=== PATIENT | male | born 1935 | race Caucasian/White ===

== ENCOUNTER 2016-09-28 09:28 | Emergency (ER) | payer OTHER, BC ==
[2016-09-28] MEDS ORDERED: DIPHTH,PERTUSS(ACELL),TET 0.5 ML DISP.SYRIN IM ONE (09:35)
[2016-09-28 09:55] VITALS: BP 183/90; PULSE 67; TEMP 97.8; BMI 32.5
[2016-09-28] MEDS ORDERED: AMOX TR/POT CLAV 875MG/125MG TABLETS (FP) PO ONE (10:00)
[2016-09-28] MEDS ORDERED: AMOX TR/POT CLAV 875MG/125MG TABLETS (FP) ONE (10:08)
--- NOTE | 2016-09-28 10:31 | PDOC ---
History of Present Illness - General Chief Complaint: Injury Stated Complaint: INJURY FINGER Time Seen by Provider: 09/28/16 09:33 History Source: Patient Exam Limitations: No Limitations - History of Present Illness Initial Comments: 09/28/16 10:23 80-year-old male with past medical history of hypertension, hyperlipidemia, prosthetic aortic valve presents with right fourth digit injury. He reports this occurred approximately one week ago. States that it object had actually crushed his fourth finger. He has sustained an injury but he put a bandage on it. Did not see a doctor or what the hospital at that time. Noticed today that the symptoms were getting worse and called his doctor who advised patient go to the ER. Patient denies any fevers or chills. Denies any numbness. Past History - Past Medical History Allergies/Adverse Reactions: Allergies Allergy/AdvReac Type Severity Reaction Status Date / Time No Known Allergies Allergy Verified 12/19/11 15:19 Home Medications: Ambulatory Orders Amlodipine Besylate [Norvasc -] 5 mg PO DAILY #0 tablet 12/26/11 Rosuvastatin Calcium [Crestor] 5 mg PO DAILY #0 tablet 12/26/11 Cholecalciferol (Vitamin D3) [Vitamin D3] 1 tab PO DAILY 10/01/13 Metoprolol Succinate [Toprol XL -] 100 mg PO DAILY 10/01/13 Olmesartan Medoxomil [Benicar -] 20 mg PO DAILY 10/01/13 Amox-Tr/K Cl [Augmentin - 875Mg Tablet] 1 tab PO BID #20 tablet 09/28/16 Apixaban [Eliquis] 5 mg PO DAILY 09/28/16 Anemia: No Asthma: No Cancer: Yes (PROSTATE CA) Cardiac Disorders: Yes (Aortic Valve Prothestic,Bovine) CVA: No COPD: No CHF: No Dementia: No Diabetes: No GI Disorders: No Disorders: No HTN: Yes Hypercholesterolemia: Yes Liver Disease: No Seizures: No Thyroid Disease: No - Surgical History Abdominal Surgery: Yes (umbilical hernia) Cardiac Surgery: Yes (AORTIC VALVE REPLACEMENT) Lung Surgery: No Neurologic Surgery: No Orthopedic Surgery: No - Psycho/Social/Smoking Cessation Hx Anxiety: No Suicidal Ideation: No Smoking Status: No Smoking History: Unknown if ever smoked Have you smoked in the past 12 months: No Number of Cigarettes Smoked Daily: 0 Information on smoking cessation initiated: No Hx Alcohol Use: No Drug/Substance Use Hx: No Substance Use Type: None Hx Substance Use Treatment: No Review of Systems - Review of Systems Able to Perform ROS?: Yes Comments:: 09/28/16 10:24 GENERAL/CONSTITUTIONAL: No fever, weakness. HEAD, EYES, EARS, NOSE AND THROAT: No change in vision. No ear pain or discharge. No sore throat. CARDIOVASCULAR: No chest pain or shortness of breath. RESPIRATORY: No cough, wheezing, or hemoptysis. GASTROINTESTINAL: No abdominal pain, nausea, vomiting, diarrhea, or decreased PO intolerance. GENITOURINARY: No dysuria, frequency, or change in urination. MUSCULOSKELETAL: No joint or muscle swelling or pain. No neck or back pain. SKIN: right fourth digit injury NEUROLOGIC: No headache, vertigo, loss of consciousness, or change in strength/ sensation. ENDOCRINE: No increased thirst. No abnormal weight change. HEMATOLOGIC/LYMPHATIC: No anemia, easy bleeding, or history of blood clots. ALLERGIC/IMMUNOLOGIC: No hives or skin allergy. *Physical Exam - Vital Signs Last Vital Signs Temp Pulse Resp BP Pulse Ox 97.8 F 67 16 183/90 98 09/28/16 09:29 09/28/16 09:29 09/28/16 09:29 09/28/16 09:29 09/28/16 09:29 - Physical Exam Comments: 09/28/16 10:24 GENERAL: Awake, alert, and fully oriented, in no acute distress. HEAD: No signs of trauma EYES: PERRLA, EOMI, sclera anicteric, conjunctiva clear ENT: Auricles normal inspection, hearing grossly normal, nares patent, oropharynx clear without exudates. NECK: Normal ROM, supple, no lymphadenopathy, JVD, or masses LUNGS: Breath sounds equal, clear to auscultation bilaterally. No wheezes, and no crackles HEART: Regular rate and rhythm, normal S1 and S2, no murmurs, rubs or gallops ABDOMEN: Soft, nontender, normoactive bowel sounds. No guarding, no rebound. No masses EXTREMITIES: Normal range of motion, no edema. No clubbing or cyanosis. No cords, erythema, or tenderness 2+ radial pulse. Sensation intact throughout. Proximal nailbed avulsion from cuticle exposed. ~1 cm superficial proximal nailbed laceration. Foul smelling with mild drainage. Surrounding erythema noted. Rest of nailbed intact and adherent to distal digit. Pt able to flex and extend digit. NEUROLOGICAL: Cranial nerves II through XII grossly intact. Normal speech, normal gait SKIN: Warm, Dry, normal turgor, no rashes or lesions noted. ED Treatment Course - RADIOLOGY Radiology Studies Ordered: Category Date Time Status FINGER(S) RIGHT [RAD] Stat Radiology 09/28/16 09:35 Taken - Medications Given in the ED: ED Medications Discontinued Medications Generic Name Dose Route Start Last Admin Trade Name Milindq PRN Reason Stop Dose Admin Amoxicillin/Clavulanate Potassium 1 tab 09/28/16 10:00 09/28/16 10:15 Augmentin - 875mg Tablet PO 09/28/16 10:01 1 tab ONCE ONE Administration Diphtheria/Tetanus/Acell Pertussis 0.5 ml 09/28/16 09:35 09/28/16 10:15 Boostrix - IM 09/28/16 09:36 0.5 ml .ONCE ONE Administration Medical Decision Making - Medical Decision Making 09/28/16 10:31 Vital Signs Temp Pulse Resp BP Pulse Ox 97.8 F 67 16 183/90 98 09/28/16 09:29 09/28/16 09:29 09/28/16 09:29 09/28/16 09:29 09/28/16 09:29 Pt with distal nailbed and 4th digit injury to dominant hand. No apparent tendon injury with full flexion and extension. Given injury occurred several days ago, pt will likely need to heal by secondary intention. The wound appears to be infected at this time. Patient overall nontoxic appearing though Xray obtained of 4th digit. Pending official read. No fractures appreciated but noted with skin defect. Tetanus ordered. Case discussed with DR. Simon (hand surgeon). Recommends that I initiate augmentin BID and hand soaks TID (half water/half hydrogen peroxide) and have the patient follow up in his [place] office tomorrow. Pt verbalises understanding and agrees with plan. I discussed the physical exam findings, ancillary test results and final diagnoses with the patient. I answered all of the patient's questions. The patient was satisfied with the care received and felt comfortable with the discharge plan and treatment plan. The patient will call their primary care physician within 24 hours to arrange follow-up and will return to the Emergency Department with any new, persistant or worsening symptoms. *DC/Admit/Observation/Transfer Diagnosis at time of Disposition: Finger infection - Discharge Dispostion Disposition: HOME Condition at time of disposition: Stable Admit: No - Prescriptions Prescriptions: Amox-Tr/K Cl [Augmentin - 875Mg Tablet] 1 tab PO BID #20 tablet - Referrals Referrals: Malvin Simon MD [Staff Physician] - - Patient Instructions Printed Discharge Instructions: DI for Nail Avulsion Injury Additional Instructions: Your finger is infected. I have discussed the case with the hand specialist DR. Simon. He requests that he sees you in his office tomorrow morning. Please call today to schedule an appointment for tomorrow. When you speak to the psychologist industrial organizational, inform them that I have spoken to DR. Simon, and that DR. Simon is requesting that you are seen tomorrow. Take the augmentin every 12 hours as prescribed. Complete the course. You may take 650 mg tylenol every 4 hours as needed for pain. Soak your finger in a cup of half water and half hydrogen peroxide for 30 minutes, three times a day. Elevate the hand to decrease the swelling
== END 2016-09-28 10:46 | disposition home or self-care (01) ==
LOC: SUPCPDRO 09:28 → FER 09:28
PROC: 3E0234Z Introduction of Serum, Toxoid and Vaccine into Muscle, Percutaneous Approach (ICD-10-PCS; principal; 2016-09-28)
DX: L08.9 Local infection of the skin and subcutaneous tissue, unspecified (principal); Z85.46 Personal history of malignant neoplasm of prostate; I10 Essential (primary) hypertension; E78.00 Pure hypercholesterolemia, unspecified; Z95.2 Presence of prosthetic heart valve; Z79.01 Long term (current) use of anticoagulants
CPT/HCPCS: 73140-TC-RT; 90715; 99282-25

== ENCOUNTER 2017-05-01 15:05 | Emergency (ER) | payer OTHER, BC ==
--- NOTE | 2017-05-01 15:51 | PDOC ---
Rapid Medical Evaluation Time Seen by Provider: 05/01/17 15:47 Medical Evaluation: Allergies Allergy/AdvReac Type Severity Reaction Status Date / Time No Known Allergies Allergy Verified 12/19/11 15:19 05/01/17 15:48 I have performed a brief in-person evaluation of this patient. The patient presents with a chief complaint of nausea, vomiting diarrhea and a headache since this am . Patient states unable to keep food down Pertinent physical exam findings: NAD lungs clear bilaterally heart s1s2 abdomen with + bowel sounds no focal tenderness I have ordered the following: labs ordered The patient will proceed to the Ed for further evaluation.
[2017-05-01 15:55] VITALS: BMI 30.8
[2017-05-01] MEDS ORDERED: SODIUM CHLORIDE 0.9% 500 ML INFUS.BAG IV ONE (16:01)
--- NOTE | 2017-05-01 16:26 | PDOC ---
History of Present Illness - General Chief Complaint: Vomiting/Diarrhea Stated Complaint: DIARRHEA/VOMITING Time Seen by Provider: 05/01/17 15:47 - History of Present Illness Initial Comments: 80-year-old male with past medical history of hypertension, hyperlipidemia, prosthetic aortic valve (on Apixaban) presents prsenting with nausea, vomiting, and diarrhea since this morning. States that it started at 6:00 this AM with a 6 /10 crampy generalized abdominal pain for which he immediately went to the bathroom and had multiple bouts of NBNB N/V/D and eventually a frontal headache described as 3/10 in severity, non-radiating and without visual symptoms, focal neurological deficits, or gait issues. Denies any extraordinary food ingestion, or recent sick symptoms. Of note, he just suffered the loss of a close friend and admits to some sadness but no significant distress or symptomatic depression. 05/01/17 16:30 Past History - Past Medical History Allergies/Adverse Reactions: Allergies Allergy/AdvReac Type Severity Reaction Status Date / Time No Known Allergies Allergy Verified 05/01/17 15:49 Home Medications: Ambulatory Orders Amlodipine Besylate [Norvasc -] 5 mg PO DAILY #0 tablet 12/26/11 Rosuvastatin Calcium [Crestor] 5 mg PO DAILY #0 tablet 12/26/11 Cholecalciferol (Vitamin D3) [Vitamin D3] 1 tab PO DAILY 10/01/13 Metoprolol Succinate [Toprol XL -] 100 mg PO DAILY 10/01/13 Olmesartan Medoxomil [Benicar -] 20 mg PO DAILY 10/01/13 Amox-Tr/K Cl [Augmentin - 875Mg Tablet] 1 tab PO BID #20 tablet 09/28/16 Apixaban [Eliquis] 5 mg PO DAILY 09/28/16 Ondansetron [Zofran *Odt*] 8 mg SL BID #14 od.tablet 05/01/17 Anemia: No Asthma: No Cancer: Yes (PROSTATE CA) Cardiac Disorders: Yes (Aortic Valve Prothestic,Bovine) CVA: No COPD: No CHF: No DVT: No Dementia: No Diabetes: No GI Disorders: No Disorders: No HTN: Yes Hypercholesterolemia: Yes Liver Disease: No Seizures: No Thyroid Disease: No - Surgical History Abdominal Surgery: Yes (umbilical hernia) Cardiac Surgery: Yes (AORTIC VALVE REPLACEMENT) Lung Surgery: No Neurologic Surgery: No Orthopedic Surgery: No - Immunization History Immunization Up to Date: Yes - Suicide/Smoking/Psychosocial Hx Smoking Status: No Smoking History: Unknown if ever smoked Have you smoked in the past 12 months: No Number of Cigarettes Smoked Daily: 0 Information on smoking cessation initiated: No Hx Alcohol Use: No Drug/Substance Use Hx: No Substance Use Type: None Hx Substance Use Treatment: No Review of Systems - Review of Systems Constitutional: No: Chills, Diaphoresis, Fever HEENTM: No: Eye Pain, Blurred Vision, Double Vision Respiratory: No: Cough, Orthopnea, Shortness of Breath, Wheezing Cardiac (ROS): No: Chest Pain, Edema ABD/GI: Yes: Diarrhea, Nausea, Vomiting. No: Constipated : No: Dysuria Musculoskeletal: No: Back Pain, Gout, Joint Pain Integumentary: No: Bruising, Change in Color Neurological: Yes: Headache. No: Numbness, Paresthesia, Seizure, Tingling, Weakness Psychiatric: No: Anxiety, Depression Endocrine: No: Excessive Sweating *Physical Exam - Vital Signs Last Vital Signs Temp Pulse Resp BP Pulse Ox 98.0 F 81 17 181/106 96 05/01/17 15:49 05/01/17 15:49 05/01/17 15:49 05/01/17 15:49 05/01/17 15:49 - Physical Exam General Appearance: Yes: Nourished, Appropriately Dressed. No: Apparent Distress HEENT: positive: EOMI, LENNOX, Normal ENT Inspection, Normal Voice Neck: positive: Trachea midline, Normal Thyroid, Supple. negative: Tender, Rigid Respiratory/Chest: positive: Lungs Clear, Normal Breath Sounds. negative: Chest Tender, Respiratory Distress, Accessory Muscle Use Cardiovascular: positive: Regular Rhythm, Regular Rate Gastrointestinal/Abdominal: positive: Normal Bowel Sounds, Flat, Soft. negative : Tender Musculoskeletal: positive: Normal Inspection. negative: CVA Tenderness Extremity: positive: Normal Capillary Refill, Normal Inspection, Normal Range of Motion, Calf Tenderness. negative: Tender Integumentary: positive: Normal Color, Dry Neurologic: positive: pattern marking supervisor II-XII NML intact, Fully Oriented, Alert, Normal Mood/ Affect, Normal Response, Motor Strength 5/5 ED Treatment Course - LABORATORY CBC & Chemistry Diagram: 05/01/17 16:12 05/01/17 16:12 Medical Decision Making - Medical Decision Making 81 year old male with prosthetic valve (on Apixaban) presenting with N/V/D and abdominal pain this AM. No fevers, chills, or VS instability so overall presentation likely a viral gastroenteritis that has since resolved since receiving zofran,1 L IVNS and is now able to tolerate PO. 05/01/17 17:41 Labs all WNL, BP down to 150s with admin of home amlodipine. Will DC home with follow up instructions. 05/01/17 19:15 *DC/Admit/Observation/Transfer Diagnosis at time of Disposition: Gastroenteritis - Discharge Dispostion Disposition: HOME Condition at time of disposition: Improved Admit: No - Prescriptions Prescriptions: Ondansetron [Zofran *Odt*] 8 mg SL BID #14 od.tablet - Referrals Referrals: Natasha Lawson [Primary Care Provider] - - Patient Instructions Printed Discharge Instructions: DI for Viral Gastroenteritis -- Child Additional Instructions: You likely have a viral stomach infection that will pass on its own. You should stay hydrated and use the nausea medication as instructed. Please return if you cannot keep your medication or food down despite using your nausea medication. - Post Discharge Activity
[2017-05-01 16:31] LABS: BASO % 0.5 % (0-2.0); EOS % 0.3 % (0-4.5); HEMATOCRIT 50.8 % (35.4-49); LYMPH % 2.3 % (8-40); MCH 30.8 pg (25.7-33.7); MCHC 33.4 g/dl (32.0-35.9); MEAN CELL VOLUME 92.3 fl (80-96); MEAN PLT VOLUME 7.7 fl (7.5-11.1); MONO % 2.8 % (3.8-10.2); NEUT % 94.1 % (42.8-82.8); PLATELET COUNT 185 K/MM3 (134-434); RDW 12.8 % (11.9-15.9)
[2017-05-01 17:03] LABS: ALBUMIN 3.7 g/dl (3.4-5.0); ANION GAP 10 (8-16); BLOOD UREA NITROGEN 19 mg/dL (7-18); CALCIUM 8.9 mg/dL (8.5-10.1); CHLORIDE 109 mmol/L (98-107); CO2 25 mmol/L (21-32); GLUCOSE,RANDOM 125 mg/dL (74-106); SODIUM 144 mmol/L (136-145)
[2017-05-01 17:08] LABS: ALK PHOS 88 U/L (45-117); CREATININE 1.2 mg/dL (0.7-1.3); SGOT/AST 14 U/L (15-37); SGPT/ALT 18 U/L (12-78); TOT PROT 7.1 g/dl (6.4-8.2)
--- NOTE | 2017-05-01 18:21 | PDOC ---
Attending Attestation - Resident Resident Name: Padmini Ndiaye - ED Attending Attestation I have performed the following: I have examined & evaluated the patient, The case was reviewed & discussed with the resident, I agree w/resident's findings & plan, Exceptions are as noted - HPI HPI: 05/01/17 18:21 81 yo male had nausea vomiting and diarrhea since this morning - Physicial Exam PE: 05/01/17 18:22 81 yo male p/w NVD head ncat neck supple cvs rrr s1s2 lungs cta b/l abd soft,nontender,no rebound,no guarding ext no deformity skin warm and dry neuro a xox3 ,ambulatory psych appropriate - Medical Decision Making 05/02/17 01:15 pt discharged home
[2017-05-01 18:24] LABS: LIPASE 250 U/L (73-393)
[2017-05-01] MEDS ORDERED: amLODIPine BESYLATE 5 MG TABLET (FP) PO ONE (18:40)
[2017-05-01] MEDS ORDERED: amLODIPine BESYLATE 5 MG TABLET (FP) ONE (18:47)
[2017-05-01 19:59] VITALS: BP 151/94; PULSE 76; TEMP 98
== END 2017-05-01 19:59 | disposition home or self-care (01) ==
LOC: JER 15:05
DX: K52.9 Noninfective gastroenteritis and colitis, unspecified (principal); I10 Essential (primary) hypertension; E78.5 Hyperlipidemia, unspecified
CPT/HCPCS: 36415; 80053; 83690; 85025; 99282-25

== ENCOUNTER 2017-05-11 20:54 | Inpatient (IN) | payer OTHER, BC ==
--- NOTE | 2017-05-11 21:07 | PDOC ---
History of Present Illness - General History Source: Patient Exam Limitations: No Limitations - History of Present Illness Initial Comments: 05/11/17 21:27 The patient is an 81 year old male with pmhx of hypertension, hyperlipidemia, s/ p aortic valve replacement (on Eliquis), and prostate CA who presents to the ED with complaints of subjective fever for the past few days. He states his children sent him in because of the dizziness and chills he has been having. He states that when he stands up or changes position he becomes dizzy as if the room is spinning. He additionally complains of being more tired than usual. He reports being seen 10 days ago in the ED for a stomach illness which had resolved. The patient denies any nausea, vomiting, diarrhea, cough, SOB, CP, or urinary symptoms. <Anh Rangel - Last Filed: 05/11/17 21:27> <Adalid Cook - Last Filed: 05/12/17 02:30> - General Chief Complaint: Lightheaded Stated Complaint: CHILLS, DIZZINESS Past History <Anh Rangel - Last Filed: 05/11/17 21:27> - Past Medical History Anemia: No Asthma: No Cancer: Yes (PROSTATE CA) Cardiac Disorders: Yes (Aortic Valve Prothestic,Bovine) CVA: No COPD: No CHF: No DVT: No Dementia: No Diabetes: No GI Disorders: (RECENT GASTROENTERITIS) Disorders: No HTN: Yes Hypercholesterolemia: Yes Liver Disease: No Seizures: No Thyroid Disease: No - Surgical History Abdominal Surgery: Yes (umbilical hernia) Cardiac Surgery: Yes (AORTIC VALVE REPLACEMENT) Lung Surgery: No Neurologic Surgery: No Orthopedic Surgery: No - Immunization History Immunization Up to Date: Yes - Suicide/Smoking/Psychosocial Hx Smoking Status: No Smoking History: Never smoked Have you smoked in the past 12 months: No Number of Cigarettes Smoked Daily: 0 Hx Alcohol Use: No Drug/Substance Use Hx: No Substance Use Type: None Hx Substance Use Treatment: No <Adalid Cook - Last Filed: 05/12/17 02:30> - Past Medical History Allergies/Adverse Reactions: Allergies Allergy/AdvReac Type Severity Reaction Status Date / Time No Known Allergies Allergy Verified 05/01/17 15:49 Home Medications: Ambulatory Orders Rosuvastatin Calcium [Crestor] 5 mg PO DAILY #0 tablet 12/26/11 Cholecalciferol (Vitamin D3) [Vitamin D3] 1 tab PO DAILY 10/01/13 Metoprolol Succinate [Toprol XL -] 100 mg PO DAILY 10/01/13 Apixaban [Eliquis] 5 mg PO DAILY 09/28/16 Amiodarone HCl 100 mg PO DAILY 05/01/17 Amlodipine Besylate [Norvasc -] 10 mg PO DAILY 05/01/17 Furosemide 20 mg PO DAILY 05/01/17 Olmesartan Medoxomil [Benicar] 20 mg PO DAILY 05/01/17 Review of Systems - Review of Systems Able to Perform ROS?: Yes Comments:: 05/11/17 21:27 GENERAL/CONSTITUTIONAL: Present: fever, chills, weakness HEAD, EYES, EARS, NOSE AND THROAT: No change in vision. No ear pain or discharge. No sore throat. CARDIOVASCULAR: No chest pain or shortness of breath. RESPIRATORY: No cough, wheezing, or hemoptysis. GASTROINTESTINAL: No nausea, vomiting, diarrhea or constipation. GENITOURINARY: No dysuria, frequency, or change in urination. MUSCULOSKELETAL: No joint or muscle swelling or pain. No neck or back pain. SKIN: No rash NEUROLOGIC: Present: dizziness No headache, loss of consciousness, or change in strength/sensation. ENDOCRINE: No increased thirst. No abnormal weight change. HEMATOLOGIC/LYMPHATIC: No anemia, easy bleeding, or history of blood clots. ALLERGIC/IMMUNOLOGIC: No hives or skin allergy. All Other Systems: Reviewed and Negative <Anh Rangel - Last Filed: 05/11/17 21:27> *Physical Exam - Vital Signs Last Vital Signs Temp Pulse Resp BP Pulse Ox 99.2 F 70 20 176/90 95 05/11/17 20:55 05/11/17 20:55 05/11/17 20:55 05/11/17 20:55 05/11/17 20:55 - Physical Exam Comments: 05/11/17 21:28 GENERAL: Awake, alert, and fully oriented, in no acute distress HEAD: No signs of trauma EYES: PERRLA, EOMI, sclera anicteric, conjunctiva clear ENT: Auricles normal inspection, hearing grossly normal, nares patent, oropharynx clear without exudates. Moist mucosa NECK: Normal ROM, supple, no lymphadenopathy, JVD, or masses LUNGS: Breath sounds equal, clear to auscultation bilaterally. No wheezes, and no crackles HEART: Regular rate and rhythm, normal S1 and S2, no murmurs, rubs or gallops ABDOMEN: Soft, nontender, normoactive bowel sounds. No guarding, no rebound. No masses EXTREMITIES: Normal range of motion, no edema. No clubbing or cyanosis. No cords, erythema, or tenderness NEUROLOGICAL: Cranial nerves II through XII grossly intact. Normal speech, normal gait SKIN: Warm, Dry, normal turgor, no rashes or lesions noted. <Anh Rangel - Last Filed: 05/11/17 21:27> - Vital Signs Last Vital Signs Temp Pulse Resp BP Pulse Ox 99.2 F 70 20 176/90 95 05/11/17 20:55 05/11/17 20:55 05/11/17 20:55 05/11/17 20:55 05/11/17 20:55 <Adalid Cook - Last Filed: 05/12/17 02:30> ED Treatment Course - LABORATORY CBC & Chemistry Diagram: 05/11/17 21:30 05/11/17 21:30 <Adalid Cook - Last Filed: 05/12/17 02:30> Medical Decision Making - Medical Decision Making 05/12/17 02:29 CXR--retrocardiac opacity, as read by me, referred to radiology for definitive read a/p nosocomial pna (Overnight ED stay 10 days ago) broad spectrum abx fluid resusc <Adalid Cook - Last Filed: 05/12/17 02:30> *DC/Admit/Observation/Transfer - Attestations Scribe Attestion: 05/11/17 21:28 Documentation prepared by Anh Rangel, acting as behavioral medical director for Adalid Cook MD/DO. <Anh Rangel - Last Filed: 05/11/17 21:27> - Discharge Dispostion Admit: Yes <Adalid Cook - Last Filed: 05/12/17 02:30> Diagnosis at time of Disposition: Pneumonia Qualifiers: Pneumonia type: due to unspecified organism Laterality: unspecified laterality Lung location: lower lobe of lung Qualified Code(s): J18.1 - Lobar pneumonia, unspecified organism - Discharge Dispostion Condition at time of disposition: Stable
[2017-05-11 21:49] LABS: BASO % 3.3 % (0-2.0); EOS % 1.5 % (0-4.5); HEMATOCRIT 46.8 % (35.4-49); HEMOGLOBIN 15.4 GM/dl (11.7-16.9); MCH 30.5 pg (25.7-33.7); MCHC 32.9 g/dl (32.0-35.9); MEAN CELL VOLUME 92.7 fl (80-96); MEAN PLT VOLUME 7.9 fl (7.5-11.1); MONO % 9.6 % (3.8-10.2); NEUT % 77.6 % (42.8-82.8); PLATELET COUNT 174 K/MM3 (134-434); RBC 5.05 M/mm3 (4.00-5.60); RDW 11.9 % (11.9-15.9); WHITE BLOOD COUNT 6.7 K/mm3 (4.0-10.8)
[2017-05-11 22:01] LABS: ALBUMIN 3.9 g/dl (3.5-5.0); ALK PHOS 70 U/L (32-92); ANION GAP 3 (8-16); BILIRUBIN,TOTAL 0.5 mg/dl (0.2-1.0); BLOOD UREA NITROGEN 17 mg/dl (7-18); CALCIUM 9.1 mg/dl (8.4-10.2); CHLORIDE 103 mmol/L (98-107); CO2 27 mmol/L (22-28); CREATININE 1.3 mg/dl (0.6-1.3); GLUCOSE,RANDOM 113 mg/dl (74-106); POTASSIUM 4.4 mmol/L (3.5-5.1); SGOT/AST 25 U/L (10-42); SGPT/ALT 18 U/L (10-40); SODIUM 133 mmol/L (136-145); TOT PROT 6.5 g/dl (6.4-8.3)
[2017-05-11] MEDS ORDERED: PIPERACILLIN/TAZOB 4.5 GM/100 ML PREMIX BAG IVPB ONE (22:47)
[2017-05-11] MEDS ORDERED: VANCOMYCIN 1,000 MG in DEXTROSE 5%-WATER - 250 ML IVPB ONE (22:47)
[2017-05-11] MEDS ORDERED: VANCOMYCIN 1,000 MG VIAL (RESTRICTED TO ID ONLY) ONE (22:51)
[2017-05-11] MEDS ORDERED: PIPERACILLIN/TAZOBACTAM 4.5 GM VIAL IVPB ONE (22:51)
--- NOTE | 2017-05-11 23:17 | HP ---
Admitting History and Physical - Primary Care Physician PCP: Natasha Lawson - Admission Chief Complaint: Fever,Chills, increased Confusion History of Present Illness: This is a 81 y/o man who presents to the ED with fever, chills, lethargy since today. Patient's son reports his dad is acting confused and not at his usual baseline. Patient denies numbness, tingling, facial droop, slurred speech. Patient denies cough, SOB, dizziness, YAN, CP, AP, N/V/D, constipation, dysuria History Source: Family Member Limitations to Obtaining History: Clinical Condition, Poor Historian - Past Medical History Cardiovascular: Yes: Aortic Insufficiency, HTN, Hyperlipdemia Renal/: Yes: Cancer (prostate (seed implant)) Infectious Disease: Yes: MRSA (perianal abcess) - Past Surgical History Past Surgical History: Yes: Valve Replacement (aortic (on Eliquis)) - Smoking History Smoking history: Never smoked Have you smoked in the past 12 months: No Aproximately how many cigarettes per day: 0 - Alcohol/Substance Use Hx Alcohol Use: No History of Substance Use: reports: None - Social History Usual Living Arrangement: Yes: Alone ADL: Independent History of Recent Travel: No Home Medications - Allergies Allergies/Adverse Reactions: Allergies Allergy/AdvReac Type Severity Reaction Status Date / Time No Known Allergies Allergy Verified 05/01/17 15:49 - Home Medications Home Medications: Ambulatory Orders Rosuvastatin Calcium [Crestor] 5 mg PO DAILY #0 tablet 12/26/11 Cholecalciferol (Vitamin D3) [Vitamin D3] 1 tab PO DAILY 10/01/13 Metoprolol Succinate [Toprol XL -] 100 mg PO DAILY 10/01/13 Apixaban [Eliquis] 5 mg PO DAILY 09/28/16 Amiodarone HCl 100 mg PO DAILY 05/01/17 Amlodipine Besylate [Norvasc -] 10 mg PO DAILY 05/01/17 Furosemide 20 mg PO DAILY 05/01/17 Olmesartan Medoxomil [Benicar] 20 mg PO DAILY 05/01/17 Family Disease History - Family Disease History Family History: Unable to Obtain Review of Systems - Review of Systems Constitutional: reports: Chills, Fever, Lethargy Eyes: reports: No Symptoms HENT: reports: No Symptoms Neck: reports: No Symptoms Cardiovascular: reports: No Symptoms Respiratory: reports: No Symptoms Gastrointestinal: reports: No Symptoms Genitourinary: reports: No Symptoms Breasts: reports: No Symptoms Reported Musculoskeletal: reports: No Symptoms Integumentary: reports: No Symptoms Neurological: reports: Confusion (per son) Endocrine: reports: No Symptoms Hematology/Lymphatic: reports: No Symptoms Psychiatric: reports: No Symptoms Physical Examination Vital Signs: Vital Signs Temperature 99.2 F 05/11/17 20:55 Pulse Rate 70 05/11/17 20:55 Respiratory Rate 20 05/11/17 20:55 Blood Pressure 176/90 05/11/17 20:55 O2 Sat by Pulse Oximetry (%) 95 05/11/17 20:55 Constitutional: Yes: Well Nourished, Obese Eyes: Yes: WNL, Conjunctiva Clear, EOM Intact, PERRL HENT: Yes: WNL, Atraumatic, Normocephalic Neck: Yes: WNL, Supple, Trachea Midline Cardiovascular: Yes: Regular Rate and Rhythm, Murmur, S1, S2 Respiratory: Yes: Diminished (bases), Wheezes (scattered) Gastrointestinal: Yes: Normal Bowel Sounds, Abdomen, Obese ...Rectal Exam: Yes: Deferred Renal/: Yes: WNL Breast(s): Yes: WNL Musculoskeletal: Yes: WNL Extremities: Yes: WNL Edema: No Peripheral Pulses WNL: Yes Integumentary: Yes: WNL Neurological: Yes: WNL, Alert, Confusion, Cran Nerves II-XII Intact ...Motor Strength: WNL Psychiatric: Yes: WNL, Alert Labs: CBC, BMP 05/11/17 21:30 05/11/17 21:30 Laboratory Results - last 24 hr 05/11/17 05/11/17 05/11/17 21:30 21:30 21:30 WBC 6.7 RBC 5.05 Hgb 15.4 Hct 46.8 MCV 92.7 MCH 30.5 MCHC 32.9 RDW 11.9 Plt Count 174 MPV 7.9 Neutrophils % 77.6 Lymphocytes % 8.0 Monocytes % 9.6 Eosinophils % 1.5 Basophils % 3.3 H Sodium 133 L Potassium 4.4 Chloride 103 Carbon Dioxide 27 Anion Gap 3 L BUN 17 Creatinine 1.3 Creat Clearance w eGFR 53.12 Random Glucose 113 H Lactic Acid 1.0 Calcium 9.1 Total Bilirubin 0.5 AST 25 ALT 18 Alkaline Phosphatase 70 Total Protein 6.5 Albumin 3.9 Urine Color Urine Appearance Urine pH Ur Specific [place]cd[place] Urine Protein Urine Glucose (UA) Urine Ketones Urine Blood Urine Nitrite Urine Bilirubin Urine Urobilinogen Ur Leukocyte Esterase Urine RBC Urine WBC Urine Bacteria 05/11/17 23:26 WBC RBC Hgb Hct MCV MCH MCHC RDW Plt Count MPV Neutrophils % Lymphocytes % Monocytes % Eosinophils % Basophils % Sodium Potassium Chloride Carbon Dioxide Anion Gap BUN Creatinine Creat Clearance w eGFR Random Glucose Lactic Acid Calcium Total Bilirubin AST ALT Alkaline Phosphatase Total Protein Albumin Urine Color Yellow Urine Appearance Clear Urine pH 6.5 Ur Specific Mcdaniels 1.020 Urine Protein Trace Urine Glucose (UA) Negative Urine Ketones Negative Urine Blood Trace-intact H Urine Nitrite Negative Urine Bilirubin Negative Urine Urobilinogen 0.2 Ur Leukocyte Esterase Negative Urine RBC 2-4 Urine WBC 0-2 Urine Bacteria Few Intake & Output 05/09/17 05/10/17 05/11/17 05/12/17 23:59 23:59 23:59 23:59 Intake Total 1350 Output Total 300 Balance 1050 Weight 103.419 kg 98.475 kg Imaging - Results Chest X-ray: Image Reviewed EKG: Image Reviewed Problem List - Problems (1) Pneumonia Assessment/Plan: - Likely CAP vs HAP - CURB65 Score- 2 - Chest xray- ? retrograde opacity - Blood Cultures- pending - Urine Cultures- pending - Urine Legionella- pending - Rapid flu- negative, given Tamiflu x1 in ED - Zosyn, Vancomycin given in ED - Will start Doxycycline, Ceftriaxone instead of Azithromycin 2/2 ECG- prolonged QT - Monitor CBC - Monitor vitals Code(s): J18.9 - PNEUMONIA, UNSPECIFIED ORGANISM Qualifiers: Pneumonia type: due to unspecified organism Laterality: unspecified laterality Lung location: lower lobe of lung Qualified Code(s): J18.1 - Lobar pneumonia, unspecified organism (2) HTN (hypertension) Assessment/Plan: - Controlled - Monitor BP - Continue Norvasc, Toprol Xl, Benicar with parameters - Monitor renal function Code(s): I10 - ESSENTIAL (PRIMARY) HYPERTENSION (3) HLD (hyperlipidemia) Assessment/Plan: - Continue Crestor - Monitor LFTs Code(s): E78.5 - HYPERLIPIDEMIA, UNSPECIFIED (4) S/P aortic valve replacement Assessment/Plan: - Continue Eliquis Code(s): Z95.2 - PRESENCE OF PROSTHETIC HEART VALVE (5) DVT prophylaxis Assessment/Plan: - OOB - SCD - Continue Eliqus Code(s): [id number] - Assessment/Plan This is a 81 y/o man with a PMHx of HTN, HLD, s/p AVR (on Eliquis), Prostate Ca (seed implant). Placed in Observation Pneumonia, weakness FEN - PO Fluids - Replete lytes prn - Low Na Diet Code Status: Full Code Dispo: Observation Visit type - Emergency Visit Emergency Visit: Yes ED Registration Date: 05/11/17 Care time: The patient presented to the Emergency Department on the above date and was hospitalized for further evaluation of their emergent condition. - New Patient This patient is new to me today: Yes Date on this admission: 05/11/17 - Critical Care Critical Care patient: No
[2017-05-11 23:30] LABS: PH,URINE 6.5 (4.5-8); URINE APPEARANCE Clear; URINE BILIRUBIN Negative (NEGATIVE); URINE GLUCOSE (UA) Negative (NEGATIVE); URINE KETONE Negative (NEGATIVE); URINE LEUK ESTERASE Negative (NEGATIVE); URINE NITRITE Negative (NEGATIVE); URINE PROTEIN Trace (NEGATIVE); URINE UROBILINOGEN 0.2 (0.2-1.0)
[2017-05-11 23:31] LABS: URINE BLOOD Trace-intact (NEGATIVE); URINE COLOR YELLOW
[2017-05-11 23:37] LABS: URINE WBC 0-2 (0-2)
[2017-05-11 23:38] LABS: URINE BACTERIA FEW /hpf (NEGATIVE)
[2017-05-12 01:41] VITALS: BMI 31.1
[2017-05-12 07:49] LABS: BASO % 0.9 % (0-2.0); EOS % 1.1 % (0-4.5); HEMATOCRIT 40.4 % (35.4-49); HEMOGLOBIN 13.9 GM/dl (11.7-16.9); LYMPH % 9.5 % (8-40); MCH 32.1 pg (25.7-33.7); MCHC 34.5 g/dl (32.0-35.9); MEAN CELL VOLUME 92.9 fl (80-96); MEAN PLT VOLUME 7.4 fl (7.5-11.1); MONO % 14.2 % (3.8-10.2); NEUT % 74.3 % (42.8-82.8); PLATELET COUNT 137 K/MM3 (134-434); RBC 4.34 M/mm3 (4.00-5.60); RDW 11.8 % (11.9-15.9)
[2017-05-12 08:20] LABS: ANION GAP 6 (8-16); BLOOD UREA NITROGEN 14 mg/dl (7-18); CALCIUM 8.5 mg/dl (8.4-10.2); CHLORIDE 100 mmol/L (98-107); CO2 27 mmol/L (22-28); CREATININE 1.3 mg/dl (0.6-1.3); GLUCOSE,RANDOM 102 mg/dl (74-106); PHOSPHOROUS 2.8 mg/dl (2.5-4.6); POTASSIUM 3.8 mmol/L (3.5-5.1); SODIUM 133 mmol/L (136-145)
[2017-05-12] MEDS: amLODIPine BESYLATE 10 MG TABLET (FP) PO SCH (10:00)
[2017-05-12] MEDS: CHOLECALCIFEROL (VITAMIN D3) 1,000 UNIT TABLET (FP) PO SCH (10:00)
[2017-05-12] MEDS ORDERED: DOXYCYCLINE INJECTION 100 MG in DEXTROSE 5%-WATER - 100 ML IVPB SCH (10:00)
[2017-05-12] MEDS ORDERED: APIXABAN 5 MG TABLET PO SCH (10:00)
[2017-05-12] MEDS ORDERED: FUROSEMIDE 20 MG TABLET (FP) PO SCH (10:00)
[2017-05-12] MEDS: METOPROLOL SUCCINATE 100 MG TAB.SR.24H (FP) PO SCH (10:00)
[2017-05-12] MEDS ORDERED: CEFTRIAXONE 1 GM in DEXTROSE 5%-WATER - 100 ML IVPB SCH (10:00)
[2017-05-12] MEDS: AMIODARONE HCL 200 MG TABLET (FP) PO SCH (10:00)
--- NOTE | 2017-05-12 12:32 | EKG ---
Test Reason : Blood Pressure : / mmHG Vent. Rate : 068 BPM Atrial Rate : 068 BPM P-R Int : 262 ms QRS Dur : 140 ms QT Int : 458 ms P-R-T Axes : -09 015 017 degrees QTc Int : 487 ms SINUS RHYTHM WITH 1ST DEGREE A-V BLOCK RIGHT BUNDLE BRANCH BLOCK ABNORMAL ECG WHEN COMPARED WITH ECG OF 19-DEC-2011 17:19, RIGHT BUNDLE BRANCH BLOCK IS NOW PRESENT Confirmed by TORY AMTA, LANRE ([id number]) on 05/12/2017 12:31:47 PM Referred By: MD GUZMAN Confirmed By:LANRE SPEARS MD
--- NOTE | 2017-05-12 12:57 | PN ---
Physical Exam: SUBJECTIVE: Patient seen and examined. and son present. Patient states he is weak and feels unwell. Has been coughing for several days, productive, but does not know color of sputum. OBJECTIVE: Vital Signs Period Temp Pulse Resp BP Sys/Bacon Pulse Ox Last 24 Hr 101 rectal 57-70 18-20 121-176/54-90 95-98 GENERAL: The patient is awake, alert, and fully oriented. Ill-appearing. LUNGS: Audibly wheezing; anterior bilateral wheezing; diminished breath sounds at bases HEART: Regular rate and rhythm, S1, S2 ABDOMEN: Soft, nontender, nondistended, normoactive bowel sounds, no guarding, no rebound, no hepatosplenomegaly, no masses. EXTREMITIES: 2+ pulses, warm, well-perfused, no edema. NEUROLOGICAL: Cranial nerves II through XII grossly intact. Normal speech, gait not observed. Laboratory Results - last 24 hr 05/11/17 05/11/17 05/11/17 21:30 21:30 21:30 WBC 6.7 RBC 5.05 Hgb 15.4 Hct 46.8 MCV 92.7 MCH 30.5 MCHC 32.9 RDW 11.9 Plt Count 174 MPV 7.9 Neutrophils % 77.6 Lymphocytes % 8.0 Monocytes % 9.6 Eosinophils % 1.5 Basophils % 3.3 H Sodium 133 L Potassium 4.4 Chloride 103 Carbon Dioxide 27 Anion Gap 3 L BUN 17 Creatinine 1.3 Creat Clearance w eGFR 53.12 Random Glucose 113 H Lactic Acid 1.0 Calcium 9.1 Phosphorus Magnesium Total Bilirubin 0.5 AST 25 ALT 18 Alkaline Phosphatase 70 Total Protein 6.5 Albumin 3.9 Urine Color Urine Appearance Urine pH Ur Specific [place] Urine Protein Urine Glucose (UA) Urine Ketones Urine Blood Urine Nitrite Urine Bilirubin Urine Urobilinogen Ur Leukocyte Esterase Urine RBC Urine WBC Urine Bacteria 05/11/17 05/12/17 05/12/17 23:26 07:38 07:38 WBC 4.0 D RBC 4.34 Hgb 13.9 Hct 40.4 MCV 92.9 MCH 32.1 MCHC 34.5 RDW 11.8 L Plt Count 137 D MPV 7.4 L Neutrophils % 74.3 Lymphocytes % 9.5 Monocytes % 14.2 H Eosinophils % 1.1 Basophils % 0.9 Sodium 133 L Potassium 3.8 Chloride 100 Carbon Dioxide 27 Anion Gap 6 L BUN 14 Creatinine 1.3 Creat Clearance w eGFR Random Glucose 102 Lactic Acid Calcium 8.5 Phosphorus 2.8 Magnesium 2.0 Total Bilirubin AST ALT Alkaline Phosphatase Total Protein Albumin Urine Color Yellow Urine Appearance Clear Urine pH 6.5 Ur Specific [place] 1.020 Urine Protein Trace Urine Glucose (UA) Negative Urine Ketones Negative Urine Blood Trace-intact H Urine Nitrite Negative Urine Bilirubin Negative Urine Urobilinogen 0.2 Ur Leukocyte Esterase Negative Urine RBC 2-4 Urine WBC 0-2 Urine Bacteria Few Current Medications Generic Name Dose Route Start Last Admin Trade Name Freq PRN Reason Stop Dose Admin Amiodarone HCl 100 mg 05/12/17 10:00 05/12/17 10:00 Cordarone - PO 100 mg DAILY JELLY Administration Amlodipine Besylate 10 mg 05/12/17 10:00 05/12/17 10:00 Norvasc - PO 10 mg DAILY JELLY Administration Apixaban 5 mg 05/12/17 10:00 Eliquis - PO DAILY JELLY Cholecalciferol 1,000 unit 05/12/17 10:00 05/12/17 10:00 Vitamin D3 - PO 1,000 unit DAILY JELLY Administration Sodium Chloride 1,000 mls @ 100 mls/hr 05/12/17 15:39 Normal Saline - IV ASDIR JELLY Metoprolol Succinate 100 mg 05/12/17 10:00 05/12/17 10:00 Toprol Xl - PO 100 mg DAILY JELLY Administration Oseltamivir Phosphate 75 mg 05/12/17 15:00 05/12/17 15:00 Tamiflu - PO 05/17/17 14:59 75 mg BID JELLY Administration Piperacillin/Tazobactam/Dextrose 3.375 gm 05/12/17 18:00 Zosyn 3.375gm Ivpb (Premix) IVPB Q8H-IV JELLY Rosuvastatin Calcium 5 mg 05/12/17 22:00 Crestor - PO HS [facility] ASSESSMENT/PLAN 81 year-old male with a PMH significant for HTN, HLD, tissue aortic valve replacement on Eliquis, and prostate cancer. Admitted for fever, cough, and malaise likely secondary to influenza v. pneumonia. Influenza r/o pneumonia --clinical signs and symptoms: fever to 100.6, cough, hypoxic, and sudden onset of body aches and malaise 24 hours ago --flu swab negative but will treat clinical influenza with Tamiflu --CT chest negative for acute process --start empiric Vanc and Zosyn --ID consult requested --NS x 1L, then hourly Hypertension --continue Toprol XL --hold amlodipine for borderline BP --hold home Lasix Hyperlipidemia --continue Crestor Tissue aortic valve replacement --continue Eliquis, amiodarone Prostate cancer --no acute issues FEN Fluids: NS @ 100mL/hr Electrolytes: replete as indicated Nutrition: low sodium DVT prophylaxis: on Eliquis Physical therapy Dispo: continues to require inpatient care. Full code. Visit type - Emergency Visit Emergency Visit: Yes ED Registration Date: 05/11/17 Care time: The patient presented to the Emergency Department on the above date and was hospitalized for further evaluation of their emergent condition. - New Patient This patient is new to me today: Yes Date on this admission: 05/12/17 - Critical Care Critical Care patient: No
[2017-05-12] MEDS ORDERED: SODIUM CHLORIDE 1,000 ML IV STA (14:40)
[2017-05-12] MEDS: OSELTAMIVIR PHOSPHATE 75 MG CAPSULE PO SCH ×2 (15:00→21:29)
[2017-05-12] MEDS ORDERED: ACETAMINOPHEN 325 MG TABLET (FP) PO ONE (15:00)
[2017-05-12] MEDS ORDERED: VANCOMYCIN 1,500 MG in DEXTROSE 5%-WATER - 500 ML IVPB ONE (15:04)
[2017-05-12] MEDS ORDERED: PIPERACIL/TAZOB 3.375 GM 3.375 GM/50 ML PREMIX IVPB SCH (15:15)
[2017-05-12] MEDS ORDERED: ALBUTEROL SO4 2.5/IPRATROPIUM 0.5 INH SOL 3 ML VIAL.NEB. NEB STA (17:45)
[2017-05-12] MEDS ORDERED: ALBUTEROL SO4 2.5/IPRATROPIUM 0.5 INH SOL 3 ML VIAL.NEB. NEB ONE (17:52)
[2017-05-12] MEDS: SODIUM CHLORIDE 1,000 ML IV SCH (18:08)
[2017-05-12] MEDS: PIPERACIL/TAZOB 3.375 GM 3.375 GM/50 ML PREMIX IVPB SCH (18:09)
[2017-05-12] MEDS ORDERED: ALBUTEROL SO4 2.5/IPRATROPIUM 0.5 INH SOL 3 ML VIAL.NEB. NEB SCH (20:00)
[2017-05-12] MEDS: ROSUVASTATIN CA 5 MG TABLET (FP) PO SCH (21:29)
[2017-05-13] MEDS: PIPERACIL/TAZOB 3.375 GM 3.375 GM/50 ML PREMIX IVPB SCH (01:40)
[2017-05-13] MEDS: ALBUTEROL SO4 2.5/IPRATROPIUM 0.5 INH SOL 3 ML VIAL.NEB. NEB SCH ×5 (01:40→21:20)
[2017-05-13] MEDS: AMIODARONE HCL 200 MG TABLET (FP) PO SCH (09:00)
--- NOTE | 2017-05-13 09:09 | PN ---
Physical Exam: SUBJECTIVE: Patient seen and examined sitting on edge of bed eating lunch. Feels much improved. Still with cough. OBJECTIVE: Vital Signs Period Temp Pulse Resp BP Sys/Bacon Pulse Ox Last 24 Hr 99.1 F-100.6 F 56-61 18-19 112-142/47-55 92-100 GENERAL: The patient is awake, alert, and fully oriented, in no acute distress. LUNGS: No wheezing appreciated; diminished breath sounds at the bases, mild bibasilar crackles HEART: Regular rate and rhythm, S1, S2 ABDOMEN: Soft, nontender, nondistended, normoactive bowel sounds, no guarding, no rebound EXTREMITIES: 2+ pulses, warm, well-perfused, no edema. NEUROLOGICAL: Cranial nerves II through XII grossly intact. Normal speech, gait not observed. Current Medications Generic Name Dose Route Start Last Admin Trade Name Freq PRN Reason Stop Dose Admin Albuterol/Ipratropium 1 amp 05/12/17 22:00 05/13/17 14:10 Duoneb - NEB 1 amp Q4H JELLY Administration Amiodarone HCl 100 mg 05/12/17 10:00 05/13/17 09:00 Cordarone - PO 100 mg DAILY JELLY Administration Amlodipine Besylate 10 mg 05/12/17 10:00 05/12/17 10:00 Norvasc - PO 10 mg DAILY JELLY Administration Apixaban 5 mg 05/13/17 22:00 Eliquis - PO BID JELLY Cholecalciferol 1,000 unit 05/12/17 10:00 05/13/17 10:05 Vitamin D3 - PO 1,000 unit DAILY JELLY Administration Sodium Chloride 1,000 mls @ 100 mls/hr 05/12/17 15:39 05/13/17 16:11 Normal Saline - IV 100 mls/hr ASDIR JELLY Administration CEFTRIAXONE IN IS-OSM DEXTROSE 2 gm in 50 mls @ 100 mls/hr 05/13/17 11:00 12:06 Ceftriaxone 2 Gm-D5w Bag IVPB 100 mls/hr DAILY JELLY Administration Metoprolol Succinate 100 mg 05/12/17 10:00 05/13/17 10:05 Toprol Xl - PO 100 mg DAILY JELLY Administration Oseltamivir Phosphate 75 mg 05/12/17 15:00 05/13/17 11:58 Tamiflu - PO 05/17/17 14:59 75 mg BID JELLY Administration Rosuvastatin Calcium 5 mg 05/12/17 22:00 05/12/17 21:29 Crestor - PO 5 mg HS JELLY Administration ASSESSMENT/PLAN 81 year-old male with a PMH significant for HTN, HLD, tissue aortic valve replacement on Eliquis, and prostate cancer. Admitted for fever, cough, and malaise likely secondary to influenza v. pneumonia. Influenza r/o pneumonia --clinical signs and symptoms on admission consistent with influenza: fever to 100.6, cough, hypoxic, and sudden onset of body aches and malaise --flu swab negative but will treat continue to treat for clinical influenza with Tamiflu --CT chest negative for acute process --per ID, continue ceftriaxone (day #2) Hypertension --continue Toprol XL --BP has risen, resume amlodipine --hold home Lasix Hyperlipidemia --continue Crestor Tissue aortic valve replacement --continue Eliquis, amiodarone Prostate cancer --no acute issues FEN Fluids: PO intake adequate Electrolytes: replete as indicated Nutrition: low sodium DVT prophylaxis: on Eliquis Physical therapy Dispo: continues to require inpatient care. Full code. Visit type - Emergency Visit Emergency Visit: Yes ED Registration Date: 05/13/17 Care time: The patient presented to the Emergency Department on the above date and was hospitalized for further evaluation of their emergent condition. - New Patient This patient is new to me today: No - Critical Care Critical Care patient: No
[2017-05-13 10:02] LABS: BASO % 0.6 % (0-2.0); EOS % 0.5 % (0-4.5); HEMOGLOBIN 14.9 GM/dl (11.7-16.9); LYMPH % 15.1 % (8-40); MCH 30.9 pg (25.7-33.7); MCHC 33.2 g/dl (32.0-35.9); MEAN CELL VOLUME 93.1 fl (80-96); MEAN PLT VOLUME 8.6 fl (7.5-11.1); MONO % 11.6 % (3.8-10.2); NEUT % 72.2 % (42.8-82.8); PLATELET COUNT 140 K/MM3 (134-434); RBC 4.83 M/mm3 (4.00-5.60); RDW 11.9 % (11.9-15.9); WHITE BLOOD COUNT 3.7 K/mm3 (4.0-10.8)
[2017-05-13] MEDS: METOPROLOL SUCCINATE 100 MG TAB.SR.24H (FP) PO SCH (10:05)
[2017-05-13] MEDS: CHOLECALCIFEROL (VITAMIN D3) 1,000 UNIT TABLET (FP) PO SCH (10:05)
--- NOTE | 2017-05-13 10:49 | PN ---
Progress Note (short form) - Note Progress Note: ID Consult dictated Probable acute influenza Possible secondary bacterial pneumonitis S/P AVR Await sepsis work up Continue empiric Tamiflu Empiric ceftriaxone 2gm IVPB daily
[2017-05-13 11:23] LABS: ALBUMIN 3.2 g/dl (3.5-5.0); ALK PHOS 56 U/L (32-92); ANION GAP 8 (8-16); BILIRUBIN,TOTAL 0.7 mg/dl (0.2-1.0); BLOOD UREA NITROGEN 14 mg/dl (7-18); CALCIUM 8.6 mg/dl (8.4-10.2); CHLORIDE 101 mmol/L (98-107); CO2 26 mmol/L (22-28); CREATININE 1.4 mg/dl (0.6-1.3); GLUCOSE,RANDOM 153 mg/dl (74-106); POTASSIUM 3.6 mmol/L (3.5-5.1); SGOT/AST 27 U/L (10-42); SGPT/ALT 17 U/L (10-40); SODIUM 135 mmol/L (136-145); TOT PROT 5.8 g/dl (6.4-8.3)
[2017-05-13] MEDS: OSELTAMIVIR PHOSPHATE 75 MG CAPSULE PO SCH ×2 (11:58→21:33)
[2017-05-13] MEDS: CEFTRIAXONE IN IS-OSM DEXTROSE 2 GM/50 ML BAG IVPB SCH (12:06)
--- NOTE | 2017-05-13 12:19 | CONS ---
DATE OF CONSULTATION: DATE OF DICTATION: 05/13/2017 The patient is an 81-year-old male with a history of hypertension and aortic valve replacement, evaluated for sepsis. The patient was admitted to the hospital on May 11, 2017, with several-day history of worsening fever. The patient complained of fever and chills at home associated with dizziness and generalized weakness. Family members had reported some altered mentation. He was evaluated in the emergency room, where he was noted to be ill appearing. He stated that he became dizzy when standing up or changing position. He also complained of some vertigo. The patient had been seen in the emergency room approximately 10 days prior to admission with a stomach issue, which has resolved. Influenza swab was performed in the emergency room and was negative. Chest x-ray showed possible right lower lobe infiltrate. He was empirically treated with vancomycin and Zosyn. CAT scan of the chest was subsequently done and showed no evidence of acute infiltrate. At the present time, he is awake and alert, he reports feeling better. His mentation is improved. He reports improvement in the dizziness. No complaints of high-grade fever, shaking chills, chest pain, shortness of breath, cough, sputum production, vomiting or diarrhea. He denies any ill contacts, lives at home with his , who is healthy, no recent hospitalizations. Past medical history positive for hypertension, hyperlipidemia, aortic valve replacement, prostate cancer. No known allergies. MEDICATIONS: Crestor, vitamin D, Toprol, Eliquis, amiodarone, Norvasc, Lasix, Benicar. SOCIAL HISTORY: Lives at home with his . No tobacco or alcohol use. SYSTEMS REVIEW: Neurologic: No loss of consciousness, seizure activity, or focal weakness. Cardiac: Negative chest pain or palpitations. Respiratory: As per HPI. Gastrointestinal: Negative vomiting or diarrhea. Genitourinary: Negative for urinary tract infection. LABORATORY DATA: White count 4.0, hematocrit 40.4, platelet count 137. BUN 14, creatinine 1.3. Urinalysis: 0 to 2 white cells. CAT scan of the chest negative for acute infiltrate. PHYSICAL EXAMINATION: General: He is awake and alert. He is not acutely toxic appearing. His breathing is nonlabored. Vital Signs: Temperature 99.5. Blood pressure 123/47. Pulse 58, regular. Respirations 18 per minute. T-max 100.6. ENT: Sclerae anicteric. Oropharynx negative. Heart Sounds: S1, S2. Lungs: Few rhonchi bilaterally. No wheezing or rales. Abdomen: Soft. No tenderness elicited. No mass, rebound or rigidity. Extremities: 1+ edema. IMPRESSION: 1. Probable acute influenza versus viral respiratory tract infection. 2. Possible secondary bacterial pneumonitis. 3. Status post aortic valve replacement. Await culture results. Continue empiric Tamiflu. Will also continue empiric coverage for possible bacterial secondary infection with ceftriaxone 2 g IV piggyback daily. Will follow. Thank you for the kind referral. TRICIA MENDOZA M.D. [id number]
[2017-05-13] MEDS: SODIUM CHLORIDE 1,000 ML IV SCH (16:11)
[2017-05-13] MEDS ORDERED: SODIUM CHLORIDE 1,000 ML IV SCH (20:06)
[2017-05-13] MEDS: ROSUVASTATIN CA 5 MG TABLET (FP) PO SCH (21:20)
[2017-05-13] MEDS: APIXABAN 5 MG TABLET PO SCH (21:20)
[2017-05-14 08:50] LABS: BASO % 0.5 % (0-2.0); EOS % 2.6 % (0-4.5); HEMATOCRIT 42.9 % (35.4-49); HEMOGLOBIN 14.4 GM/dl (11.7-16.9); LYMPH % 18.3 % (8-40); MCH 31.1 pg (25.7-33.7); MCHC 33.5 g/dl (32.0-35.9); MEAN CELL VOLUME 92.9 fl (80-96); MEAN PLT VOLUME 8.4 fl (7.5-11.1); MONO % 13.9 % (3.8-10.2); NEUT % 64.7 % (42.8-82.8); PLATELET COUNT 128 K/MM3 (134-434); RBC 4.62 M/mm3 (4.00-5.60); RDW 12.1 % (11.9-15.9); WHITE BLOOD COUNT 3.1 K/mm3 (4.0-10.8)
[2017-05-14 09:10] LABS: ALBUMIN 3.1 g/dl (3.5-5.0); ALK PHOS 52 U/L (32-92); ANION GAP 8 (8-16); BILIRUBIN,TOTAL 0.5 mg/dl (0.2-1.0); BLOOD UREA NITROGEN 13 mg/dl (7-18); CALCIUM 8.2 mg/dl (8.4-10.2); CHLORIDE 103 mmol/L (98-107); CO2 28 mmol/L (22-28); CREATININE 1.1 mg/dl (0.6-1.3); GLUCOSE,RANDOM 96 mg/dl (74-106); POTASSIUM 3.8 mmol/L (3.5-5.1); SGOT/AST 22 U/L (10-42); SGPT/ALT 16 U/L (10-40); SODIUM 139 mmol/L (136-145); TOT PROT 5.6 g/dl (6.4-8.3)
[2017-05-14] MEDS: OSELTAMIVIR PHOSPHATE 75 MG CAPSULE PO SCH ×2 (09:12→21:47)
[2017-05-14] MEDS: METOPROLOL SUCCINATE 100 MG TAB.SR.24H (FP) PO SCH (09:12)
[2017-05-14] MEDS: AMIODARONE HCL 200 MG TABLET (FP) PO SCH (09:13)
[2017-05-14] MEDS: APIXABAN 5 MG TABLET PO SCH ×2 (09:13→21:47)
[2017-05-14] MEDS: ALBUTEROL SO4 2.5/IPRATROPIUM 0.5 INH SOL 3 ML VIAL.NEB. NEB SCH ×3 (09:13→21:47)
[2017-05-14] MEDS: amLODIPine BESYLATE 10 MG TABLET (FP) PO SCH (09:13)
[2017-05-14] MEDS: CHOLECALCIFEROL (VITAMIN D3) 1,000 UNIT TABLET (FP) PO SCH (09:13)
[2017-05-14] MEDS: CEFTRIAXONE IN IS-OSM DEXTROSE 2 GM/50 ML BAG IVPB SCH (09:43)
--- NOTE | 2017-05-14 12:27 | PN ---
Progress Note (short form) - Note Progress Note: PULMONARY CONSULTATION DICTATED 05/14/17 IMP VIRAL SYNDROME ? INFLUENZA DEHYDRATION HTN ASBESTOS PLEURAL DISEASE S/P AVR H/O PROSTATE CA PLAN INHALED BRONCHODILATORS IV ANTIBIOTICS PER ID IVF CULTURES AC DR OROZCO Problem List - Problems (1) Viral syndrome Code(s): B34.9 - VIRAL INFECTION, UNSPECIFIED (2) HLD (hyperlipidemia) Code(s): E78.5 - HYPERLIPIDEMIA, UNSPECIFIED (3) HTN (hypertension) Code(s): I10 - ESSENTIAL (PRIMARY) HYPERTENSION (4) S/P aortic valve replacement Code(s): Z95.2 - PRESENCE OF PROSTHETIC HEART VALVE (5) Gastroenteritis Code(s): K52.9 - NONINFECTIVE GASTROENTERITIS AND COLITIS, UNSPECIFIED (6) Dehydration Code(s): E86.0 - DEHYDRATION
--- NOTE | 2017-05-14 13:01 | PN ---
Physical Exam: SUBJECTIVE: Patient seen and examined, sitting in bed, reports ongoing cough OBJECTIVE:81 year-old male with a PMH significant for HTN, HLD, tissue aortic valve replacement on Eliquis, and prostate cancer. Admitted for fever, cough, and malaise likely secondary to influenza v. pneumonia. Vital Signs Period Temp Pulse Resp BP Sys/Bacon Pulse Ox Last 24 Hr 97.8 F-98.9 F 52-70 19-19 149-185/61-76 95-96 GENERAL: The patient is awake, alert, and fully oriented, in no acute distress. HEAD: Normal with no signs of trauma. EYES: PERRL, extraocular movements intact, sclera anicteric, conjunctiva clear. No ptosis. ENT: Ears normal, nares patent, oropharynx clear without exudates, moist mucous membranes. NECK: Trachea midline, full range of motion, supple. LUNGS: Breath sounds equal, diminished at bases, course rhonchi to apexes, no wheezes, no crackles, no accessory muscle use. HEART: Regular rate and rhythm, S1, S2 without murmur, rub or gallop. ABDOMEN: Soft, nontender, nondistended, normoactive bowel sounds, no guarding, no rebound, no hepatosplenomegaly, no masses. EXTREMITIES: 2+ pulses, warm, well-perfused, no edema. NEUROLOGICAL: Cranial nerves II through XII grossly intact. Normal speech, gait not observed. PSYCH: Normal mood, normal affect. SKIN: Warm, dry, normal turgor, no rashes or lesions noted Laboratory Results - last 24 hr 05/14/17 05/14/17 07:00 07:00 WBC 3.1 L RBC 4.62 Hgb 14.4 Hct 42.9 MCV 92.9 MCH 31.1 MCHC 33.5 RDW 12.1 Plt Count 128 L MPV 8.4 Neutrophils % 64.7 Lymphocytes % 18.3 D Monocytes % 13.9 H Eosinophils % 2.6 D Basophils % 0.5 Sodium 139 Potassium 3.8 Chloride 103 Carbon Dioxide 28 Anion Gap 8 BUN 13 Creatinine 1.1 D Creat Clearance w eGFR > 60 Random Glucose 96 D Calcium 8.2 L Magnesium 2.0 Total Bilirubin 0.5 D AST 22 ALT 16 Alkaline Phosphatase 52 Total Protein 5.6 L Albumin 3.1 L Active Medications Generic Name Dose Route Start Last Admin Trade Name Freq PRN Reason Stop Dose Admin Albuterol/Ipratropium 1 amp 05/12/17 22:00 05/14/17 09:13 Duoneb - NEB 1 amp Q4H JELLY Administration Amiodarone HCl 100 mg 05/12/17 10:00 05/14/17 09:13 Cordarone - PO 100 mg DAILY JELLY Administration Amlodipine Besylate 10 mg 05/12/17 10:00 05/14/17 09:13 Norvasc - PO 10 mg DAILY JELLY Administration Apixaban 5 mg 05/13/17 22:00 05/14/17 09:13 Eliquis - PO 5 mg BID JELLY Administration Cholecalciferol 1,000 unit 05/12/17 10:00 05/14/17 09:13 Vitamin D3 - PO 1,000 unit DAILY JELLY Administration CEFTRIAXONE IN IS-OSM DEXTROSE 2 gm in 50 mls @ 100 mls/hr 05/13/17 11:00 09:43 Ceftriaxone 2 Gm-D5w Bag IVPB 100 mls/hr DAILY JELLY Administration Metoprolol Succinate 100 mg 05/12/17 10:00 05/14/17 09:12 Toprol Xl - PO 100 mg DAILY JELLY Administration Oseltamivir Phosphate 75 mg 05/12/17 15:00 05/14/17 09:12 Tamiflu - PO 05/17/17 14:59 75 mg BID JELLY Administration Rosuvastatin Calcium 5 mg 05/12/17 22:00 05/13/17 21:20 Crestor - PO 5 mg HS JELLY Administration Microbiology 05/11/17 21:30 Blood - Peripheral Venous Blood Culture - Preliminary NO GROWTH OBTAINED AFTER 48 HOURS, INCUBATION TO CONTINUE FOR 3 DAYS. 05/11/17 21:45 Blood - Peripheral Venous Blood Culture - Preliminary NO GROWTH OBTAINED AFTER 48 HOURS, INCUBATION TO CONTINUE FOR 3 DAYS. 05/11/17 23:26 Urine - Urine Clean Catch Urine Culture - Final 05/11/17 23:26 Urine For Antigen Detection Legionella Antigen - Final 05/11/17 23:26 Urine For Antigen Detection Streptococcus pneumoniae Antigen (M - Final, negative 05/11/17 21:30 Nasopharyngeal Swab Influenza Types A,B Antigen (UNA) - Final , negative 05/11/17 21:30 Nasopharyngeal Swab - Final ASSESSMENT/PLAN: 1) ID Influenza r/o pneumonia - pt is afebrile, no leukocytosis, however, clinical signs are consistent with the flu upon admission, continue tamiflu - -CT chest negative for acute process, -per ID, continue ceftriaxone (day #3) - appreciate pulmonary input 2) cardiovascular Hypertension - continue Toprol XL,and amlodipine, b/p above goal restart benicar Hyperlipidemia --continue Crestor Tissue aortic valve replacement - continue Eliquis, amiodarone 3) heme/onc Prostate cancer -no acute issues FEN Fluids: PO intake adequate Electrolytes: replete as indicated Nutrition: low sodium DVT prophylaxis: on Eliquis Physical therapy Dispo: continues to require inpatient care. Full code. Visit type - Emergency Visit Emergency Visit: Yes ED Registration Date: 05/13/17 Care time: The patient presented to the Emergency Department on the above date and was hospitalized for further evaluation of their emergent condition. - New Patient This patient is new to me today: Yes Date on this admission: 05/14/17 - Critical Care Critical Care patient: No - Discharge Referral Referred to [facility] Med P.C.: No
[2017-05-14] MEDS: VALSARTAN 160 MG TABLET (UD) PO SCH (14:08)
--- NOTE | 2017-05-14 19:21 | CONS ---
DATE OF CONSULTATION: 05/14/2017 PULMONARY CONSULTATION REFERRING PHYSICIAN: Allyson Young N.P. HISTORY OF PRESENT ILLNESS: The patient is an 81-year-old white male with a past medical history hypertension, status post aortic valve replacement in 2007, history of prostate CA status post surgery radiotherapy seed implants, history of smoking many, many years ago, hypertension, hyperlipidemia, admitted to [facility] on May 11 secondary to generalized fever, chills, associated with nausea, dizziness, diarrhea, nausea, and vomiting. According to the family, the patient noted he had an altered mentation. Presented to the emergency room. At the time he was noted to be ill appearing. He had a flu screen, which was negative. Apparently he became dizzy when changing position. He was admitted with above . On admission, he was started on antibiotics as well as Tamiflu for possible influenza. He had chest CT performed which revealed no evidence of acute infiltrate but revealed evidence of bilateral pleural thickening, calcification consistent with asbestos pleural disease. Patient denies any history of COPD, asthma. Denies any chest pain, palpitations. Denies any cough or hemoptysis. He states that he had a cough yesterday when using inhaled bronchodilator. 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 He does complain of dyspnea on exertion walking up inclines level ground. He denies orthopnea or PND. PAST MEDICAL HISTORY: Includes hypertension, prostate CA, status post aortic valve replacement. 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 History of tobacco greater than 50 years ago. No recent travel. CURRENT MEDICATIONS: Include Cordarone, Eliquis, DuoNeb, Toprol, ceftriaxone, Norvasc, Crestor, Tamiflu, and vitamin D3. REVIEW OF SYSTEMS: No orthopnea. No PND. Positive nausea. Positive vomiting. Positive diarrhea. No chest pain. No palpitations. PHYSICAL EXAMINATION: General: The patient is a well-developed, well-nourished male, awake, alert, in no acute distress. Vital signs: He is afebrile. Blood pressure 168/76, respirations 19, and O2 saturation is 96% on room air. HEENT: Head is normocephalic, atraumatic. Neck: Supple. Heart: Regular. S1, S2. Chest: Clear. Abdomen: Soft. Bowel sounds positive. Extremities: No cyanosis, edema. LABORATORY: WBC is 3.1, hemoglobin is 14.4, hematocrit 42.9, platelet count of 128,000. BUN 13, creatinine 1.1. Chest CT as noted earlier, no infiltrates, no effusions, bilateral pleural thickening and calcification consistent with previous asbestos exposure. IMPRESSION: 1. Likely viral syndrome, possibly influenza. Upper respiratory infection. 2. Status post aortic valve replacement. 3. Hypertension. 4. Prostate carcinoma. 5. Dehydration. 6. Asbestos pleural disease. PLAN: IV fluids. Inhaled bronchodilators. Antibiotics as per infectious disease. Follow up cultures. ERICKA OROZCO M.D. [id number]
[2017-05-14] MEDS: ROSUVASTATIN CA 5 MG TABLET (FP) PO SCH (21:47)
[2017-05-15] MEDS: ALBUTEROL SO4 2.5/IPRATROPIUM 0.5 INH SOL 3 ML VIAL.NEB. NEB SCH ×3 (03:26→10:40)
[2017-05-15 06:13] VITALS: TEMP 98
--- NOTE | 2017-05-15 07:36 | PN ---
Progress Note, Physician History of Present Illness: pulmonary alert,nad,-sob,-cough - Current Medication List Current Medications: Active Medications Albuterol/Ipratropium (Duoneb -) 1 amp NEB Q4H [facility] Last Admin: 05/15/17 05:28 Dose: 1 amp Amiodarone HCl (Cordarone -) 100 mg PO DAILY [facility] Last Admin: 05/14/17 09:13 Dose: 100 mg Amlodipine Besylate (Norvasc -) 10 mg PO DAILY [facility] Last Admin: 05/14/17 09:13 Dose: 10 mg Apixaban (Eliquis -) 5 mg PO BID [facility] Last Admin: 05/14/17 21:47 Dose: 5 mg Cholecalciferol (Vitamin D3 -) 1,000 unit PO DAILY [facility] Last Admin: 05/14/17 09:13 Dose: 1,000 unit CEFTRIAXONE IN IS-OSM DEXTROSE (Ceftriaxone 2 Gm-D5w Bag) 2 gm in 50 mls @ 100 mls/hr IVPB DAILY [facility] Last Admin: 05/14/17 09:43 Dose: 100 mls/hr Metoprolol Succinate (Toprol Xl -) 100 mg PO DAILY [facility] Last Admin: 05/14/17 09:12 Dose: 100 mg Oseltamivir Phosphate (Tamiflu -) 75 mg PO BID [facility] Stop: 05/17/17 14:59 Last Admin: 05/14/17 21:47 Dose: 75 mg Rosuvastatin Calcium (Crestor -) 5 mg PO HS [facility] Last Admin: 05/14/17 21:47 Dose: 5 mg Valsartan (Diovan -) 160 mg PO DAILY [facility] Last Admin: 05/14/17 14:08 Dose: 160 mg - Objective Vital Signs: Vital Signs Temperature 98.0 F 05/15/17 06:00 Pulse Rate 61 05/15/17 06:00 Respiratory Rate 20 05/15/17 06:00 Blood Pressure 139/85 05/15/17 06:00 O2 Sat by Pulse Oximetry (%) 97 05/15/17 06:00 Constitutional: Yes: Well Nourished, Calm Eyes: Yes: Occular Prosthesis, Other Neck: Yes: WNL Cardiovascular: Yes: Regular Rate and Rhythm, S1, S2 Respiratory: Yes: CTA Bilaterally Gastrointestinal: Yes: Normal Bowel Sounds, Soft Extremities: Yes: WNL Edema: No Labs: CBC, BMP Problem List - Problems (1) Viral syndrome Code(s): B34.9 - VIRAL INFECTION, UNSPECIFIED (2) HLD (hyperlipidemia) Code(s): E78.5 - HYPERLIPIDEMIA, UNSPECIFIED (3) HTN (hypertension) Code(s): I10 - ESSENTIAL (PRIMARY) HYPERTENSION (4) S/P aortic valve replacement Code(s): Z95.2 - PRESENCE OF PROSTHETIC HEART VALVE (5) Gastroenteritis Code(s): K52.9 - NONINFECTIVE GASTROENTERITIS AND COLITIS, UNSPECIFIED (6) Dehydration Code(s): E86.0 - DEHYDRATION Assessment/Plan IMP VIRAL SYNDROME ? INFLUENZA DEHYDRATION improved HTN ASBESTOS PLEURAL DISEASE S/P AVR H/O PROSTATE CA PLAN INHALED BRONCHODILATORS PRN ANTIBIOTICS PER ID AC DR OROZCO Problem List - Problems (1) Viral syndrome Code(s): B34.9 - VIRAL INFECTION, UNSPECIFIED (2) HLD (hyperlipidemia) Code(s): E78.5 - HYPERLIPIDEMIA, UNSPECIFIED (3) HTN (hypertension) Code(s): I10 - ESSENTIAL (PRIMARY) HYPERTENSION (4) S/P aortic valve replacement Code(s): Z95.2 - PRESENCE OF PROSTHETIC HEART VALVE (5) Gastroenteritis Code(s): K52.9 - NONINFECTIVE GASTROENTERITIS AND COLITIS, UNSPECIFIED (6) Dehydration Code(s): E86.0 - DEHYDRATION
[2017-05-15] MEDS ORDERED: REFRIGERATED ANITBIOTICS ONE (09:16)
[2017-05-15] MEDS: METOPROLOL SUCCINATE 100 MG TAB.SR.24H (FP) PO SCH (09:38)
[2017-05-15] MEDS: VALSARTAN 160 MG TABLET (UD) PO SCH (09:38)
[2017-05-15] MEDS: APIXABAN 5 MG TABLET PO SCH (09:38)
[2017-05-15] MEDS: AMIODARONE HCL 200 MG TABLET (FP) PO SCH (09:38)
[2017-05-15] MEDS: CHOLECALCIFEROL (VITAMIN D3) 1,000 UNIT TABLET (FP) PO SCH (09:38)
[2017-05-15] MEDS: amLODIPine BESYLATE 10 MG TABLET (FP) PO SCH (09:38)
[2017-05-15] MEDS: OSELTAMIVIR PHOSPHATE 75 MG CAPSULE PO SCH (09:38)
[2017-05-15 09:40] VITALS: BP 142/78; PULSE 58
--- NOTE | 2017-05-15 09:56 | PN ---
Progress Note, Physician History of Present Illness: Clinically improved Awake, alert No c/o chest pain/ dyspnea/ cough No c/o fever/ chills Afebrile WBC 3.1 13% M plt 128 BC (-) CT chest no infiltrate - Current Medication List Current Medications: Active Medications Albuterol/Ipratropium (Duoneb -) 1 amp NEB Q4H [facility] Last Admin: 05/15/17 05:28 Dose: 1 amp Amiodarone HCl (Cordarone -) 100 mg PO DAILY [facility] Last Admin: 05/15/17 09:38 Dose: 100 mg Amlodipine Besylate (Norvasc -) 10 mg PO DAILY [facility] Last Admin: 05/15/17 09:38 Dose: 10 mg Apixaban (Eliquis -) 5 mg PO BID [facility] Last Admin: 05/15/17 09:38 Dose: 5 mg Cholecalciferol (Vitamin D3 -) 1,000 unit PO DAILY [facility] Last Admin: 05/15/17 09:38 Dose: 1,000 unit Ceftriaxone Sodium (Rocephin 2gm Ivpb (Pre-Docked)) 2 gm in 100 mls @ 200 mls/ hr IVPB DAILY [facility] Last Admin: 05/15/17 09:38 Dose: 200 mls/hr Metoprolol Succinate (Toprol Xl -) 100 mg PO DAILY [facility] Last Admin: 05/15/17 09:38 Dose: 100 mg Oseltamivir Phosphate (Tamiflu -) 75 mg PO BID [facility] Stop: 05/17/17 14:59 Last Admin: 05/15/17 09:38 Dose: 75 mg Rosuvastatin Calcium (Crestor -) 5 mg PO HS [facility] Last Admin: 05/14/17 21:47 Dose: 5 mg Valsartan (Diovan -) 160 mg PO DAILY [facility] Last Admin: 05/15/17 09:38 Dose: 160 mg - Objective Vital Signs: Vital Signs Temperature 98.0 F 05/15/17 09:39 Pulse Rate 58 L 05/15/17 09:39 Respiratory Rate 20 05/15/17 09:39 Blood Pressure 142/78 05/15/17 09:39 O2 Sat by Pulse Oximetry (%) 97 05/15/17 06:00 Constitutional: Yes: No Distress Eyes: Yes: Conjunctiva Clear Cardiovascular: Yes: Regular Rate and Rhythm, S1, S2 Respiratory: Yes: Rhonchi, Other (few scatterred rhonchi) Gastrointestinal: Yes: Normal Bowel Sounds, Soft, Abdomen, Obese. No: Tenderness Edema: No Labs: CBC, BMP 05/14/17 07:00 05/14/17 07:00 Assessment/Plan Probable acute viral syndrome/ inflenza Leukopenia/ monocytosis/ thrombocytopenia secondary to viral infection Dehydration S/P AVR May switch to ceftin 500mg po bid x 3d Complete 5d course of Tamiflu
[2017-05-15] MEDS ORDERED: CEFTRIAXONE 2 GM/100 ML BAG IVPB SCH (10:00)
--- NOTE | 2017-05-15 11:34 | DS ---
Physical Exam: SUBJECTIVE: Patient seen and examined OBJECTIVE: This is a 81 y/o man who presents to the ED with fever, chills, lethargy since today. Patient's son reports his dad is acting confused and not at his usual baseline. Patient denies numbness, tingling, facial droop, slurred speech. Patient denies cough, SOB, dizziness, YAN, CP, AP, N/V/D, constipation, dysuria Vital Signs Period Temp Pulse Resp BP Sys/Bacon Pulse Ox Last 24 Hr 97.9 F-98.3 F 50-61 18-20 139-161/66-92 94-97 PHYSICAL EXAM GENERAL: The patient is awake, alert, and fully oriented, in no acute distress. HEAD: Normal with no signs of trauma. EYES: PERRL, extraocular movements intact, sclera anicteric, conjunctiva clear. ENT: Ears normal, nares patent, oropharynx clear without exudates, moist mucous membranes. NECK: Trachea midline, full range of motion, supple. LUNGS: Breath sounds equal, clear to auscultation bilaterally, no wheezes, no crackles, no accessory muscle use. HEART: Regular rate and rhythm, S1, S2 without murmur, rub or gallop. ABDOMEN: Soft, nontender, nondistended, normoactive bowel sounds, no guarding, no rebound, no hepatosplenomegaly, no masses. EXTREMITIES: 2+ pulses, warm, well-perfused, no edema. NEUROLOGICAL: Cranial nerves II through XII grossly intact. Normal speech, gait not observed. PSYCH: Normal mood, normal affect. SKIN: Warm, dry, normal turgor, no rashes or lesions noted. LABS CBC WBC 3.1 K/mm3 (4.0-10.8) L 05/14/17 07:00 RBC 4.62 M/mm3 (4.00-5.60) 05/14/17 07:00 Hgb 14.4 GM/dl (11.7-16.9) 05/14/17 07:00 Hct 42.9 % (35.4-49) 05/14/17 07:00 MCV 92.9 fl (80-96) 05/14/17 07:00 MCH 31.1 pg (25.7-33.7) 05/14/17 07:00 MCHC 33.5 g/dl (32.0-35.9) 05/14/17 07:00 RDW 12.1 % (11.9-15.9) 05/14/17 07:00 Plt Count 128 K/MM3 (134-434) L 05/14/17 07:00 MPV 8.4 fl (7.5-11.1) 05/14/17 07:00 Neutrophils % 64.7 % (42.8-82.8) 05/14/17 07:00 Lymphocytes % 18.3 % (8-40) D 05/14/17 07:00 Monocytes % 13.9 % (3.8-10.2) H 05/14/17 07:00 Eosinophils % 2.6 % (0-4.5) D 05/14/17 07:00 Basophils % 0.5 % (0-2.0) 05/14/17 07:00 CMP Sodium 139 mmol/L (136-145) 05/14/17 07:00 Potassium 3.8 mmol/L (3.5-5.1) 05/14/17 07:00 Chloride 103 mmol/L (98-107) 05/14/17 07:00 Carbon Dioxide 28 mmol/L (22-28) 05/14/17 07:00 Anion Gap 8 (8-16) 05/14/17 07:00 BUN 13 mg/dl (7-18) 05/14/17 07:00 Creatinine 1.1 mg/dl (0.6-1.3) D 05/14/17 07:00 Creat Clearance w eGFR > 60 (>60) 05/14/17 07:00 Random Glucose 96 mg/dl (74-106) D 05/14/17 07:00 Lactic Acid 1.0 mmol/L (0.0-2.0) 05/11/17 21:30 Calcium 8.2 mg/dl (8.4-10.2) L 05/14/17 07:00 Phosphorus 2.8 mg/dl (2.5-4.6) 05/12/17 07:38 Magnesium 2.0 mg/dL (1.8-2.4) 05/14/17 07:00 Total Bilirubin 0.5 mg/dl (0.2-1.0) D 05/14/17 07:00 AST 22 U/L (10-42) 05/14/17 07:00 ALT 16 U/L (10-40) 05/14/17 07:00 Alkaline Phosphatase 52 U/L (32-92) 05/14/17 07:00 Total Protein 5.6 g/dl (6.4-8.3) L 05/14/17 07:00 Albumin 3.1 g/dl (3.5-5.0) L 05/14/17 07:00 Microbiology 05/11/17 21:30 Blood - Peripheral Venous Blood Culture - Preliminary NO GROWTH OBTAINED AFTER 72 HOURS, INCUBATION TO CONTINUE FOR 2 DAYS. 05/11/17 21:45 Blood - Peripheral Venous Blood Culture - Preliminary NO GROWTH OBTAINED AFTER 72 HOURS, INCUBATION TO CONTINUE FOR 2 DAYS. 05/11/17 23:26 Urine - Urine Clean Catch Urine Culture - Final 05/11/17 23:26 Urine For Antigen Detection Legionella Antigen - Final, negative 05/11/17 23:26 Urine For Antigen Detection Streptococcus pneumoniae Antigen (M - Final, negative 05/11/17 21:30 Nasopharyngeal Swab Influenza Types A,B Antigen (UNA) - Final , negative 05/11/17 21:30 Nasopharyngeal Swab - Final, negative HOSPITAL COURSE: 1) ID Influenza r/o pneumonia - pt is afebrile, no leukocytosis, however, clinical signs are consistent with the flu upon admission, continue tamiflu - -CT chest negative for acute process, -per ID, continue ceftriaxone (day #3) - appreciate pulmonary input 2) cardiovascular Hypertension - continue Toprol XL,and amlodipine, b/p above goal restart benicar Hyperlipidemia --continue Crestor Tissue aortic valve replacement - continue Eliquis, amiodarone 3) heme/onc Prostate cancer -no acute issues Date of Admission:05/13/17 Date of Discharge: 05/15/17 Minutes to complete discharge: 45 Discharge Summary Reason For Visit: PNEUMONIA Current Active Problems DVT prophylaxis (Acute) Dehydration (Acute) HLD (hyperlipidemia) (Acute) HTN (hypertension) (Acute) Pneumonia (Acute) S/P aortic valve replacement (Acute) Viral syndrome (Acute) Condition: Stable - Instructions Diet, Activity, Other Instructions: continue tamiflu and ceftin as prescribed continue all medications as prescribed please follow up with your primary care physician Dr Lawson within 1 week if any new or persistent symptoms develop please return to the emergency department Referrals: Androne,Natasha S [Primary Care Provider] - Disposition: HOME - Home Medications Comprehensive Discharge Medication List: Ambulatory Orders RX: Rosuvastatin Calcium [Crestor] 5 mg PO DAILY #0 tablet 12/26/11 RX: Cholecalciferol (Vitamin D3) [Vitamin D3] 1 tab PO DAILY 10/01/13 RX: Metoprolol Succinate [Toprol XL -] 100 mg PO DAILY 10/01/13 Apixaban [Eliquis] 5 mg PO DAILY 09/28/16 Olmesartan Medoxomil [Benicar] 20 mg PO DAILY 05/01/17 RX: Amiodarone HCl 100 mg PO DAILY 05/01/17 RX: Amlodipine Besylate [Norvasc -] 10 mg PO DAILY 05/01/17 RX: Furosemide 20 mg PO DAILY 05/01/17 - Discharge Referral Referred to [facility] Med P.C.: No
== END 2017-05-15 12:45 | disposition home or self-care (01) | DRG 194 ==
LOC: SUPCPDRO 20:54 → FER 20:54 → FM/S 23:18 → UNDOADMOB 05-12 00:45 → FM/S 05-12 00:45 → OBSVTOIN 05-13 12:47 → FM/S 05-14 13:23
PROVIDERS: ADMIT Internal Medicine; ATTEND Nurse Practitioner Family
DX: J11.00 Influenza due to unidentified influenza virus with unspecified type of pneumonia (principal); E87.1 Hypo-osmolality and hyponatremia; I10 Essential (primary) hypertension; E78.5 Hyperlipidemia, unspecified; Z95.2 Presence of prosthetic heart valve; B34.9 Viral infection, unspecified; D69.6 Thrombocytopenia, unspecified; E86.0 Dehydration; D72.819 Decreased white blood cell count, unspecified; Z85.46 Personal history of malignant neoplasm of prostate
CPT/HCPCS: 36415; 71046-TC; 71250-TC; 80048; 80053; 81003; 81015; 83605; 83735; 84100; 85025; 87040; 87081; 87086; 87804; 87899; 93005; 94640; 97116-GP; 97161-GP; 99284-25; G0378

== ENCOUNTER 2018-01-09 07:39 | Day surgery (SDC) | payer OTHER, BC ==
[2018-01-08 11:12] VITALS: BMI 34.0
[2018-01-09] MEDS ORDERED: ceFAZolin SODIUM 1 GM VIAL ONE (08:47)
[2018-01-09] MEDS ORDERED: LABETALOL HCL 5 MG/1 ML (100MG/20 ML VIAL) ONE (08:48)
[2018-01-09 10:31] VITALS: TEMP 97.9
[2018-01-09 11:27] VITALS: BP 165/64; PULSE 68
--- NOTE | 2018-01-10 17:35 | PATH ---
Surgical Pathology Report Patient Name: OSIRIS GONZALEZ [facility]. Rec. #: [id number] /Age/Gender: 1935 (Age: 82) / M Account: [id number] Location: U-ENDOSCOPY Taken: 01/09/2018 Received: 01/09/2018 Reported: 01/10/2018 Physicians: Franchesca Maier M.D. Specimen(s) Received A: BX 2ND PORTION DUODENUM AND DUODENAL BULB B: BX ANTRUM C: BX GE JUNCTION Clinical History Change in bowel habits, adenoma surveillance, family history gastric cancer Postoperative diagnosis: Hiatal hernia, GERD, duodenitis, diverticulosis Final Diagnosis A. DUODENUM, SECOND PORTION AND DUODENAL BULB, BIOPSY: DUODENAL MUCOSA WITH MILD CHRONIC DUODENITIS AND MILD CARLYLE'S GLAND HYPERPLASIA. B. STOMACH, ANTRUM, BIOPSY: GASTRIC ANTRAL MUCOSA WITH MILD TO MODERATE CHRONIC GASTRITIS. IMMUNOHISTOCHEMICAL STAIN FOR H. PYLORI IS NEGATIVE. C. GE JUNCTION, BIOPSY: SQUAMOUS MUCOSA WITH MILD VASCULAR CONGESTION. NO COLUMNAR MUCOSA, INTESTINAL METAPLASIA, OR DYSPLASIA IDENTIFIED. Electronically Signed Joana De León M.D. Gross Description A. Received in formalin, labeled "second portion duodenum and duodenal bulb" are 3 hoang, irregular portions of soft tissue measuring 0.2-0.3 cm. in greatest dimension. The specimens are submitted in toto in one cassette. B. Received in formalin, labeled "antrum" are 4 hoang, irregular portions of soft tissue measuring 0.1-0.2 cm. in greatest dimension. The specimens are submitted in toto in one cassette. C. Received in formalin, labeled "GE junction" are 2 hoang, irregular portions of soft tissue measuring 0.2 cm. in greatest dimension. The specimens are submitted in toto in one cassette. MLSZ/01/09/2018 sanml/01/09/2018
== END 2018-01-09 11:52 | disposition home or self-care (01) ==
LOC: JASU-ENDO 07:39
PROVIDERS: ATTEND Internal Medicine Gastroenterology
PROC: 0DB68ZX Excision of Stomach, Via Natural or Artificial Opening Endoscopic, Diagnostic (ICD-10-PCS; 2018-01-09)
PROC: 0DB48ZX Excision of Esophagogastric Junction, Via Natural or Artificial Opening Endoscopic, Diagnostic (ICD-10-PCS; 2018-01-09)
PROC: 0DJD8ZZ Inspection of Lower Intestinal Tract, Via Natural or Artificial Opening Endoscopic (ICD-10-PCS; 2018-01-09)
PROC: 0DB98ZX Excision of Duodenum, Via Natural or Artificial Opening Endoscopic, Diagnostic (ICD-10-PCS; principal; 2018-01-09 08:45)
DX: Z51.11 Encounter for antineoplastic chemotherapy (principal); Z86.010 Personal history of colon polyps; Z80.0 Family history of malignant neoplasm of digestive organs; K44.9 Diaphragmatic hernia without obstruction or gangrene; K21.0 Gastro-esophageal reflux disease with esophagitis; K29.80 Duodenitis without bleeding; K57.30 Diverticulosis of large intestine without perforation or abscess without bleeding
CPT/HCPCS: 43239; G0105; 88305-TC; 88342-TC

== ENCOUNTER 2019-02-13 18:40 | Inpatient (IN) | payer OTHER, BC ==
[2019-02-13] MEDS ORDERED: SODIUM CHLORIDE 1,000 ML IV ONE (19:48)
[2019-02-13 20:31] LABS: ALBUMIN 3.9 g/dl (3.4-5.0); BILIRUBIN,TOTAL 1.3 mg/dl (0.2-1); CREATININE 1.3 mg/dl (0.55-1.3); POTASSIUM 4.1 mmol/L (3.5-5.1); TOT PROT 6.7 g/dl (6.4-8.2)
[2019-02-13 20:37] LABS: BASO % 0.3 % (0-2.0); EOS % 0.9 % (0-4.5); HEMATOCRIT 44.4 % (35.4-49); HEMOGLOBIN 14.4 GM/dl (11.7-16.9); LYMPH % 8.8 % (8-40); MCH 29.5 pg (25.7-33.7); MCHC 32.5 g/dl (32.0-35.9); MEAN CELL VOLUME 90.6 fl (80-96); MEAN PLT VOLUME 7.6 fl (7.5-11.1); MONO % 12.9 % (3.8-10.2); NEUT % 77.1 % (42.8-82.8); PLATELET COUNT 162 K/MM3 (134-434); RDW 12.5 % (11.9-15.9); WHITE BLOOD COUNT 4.6 K/mm3 (4.0-10.8)
--- NOTE | 2019-02-13 22:45 | PDOC ---
Documentation entered by Tara Ricketts SCRIBE, acting as scribe for Thao Burgos MD. Thao Burgos MD: This documentation has been prepared by the tessaibe, Tara Ricketts SCRIBE, under my direction and personally reviewed by me in its entirety. I confirm that the documentation accurately reflects all work , treatment, procedures, and medical decision making performed by me. History of Present Illness - General Chief Complaint: Weakness Stated Complaint: shakes and weakness History Source: Patient Exam Limitations: No Limitations - History of Present Illness Initial Comments: 02/13/19 19:36 The patient is an 83-year-old male who presents to the emergency department with weakness and chills. Per the patient's at the bedside, the patient presents with a 1-day history of generalized weakness. The patient's reports they were at the [employer] earlier today, where the patient had difficulty getting out of the car and was walking like "he lost all his energy. " the patient's reports she later found the patient under a blanket and was shaking. The patient reports he had a rough day yesterday" and feels "terrible." Denies any pain. The patient reports associated symptoms of shortness of breath. They called Dr. Azar (board runner), who told them to follow up at the ER. Denies worsening shortness of breath, chest pain, abdominal pain, nausea, vomiting. Denies cough or congestion. PAST MEDICAL HISTORY: HTN, HLD, and prosthetic aortic valve PAST SURGICAL HISTORY: no significant history FAMILY HISTORY: no pertinent history SOCIAL HISTORY: Pt lives with family and is employed. MEDICATIONS: reviewed ALLERGIES: As per nursing notes ROS: General: +chills and weakness. No fever. no weight loss HEENT: No change in vision. No sore throat,. No ear pain CardioVascular: No chest pain or shortness of breath Respiratory: +shortness of breath. No cough, or wheezing. Gastrointestinal: no nausea, vomiting, diarrhea or constipation, No rectal bleeding Genitourinary: No dysuria, hematuria, or frequency Musculoskeletal: No joint or muscle pain or swelling Neurologic: No headache, vertigo, dizziness or loss of consciousness Psychiatric: nor depression Skin: No rashes or easy bruising Endocrine: no increased thirst or abnormal weight change Allergic: no skin or latex allergy All other systems reviewed and normal Physical exam: General: Well-nourished well-developed individual, no acute distress HEENT: Throat: Normal, tonsils normal, no erythema or exudate Neck: Supple, no meningeal signs, no lymphadenopathy Eyes:Pupils equal reactive and round, extraocular motion intact Chest: Nontender to palpation Cardiac: S1-S2 normal, regular rate and rhythm, no murmurs rubs or gallops Respiratory: Lungs clear to auscultation bilateral Abdomen: Soft, nondistended, normal bowel sounds, nontender to palpation diffusely Extremities: Warm, dry, no cyanosis, clubbing, or edema Skin: No rashes Neuro: +patient sits leaning out to the left. Mental status: The patient alert and is oriented x3. Cranial nerves: Cranial nerves II through XII are intact Fundoscopic exam normal. Motor: The upper extremities are 5 over 5 in all muscle groups. The lower extremities are 5 over 5 in all muscle groups. Sensation: Sensation is intact to light touch throughout. Cerebellar: Finger- finger-nose is normal in both upper extremities. Awne-hobn-vdrp is normal in both lower extremities. Gait: Normal. Heel and toe walking are normal. Tandem gait is normal. Psych: Normal mood and affect Assessment and plan: This is an 83-year-old male brought in by his for evaluation of generalized weakness and shaking chills earlier. Patient also was complaining of some shortness of breath. Patient was noted also to have some difficulty sitting up straight and kept leaning to the left however no measurable weakness of his extremities. Patient denied any vertigo symptoms. Patient denied any chest pain nausea vomiting diarrhea. Work-up initiated including CBC, comp, blood cultures, urine cultures, UA, lactic acid, head CT, chest x-ray, EKG Symptoms most likely are secondary to a urinary tract infection. 02/13/19 22:05 Patient's work-up was essentially unremarkable. His CBC was normal, his CAT scan was no acute pathology. His urine was negative for infection. H his chest x-ray showed poor inspiration but essentially unchanged from prior his EKG was unchanged from prior However he still is very unsteady on his feet which is off his baseline for him it is uncertain as to what the cause of it is however the concern is that it could be due to something cerebellar so patient will be admitted for weakness rule out CVA, rule out infection 02/13/19 22:[address] Lyons neurology who recommends that patient be admitted for a rule out CVA work-up and no additional interventions at this time including nothing to lower blood pressure. Patient is okay to stay at [facility] Past History - Past Medical History Allergies/Adverse Reactions: Allergies Allergy/AdvReac Type Severity Reaction Status Date / Time No Known Allergies Allergy Verified 02/13/19 18:44 Home Medications: Ambulatory Orders Rosuvastatin Calcium [Crestor] 5 mg PO DAILY #0 tablet 12/26/11 Metoprolol Succinate [Toprol XL -] 100 mg PO DAILY 10/01/13 Amiodarone HCl 100 mg PO DAILY 05/01/17 Furosemide 20 mg PO DAILY 05/01/17 Olmesartan Medoxomil [Benicar] 20 mg PO DAILY 05/01/17 Cholecalciferol (Vitamin D3) [Vitamin D3] 1,000 unit PO DAILY 01/08/18 Cyanocobalamin Vit B-12 Inj. [Vitamin B12 Injection -] 1,000 mcg IM MONTHLY Diphenhydramine HCl [Z-Sleep] 25 mg PO HS 01/08/18 Hydralazine HCl 25 mg PO DAILY 01/08/18 Mag Carb/Aluminum Hydrox/Algin [Gaviscon Liquid] 30 ml PO Q6H PRN #355 oz Pantoprazole Sodium 40 mg PO DAILY #1 tablet. 01/09/18 Pantoprazole Sodium 40 mg PO DAILY #90 tablet. 01/09/18 Polyethylene Glycol 3350 [Miralax (For Bowel Prep) -] 17 gm PO DAILY #1 bottle 01/09/18 Polyethylene Glycol 3350 [Miralax (For Bowel Prep) -] 17 gm PO DAILY 90 Days #1 bottle 01/09/18 Anemia: No Asthma: No Cancer: Yes (PROSTATE CA) Cardiac Disorders: Yes (Aortic Valve Prothestic,Bovine) CVA: No COPD: No CHF: No DVT: No Dementia: No Diabetes: No GI Disorders: No Disorders: No HTN: Yes Hypercholesterolemia: Yes Liver Disease: No Seizures: No Thyroid Disease: No - Surgical History Abdominal Surgery: Yes (umbilical hernia) Appendectomy: No Cardiac Surgery: Yes (AORTIC VALVE REPLACEMENT) Cholecystectomy: No Lung Surgery: No Neurologic Surgery: No Orthopedic Surgery: No - Immunization History Immunization Up to Date: Yes - Psycho Social/Smoking Cessation Hx Smoking Status: No Smoking History: Former smoker Have you smoked in the past 12 months: No Number of Cigarettes Smoked Daily: 0 If you are a former smoker, when did you quit?: years ago Information on smoking cessation initiated: No Hx Alcohol Use: No Drug/Substance Use Hx: No Substance Use Type: None Hx Substance Use Treatment: No *Physical Exam - Vital Signs Last Vital Signs Temp Pulse Resp BP Pulse Ox 99.6 F 105 H 20 195/86 H 98 02/13/19 18:43 02/13/19 18:43 02/13/19 18:43 02/13/19 18:43 02/13/19 18:43 ED Treatment Course - LABORATORY CBC & Chemistry Diagram: 02/13/19 20:00 02/13/19 20:00 - RADIOLOGY Radiology Studies Ordered: Category Date Time Status HEAD CT WITHOUT CONTRAST [CT] Stat CT Scan 02/13/19 19:38 Ordered CHEST X-RAY PORTABLE* [RAD] Stat Radiology 02/13/19 19:38 Ordered Discharge - Discharge Information Problems reviewed: Yes Clinical Impression/Diagnosis: Weakness Condition: Fair - Admission Yes - Follow up/Referral - Patient Discharge Instructions - Post Discharge Activity
--- NOTE | 2019-02-13 23:00 | HP ---
Admitting History and Physical - Primary Care Physician PCP: Kristina Samayoa - Admission Chief Complaint: Chills, Weakness History of Present Illness: This is a 83 y/o man from home with a PMhx of HTN, HLD, s/p Prosthetic Aortic Valve (Bovine). Who presents to the ED with his family for ataxia, chills, rigors, and weakness. Patient reports feeling well earlier in the day. The patient's reports they were at the [employer] house earlier today, where the patient had difficulty getting out of the car and was walking like "he lost all his energy." the patient's reports she later found the patient under a blanket and was shaking. The patient reports he had a rough day yesterday" and feels "terrible." Denies any pain. The patient reports associated symptoms of shortness of breath. They called Dr. Azar (enforcement officer), who told them to follow up at the ER. Denies worsening shortness of breath, chest pain, abdominal pain, nausea, vomiting. Denies cough or congestion. History Source: Patient Limitations to Obtaining History: No Limitations - Past Medical History Cardiovascular: Yes: Aortic Insufficiency, HTN, Hyperlipdemia Renal/: Yes: Cancer (prostate (seed implant)) Infectious Disease: Yes: MRSA (perianal abcess) - Past Surgical History Past Surgical History: Yes: Valve Replacement (aortic (on Eliquis)) - Smoking History Smoking history: Former smoker Have you smoked in the past 12 months: No Aproximately how many cigarettes per day: 0 If you are a former smoker, when did you quit?: years ago - Alcohol/Substance Use Hx Alcohol Use: No History of Substance Use: reports: None - Social History Usual Living Arrangement: Yes: With Spouse ADL: Independent History of Recent Travel: No Home Medications - Allergies Allergies/Adverse Reactions: Allergies Allergy/AdvReac Type Severity Reaction Status Date / Time No Known Allergies Allergy Verified 02/13/19 18:44 - Home Medications Home Medications: Ambulatory Orders Rosuvastatin Calcium [Crestor] 5 mg PO DAILY #0 tablet 12/26/11 Metoprolol Succinate [Toprol XL -] 100 mg PO DAILY 10/01/13 Furosemide 20 mg PO DAILY 05/01/17 Olmesartan Medoxomil [Benicar] 20 mg PO DAILY 05/01/17 Apixaban [Eliquis] 5 mg PO BID 02/14/19 Cyanocobalamin [Vitamin B12 -] 1,000 mcg PO DAILY 02/14/19 Family Medical History Family History: Unable to Obtain Review of Systems - Review of Systems Constitutional: reports: Chills, Weakness Eyes: reports: No Symptoms HENT: reports: No Symptoms Neck: reports: No Symptoms Cardiovascular: reports: No Symptoms Respiratory: reports: No Symptoms Gastrointestinal: reports: No Symptoms Genitourinary: reports: No Symptoms Breasts: reports: No Symptoms Reported Musculoskeletal: reports: Muscle Weakness Integumentary: reports: No Symptoms Neurological: reports: Unsteady Gait, Weakness Endocrine: reports: No Symptoms Hematology/Lymphatic: reports: No Symptoms Psychiatric: reports: No Symptoms Pain Intensity: 0 Physical Examination Vital Signs: Vital Signs Temperature 100.1 F H 02/13/19 22:10 Pulse Rate 64 02/13/19 22:10 Respiratory Rate 16 02/13/19 22:10 Blood Pressure 180/88 H 02/13/19 22:10 O2 Sat by Pulse Oximetry (%) 95 02/13/19 22:10 Constitutional: Yes: Well Nourished, No Distress, Calm Eyes: Yes: WNL, Conjunctiva Clear, EOM Intact, PERRL HENT: Yes: WNL, Atraumatic, Normocephalic Neck: Yes: WNL, Supple, Trachea Midline Cardiovascular: Yes: Other (click) Respiratory: Yes: WNL, Regular, CTA Bilaterally Gastrointestinal: Yes: WNL, Normal Bowel Sounds, Soft, Abdomen, Obese ...Rectal Exam: Yes: WNL Renal/: Yes: WNL Breast(s): Yes: WNL Musculoskeletal: Yes: Muscle Weakness Extremities: Yes: WNL Edema: No Peripheral Pulses WNL: Yes Neurological: Yes: Alert, Oriented. No: Facial Droop, Numbness, Paresthesia ...Motor Strength: WNL Psychiatric: Yes: WNL, Alert, Oriented Labs: CBC, BMP 02/13/19 20:00 02/13/19 20:00 Laboratory Results - last 24 hr 02/13/19 02/13/19 02/13/19 20:00 20:00 20:00 WBC 4.6 RBC 4.90 Hgb 14.4 Hct 44.4 MCV 90.6 MCH 29.5 MCHC 32.5 RDW 12.5 Plt Count 162 D MPV 7.6 Absolute Neuts (auto) 3.6 Neutrophils % 77.1 Lymphocytes % 8.8 D Monocytes % 12.9 H Eosinophils % 0.9 Basophils % 0.3 Sodium 137 Potassium 4.1 Chloride 100 Carbon Dioxide 27 Anion Gap 10 BUN 19.0 H Creatinine 1.3 Est GFR (CKD-EPI)AfAm 58.89 Est GFR (CKD-EPI)NonAf 50.81 Random Glucose 116 H Lactic Acid Calcium 9.0 Phosphorus Magnesium Total Bilirubin 1.3 H AST 24 ALT 16 Alkaline Phosphatase 76 Creatine Kinase 100 Troponin I 0.04 Total Protein 6.7 Albumin 3.9 Triglycerides Cholesterol Total LDL Cholesterol HDL Cholesterol Urine Color Urine Appearance Urine pH Urine Protein Urine Glucose (UA) Urine Ketones Urine Blood Urine Nitrite Urine Bilirubin Urine Urobilinogen Ur Leukocyte Esterase Urine RBC Urine WBC Urine Bacteria 02/13/19 02/13/19 02/14/19 20:00 21:25 06:30 WBC RBC Hgb Hct MCV MCH MCHC RDW Plt Count MPV Absolute Neuts (auto) Neutrophils % Lymphocytes % Monocytes % Eosinophils % Basophils % Sodium 135 L Potassium 3.5 Chloride 103 Carbon Dioxide 27 Anion Gap 5 L BUN 18.0 Creatinine 1.3 Est GFR (CKD-EPI)AfAm 58.89 Est GFR (CKD-EPI)NonAf 50.81 Random Glucose 98 Lactic Acid 1.3 Calcium 8.5 Phosphorus 3.0 Magnesium 2.0 Total Bilirubin AST ALT Alkaline Phosphatase Creatine Kinase Troponin I Total Protein Albumin Triglycerides Cholesterol Total LDL Cholesterol HDL Cholesterol Urine Color Yellow Urine Appearance Clear Urine pH 7.0 Urine Protein 2+ H Urine Glucose (UA) Negative Urine Ketones Trace Urine Blood 2+ H Urine Nitrite Negative Urine Bilirubin Negative Urine Urobilinogen 1.0 Ur Leukocyte Esterase Negative Urine RBC 10-20 Urine WBC 0-2 Urine Bacteria Few 02/14/19 02/14/19 02/14/19 06:30 06:30 06:30 WBC 3.1 L RBC 4.28 Hgb 12.7 Hct 38.4 MCV 89.7 MCH 29.8 MCHC 33.2 RDW 12.5 Plt Count 130 L MPV 7.7 Absolute Neuts (auto) 2.3 Neutrophils % 71.6 Lymphocytes % 13.5 D Monocytes % 13.3 H Eosinophils % 1.0 Basophils % 0.6 Sodium Potassium Chloride Carbon Dioxide Anion Gap BUN Creatinine Est GFR (CKD-EPI)AfAm Est GFR (CKD-EPI)NonAf Random Glucose Lactic Acid Calcium Phosphorus Magnesium Total Bilirubin AST ALT Alkaline Phosphatase Creatine Kinase Troponin I 0.05 Total Protein Albumin Triglycerides 47 Cholesterol 99 Total LDL Cholesterol 55 HDL Cholesterol 35 L Urine Color Urine Appearance Urine pH Urine Protein Urine Glucose (UA) Urine Ketones Urine Blood Urine Nitrite Urine Bilirubin Urine Urobilinogen Ur Leukocyte Esterase Urine RBC Urine WBC Urine Bacteria Imaging - Results Chest X-ray: Report Reviewed, Image Reviewed Cat Scan: Report Reviewed, Image Reviewed Ultrasound: Pending EKG: Image Reviewed Problem List - Problems (1) Weakness Assessment/Plan: r/o CVA vs TIA vs Arrhythmia vs Sepsis NIHSS [address] neg ICH, mass or lesion Appreciate Neurology consult Appreciate Cardiology consult Cardiac monitoring Neurochecks Echo- check wall motion Carotid Doppler r/o Stenosis Swallow eval [place] Pt Eval- Gait, conditioning Fall Precautions Code(s): R53.1 - WEAKNESS (2) Viral syndrome Assessment/Plan: Blood cultures-pending Urine culture-pending T Max 100.1 No leukocytosis, no L- shift Chest Xray- reviewed Monitor CBC, BMP Tylenol prn NS bolus given, will avoid secondary to vascular congestion noted in CXR Code(s): B34.9 - VIRAL INFECTION, UNSPECIFIED (3) HLD (hyperlipidemia) Assessment/Plan: Continue Crestor Monitor LFTs Problems reviewed: Yes Code(s): E78.5 - HYPERLIPIDEMIA, UNSPECIFIED (4) HTN (hypertension) Assessment/Plan: stable Monitor BP Monitor renal function Will need to have Day Team review meds with pt's , who has the list Code(s): I10 - ESSENTIAL (PRIMARY) HYPERTENSION (5) S/P aortic valve replacement Assessment/Plan: V Code(s): Z95.2 - PRESENCE OF PROSTHETIC HEART VALVE (6) MIGUEL A (obstructive sleep apnea) Assessment/Plan: BIPAP HS Code(s): G47.33 - OBSTRUCTIVE SLEEP APNEA (ADULT) (PEDIATRIC) Assessment/Plan This is a 83 y/o man with a PMHx of HTN, HLD, Prosthetic Aortic Valve ( Bovine) . Admitted to Telemetry for CVA/TIA, Generalized Weakness, Viral Syndrome fir further evaluation of their emergent condition. Plan: See Problem List FEN PO fluids Replete lytes prn Low Na Diet DVT ppx OOB SCDs Will need to verify AC (from home meds) Dispo: Requires Inpatient Care Visit type - Emergency Visit Emergency Visit: Yes ED Registration Date: 02/13/19 Care time: The patient presented to the Emergency Department on the above date and was hospitalized for further evaluation of their emergent condition. - New Patient This patient is new to me today: Yes Date on this admission: 02/13/19 - Critical Care Critical Care patient: No
[2019-02-14 07:39] LABS: BASO % 0.6 % (0-2.0); HEMATOCRIT 38.4 % (35.4-49); HEMOGLOBIN 12.7 GM/dl (11.7-16.9); LYMPH % 13.5 % (8-40); MCH 29.8 pg (25.7-33.7); MCHC 33.2 g/dl (32.0-35.9); MEAN CELL VOLUME 89.7 fl (80-96); MEAN PLT VOLUME 7.7 fl (7.5-11.1); MONO % 13.3 % (3.8-10.2); NEUT % 71.6 % (42.8-82.8); PLATELET COUNT 130 K/MM3 (134-434); RBC 4.28 M/mm3 (4.00-5.60); RDW 12.5 % (11.9-15.9); WHITE BLOOD COUNT 3.1 K/mm3 (4.0-10.8)
[2019-02-14 07:46] LABS: CALCIUM 8.5 mg/dl (8.5-10); CREATININE 1.3 mg/dl (0.55-1.3); POTASSIUM 3.5 mmol/L (3.5-5.1)
[2019-02-14 07:50] LABS: CHOLESTEROL 99 mg/dl (50-200); HDL CHOLESTEROL 35 mg/dl (40-60); LDL CHOLESTEROL (ONLY DFH) 55 mg/dl (5-100); TRIGLYCERIDES 47 mg/dl (0-150)
[2019-02-14] MEDS ORDERED: ROSUVASTATIN CA 5 MG TABLET (FP) PO SCH (10:00)
[2019-02-14] MEDS ORDERED: ASPIRIN 81 MG CHEWABLE TABLETS ONE (10:51)
[2019-02-14] MEDS ORDERED: metoPROLOL SUCCINATE 25 MG TAB.SR.24H (FP) ONE (10:51)
[2019-02-14] MEDS: CYANOCOBALAMIN 1,000 MCG TABLET (FP) PO SCH (10:55)
[2019-02-14] MEDS: metoPROLOL SUCCINATE 25 MG TAB.SR.24H (FP) PO SCH (10:55)
[2019-02-14] MEDS: FUROSEMIDE 40 MG TABLET (FP) PO SCH ×2 (10:55→11:48)
[2019-02-14] MEDS: APIXABAN 5 MG TABLET PO SCH ×2 (10:55→21:45)
[2019-02-14] MEDS: ASPIRIN 81 MG CHEWABLE TABLETS PO SCH ×2 (10:59→11:56)
[2019-02-14] MEDS ORDERED: FUROSEMIDE 40 MG/4 ML INJECTABLE VIAL IVPUSH ONE ×2 (11:19→18:45)
[2019-02-14] MEDS ORDERED: FUROSEMIDE 40 MG/4 ML INJECTABLE VIAL ONE ×2 (11:26→18:50)
[2019-02-14] MEDS ORDERED: ACETAMINOPHEN 325 MG TABLET (FP) ONE ×2 (11:40→16:07)
[2019-02-14] MEDS: ACETAMINOPHEN 325 MG TABLET (FP) PO PRN ×3 (11:41→22:56)
--- NOTE | 2019-02-14 14:12 | EKG ---
Test Reason : Blood Pressure : / mmHG Vent. Rate : 056 BPM Atrial Rate : 066 BPM P-R Int : 000 ms QRS Dur : 142 ms QT Int : 466 ms P-R-T Axes : 000 070 021 degrees QTc Int : 449 ms ATRIAL FIBRILLATION WITH SLOW VENTRICULAR RESPONSE RIGHT BUNDLE BRANCH BLOCK CANNOT RULE OUT INFERIOR INFARCT , AGE UNDETERMINED ABNORMAL ECG WHEN COMPARED WITH ECG OF 11-MAY-2017 23:31, ATRIAL FIBRILLATION HAS REPLACED SINUS RHYTHM Confirmed by JAY MATA, TRICIA ([id number]) on 02/14/2019 2:11:49 PM Referred By: DR VEE Confirmed By:TRICIA THOMPSON MD
--- NOTE | 2019-02-14 14:24 | CON.ID ---
Consult Consult Specialty:: infectious diseases Referred by:: hospitalist Reason for Consultation:: sepsis,fever - History of Present Illness Chief Complaint: weakness,sepsis,sob History of Present Illness: 83 y/o man from home with a PMhx of HTN, HLD, s/p Prosthetic Aortic Valve . Who presents to the ED with his family for ataxia, chills, rigors, and weakness. Patient reports feeling well earlier in the day. The patient's reports they were at the grandkid's house earlier today, where the patient had difficulty getting out of the car and was walking like "he lost all his energy. " the patient's reports she later found the patient under a blanket and was shaking. The patient reports he had a rough day yesterday" and feels "terrible." Denies any pain. The patient reports associated symptoms of shortness of breath. . Denies worsening shortness of breath, chest pain, abdominal pain, nausea, vomiting. Denies cough or congestion. according to the family patient was crawling in a cold, damp, crammed tunnel under [employer] to close a valve and began to feel unwell. Yesterday, while [id number] with his grandchildren he became weak and had 30 mins of chills. Still feels globally weak without focal complaints. - History Source History Provided By: Patient, Family Member Limitations to Obtaining History: No Limitations - Past Medical History Cardio/Vascular: Yes: Aortic Insufficiency, HTN, Hyperlipdemia Renal/: Yes: Cancer (prostate (seed implant)) Infectious Disease: Yes: MRSA (perianal abcess) - Past Surgical History Past Surgical History: Yes: Valve Replacement (aortic (on Eliquis)) - Alcohol/Substance Use Hx Alcohol Use: No History of Substance Use: reports: None - Smoking History Smoking history: Former smoker Have you smoked in the past 12 months: No Aproximately how many cigarettes per day: 0 If you are a former smoker, when did you quit?: years ago - Social History ADL: Independent History of Recent Travel: No Home Medications - Allergies Allergies/Adverse Reactions: Allergies Allergy/AdvReac Type Severity Reaction Status Date / Time No Known Allergies Allergy Verified 02/13/19 18:44 - Home Medications Home Medications: Ambulatory Orders Rosuvastatin Calcium [Crestor] 5 mg PO DAILY #0 tablet 12/26/11 Metoprolol Succinate [Toprol XL -] 25 mg PO DAILY 10/01/13 Furosemide 40 mg PO DAILY 05/01/17 Olmesartan Medoxomil [Benicar] 20 mg PO DAILY 05/01/17 Apixaban [Eliquis] 5 mg PO BID 02/14/19 Cyanocobalamin [Vitamin B12 -] 1,000 mcg PO DAILY 02/14/19 Review of Systems - Review of Systems Constitutional: reports: Chills, Fever, Weakness Eyes: reports: No Symptoms HENT: reports: No Symptoms Neck: reports: No Symptoms Cardiovascular: reports: No Symptoms Respiratory: reports: SOB Gastrointestinal: reports: No Symptoms Genitourinary: reports: No Symptoms Musculoskeletal: reports: No Symptoms Integumentary: reports: No Symptoms Neurological: reports: No Symptoms Endocrine: reports: No Symptoms Hematology/Lymphatic: reports: No Symptoms Psychiatric: reports: No Symptoms Physical Exam Vital Signs: Vital Signs Temperature 100.1 F H 02/14/19 11:40 Pulse Rate 86 02/14/19 11:18 Respiratory Rate 16 02/14/19 10:43 Blood Pressure 187/93 H 02/14/19 11:18 O2 Sat by Pulse Oximetry (%) 96 02/14/19 11:18 Constitutional: Yes: Calm, Mild Distress Eyes: Yes: Conjunctiva Clear Neck: Yes: Supple, Trachea Midline Cardiovascular: Yes: Pulse Irregular, S1, S2 Respiratory: Yes: Regular, CTA Bilaterally Gastrointestinal: Yes: Normal Bowel Sounds, Soft Musculoskeletal: Yes: Back Pain Extremities: Yes: WNL Neurological: Yes: Alert, Oriented Psychiatric: Yes: Alert, Oriented Labs: CBC, BMP 02/14/19 06:30 02/14/19 06:30 Imaging - Results Chest X-ray: Report Reviewed, Image Reviewed Cat Scan: Report Reviewed, Image Reviewed Assessment/Plan patient with multiple medical problems coming in with fever and weakness and resp issues with high grade fever all the imaging studies and labs noted at the moment exact source cannot be determined all the blood cx and other cx have been send patient is septic looking and high fever we will wait for all the cx to be back also please get imaging studies for his back to see if he is harbouring any infection or focus in his back close watch monitor labs support ct scans noted once we have all results will decide final plan also patient has artifical valve will also await for echo Problem List - Problems (1) Severe sepsis Code(s): A41.9 - SEPSIS, UNSPECIFIED ORGANISM; R65.20 - SEVERE SEPSIS WITHOUT SEPTIC SHOCK (2) MIGUEL A (obstructive sleep apnea) Code(s): G47.33 - OBSTRUCTIVE SLEEP APNEA (ADULT) (PEDIATRIC) (3) HLD (hyperlipidemia) Code(s): E78.5 - HYPERLIPIDEMIA, UNSPECIFIED (4) HTN (hypertension) Code(s): I10 - ESSENTIAL (PRIMARY) HYPERTENSION (5) S/P aortic valve replacement Code(s): Z95.2 - PRESENCE OF PROSTHETIC HEART VALVE (6) Afib Code(s): I48.91 - UNSPECIFIED ATRIAL FIBRILLATION cc 45 min
[2019-02-14] MEDS: CEFEPIME HCL/D5W 1 GM/50 ML BAG IVPB SCH ×2 (14:42→18:45)
[2019-02-14] MEDS ORDERED: VANCOMYCIN HCL 1,500 MG in DEXTROSE 5%-WATER - 500 ML IVPB ONE (15:00)
--- NOTE | 2019-02-14 15:02 | PN ---
Physical Exam: SUBJECTIVE: Patient seen and examined at [facility] then again on transfer to [facility]. patient family at bedside who expressed concern over patient having fevers. 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 patient transferred from [facility] to [facility] for closer monitoring. OBJECTIVE: Patient is an 83 year old male with a significant past medical history of hypertension, hyperlipidemia, prosthetic aortic valve replacement (bovine). afib (on eliquis). He presented to the [facility] ED with ataxia, chills, rigors and weakness. patient had rigors at home and brought into the ED by his family for further evaluation. Vital Signs Period Temp Pulse Resp BP Sys/Bacon Pulse Ox Last 24 Hr 98.7 F-100.1 F 50-105 16-20 144-195/68-93 93-99 GENERAL: The patient is awake, alert, and fully oriented, in mild respiratory distress on supplmental oxygen HEAD: Normal with no signs of trauma. EYES: PERRL, extraocular movements intact, sclera anicteric, conjunctiva clear. No ptosis. ENT: Ears normal, nares patent, oropharynx clear without exudates, moist mucous membranes. NECK: Trachea midline, full range of motion, supple. LUNGS: Breath sounds equal, but diminished bilaterally HEART: Regular rate and rhythm, sinus elissa ABDOMEN: Soft, nontender, nondistended, obese abdomen EXTREMITIES: no edema. NEUROLOGICAL: Normal speech, gait not observed. PSYCH: Normal mood, normal affect. SKIN: Warm, dry, normal turgor, no rashes or lesions noted Laboratory Results - last 24 hr 02/13/19 02/13/19 02/13/19 20:00 20:00 20:00 WBC 4.6 RBC 4.90 Hgb 14.4 Hct 44.4 MCV 90.6 MCH 29.5 MCHC 32.5 RDW 12.5 Plt Count 162 D MPV 7.6 Absolute Neuts (auto) 3.6 Neutrophils % 77.1 Lymphocytes % 8.8 D Monocytes % 12.9 H Eosinophils % 0.9 Basophils % 0.3 Sodium 137 Potassium 4.1 Chloride 100 Carbon Dioxide 27 Anion Gap 10 BUN 19.0 H Creatinine 1.3 Est GFR (CKD-EPI)AfAm 58.89 Est GFR (CKD-EPI)NonAf 50.81 Random Glucose 116 H Hemoglobin A1c % Lactic Acid Calcium 9.0 Phosphorus Magnesium Total Bilirubin 1.3 H AST 24 ALT 16 Alkaline Phosphatase 76 Creatine Kinase 100 Troponin I 0.04 B-Natriuretic Peptide Total Protein 6.7 Albumin 3.9 Triglycerides Cholesterol Total LDL Cholesterol HDL Cholesterol Urine Color Urine Appearance Urine pH Urine Protein Urine Glucose (UA) Urine Ketones Urine Blood Urine Nitrite Urine Bilirubin Urine Urobilinogen Ur Leukocyte Esterase Urine RBC Urine WBC Urine Bacteria Influenza A (Rapid) Influenza B (Rapid) 02/13/19 02/13/19 02/14/19 20:00 21:25 06:30 WBC RBC Hgb Hct MCV MCH MCHC RDW Plt Count MPV Absolute Neuts (auto) Neutrophils % Lymphocytes % Monocytes % Eosinophils % Basophils % Sodium 135 L Potassium 3.5 Chloride 103 Carbon Dioxide 27 Anion Gap 5 L BUN 18.0 Creatinine 1.3 Est GFR (CKD-EPI)AfAm 58.89 Est GFR (CKD-EPI)NonAf 50.81 Random Glucose 98 Hemoglobin A1c % Lactic Acid 1.3 Calcium 8.5 Phosphorus 3.0 Magnesium 2.0 Total Bilirubin AST ALT Alkaline Phosphatase Creatine Kinase Troponin I B-Natriuretic Peptide Total Protein Albumin Triglycerides Cholesterol Total LDL Cholesterol HDL Cholesterol Urine Color Yellow Urine Appearance Clear Urine pH 7.0 Urine Protein 2+ H Urine Glucose (UA) Negative Urine Ketones Trace Urine Blood 2+ H Urine Nitrite Negative Urine Bilirubin Negative Urine Urobilinogen 1.0 Ur Leukocyte Esterase Negative Urine RBC 10-20 Urine WBC 0-2 Urine Bacteria Few Influenza A (Rapid) Influenza B (Rapid) 02/14/19 02/14/19 02/14/19 06:30 06:30 06:30 WBC 3.1 L RBC 4.28 Hgb 12.7 Hct 38.4 MCV 89.7 MCH 29.8 MCHC 33.2 RDW 12.5 Plt Count 130 L MPV 7.7 Absolute Neuts (auto) 2.3 Neutrophils % 71.6 Lymphocytes % 13.5 D Monocytes % 13.3 H Eosinophils % 1.0 Basophils % 0.6 Sodium Potassium Chloride Carbon Dioxide Anion Gap BUN Creatinine Est GFR (CKD-EPI)AfAm Est GFR (CKD-EPI)NonAf Random Glucose Hemoglobin A1c % 5.5 Lactic Acid Calcium Phosphorus Magnesium Total Bilirubin AST ALT Alkaline Phosphatase Creatine Kinase Troponin I B-Natriuretic Peptide Total Protein Albumin Triglycerides 47 Cholesterol 99 Total LDL Cholesterol 55 HDL Cholesterol 35 L Urine Color Urine Appearance Urine pH Urine Protein Urine Glucose (UA) Urine Ketones Urine Blood Urine Nitrite Urine Bilirubin Urine Urobilinogen Ur Leukocyte Esterase Urine RBC Urine WBC Urine Bacteria Influenza A (Rapid) Influenza B (Rapid) 02/14/19 02/14/19 02/14/19 06:30 06:30 11:20 WBC RBC Hgb Hct MCV MCH MCHC RDW Plt Count MPV Absolute Neuts (auto) Neutrophils % Lymphocytes % Monocytes % Eosinophils % Basophils % Sodium Potassium Chloride Carbon Dioxide Anion Gap BUN Creatinine Est GFR (CKD-EPI)AfAm Est GFR (CKD-EPI)NonAf Random Glucose Hemoglobin A1c % Lactic Acid Calcium Phosphorus Magnesium Total Bilirubin AST ALT Alkaline Phosphatase Creatine Kinase Troponin I 0.05 B-Natriuretic Peptide 9668.7 H Total Protein Albumin Triglycerides Cholesterol Total LDL Cholesterol HDL Cholesterol Urine Color Urine Appearance Urine pH Urine Protein Urine Glucose (UA) Urine Ketones Urine Blood Urine Nitrite Urine Bilirubin Urine Urobilinogen Ur Leukocyte Esterase Urine RBC Urine WBC Urine Bacteria Influenza A (Rapid) Negative Influenza B (Rapid) Negative 02/14/19 13:30 WBC RBC Hgb Hct MCV MCH MCHC RDW Plt Count MPV Absolute Neuts (auto) Neutrophils % Lymphocytes % Monocytes % Eosinophils % Basophils % Sodium Potassium Chloride Carbon Dioxide Anion Gap BUN Creatinine Est GFR (CKD-EPI)AfAm Est GFR (CKD-EPI)NonAf Random Glucose Hemoglobin A1c % Lactic Acid Calcium Phosphorus Magnesium Total Bilirubin AST ALT Alkaline Phosphatase Creatine Kinase Troponin I 0.05 B-Natriuretic Peptide Total Protein Albumin Triglycerides Cholesterol Total LDL Cholesterol HDL Cholesterol Urine Color Urine Appearance Urine pH Urine Protein Urine Glucose (UA) Urine Ketones Urine Blood Urine Nitrite Urine Bilirubin Urine Urobilinogen Ur Leukocyte Esterase Urine RBC Urine WBC Urine Bacteria Influenza A (Rapid) Influenza B (Rapid) Active Medications Generic Name Dose Route Start Last Admin Trade Name Freq PRN Reason Stop Dose Admin Acetaminophen 650 mg 02/14/19 02:18 02/14/19 11:41 Tylenol - PO 650 mg Q6H PRN Administration FEVER Apixaban 5 mg 02/14/19 10:00 02/14/19 10:55 Eliquis - PO 5 mg BID JELLY Administration Cyanocobalamin 1,000 mcg 02/14/19 10:00 02/14/19 10:55 Vitamin B12 - PO 1,000 mcg DAILY JELLY Administration Furosemide 40 mg 02/14/19 10:00 02/14/19 11:48 Lasix - PO Not Given DAILY JELLY Cefepime HCl 1 gm in 50 mls @ 100 mls/hr 02/14/19 14:30 02/14/19 14:42 Maxipime 1 Gm Premix Ivpb IVPB 100 mls/hr Q8H-IV JELLY Administration Protocol Vancomycin HCl 1,500 mg/ 500 mls @ 250 mls/hr 02/14/19 15:00 Dextrose IVPB 02/14/19 16:59 ONCE ONE Metoprolol Succinate 25 mg 02/14/19 10:00 02/14/19 10:55 Toprol Xl - PO 25 mg DAILY JELLY Administration Rosuvastatin Calcium 5 mg 02/14/19 22:00 Crestor - PO HS JELLY ASSESSMENT/PLAN: Problem List - Problems (1) Severe sepsis Assessment/Plan: Patient with high grade fevers, chills, malaise, and fatigue/weakness pancultured started on antibiotics per ID Requires cardiac monitoring blood and urine cultures pending Fever of unknown origin, started on emperic antibiotics pending cultures chest ct shows mediastinal adenopaty with moderate increase since prior exam discussed with ID, will send out for lumbar/thoracic spine CT to rule out abscess, abd ct to rule out gi source of fever Code(s): A41.9 - SEPSIS, UNSPECIFIED ORGANISM; R65.20 - SEVERE SEPSIS WITHOUT SEPTIC SHOCK (2) MIGUEL A (obstructive sleep apnea) Assessment/Plan: continue home cpap Code(s): G47.33 - OBSTRUCTIVE SLEEP APNEA (ADULT) (PEDIATRIC) (3) HLD (hyperlipidemia) Assessment/Plan: continue home meds Code(s): E78.5 - HYPERLIPIDEMIA, UNSPECIFIED (4) HTN (hypertension) Assessment/Plan: elevated, on metoprolol. given one dose of low dose norvasc Code(s): I10 - ESSENTIAL (PRIMARY) HYPERTENSION (5) S/P aortic valve replacement Assessment/Plan: discussed with patient's hepatology physician who is concerned for endocarditis as source of fever echo noted. may need further cardiac workup if fevers persist. Code(s): Z95.2 - PRESENCE OF PROSTHETIC HEART VALVE (6) Afib Assessment/Plan: on eliquis 5 bid and metoprol Code(s): I48.91 - UNSPECIFIED ATRIAL FIBRILLATION Visit type - Emergency Visit Emergency Visit: Yes ED Registration Date: 02/14/19 Care time: The patient presented to the Emergency Department on the above date and was hospitalized for further evaluation of their emergent condition. - New Patient This patient is new to me today: Yes Date on this admission: 02/18/19 - Critical Care Critical Care patient: No - Discharge Referral Referred to [facility] No
--- NOTE | 2019-02-14 15:03 | ECHO ---
Name: OSIRIS GONZALEZ Exam:Adult Echocardiogram Study Date: 02/14/2019 01:38 PM Age: 83 yrs Reason For Study: CVA Height: 67 in Weight: 209 lb BSA: 2.1 m2 MMode/2D Measurements & Calculations IVSd: 1.4 cm Ao root diam: 3.1 cm LVIDd: 4.1 cm LA dimension: 5.8 cm LVIDs: 2.9 cm LVPWd: 1.3 cm EDV(Teich): 74.8 ml LVOT diam: 2.0 cm ESV(Teich): 32.5 ml Doppler Measurements & Calculations MV E max radha: 166.1 cm/sec MV dec slope: 628.4 cm/sec2 Ao V2 max: 289.0 cm/sec LV V1 max P.0 mmHg Ao max P.4 mmHg LV V1 mean P.6 mmHg Ao V2 mean: 201.6 cm/sec LV V1 max: 86.4 cm/sec Ao mean P.3 mmHg LV V1 mean: 60.0 cm/sec Ao V2 VTI: 59.0 cm LV V1 VTI: 20.2 cm JENY(I,D): 1.1 cm2 JENY(V,D): 0.94 cm2 SV(LVOT): 63.4 ml TR max radha: 251.9 cm/sec TR max P.5 mmHg PA V2 max: 129.5 cm/sec PI end-d radha: 128.2 cm/sec PA max P.7 mmHg Left Ventricle There is moderate concentric left ventricular hypertrophy. Left ventricular systolic function is norm al. Ejection Fraction = 50-55%. Right Ventricle The right ventricle is grossly normal size. The right ventricular systolic function is grossly normal . Atria The left atrium is severely dilated. Right atrium is small. Mitral Valve There is moderate to severe mitral annular calcification. There is trace mitral regurgitation. Tricuspid Valve The tricuspid valve is normal in structure and function. There is mild tricuspid regurgitation. Right ventricular systolic pressure is elevated at 30-40mmHg. Aortic Valve Moderate valvular aortic stenosis. No aortic regurgitation is present. Pulmonic Valve The pulmonic valve is not well seen, but is grossly normal. There is no pulmonic valvular stenosis. M ild pulmonic valvular regurgitation. Great Vessels The aortic root is normal size. Pericardium/Pleura There is no pericardial effusion. Interpretation Summary There is moderate concentric left ventricular hypertrophy. Left ventricular systolic function is normal. Ejection Fraction = 50-55%. The right ventricular systolic function is grossly normal. The left atrium is severely dilated. There is moderate to severe mitral annular calcification. There is mild tricuspid regurgitation. Right ventricular systolic pressure is elevated at 30-40mmHg. Moderate valvular aortic stenosis. There is no pericardial effusion. MD Murray *[place] 02/14/2019 03:03 PM
--- NOTE | 2019-02-14 15:30 | CONSULT ---
Consult - text type - Consultation Consultation Note: NEUROLOGY CONSULTATION is greatly appreciated: Events reviewed and discussed with ED MD. Patient examined. 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 PMH sig for HTN, Chol, ASHD s/p Bovine AVR. Maintained on: Rosuvastatin; Metoprolol 100 mg; Furosemide 20; Olmesartan; Apixaban 5 mg PO BID; and Cyanocobalamin. Sunday was crawling in a cold, damp, cramoed tunnel under [employer] to close a valve and began to feel unwell. Yesterday, while [id number] with his grandchildren he becam weak and had 30 mins of chills. Came to ER. Still feels globally weak without focal complaints. CT of head (reviewed): Normal with age related changes. Carotid duplex: No significant stenosis. UA sig for Hematuria. EXAM: BP 180/90. Temp as high as 100.1. Started on Cefapime NEURO: Awake, alert. MS/speech: Normal CN II-XII: normal Motor: No drift or tremor. Normal strength, tone aqnd bulk. Normal reflexes except absent AJ's. Toes downgoing Coord: No FTN dystaxia Sensory: Decreased vibration feet. Gait: Sl shuffle IMP: Non-focal neurological exam Peripheral neuropathy vs LS spinal stenosis. No suggestion of CVA Consider viral syndrome, Nephritis, SBE. SUGGEST: ID, Renal, Cardiology R/O MD, Echocardiogram, blood cultures Check CK, B12, TSH. Continue Eliquis. Thank you very much, Michael Lyons MD
[2019-02-14] MEDS ORDERED: amLODIPine BESYLATE 2.5 MG TABLET (FP) PO ONE (17:58)
[2019-02-14] MEDS ORDERED: CEFEPIME 1 GM in DEXTROSE 5%-WATER 100 ML IVPB SCH (18:14)
[2019-02-14] MEDS ORDERED: CEFEPIME HCL 1 GM VIAL (RESTRICTED TO ID) ONE (18:16)
[2019-02-14] MEDS ORDERED: DEXTROSE 5%-WATER 100 ML IVPB ONE (18:16)
[2019-02-14] MEDS: CEFEPIME 1 GM in DEXTROSE 5%-WATER 100 ML IVPB SCH (18:46)
--- NOTE | 2019-02-14 19:54 | CONSULT ---
Consultation: REQUESTING PROVIDER: CONSULT REQUEST: ICU HISTORY OF PRESENT ILLNESS: 83yM w PMHx HTN, HLD, MIGUEL A, a fib , prosthetic aortic valve replacement who presented to [facility] with progressive worsening fevers, rigors, back pain and weakness for 3d. Pt is disoriented and could not provide history. Pt transferred to [facility] for refractory fevers up to 103 despite being on cefepime. Concern for endocartitis. 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 REVIEW OF SYSTEMS: could not elicit d/t pt confusion PHYSICAL EXAMINATION Vital Signs - 24 hr 02/13/19 02/13/19 02/14/19 22:10 23:49 02:18 Temperature 100.1 F H 98.7 F Pulse Rate Pulse Rate [ 64 72 62 Radial] Respiratory 16 18 Rate Blood Pressure Blood Pressure 180/88 H 161/80 163/86 [Arm] O2 Sat by Pulse 95 97 93 L Oximetry (%) 02/14/19 02/14/19 02/14/19 06:37 09:46 10:43 Temperature 99.3 F Pulse Rate Pulse Rate [ 51 L 65 Radial] Respiratory 16 16 16 Rate Blood Pressure Blood Pressure 166/68 187/73 H [Arm] O2 Sat by Pulse 97 95 96 Oximetry (%) 02/14/19 02/14/19 02/14/19 11:18 11:40 14:37 Temperature 100.1 F H 99.2 F Pulse Rate Pulse Rate [ 86 50 L Radial] Respiratory 19 Rate Blood Pressure Blood Pressure 187/93 H 144/81 [Arm] O2 Sat by Pulse 96 99 Oximetry (%) 02/14/19 02/14/19 02/14/19 15:14 16:00 18:10 Temperature 99.2 F 102.0 F H 103.6 F H Pulse Rate 50 L 58 L Pulse Rate [ 56 L Radial] Respiratory 19 22 H 18 Rate Blood Pressure 144/81 179/76 H Blood Pressure 176/109 H [Arm] O2 Sat by Pulse 95 Oximetry (%) 02/14/19 18:51 Temperature 103.6 F H Pulse Rate 58 L Pulse Rate [ Radial] Respiratory 18 Rate Blood Pressure 179/76 H Blood Pressure [Arm] O2 Sat by Pulse 96 Oximetry (%) GENERAL: Awake, alert, in no acute distress. HEAD: Normal with no signs of trauma. EYES: Pupils equal, round and reactive to light, conjunctiva clear. LUNGS: Breath sounds equal, clear to auscultation bilaterally. No wheezes, and no crackles. No accessory muscle use. HEART: Regular rate and rhythm, normal S1 and S2 . Systolic murmur ABDOMEN: Soft, nontender, not distended, normoactive bowel sounds, no guarding, no rebound, no masses. No hepatomegaly or splenomegaly. EXTREMITIES: warm, no peripheral edema or rash noted. 5s cap refill NEUROLOGICAL: AOx2. Confused. Normal speech. Follows simple commands Laboratory Results - last 24 hr 02/13/19 02/13/19 02/13/19 20:00 20:00 20:00 WBC 4.6 RBC 4.90 Hgb 14.4 Hct 44.4 MCV 90.6 MCH 29.5 MCHC 32.5 RDW 12.5 Plt Count 162 D MPV 7.6 Absolute Neuts (auto) 3.6 Neutrophils % 77.1 Lymphocytes % 8.8 D Monocytes % 12.9 H Eosinophils % 0.9 Basophils % 0.3 Sodium 137 Potassium 4.1 Chloride 100 Carbon Dioxide 27 Anion Gap 10 BUN 19.0 H Creatinine 1.3 Est GFR (CKD-EPI)AfAm 58.89 Est GFR (CKD-EPI)NonAf 50.81 POC Glucometer Random Glucose 116 H Hemoglobin A1c % Lactic Acid Calcium 9.0 Phosphorus Magnesium Total Bilirubin 1.3 H AST 24 ALT 16 Alkaline Phosphatase 76 Creatine Kinase 100 Troponin I 0.04 B-Natriuretic Peptide Total Protein 6.7 Albumin 3.9 Triglycerides Cholesterol Total LDL Cholesterol HDL Cholesterol Urine Color Urine Appearance Urine pH Urine Protein Urine Glucose (UA) Urine Ketones Urine Blood Urine Nitrite Urine Bilirubin Urine Urobilinogen Ur Leukocyte Esterase Urine RBC Urine WBC Urine Bacteria Influenza A (Rapid) Influenza B (Rapid) 02/13/19 02/13/19 02/14/19 20:00 21:25 06:30 WBC RBC Hgb Hct MCV MCH MCHC RDW Plt Count MPV Absolute Neuts (auto) Neutrophils % Lymphocytes % Monocytes % Eosinophils % Basophils % Sodium 135 L Potassium 3.5 Chloride 103 Carbon Dioxide 27 Anion Gap 5 L BUN 18.0 Creatinine 1.3 Est GFR (CKD-EPI)AfAm 58.89 Est GFR (CKD-EPI)NonAf 50.81 POC Glucometer Random Glucose 98 Hemoglobin A1c % Lactic Acid 1.3 Calcium 8.5 Phosphorus 3.0 Magnesium 2.0 Total Bilirubin AST ALT Alkaline Phosphatase Creatine Kinase Troponin I B-Natriuretic Peptide Total Protein Albumin Triglycerides Cholesterol Total LDL Cholesterol HDL Cholesterol Urine Color Yellow Urine Appearance Clear Urine pH 7.0 Urine Protein 2+ H Urine Glucose (UA) Negative Urine Ketones Trace Urine Blood 2+ H Urine Nitrite Negative Urine Bilirubin Negative Urine Urobilinogen 1.0 Ur Leukocyte Esterase Negative Urine RBC 10-20 Urine WBC 0-2 Urine Bacteria Few Influenza A (Rapid) Influenza B (Rapid) 02/14/19 02/14/19 02/14/19 06:30 06:30 06:30 WBC 3.1 L RBC 4.28 Hgb 12.7 Hct 38.4 MCV 89.7 MCH 29.8 MCHC 33.2 RDW 12.5 Plt Count 130 L MPV 7.7 Absolute Neuts (auto) 2.3 Neutrophils % 71.6 Lymphocytes % 13.5 D Monocytes % 13.3 H Eosinophils % 1.0 Basophils % 0.6 Sodium Potassium Chloride Carbon Dioxide Anion Gap BUN Creatinine Est GFR (CKD-EPI)AfAm Est GFR (CKD-EPI)NonAf POC Glucometer Random Glucose Hemoglobin A1c % 5.5 Lactic Acid Calcium Phosphorus Magnesium Total Bilirubin AST ALT Alkaline Phosphatase Creatine Kinase Troponin I B-Natriuretic Peptide Total Protein Albumin Triglycerides 47 Cholesterol 99 Total LDL Cholesterol 55 HDL Cholesterol 35 L Urine Color Urine Appearance Urine pH Urine Protein Urine Glucose (UA) Urine Ketones Urine Blood Urine Nitrite Urine Bilirubin Urine Urobilinogen Ur Leukocyte Esterase Urine RBC Urine WBC Urine Bacteria Influenza A (Rapid) Influenza B (Rapid) 02/14/19 02/14/19 02/14/19 06:30 06:30 11:20 WBC RBC Hgb Hct MCV MCH MCHC RDW Plt Count MPV Absolute Neuts (auto) Neutrophils % Lymphocytes % Monocytes % Eosinophils % Basophils % Sodium Potassium Chloride Carbon Dioxide Anion Gap BUN Creatinine Est GFR (CKD-EPI)AfAm Est GFR (CKD-EPI)NonAf POC Glucometer Random Glucose Hemoglobin A1c % Lactic Acid Calcium Phosphorus Magnesium Total Bilirubin AST ALT Alkaline Phosphatase Creatine Kinase Troponin I 0.05 B-Natriuretic Peptide 9668.7 H Total Protein Albumin Triglycerides Cholesterol Total LDL Cholesterol HDL Cholesterol Urine Color Urine Appearance Urine pH Urine Protein Urine Glucose (UA) Urine Ketones Urine Blood Urine Nitrite Urine Bilirubin Urine Urobilinogen Ur Leukocyte Esterase Urine RBC Urine WBC Urine Bacteria Influenza A (Rapid) Negative Influenza B (Rapid) Negative 02/14/19 02/14/19 13:30 15:52 WBC RBC Hgb Hct MCV MCH MCHC RDW Plt Count MPV Absolute Neuts (auto) Neutrophils % Lymphocytes % Monocytes % Eosinophils % Basophils % Sodium Potassium Chloride Carbon Dioxide Anion Gap BUN Creatinine Est GFR (CKD-EPI)AfAm Est GFR (CKD-EPI)NonAf POC Glucometer 102 Random Glucose Hemoglobin A1c % Lactic Acid Calcium Phosphorus Magnesium Total Bilirubin AST ALT Alkaline Phosphatase Creatine Kinase Troponin I 0.05 B-Natriuretic Peptide Total Protein Albumin Triglycerides Cholesterol Total LDL Cholesterol HDL Cholesterol Urine Color Urine Appearance Urine pH Urine Protein Urine Glucose (UA) Urine Ketones Urine Blood Urine Nitrite Urine Bilirubin Urine Urobilinogen Ur Leukocyte Esterase Urine RBC Urine WBC Urine Bacteria Influenza A (Rapid) Influenza B (Rapid) Active Medications Generic Name Dose Route Start Last Admin Trade Name Freq PRN Reason Stop Dose Admin Acetaminophen 650 mg 02/14/19 02:18 02/14/19 16:09 Tylenol - PO 650 mg Q6H PRN Administration FEVER Amlodipine Besylate 2.5 mg 02/15/19 10:00 Norvasc - PO DAILY JELLY Apixaban 5 mg 02/14/19 10:00 02/14/19 10:55 Eliquis - PO 5 mg BID JELLY Administration Cyanocobalamin 1,000 mcg 02/14/19 10:00 02/14/19 10:55 Vitamin B12 - PO 1,000 mcg DAILY JELLY Administration Furosemide 40 mg 02/15/19 06:00 Lasix Injection - IVPUSH BID@0600,1400 JELLY Cefepime HCl 1 gm/ Dextrose 100 mls @ 200 mls/hr 02/14/19 18:40 02/14/19 18: 46 IVPB 200 mls/hr Q8H-IV JELLY Administration Protocol Metoprolol Succinate 25 mg 02/14/19 10:00 02/14/19 10:55 Toprol Xl - PO 25 mg DAILY JELLY Administration Rosuvastatin Calcium 5 mg 02/14/19 22:00 Crestor - PO HS JELLY ASSESSMENT/PLAN: Pulm - hx MIGUEL A - on 2L NC - CXR 02/13 shows saray basilar pleural effusions, L>R - continue home CPAP Cards - concern for endocarditis, hx HTN, HLD, a fib - Carotid duplex 02/14 showed no significant stenosis - chest CT 02/14 showed mediastinal adenopathy, increased - echo 02/14 showed EF 50-55%, LA severely dilated, mod-severe mitral annular calcification, elevated RVSP 30-40mmHg - EKG 02/13 showed rate controlled a fib w RBBB - continue home crestor, metoprolol, lasix, norvasc - given 5 norvasc x1 for HTN - DVT ppx - appreciate cards recs GI - CT A/P 02/14 did not show any acute abdominal pathology - continue vitamin B12 - Na diet - no evidence of UTI - placed lin - I/O Endo - normoglycemic, no active issues Neuro - CTH 02/13 did not show acute intacranial pathology - no evidence of CVA per neuro - appreciate neuro recs ID - sepsis, febrile - cefepime - tylenol PRN for fever - pending blood/urine cx, Legionella Ag - pending lumbar/thoracic CT r/o abscess - influenza neg - appreciate ID recs FEN - no fluids - hypoNa - Na diet PPX - eliquis - no GI ppx Dispo - transfer to ICU for close monitoring Visit type - Emergency Visit Emergency Visit: Yes ED Registration Date: 02/14/19 Care time: The patient presented to the Emergency Department on the above date and was hospitalized for further evaluation of their emergent condition. - New Patient This patient is new to me today: Yes Date on this admission: 02/15/19 - Critical Care Critical Care patient: Yes Total Critical Care Time (in minutes): 36 Critical Care Statement: The care of this patient involved high complexity decision making to prevent further life threatening deterioration of the patient 's condition and/or to evaluate & treat vital organ system(s) failure or risk of failure. ATTENDING PHYSICIAN STATEMENT I saw and evaluated the patient. I reviewed the resident's note and discussed the case with the resident. I agree with the resident's findings and plan as documented. SUBJECTIVE: OBJECTIVE: ASSESSMENT AND PLAN:
[2019-02-14] MEDS ORDERED: amLODIPine BESYLATE 5 MG TABLET (FP) PO ONE (21:06)
--- NOTE | 2019-02-14 22:32 | CONS ---
DATE OF CONSULTATION: DATE OF DICTATION: 02/14/2019 REQUESTING LIBERTARIAN: Hospitalist Service. CHIEF COMPLAINT: 1. Chills and rigors. 2. Weakness. 3. Fever. 4. History of progressive cough. HISTORY OF PRESENT ILLNESS: The patient is an 83-year-old white gentleman with history of hypertension, hypertensive cardiovascular disease, aortic valvular disease status post bioprosthetic aortic valve replacement, history of left ventricular diastolic dysfunction, congestive heart failure, history of paroxysmal atrial fibrillation, history of chronic obstructive pulmonary disease. 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 He came home and noticed that he was in significant pain, looked pale, was very tired and complained of weakness, and she noticed that he was coughing. The next morning he woke up and started developing chills and rigors which progressively became more pronounced. He had no appetite. The back pain became more pronounced, and the noticed that his cough became progressively worse. There is no history of expectoration. He did notice that he was warm and had periods of mild disorientation. Patient continued to have recurring rigors and according to his son, he required several blankets to try and keep him warm. His son finally called the office and said his father was in significant pain and was advised to take him to the nearest emergency room. He was admitted at [facility] and continued to have intermittent rigors and had intermittent back pain which was severe. While he was in the emergency room, he was found to be tachypneic and was wheezing and was in left ventricular failure, treated with intravenous diuretic. On questioning, he denies having chest pain or discomfort. There is no history of paroxysmal nocturnal dyspnea or orthopnea. Has chronic history of exertional dyspnea. There is no history of palpitations, lightheadedness, dizziness, presyncope, or syncope. In view of progressive deterioration, it was decided that he was to be transferred to [facility]. Since admission at [facility], he has had periods of mild disorientation, still continues to spike a temperature and periodically complains of severe back pain. PAST MEDICAL HISTORY: Past history as mentioned in the history of present illness. History of carcinoma of the prostate. History of MRSA. SURGICAL HISTORY: Status post TURP. Status post aortic valve replacement for severe aortic regurgitation. 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 . Has 3 sons who are healthy. Currently no history of smoking. He does drink on a regular basis except that he has not had a drink over the past 2 months. Has a cup of coffee. FAMILY HISTORY: Father at the age of 64, apparently related to pneumonia. Mother in her 40s of carcinoma. Two brothers, both of them in their 90s of natural causes. ALLERGIES: None reported. MEDICATION: 1. Tylenol 650 mg p.o. q.6 h. p.r.n. 2. Cefepime 200 mL per hour IV q.8 h. 3. Eliquis 5 mg p.o. b.i.d. 4. Metoprolol succinate 25 mg p.o. daily. 5. Amlodipine 2.5 mg p.o. daily. 6. Rosuvastatin 5 mg p.o. daily. 7. Furosemide 40 mg IV daily. 8. Vitamin B12, 1000 mcg p.o. daily. REVIEW OF SYSTEMS: Constitutional: History of chills and rigors. No fever. No history of unintentional weight loss. HEENT: No history of headaches, diplopia, blurred vision reported. No history of epistaxis, hoarseness. History of bilateral deafness requiring hearing aids. Cardiovascular: See history of present illness. Respiratory: History of chronic pulmonary disease, history of exposure to asbestos. History of cough. No history of expectoration. No history of hemoptysis. No history of tuberculosis. Gastrointestinal: History of poor appetite for the past few days. No history of nausea, vomiting, melena, or hematemesis. No history of abdominal pain or discomfort. No history of change in bowel habits. Endocrine: No history of polyuria and polydipsia. History of intolerance to cold or warm weather. Genitourinary: No history of polyuria or polydipsia. History of nocturia. History of urgency and frequency while taking diuretics. No history of hematuria. Musculoskeletal: No history of arthralgias or myalgias reported. Hematological/Lymphatics: No history of ecchymosis, anemia, or bleeding. No history of lymphadenopathy. PHYSICAL EXAMINATION: General: An 83-year-old gentleman who was in moderate distress, he was flushed. There is no pallor or cyanosis noted. No clubbing or jaundice. Vital signs: Blood pressure at 1600 hours was 170/109 mmHg. Currently, he is 179/76 mmHg. Pulse is 58 beats per minute and regular. Respirations were 18 per minute. Temperature at 1851 hours was 103.6 degrees Fahrenheit rectally. Oxygen saturation on 2 L was 96% at 1851 hours. Neck: Supple. No jugulovenous distention, hepatojugular reflex was negative, carotids were 2+, upstrokes were normal, no bruits or thyromegaly was appreciated. Heart: PMI was in the 5th intercostal space, no heaves or thrills, S1 and S2 were normal, ejection systolic murmur grade 2/6 was heard at the 2nd right intercostal space with early systolic peaking. No diastolic murmur or gallops were heard. Lungs: Coarse breath sounds at the right base. No expiratory wheezing or other extraneous sounds were heard. Chest: Normal AP diameter. Expansion appeared symmetrical. Abdomen: Soft, protuberant, nontender, no hepatosplenomegaly or palpable masses were felt. No bruits were appreciated, and bowel sounds were present. Extremities: No calf tenderness or dependent edema, femoral pulses were 2+, dorsalis pedis pulses were 1+. Posterior tibial pulses could not be palpated. LABORATORY DATA: X-ray chest, single AP view of the chest has been submitted. Since May 02, 2018, there is slightly weak inspiration with large heart, unfolded aorta, sternal sutures and some mild congestive changes. Angles are sharp. The bone and soft tissues are intact. ECG reported as atrial fibrillation with slow ventricular response. Right bundle branch block. Cannot rule out inferior infarct age indeterminate. Abnormal ECG. When compared to ECG of May 11, 2017, atrial fibrillation has replaced sinus rhythm. Echocardiogram February 14, 2019. Interpretation summary: There is moderate concentric left ventricular hypertrophy. Left ventricular systolic function is normal. Ejection fraction is 50% to 55%. Right ventricular systolic function is grossly normal. Left atrium is severely dilated. There is moderate to severe mitral annular calcification. There is mild tricuspid regurgitation. Right ventricular systolic pressure is elevated at 30 to 40 mmHg. Moderate valvular aortic stenosis. There is no pericardial effusion. Chest CT without contrast, impression: No evidence of infiltrate or consolidation seen. Mediastinal adenopathy which shows moderate increase since prior exam. Additional evaluation and followup suggested. Pleural thickening and calcification as previously. Cholelithiasis. Clinical correlation advised. Carotid Doppler. Impression: Intimal thickening and small plaque in the distal right common carotid artery and bifurcation/bulb as well as intimal thickening and small to moderate sized plaque in the distal left common carotid artery and at the bifurcation/bulb without evidence of hemodynamically significant stenosis, bilaterally. Intimal thickening and small to moderate sized plaque are present in the mid left common carotid artery. CT of the head, impression: No CT evidence of acute intracranial pathology. Moderate periventricular and subcortical chronic microvascular ischemic changes are noted. LABORATORY DATA: CBC: February 14, 2019: WBC count 3100. Hemoglobin 12.7 g/dL. Platelet count 130,000. Normal cell indices. Neutrophils 71.6%, lymphocytes 13.5%, monocytes 13.3%, eosinophils 1%, basophils 0.3%. BNP 9608.7 pg/mL. Lipid panel: Total cholesterol 99, triglycerides 47, total LDL 55, HDL 35 mg/dL. Sodium 135, potassium 3.5, chloride 103, CO2 of 27 mmol/L. Calcium 8.5 mg/dL. Her troponin I, 0.05 and 0.05. Urinalysis revealed 2+ protein, 2+ blood. Urine, leukocyte esterase were negative, 10 to 20 RBCs, 0 to 2 WBCs, few bacteria. influenza A and B were negative. IMPRESSION: 1. Chills, rigors, fever, etiology: A. Related to pneumonia. B. Sepsis. C. Endocarditis of the prosthetic valve needs to be excluded. D. Urinary tract infection. 2. Hypertension. Hypertensive cardiovascular disease, poorly controlled. 3. Aortic valvular disease status post bioprosthetic aortic valve replacement. Possible bioprosthetic aortic stenosis. 4. In atrial fibrillation with slow ventricular response. 5. Left ventricular diastolic dysfunction. 6. Recent acute left ventricular failure. 7. Hypercholesterolemia. 8. Back pain most likely related to injury, possibility of back pain associated with endocarditis needs exclusion. 9. Mediastinal lymphadenopathy, etiology to be determined. 10. Intermittent mental confusion is most likely related to metabolic and/or toxic encephalopathy. 11. Obstructive sleep apnea syndrome on CPAP. 12. History of chronic pulmonary disease. 13. Right bundle branch block. RECOMMENDATION: 1. Control of blood pressure. 2. Resume all outpatient antihypertensive therapy and request family to bring all the medications for reconciliation. 3. Follow up CBC. 4. Further suggestions as necessary. Prognosis critical. Thank you for your referral. In attendance for 2 hours and 10 minutes. Yours sincerely, XAVI RYAN M.D. [id number]
[2019-02-14] MEDS ORDERED: LORazepam 2 MG/ML SDV VIAL IVPUSH ONE (22:45)
[2019-02-14] MEDS: ROSUVASTATIN CA 5 MG TABLET (FP) PO SCH (22:52)
[2019-02-15] MEDS ORDERED: CEFEPIME HCL 1 GM VIAL (RESTRICTED TO ID) ONE ×2 (03:00→09:33)
[2019-02-15] MEDS ORDERED: DEXTROSE 5%-WATER 100 ML IVPB ONE ×4 (03:01→21:50)
[2019-02-15] MEDS: CEFEPIME 1 GM in DEXTROSE 5%-WATER 100 ML IVPB SCH ×3 (03:05→17:33)
[2019-02-15 06:28] LABS: BASO % 0.9 % (0-2.0); EOS % 0.3 % (0-4.5); HEMATOCRIT 45.2 % (35.4-49); HEMOGLOBIN 15.1 GM/dL (11.7-16.9); LYMPH % 13.2 % (8-40); MCH 29.7 pg (25.7-33.7); MCHC 33.3 g/dl (32.0-35.9); MEAN CELL VOLUME 89.1 fl (80-96); MEAN PLT VOLUME 7.5 fl (7.5-11.1); NEUT % 77.6 % (42.8-82.8); PLATELET COUNT 105 K/MM3 (134-434); RBC 5.08 M/mm3 (4.00-5.60); RDW 13.5 % (11.9-15.9); WHITE BLOOD COUNT 3.3 K/mm3 (4.0-10.0)
[2019-02-15] MEDS: FUROSEMIDE 40 MG/4 ML INJECTABLE VIAL IVPUSH SCH ×2 (06:52→13:22)
[2019-02-15] MEDS: ACETAMINOPHEN 325 MG TABLET (FP) PO PRN ×3 (06:52→22:33)
[2019-02-15 07:57] LABS: ALBUMIN 3.6 g/dl (3.4-5.0); BILIRUBIN,TOTAL 1.8 mg/dL (0.2-1); CALCIUM 8.6 mg/dL (8.5-10.1); CREATININE 1.3 mg/dL (0.55-1.3); MAGNESIUM 2.2 mg/dL (1.8-2.4); POTASSIUM 3.8 mmol/L (3.5-5.1); TOT PROT 7.4 g/dl (6.4-8.2)
[2019-02-15] MEDS: metoPROLOL SUCCINATE 25 MG TAB.SR.24H (FP) PO SCH (10:15)
[2019-02-15] MEDS: amLODIPine BESYLATE 2.5 MG TABLET (FP) PO SCH (10:15)
[2019-02-15] MEDS: APIXABAN 5 MG TABLET PO SCH ×2 (10:15→21:56)
[2019-02-15 10:49] LABS: PHOSPHOROUS 3.2 mg/dL (2.5-4.9)
--- NOTE | 2019-02-15 11:06 | CONSULT ---
Consult - text type - Consultation Consultation Note: PULM/CRITICAL CARE MEDICINE CONSULT: Briefly, 83 y/o M with HTN, s/p porcine valve 2008, AF on AC who presented to the ED yesterday with high fevers, rigors and altered mental status. Fevers and rigors started the evening of 02/13. Labs were significant for leukopenia. He was cultured, started on abx (Cefepime/Vanc) and admitted to the floor. He was persistently febrile while on the floor. The working diagnosis was r/o endocarditis or spinal/epidural abscess. He has a h/o MRSA in a wound years ago. His last dental procedure was 6 months ago. He takes abx for SBE PPx prior to dental procedures. He has no sick contacts or recent travel. He denies cough, SOB, sputum production. No N/V/D. No urinary symptoms. Blood cultures so far are negative, CT of the thoracic and lumbar spin was done along with CT of the chest, abdomen and pelvis. No obvious source was identified on CT, however these were non-contrast studies. He was eventually admitted to the ICU for persistent fevers. Current Medications Acetaminophen (Tylenol -) 650 mg PO Q6H PRN PRN Reason: FEVER Last Admin: 02/15/19 06:52 Dose: 650 mg Amlodipine Besylate (Norvasc -) 2.5 mg PO DAILY [facility] Last Admin: 02/15/19 10:15 Dose: 2.5 mg Apixaban (Eliquis -) 5 mg PO BID [facility] Last Admin: 02/15/19 10:15 Dose: 5 mg Cyanocobalamin (Vitamin B12 -) 1,000 mcg PO DAILY [facility] Last Admin: 02/14/19 10:55 Dose: 1,000 mcg Furosemide (Lasix Injection -) 40 mg IVPUSH BID@0600,1400 [facility] Last Admin: 02/15/19 06:52 Dose: 40 mg Cefepime HCl 1 gm/ Dextrose 100 mls @ 200 mls/hr IVPB Q8H-IV JELLY; Protocol Last Admin: 02/15/19 10:13 Dose: 200 mls/hr Metoprolol Succinate (Toprol Xl -) 25 mg PO DAILY [facility] Last Admin: 02/15/19 10:15 Dose: 25 mg Rosuvastatin Calcium (Crestor -) 5 mg PO HS [facility] Last Admin: 02/14/19 22:52 Dose: 5 mg Current Medications Acetaminophen (Tylenol -) 650 mg PO Q6H PRN PRN Reason: FEVER Last Admin: 02/15/19 06:52 Dose: 650 mg Amlodipine Besylate (Norvasc -) 2.5 mg PO DAILY [facility] Last Admin: 02/15/19 10:15 Dose: 2.5 mg Apixaban (Eliquis -) 5 mg PO BID [facility] Last Admin: 02/15/19 10:15 Dose: 5 mg Cyanocobalamin (Vitamin B12 -) 1,000 mcg PO DAILY [facility] Last Admin: 02/14/19 10:55 Dose: 1,000 mcg Furosemide (Lasix Injection -) 40 mg IVPUSH BID@0600,1400 [facility] Last Admin: 02/15/19 06:52 Dose: 40 mg Cefepime HCl 1 gm/ Dextrose 100 mls @ 200 mls/hr IVPB Q8H-IV JELLY; Protocol Last Admin: 02/15/19 10:13 Dose: 200 mls/hr Metoprolol Succinate (Toprol Xl -) 25 mg PO DAILY [facility] Last Admin: 02/15/19 10:15 Dose: 25 mg Rosuvastatin Calcium (Crestor -) 5 mg PO HS [facility] Last Admin: 02/14/19 22:52 Dose: 5 mg EXAM: neuro: Awake, oriented to person, place but not time (Sunday for Sunday), COP[place]AND , non-focal, no nuchal rigidity, negative Brudzinski's sign HEENT: PERRL, anicteric sclera Lungs: clear Heart: AF Abd: Soft, non-tender, obese Ext: no edema, warm Skin: warm, no signs of abscess or cellulitis CBC, BMP 02/15/19 05:51 02/15/19 05:51 ASSESSMENT: Fever of unknown origin with altered mental status Sepsis Leukopenia AF on chronic AC s/p porcine valve 2008 HTN CHF MIGUEL A COPD CKD PLAN: -Abx per ID -Would ideally perform LP to r/o meningitis in this patient with high fevers and altered mental status, but he was continued on Eliquis. He could be empirically treated without LP for bacterial and HSV, but will defer to ID. -Follow up all cultures and imaging - may need contrast study or MRI -Continue Lasix -Nebs PRN -CPAP at night and when sleeping -Oxygen to maintain SpO2 >92 -Rate control -Eliquis would need to be held for at least 24hrs prior to LP - can bridge with Heparin drip and d/c 4hrs prior to LP and check PTT -GI PPx while on AC Thank you for this interesting consult Scott Sneed Pulm/Critical Care HEALTH CARE RECRUITER
[2019-02-15] MEDS ORDERED: FLU VACCINE QUAD 60 MCG/0.5 ML (MDV 19-20) IM ONE (12:29)
[2019-02-15] MEDS: CYANOCOBALAMIN 1,000 MCG TABLET (FP) PO SCH (12:52)
[2019-02-15] MEDS ORDERED: PNEUMOC 13-VAL CONJ-DIP CRM/PF 0.5 ML DISP.SYRIN IM ONE (13:00)
--- NOTE | 2019-02-15 14:27 | CONS ---
DATE OF CONSULTATION: DATE OF DICTATION: 02/15/2019 HISTORY: Patient was admitted with chills, rigors, fever, and a nonproductive cough. He also was complaining of back pain. He was transferred from the telemetry unit to ICU because of increasing rigors, fever, and disorientation. Since last evening, he has become afebrile and is alert and oriented. He has had no chest pain or discomfort. No dyspnea has been reported. Has intermittent, nonproductive cough. There is no history of palpitations, lightheadedness, dizziness, presyncope, or syncope. MEDICATIONS: 1. Eliquis 5 mg p.o. b.i.d. 2. Metoprolol succinate 25 mg p.o. daily. 3. Norvasc 2.5 mg p.o. daily. 4. Crestor 5 mg p.o. daily. 5. Lasix 40 mg IV daily. 6. Cefepime 1 g IV every 8 hours. 7. Vitamin B12 at 1000 mcg p.o. daily. EXAMINATION: General: An 83-year-old gentleman who is in no acute distress. No pallor, cyanosis, clubbing, or jaundice. Vital Signs: Blood pressure 146/85 mmHg at 1300 hours, pulse 58 beats per minute and irregularly irregular, temperature 98.6 degrees Fahrenheit (rectal), oxygen saturation 96 beats per minute and regular. Neck: Supple. No jugular venous distention. Hepatojugular reflux is negative. Carotids are 2+. Upstrokes are normal. No bruits are heard. No thyromegaly is present. Heart: PMI is in the 5th intercostal space. No heaves or thrills. S1 is variable. S2 is split. Ejection systolic murmur grade 2/6 is heard at the 2nd right intercostal space ending in [id number] systolic. No diastolic murmur or gallops are heard. Lungs: Clear on auscultation. Abdomen: Protuberant, soft, and nontender. No hepatosplenomegaly or palpable masses are felt. Bowel sounds are present. No bruits are heard. Extremities: No calf tenderness or dependent edema. LABORATORY DATA: CBC February 15, 2019; WBC 3300, hemoglobin 15.1 g/dL, platelet count 105,000. Chemistry; sodium 138, potassium 3.8, chloride 102, CO2 is 24 mmol/L, BUN 19, creatinine 1.3 mg/dL. Bilirubin 1.8, AST 55, ALT 37, alkaline phosphatase 132. Blood culture reports are pending. IMPRESSION: 1. Fever, rigors, and chills. Etiology to be determined. A. Pneumonia needs exclusions. B. Cholecystitis/cholangitis needs exclusion with rising liver function tests. C. Bacterial endocarditis needs exclusion. 2. Hypertension, hypertensive cardiovascular disease. 3. Persistent atrial fibrillation with controlled ventricular response. 4. Left ventricular diastolic dysfunction. 5. Recent acute left ventricular failure. 6. Hypercholesterolemia. 7. History of chronic pulmonary disease. 8. Leukopenia and thrombocytopenia of new onset. 9. Aortic valvular disease status post bioprosthetic aortic valve replacement. RECOMMENDATIONS: 1. Follow up ECG. 2. Gallbladder sonogram. 3. Evaluation of leukopenia and thrombocytopenia. 4. Continue current medications. 5. May need to add hydralazine or increase the dose amlodipine if blood pressure remains elevated. 6. Follow up comprehensive metabolic profile and CBC. PROGNOSIS: Critical. TIME SPENT: 40 minutes. Kristal [id number]
--- NOTE | 2019-02-15 14:49 | PN ---
Physical Exam: SUBJECTIVE: Patient seen and examined at the bedside. awake and alert, appears weak/at times lethargic, but answering questions appropriately. OBJECTIVE: labs show leukopenia and thrombocytopenia Patient is an 83 year old male with a significant past medical history of hypertension, hyperlipidemia, prosthetic aortic valve replacement (bovine). afib (on eliquis). He presented to the [facility] ED with ataxia, chills, rigors and weakness. patient had rigors at home and brought into the ED by his family for further evaluation. He transferred to the ICU closer monitoring. today's labs noted to have decrease in wbc and platelets. will send out for a viral panel. Vital Signs Period Temp Pulse Resp BP Sys/Bacon Pulse Ox Last 24 Hr 98.7 F-103.6 F 50-77 15-33 130-228/67-135 95-98 GENERAL: The patient is awake, alert, weak appearing, in mild respiratory distress on supplemental oxygen HEAD: Normal with no signs of trauma. EYES: PERRL, extraocular movements intact, sclera anicteric, conjunctiva clear. No ptosis. ENT: Ears normal, nares patent, oropharynx clear without exudates, moist mucous membranes. NECK: Trachea midline, full range of motion, supple. LUNGS: Breath sounds equal, but diminished bilaterally, no wheeze HEART: Regular rate and rhythm, sinus elissa ABDOMEN: Soft, nontender, nondistended, obese abdomen EXTREMITIES: no edema. NEUROLOGICAL: Normal speech, gait not observed. PSYCH: Normal mood, normal affect. SKIN: Warm, dry, normal turgor, no rashes or lesions noted Laboratory Results - last 24 hr 02/14/19 02/15/19 02/15/19 15:52 05:51 05:51 WBC 3.3 L RBC 5.08 Hgb 15.1 Hct 45.2 MCV 89.1 MCH 29.7 MCHC 33.3 RDW 13.5 Plt Count 105 L D MPV 7.5 Absolute Neuts (auto) 2.6 Neutrophils % 77.6 D Lymphocytes % 13.2 D Monocytes % 8.0 Eosinophils % 0.3 D Basophils % 0.9 Nucleated RBC % 0 Sodium 138 Potassium 3.8 Chloride 102 Carbon Dioxide 24 Anion Gap 12 BUN 19.0 H Creatinine 1.3 Est GFR (CKD-EPI)AfAm 58.89 Est GFR (CKD-EPI)NonAf 50.81 POC Glucometer 102 Random Glucose 102 Calcium 8.6 Phosphorus 3.2 Magnesium 2.2 Total Bilirubin 1.8 H AST 55 H ALT 37 Alkaline Phosphatase 132 H Creatine Kinase 278 Creatine Kinase Index 1.0 CK-MB (CK-2) 2.87 Total Protein 7.4 Albumin 3.6 Vitamin B12 812 TSH 0.80 D Active Medications Generic Name Dose Route Start Last Admin Trade Name Freq PRN Reason Stop Dose Admin Acetaminophen 650 mg 02/14/19 02:18 02/15/19 06:52 Tylenol - PO 650 mg Q6H PRN Administration FEVER Amlodipine Besylate 2.5 mg 02/15/19 10:00 02/15/19 10:15 Norvasc - PO 2.5 mg DAILY [facility] Administration Apixaban 5 mg 02/14/19 10:00 02/15/19 10:15 Eliquis - PO 5 mg BID [facility] Administration Cyanocobalamin 1,000 mcg 02/14/19 10:00 02/15/19 12:52 Vitamin B12 - PO 1,000 mcg DAILY [facility] Administration Furosemide 40 mg 02/15/19 06:00 02/15/19 13:22 Lasix Injection - IVPUSH 40 mg BID@0600,1400 [facility] Administration Cefepime HCl 1 gm/ Dextrose 100 mls @ 200 mls/hr 02/14/19 18:40 02/15/19 10: 13 IVPB 200 mls/hr Q8H-IV [facility] Administration Protocol Metoprolol Succinate 25 mg 02/14/19 10:00 02/15/19 10:15 Toprol Xl - PO 25 mg DAILY [facility] Administration Rosuvastatin Calcium 5 mg 02/14/19 22:00 02/14/19 22:52 Crestor - PO 5 mg HS [facility] Administration ASSESSMENT/PLAN: Problem List - Problems (1) Severe sepsis Assessment/Plan: Patient with high grade fevers, chills, malaise, and fatigue/weakness. now noted with leukopenia and thrombocytopenia. Fever of unknown origin, started on emperic antibiotics pending cultures, doxycycline until tick borne disease can be ruled out with viral panel. pancultured, lactic acid wnl started on antibiotics per ID (cefepime), added doxycline today blood and urine cultures pending to date, viral panel added. chest ct shows mediastinal adenopaty with moderate increase since prior exam CT with gall stones, no acute loi seen, spine CT does not explain source of fever will order abd u/s to better view gallbladder. discussed with ID Code(s): A41.9 - SEPSIS, UNSPECIFIED ORGANISM; R65.20 - SEVERE SEPSIS WITHOUT SEPTIC SHOCK (2) Thrombocytopenia Assessment/Plan: defer using heparin for drop in platelets. hematology consulted monitor platelets and repeat cbc this afternoon discussed with his inventory and pricing associate, defer heparin gtt and keep on eliquis Code(s): D69.6 - THROMBOCYTOPENIA, UNSPECIFIED (3) Leukopenia Assessment/Plan: unclear etiology, but concern since patient has severe sepsis and now with low WBC count. viral panel ordered may be due to infection, however, platelets are decreasing also repeat cbc and monitor heme consulted Code(s): D72.819 - DECREASED WHITE BLOOD CELL COUNT, UNSPECIFIED (4) MIGUEL A (obstructive sleep apnea) Assessment/Plan: continue home cpap Code(s): G47.33 - OBSTRUCTIVE SLEEP APNEA (ADULT) (PEDIATRIC) (5) HLD (hyperlipidemia) Assessment/Plan: continue home meds Code(s): E78.5 - HYPERLIPIDEMIA, UNSPECIFIED (6) HTN (hypertension) Assessment/Plan: elevated, on metoprolol. started on norvasc 2.5mg Code(s): I10 - ESSENTIAL (PRIMARY) HYPERTENSION (7) S/P aortic valve replacement Assessment/Plan: discussed with patient's inventory and pricing associate who is concerned for endocarditis as source of fever echo noted. may need further cardiac workup if fevers persist. Code(s): Z95.2 - PRESENCE OF PROSTHETIC HEART VALVE (8) Afib Assessment/Plan: on eliquis 5 bid and metoprol Code(s): I48.91 - UNSPECIFIED ATRIAL FIBRILLATION (9) Prophylactic measure Assessment/Plan: fen tolerating po monitor electrolyles low salt diet as tolerated on eliquis full code Code(s): Z29.9 - ENCOUNTER FOR PROPHYLACTIC MEASURES, UNSPECIFIED Visit type - Emergency Visit Emergency Visit: Yes ED Registration Date: 02/14/19 Care time: The patient presented to the Emergency Department on the above date and was hospitalized for further evaluation of their emergent condition. - New Patient This patient is new to me today: Yes Date on this admission: 02/15/19 - Critical Care Critical Care patient: Yes Total Critical Care Time (in minutes): 60 Critical Care Statement: The care of this patient involved high complexity decision making to prevent further life threatening deterioration of the patient 's condition and/or to evaluate & treat vital organ system(s) failure or risk of failure.
--- NOTE | 2019-02-15 15:05 | PN ---
Progress Note, Physician History of Present Illness: patient continues to spike fever was ams now in icu awake and alert all results negative so far currently feels a little better family in the room - Current Medication List Current Medications: Active Medications Acetaminophen (Tylenol -) 650 mg PO Q6H PRN PRN Reason: FEVER Last Admin: 02/15/19 06:52 Dose: 650 mg Amlodipine Besylate (Norvasc -) 2.5 mg PO DAILY COUNT INCLUDES [facility] Last Admin: 02/15/19 10:15 Dose: 2.5 mg Apixaban (Eliquis -) 5 mg PO BID COUNT INCLUDES [facility] Last Admin: 02/15/19 10:15 Dose: 5 mg Cyanocobalamin (Vitamin B12 -) 1,000 mcg PO DAILY COUNT INCLUDES [facility] Last Admin: 02/15/19 12:52 Dose: 1,000 mcg Furosemide (Lasix Injection -) 40 mg IVPUSH BID@0600,1400 COUNT INCLUDES [facility] Last Admin: 02/15/19 13:22 Dose: 40 mg Cefepime HCl 1 gm/ Dextrose 100 mls @ 200 mls/hr IVPB Q8H-IV [facility]; Protocol Last Admin: 02/15/19 10:13 Dose: 200 mls/hr Doxycycline Hyclate 100 mg/ (Dextrose) 100 mls @ 100 mls/hr IVPB BID COUNT INCLUDES [facility] Metoprolol Succinate (Toprol Xl -) 25 mg PO DAILY COUNT INCLUDES [facility] Last Admin: 02/15/19 10:15 Dose: 25 mg Rosuvastatin Calcium (Crestor -) 5 mg PO HS COUNT INCLUDES [facility] Last Admin: 02/14/19 22:52 Dose: 5 mg - Objective Vital Signs: Vital Signs Temperature 98.2 F 02/15/19 14:00 Pulse Rate 55 L 02/15/19 14:00 Respiratory Rate 21 H 02/15/19 14:00 Blood Pressure 123/71 02/15/19 14:00 O2 Sat by Pulse Oximetry (%) 96 02/15/19 13:17 Constitutional: Yes: Calm Cardiovascular: Yes: Regular Rate and Rhythm Respiratory: Yes: Regular, CTA Bilaterally Gastrointestinal: Yes: Normal Bowel Sounds, Soft Musculoskeletal: Yes: WNL Extremities: Yes: WNL Neurological: Yes: Alert, Oriented Psychiatric: Yes: Alert, Oriented Labs: CBC, BMP 02/15/19 05:51 02/15/19 05:51 - ....Imaging Cat Scan: Report Reviewed, Image Reviewed Assessment/Plan patient with multiple medical problems coming in with fever and weakness and resp issues with high grade fever on broad spectrum abx now with drop in his platelets as well as wbc i am worried that the patient could have viral or parasitic infection we will work him up for lymes babesia and ehrilichia i am also going to initiate doxy on the patient close watch on the patient monitor fevers and wbc and platelets await for all the cx reports rest as per icu and the team cc 45 min
[2019-02-15] MEDS ORDERED: DOXYCYCLINE HYCLATE 100 MG VIAL ONE ×2 (15:37→21:50)
[2019-02-15] MEDS: DOXYCYCLINE INJECTION 100 MG in DEXTROSE 5%-WATER 100 ML IVPB SCH ×2 (15:38→21:56)
[2019-02-15 16:00] LABS: BASO % 0.6 % (0-2.0); EOS % 0.3 % (0-4.5); HEMATOCRIT 42.7 % (35.4-49); HEMOGLOBIN 14.8 GM/dL (11.7-16.9); LYMPH % 11.7 % (8-40); MCH 30.8 pg (25.7-33.7); MCHC 34.6 g/dl (32.0-35.9); MEAN CELL VOLUME 89.1 fl (80-96); MEAN PLT VOLUME 7.9 fl (7.5-11.1); MONO % 7.4 % (3.8-10.2); PLATELET COUNT 96 K/MM3 (134-434); RBC 4.79 M/mm3 (4.00-5.60); RDW 13.5 % (11.9-15.9); WHITE BLOOD COUNT 2.5 K/mm3 (4.0-10.0)
--- NOTE | 2019-02-15 19:06 | CONSULT ---
Consult Consult Specialty:: Hematology - History of Present Illness Chief Complaint: Thrombocytopenia and Leukopenia History of Present Illness: 83 y/o gentleman with a PMhx of HTN, HLD, s/p Prosthetic Aortic Valve (Bovine). Who presented to the ED with his family for ataxia, chills, rigors, and weakness. He developed profound fatigue and chills and was admitted to the MICU. Hematology is consulted due to thrombocytopenia and leukopenia. Pt denied any bleeding or easy bruising. He was visiting [facility] 2 weeks ago. Does not report travelling to [place]. During my interview complained of sustained chills. - History Source History Provided By: Patient Limitations to Obtaining History: No Limitations - Past Medical History Cardio/Vascular: Yes: Aortic Insufficiency, HTN, Hyperlipdemia Renal/: Yes: Cancer (prostate (seed implant)) Infectious Disease: Yes: MRSA (perianal abcess) - Past Surgical History Past Surgical History: Yes: Valve Replacement (aortic (on Eliquis)) - Alcohol/Substance Use Hx Alcohol Use: No History of Substance Use: reports: None - Smoking History Smoking history: Former smoker Have you smoked in the past 12 months: No Aproximately how many cigarettes per day: 0 If you are a former smoker, when did you quit?: years ago - Social History ADL: Independent History of Recent Travel: No Home Medications - Allergies Allergies/Adverse Reactions: Allergies Allergy/AdvReac Type Severity Reaction Status Date / Time No Known Allergies Allergy Verified 02/13/19 18:44 - Home Medications Home Medications: Ambulatory Orders Rosuvastatin Calcium [Crestor] 5 mg PO DAILY #0 tablet 12/26/11 Metoprolol Succinate [Toprol XL -] 25 mg PO DAILY 10/01/13 Furosemide 40 mg PO DAILY 05/01/17 Olmesartan Medoxomil [Benicar] 20 mg PO DAILY 05/01/17 Apixaban [Eliquis] 5 mg PO BID 02/14/19 Cyanocobalamin [Vitamin B12 -] 1,000 mcg PO DAILY 02/14/19 Olmesartan Medoxomil 20 mg PO DAILY 02/15/19 Review of Systems - Review of Systems Constitutional: reports: Chills Eyes: reports: No Symptoms HENT: reports: No Symptoms Neck: reports: No Symptoms Cardiovascular: reports: No Symptoms Respiratory: reports: No Symptoms Gastrointestinal: reports: No Symptoms Genitourinary: reports: No Symptoms Breasts: reports: No Symptoms Reported Musculoskeletal: reports: No Symptoms Integumentary: reports: No Symptoms Neurological: reports: No Symptoms Endocrine: reports: No Symptoms Hematology/Lymphatic: reports: No Symptoms Psychiatric: reports: No Symptoms Physical Exam Vital Signs: Vital Signs Temperature 100.9 F H 02/15/19 17:54 Pulse Rate 62 02/15/19 17:54 Respiratory Rate 25 H 02/15/19 17:54 Blood Pressure 154/74 02/15/19 18:00 O2 Sat by Pulse Oximetry (%) 97 02/15/19 18:20 Constitutional: Yes: Well Nourished Eyes: Yes: WNL HENT: Yes: WNL Neck: Yes: WNL Cardiovascular: Yes: Regular Rate and Rhythm Respiratory: Yes: WNL, Regular, CTA Bilaterally Gastrointestinal: Yes: WNL, Normal Bowel Sounds, Soft Musculoskeletal: Yes: WNL Extremities: Yes: WNL Integumentary: Yes: WNL Wound/Incision: Yes: Clean/Dry, Well Approximated. No: Sutures Intact, Carol Intact, Steri Strips, Open to air, Dressing Dry and Intact, Dressing Removed, Carol Removed, Sutures Removed, Draining, Reddened, Bleeding, Excoriated, Unapproximated, Other Neurological: Yes: WNL Labs: CBC, BMP 02/15/19 15:10 02/15/19 05:51 Problem List - Problems (1) Leukopenia Code(s): D72.819 - DECREASED WHITE BLOOD CELL COUNT, UNSPECIFIED (2) Severe sepsis Code(s): A41.9 - SEPSIS, UNSPECIFIED ORGANISM; R65.20 - SEVERE SEPSIS WITHOUT SEPTIC SHOCK (3) Thrombocytopenia Code(s): D69.6 - THROMBOCYTOPENIA, UNSPECIFIED Assessment/Plan 83 y/o gentleman with a PMHx of HTN, HLD, Prosthetic Aortic Valve ( Bovine) admitted to the MICU for sepsis and hematology called due to leukopenia and thrombocytopenia. Recommend: 1) Thrombocytopenia and Leukopenia: Due to sepsis. Pt still febrile with chills and symptoms of systemic infection. Hemodynamically stable. Coagulation tests may be sometimes abnormal as well due to DIC. 2) If patient ever on heparin products such as heparin drip or heparin flushes and 4T Score 4 or above will send HIT antibody (It is unclear if he ever was on heparin of any sort but if so HIT will need to be ruled out). 3) Antibiotic therapy per ID. Multiple cultures and tests pending 4) Thank you very much for this consultation.
[2019-02-15] MEDS: ROSUVASTATIN CA 5 MG TABLET (FP) PO SCH (22:33)
[2019-02-16] MEDS ORDERED: CEFEPIME HCL 1 GM VIAL (RESTRICTED TO ID) ONE ×3 (02:47→17:15)
[2019-02-16] MEDS ORDERED: DEXTROSE 5%-WATER 100 ML IVPB ONE ×5 (02:47→21:45)
[2019-02-16] MEDS ORDERED: PT OWN MED DRAWER 7, Y5N ONE ×2 (03:20→09:25)
[2019-02-16] MEDS: CEFEPIME 1 GM in DEXTROSE 5%-WATER 100 ML IVPB SCH ×3 (03:26→17:29)
[2019-02-16] MEDS ORDERED: hydrALAZINE HCL 20 MG/ML VIAL ONE (05:22)
[2019-02-16] MEDS ORDERED: hydrALAZINE HCL 20 MG/ML VIAL IVPUSH ONE (05:24)
[2019-02-16 06:25] LABS: BASO % 0.8 % (0-2.0); HEMATOCRIT 43.6 % (35.4-49); HEMOGLOBIN 15.4 GM/dL (11.7-16.9); MCH 31.2 pg (25.7-33.7); MCHC 35.3 g/dl (32.0-35.9); MEAN CELL VOLUME 88.3 fl (80-96); MEAN PLT VOLUME 8.3 fl (7.5-11.1); MONO % 8.5 % (3.8-10.2); NEUT % 74.7 % (42.8-82.8); PLATELET COUNT 77 K/MM3 (134-434); RBC 4.93 M/mm3 (4.00-5.60); RDW 13.5 % (11.9-15.9); WHITE BLOOD COUNT 2.2 K/mm3 (4.0-10.0)
[2019-02-16] MEDS: FUROSEMIDE 40 MG/4 ML INJECTABLE VIAL IVPUSH SCH ×2 (06:45→14:01)
[2019-02-16] MEDS: ACETAMINOPHEN 325 MG TABLET (FP) PO PRN ×2 (06:50→12:48)
[2019-02-16 07:13] LABS: ALBUMIN 3.2 g/dl (3.4-5.0); BILIRUBIN,TOTAL 2.2 mg/dL (0.2-1); BLOOD UREA NITROGEN 26.2 mg/dL (7-18); CALCIUM 8.6 mg/dL (8.5-10.1); CREATININE 1.4 mg/dL (0.55-1.3); MAGNESIUM 2.2 mg/dL (1.8-2.4); POTASSIUM 3.2 mmol/L (3.5-5.1); TOT PROT 6.3 g/dl (6.4-8.2)
[2019-02-16] MEDS ORDERED: POTASSIUM CHLORIDE ORAL LIQUID 20 MEQ/15 ML PO ONE (07:42)
[2019-02-16] MEDS ORDERED: DOXYCYCLINE HYCLATE 100 MG VIAL ONE ×2 (09:24→21:45)
[2019-02-16] MEDS: DOXYCYCLINE INJECTION 100 MG in DEXTROSE 5%-WATER 100 ML IVPB SCH ×2 (09:30→21:53)
[2019-02-16] MEDS: APIXABAN 5 MG TABLET PO SCH ×2 (09:31→21:52)
[2019-02-16] MEDS: amLODIPine BESYLATE 2.5 MG TABLET (FP) PO SCH (09:31)
[2019-02-16] MEDS: VALSARTAN 160 MG TABLET (UD) PO SCH (09:31)
[2019-02-16] MEDS: metoPROLOL SUCCINATE 25 MG TAB.SR.24H (FP) PO SCH (09:31)
[2019-02-16] MEDS: CYANOCOBALAMIN 1,000 MCG TABLET (FP) PO SCH (10:21)
--- NOTE | 2019-02-16 12:06 | PN ---
Progress Note, Physician History of Present Illness: continues to spike fevers breathing better all tests pending - Current Medication List Current Medications: Active Medications Acetaminophen (Tylenol -) 650 mg PO Q6H PRN PRN Reason: FEVER Last Admin: 02/16/19 06:50 Dose: 650 mg Amlodipine Besylate (Norvasc -) 2.5 mg PO DAILY [facility] Last Admin: 02/16/19 09:31 Dose: 2.5 mg Apixaban (Eliquis -) 5 mg PO BID [facility] Last Admin: 02/16/19 09:31 Dose: 5 mg Cyanocobalamin (Vitamin B12 -) 1,000 mcg PO DAILY [facility] Last Admin: 02/16/19 10:21 Dose: 1,000 mcg Furosemide (Lasix Injection -) 40 mg IVPUSH BID@0600,1400 [facility] Last Admin: 02/16/19 06:45 Dose: 40 mg Cefepime HCl 1 gm/ Dextrose 100 mls @ 200 mls/hr IVPB Q8H-IV [facility]; Protocol Last Admin: 02/16/19 09:30 Dose: 200 mls/hr Doxycycline Hyclate 100 mg/ (Dextrose) 100 mls @ 100 mls/hr IVPB BID [facility] Last Admin: 02/16/19 09:30 Dose: 100 mls/hr Metoprolol Succinate (Toprol Xl -) 25 mg PO DAILY [facility] Last Admin: 02/16/19 09:31 Dose: 25 mg Rosuvastatin Calcium (Crestor -) 5 mg PO HS [facility] Last Admin: 02/15/19 22:33 Dose: 5 mg Valsartan (Diovan -) 160 mg PO DAILY [facility] Last Admin: 02/16/19 09:31 Dose: 160 mg - Objective Vital Signs: Vital Signs Temperature 100 F H 02/16/19 08:00 Pulse Rate 61 02/16/19 10:00 Respiratory Rate 16 02/16/19 10:00 Blood Pressure 130/60 02/16/19 10:00 O2 Sat by Pulse Oximetry (%) 97 02/16/19 10:00 Constitutional: Yes: No Distress, Calm Cardiovascular: Yes: S1, S2 Respiratory: Yes: Regular, CTA Bilaterally Gastrointestinal: Yes: Normal Bowel Sounds, Soft Musculoskeletal: Yes: WNL Extremities: Yes: WNL Neurological: Yes: Alert, Oriented Psychiatric: Yes: Alert, Oriented Labs: CBC, BMP 02/16/19 05:45 02/16/19 05:45 Assessment/Plan Problem List - Problems (1) Severe sepsis Code(s): A41.9 - SEPSIS, UNSPECIFIED ORGANISM; R65.20 - SEVERE SEPSIS WITHOUT SEPTIC SHOCK (2) MIGUEL A (obstructive sleep apnea) Code(s): G47.33 - OBSTRUCTIVE SLEEP APNEA (ADULT) (PEDIATRIC) (3) HLD (hyperlipidemia) Code(s): E78.5 - HYPERLIPIDEMIA, UNSPECIFIED (4) HTN (hypertension) Code(s): I10 - ESSENTIAL (PRIMARY) HYPERTENSION (5) S/P aortic valve replacement Code(s): Z95.2 - PRESENCE OF PROSTHETIC HEART VALVE (6) Afib Code(s): I48.91 - UNSPECIFIED ATRIAL FIBRILLATION plan continue current mgmt await for results rest as per the team patient still spiking fevers will order a stat blood parasite exam cc 45 min
--- NOTE | 2019-02-16 12:09 | PN ---
Progress Note (short form) - Note Progress Note: PULM/CCM Progress Note: Pt seen and examined in the ICU. Awake and oriented. No c/o. HD stable. Remains with low grade fever. Active Medications Acetaminophen (Tylenol -) 650 mg PO Q6H PRN PRN Reason: FEVER Last Admin: 02/16/19 06:50 Dose: 650 mg Amlodipine Besylate (Norvasc -) 2.5 mg PO DAILY [facility] Last Admin: 02/16/19 09:31 Dose: 2.5 mg Apixaban (Eliquis -) 5 mg PO BID [facility] Last Admin: 02/16/19 09:31 Dose: 5 mg Cyanocobalamin (Vitamin B12 -) 1,000 mcg PO DAILY [facility] Last Admin: 02/16/19 10:21 Dose: 1,000 mcg Furosemide (Lasix Injection -) 40 mg IVPUSH BID@0600,1400 [facility] Last Admin: 02/16/19 06:45 Dose: 40 mg Cefepime HCl 1 gm/ Dextrose 100 mls @ 200 mls/hr IVPB Q8H-IV [facility]; Protocol Last Admin: 02/16/19 09:30 Dose: 200 mls/hr Doxycycline Hyclate 100 mg/ (Dextrose) 100 mls @ 100 mls/hr IVPB BID [facility] Last Admin: 02/16/19 09:30 Dose: 100 mls/hr Metoprolol Succinate (Toprol Xl -) 25 mg PO DAILY [facility] Last Admin: 02/16/19 09:31 Dose: 25 mg Rosuvastatin Calcium (Crestor -) 5 mg PO HS [facility] Last Admin: 02/15/19 22:33 Dose: 5 mg Valsartan (Diovan -) 160 mg PO DAILY [facility] Last Admin: 02/16/19 09:31 Dose: 160 mg Vital Signs Temperature 100 F H 02/16/19 08:00 Pulse Rate 71 02/16/19 08:00 Respiratory Rate 18 02/16/19 08:00 Blood Pressure 136/69 02/16/19 08:00 O2 Sat by Pulse Oximetry (%) 97 02/16/19 08:38 Intake & Output 02/13/19 02/14/19 02/15/19 02/16/19 23:59 23:59 23:59 22:59 Intake Total 1000 50 1320 100 Output Total 1100 475 Balance 1000 -1050 845 100 Weight 95.254 kg 97.069 kg 94.665 kg 94.801 kg EXAM: neuro: Awake, oriented x3 HEENT: PERRL, anicteric sclera Lungs: clear Heart: AF, rate controlled Abd: Soft, non-tender, obese Ext: no edema, warm Skin: warm, no signs of abscess or cellulitis CBC,CMP WBC 2.2 K/mm3 (4.0-10.0) L 02/16/19 05:45 RBC 4.93 M/mm3 (4.00-5.60) 02/16/19 05:45 Hgb 15.4 GM/dL (11.7-16.9) 02/16/19 05:45 Hct 43.6 % (35.4-49) 02/16/19 05:45 MCV 88.3 fl (80-96) 02/16/19 05:45 MCH 31.2 pg (25.7-33.7) 02/16/19 05:45 MCHC 35.3 g/dl (32.0-35.9) 02/16/19 05:45 RDW 13.5 % (11.9-15.9) 02/16/19 05:45 Plt Count 77 K/MM3 (134-434) L 02/16/19 05:45 MPV 8.3 fl (7.5-11.1) 02/16/19 05:45 Absolute Neuts (auto) 1.6 K/mm3 (1.5-8.0) 02/16/19 05:45 Neutrophils % 74.7 % (42.8-82.8) 02/16/19 05:45 Lymphocytes % 14.0 % (8-40) 02/16/19 05:45 Monocytes % 8.5 % (3.8-10.2) 02/16/19 05:45 Eosinophils % 2.0 % (0-4.5) D 02/16/19 05:45 Basophils % 0.8 % (0-2.0) 02/16/19 05:45 Nucleated RBC % 0 % (0-0) 02/16/19 05:45 Sodium 136 mmol/L (136-145) 02/16/19 05:45 Potassium 3.2 mmol/L (3.5-5.1) L 02/16/19 05:45 Chloride 99 mmol/L (98-107) 02/16/19 05:45 Carbon Dioxide 30 mmol/L (21-32) 02/16/19 05:45 Anion Gap 7 MMOL/L (8-16) L 02/16/19 05:45 BUN 26.2 mg/dL (7-18) H 02/16/19 05:45 Creatinine 1.4 mg/dL (0.55-1.3) H 02/16/19 05:45 Est GFR (CKD-EPI)AfAm 53.85 02/16/19 05:45 Est GFR (CKD-EPI)NonAf 46.46 02/16/19 05:45 POC Glucometer 102 UNITS (80-120) 02/14/19 15:52 Random Glucose 102 mg/dL (74-106) 02/16/19 05:45 Hemoglobin A1c % 5.5 % (4.2-6.3) 02/14/19 06:30 Lactic Acid 1.3 mmol/L (0.4-2.0) 02/13/19 20:00 Calcium 8.6 mg/dL (8.5-10.1) 02/16/19 05:45 Phosphorus 3.2 mg/dL (2.5-4.9) 02/15/19 05:51 Magnesium 2.2 mg/dL (1.8-2.4) 02/16/19 05:45 Total Bilirubin 2.2 mg/dL (0.2-1) H 02/16/19 05:45 AST 82 U/L (15-37) H 02/16/19 05:45 ALT 50 U/L (13-61) 02/16/19 05:45 Alkaline Phosphatase 174 U/L (45-117) H 02/16/19 05:45 Creatine Kinase 278 U/L (26-308) 02/15/19 05:51 Creatine Kinase Index 1.0 % (0.0-5.0) 02/15/19 05:51 CK-MB (CK-2) 2.87 ng/mL (0.5-3.6) 02/15/19 05:51 Troponin I 0.05 ng/ml (0.00-0.05) 02/14/19 13:30 B-Natriuretic Peptide 9668.7 pg/ml (5-450) H 02/14/19 06:30 Total Protein 6.3 g/dl (6.4-8.2) L 02/16/19 05:45 Albumin 3.2 g/dl (3.4-5.0) L 02/16/19 05:45 Triglycerides 47 mg/dl (0-150) 02/14/19 06:30 Cholesterol 99 mg/dl (50-200) 02/14/19 06:30 Total LDL Cholesterol 55 mg/dl (5-100) 02/14/19 06:30 HDL Cholesterol 35 mg/dl (40-60) L 02/14/19 06:30 Vitamin B12 812 pg/ml (193-986) 02/15/19 05:51 TSH 0.80 uIU/ml (0.358-3.74) D 02/15/19 05:51 ASSESSMENT: Fever of unknown origin with altered mental status Sepsis Leukopenia AF on chronic AC s/p porcine valve 2008 HTN CHF MIGUEL A COPD CKD PLAN: -Abx per ID -Follow up all cultures and imaging - may need contrast study or MRI -Continue Lasix -Nebs PRN -CPAP at night and when sleeping -Oxygen to maintain SpO2 >92 -Rate control -Eliquis would need to be held for at least 24hrs prior to LP - if required; can bridge with Heparin drip and d/c 4hrs prior to LP and check PTT -GI PPx while on AC Ale Etienne, MARYP Pulm/Critical Care [employer] Additional CC's: Kyle Barnes
[2019-02-16] MEDS ORDERED: POTASSIUM CHLORIDE TABS 20 MEQ TABLET.ER (FP) PO ONE (12:59)
--- NOTE | 2019-02-16 16:34 | PN ---
Physical Exam: SUBJECTIVE: Patient seen and examined OBJECTIVE: labs show leukopenia and thrombocytopenia Patient is an 83 year old male with a significant past medical history of hypertension, hyperlipidemia, prosthetic aortic valve replacement (bovine). afib (on eliquis). He presented to the [facility] ED with ataxia, chills, rigors and weakness. patient had rigors at home and brought into the ED by his family for further evaluation. He transferred to the ICU closer monitoring. today's labs again noted to have decrease in wbc and platelets. viral panel pending. Vital Signs Period Temp Pulse Resp BP Sys/Bacon Pulse Ox Last 24 Hr 98.6 F-101.9 F 56-71 16-25 124-212/57-108 97-97 GENERAL: The patient is awake, alert, weak appearing, tolerating room air. HEAD: Normal with no signs of trauma. EYES: PERRL, extraocular movements intact, sclera anicteric, conjunctiva clear. No ptosis. ENT: Ears normal, nares patent, oropharynx clear without exudates, moist mucous membranes. NECK: Trachea midline, full range of motion, supple. LUNGS: Breath sounds equal, but diminished bilaterally, no wheeze HEART: Regular rate and rhythm, sinus elissa ABDOMEN: Soft, nontender, nondistended, obese abdomen EXTREMITIES: no edema. NEUROLOGICAL: Normal speech, gait not observed. PSYCH: Normal mood, normal affect. SKIN: Warm, dry, normal turgor, no rashes or lesions noted Laboratory Results - last 24 hr 02/16/19 02/16/19 02/16/19 05:45 05:45 05:45 WBC 2.2 L RBC 4.93 Hgb 15.4 Hct 43.6 MCV 88.3 MCH 31.2 MCHC 35.3 RDW 13.5 Plt Count 77 L MPV 8.3 Absolute Neuts (auto) 1.6 Neutrophils % 74.7 Lymphocytes % 14.0 Monocytes % 8.5 Eosinophils % 2.0 D Basophils % 0.8 Nucleated RBC % 0 Sodium 136 Potassium 3.2 L Chloride 99 Carbon Dioxide 30 Anion Gap 7 L BUN 26.2 H Creatinine 1.4 H Est GFR (CKD-EPI)AfAm 53.85 Est GFR (CKD-EPI)NonAf 46.46 Random Glucose 102 Calcium 8.6 Magnesium 2.2 Total Bilirubin 2.2 H AST 82 H ALT 50 Alkaline Phosphatase 174 H Total Protein 6.3 L Albumin 3.2 L RPR Titer Nonreactive Active Medications Generic Name Dose Route Start Last Admin Trade Name Freq PRN Reason Stop Dose Admin Acetaminophen 650 mg 02/14/19 02:18 02/16/19 12:48 Tylenol - PO 650 mg Q6H PRN Administration FEVER Amlodipine Besylate 2.5 mg 02/15/19 10:00 02/16/19 09:31 Norvasc - PO 2.5 mg DAILY [facility] Administration Apixaban 5 mg 02/14/19 10:00 02/16/19 09:31 Eliquis - PO 5 mg BID [facility] Administration Cyanocobalamin 1,000 mcg 02/14/19 10:00 02/16/19 10:21 Vitamin B12 - PO 1,000 mcg DAILY [facility] Administration Furosemide 40 mg 02/15/19 06:00 02/16/19 14:01 Lasix Injection - IVPUSH 40 mg BID@0600,1400 [facility] Administration Cefepime HCl 1 gm/ Dextrose 100 mls @ 200 mls/hr 02/14/19 18:40 02/16/19 09: 30 IVPB 200 mls/hr Q8H-IV [facility] Administration Protocol Doxycycline Hyclate 100 mg/ 100 mls @ 100 mls/hr 02/15/19 15:30 02/16/19 09: 30 Dextrose IVPB 100 mls/hr BID [facility] Administration Metoprolol Succinate 25 mg 02/14/19 10:00 02/16/19 09:31 Toprol Xl - PO 25 mg DAILY [facility] Administration Rosuvastatin Calcium 5 mg 02/14/19 22:00 02/15/19 22:33 Crestor - PO 5 mg HS [facility] Administration Valsartan 160 mg 02/16/19 10:00 02/16/19 09:31 Diovan - PO 160 mg DAILY [facility] Administration ASSESSMENT/PLAN: Problem List - Problems (1) Severe sepsis Assessment/Plan: Patient with high grade fevers, chills, malaise, and fatigue/weakness. now noted with leukopenia and thrombocytopenia. Fever of unknown origin, started on emperic antibiotics pending cultures, doxycycline until tick borne disease can be ruled out with viral panel. pancultured, lactic acid wnl started on antibiotics per ID (cefepime), doxycline blood and urine cultures pending to date, viral panel added. chest ct shows mediastinal adenopaty with moderate increase since prior exam CT with gall stones, no acute loi seen, spine CT does not explain source of fever will order abd u/s to better view gallbladder. discussed with ID Code(s): A41.9 - SEPSIS, UNSPECIFIED ORGANISM; R65.20 - SEVERE SEPSIS WITHOUT SEPTIC SHOCK (2) Thrombocytopenia Assessment/Plan: defer using heparin for drop in platelets. hematology following and notes reviewed. patient was not on any heparin prior to hospitalization and was not on any heparin here, therefore, will not order HIT panel. discussed with his certified ophthalmic surgical assistant, defer heparin gtt and keep on eliquis Code(s): D69.6 - THROMBOCYTOPENIA, UNSPECIFIED (3) Leukopenia Assessment/Plan: unclear etiology, but concern since patient has severe sepsis and now with low WBC count. viral panel ordered may be due to infection, however, platelets are decreasing also repeat cbc and monitor heme consulted Code(s): D72.819 - DECREASED WHITE BLOOD CELL COUNT, UNSPECIFIED (4) MIGUEL A (obstructive sleep apnea) Assessment/Plan: continue home cpap Code(s): G47.33 - OBSTRUCTIVE SLEEP APNEA (ADULT) (PEDIATRIC) (5) HLD (hyperlipidemia) Assessment/Plan: continue home meds Code(s): E78.5 - HYPERLIPIDEMIA, UNSPECIFIED (6) HTN (hypertension) Assessment/Plan: elevated, on metoprolol. started on norvasc 2.5mg Code(s): I10 - ESSENTIAL (PRIMARY) HYPERTENSION (7) S/P aortic valve replacement Assessment/Plan: discussed with patient's certified ophthalmic surgical assistant who is concerned for endocarditis as source of fever echo noted. may need further cardiac workup if fevers persist. Code(s): Z95.2 - PRESENCE OF PROSTHETIC HEART VALVE (8) Afib Assessment/Plan: on eliquis 5 bid and metoprol Code(s): I48.91 - UNSPECIFIED ATRIAL FIBRILLATION (9) Prophylactic measure Assessment/Plan: fen tolerating po monitor electrolyles low salt diet as tolerated on eliquis full code Code(s): Z29.9 - ENCOUNTER FOR PROPHYLACTIC MEASURES, UNSPECIFIED Visit type - Emergency Visit Emergency Visit: Yes ED Registration Date: 02/14/19 Care time: The patient presented to the Emergency Department on the above date and was hospitalized for further evaluation of their emergent condition. - New Patient This patient is new to me today: No - Critical Care Critical Care patient: Yes Total Critical Care Time (in minutes): 45 Critical Care Statement: The care of this patient involved high complexity decision making to prevent further life threatening deterioration of the patient 's condition and/or to evaluate & treat vital organ system(s) failure or risk of failure.
[2019-02-16] MEDS ORDERED: amLODIPine BESYLATE 5 MG TABLET (FP) PO SCH (16:40)
--- NOTE | 2019-02-16 16:52 | PN ---
Progress Note (short form) - Note Progress Note: Pt seen and examined. S: Feels better. No chills at the time of interview and mentioned not chills today. O: Last Vital Signs Temp Pulse Resp BP Pulse Ox 101.4 F H 66 16 164/79 97 02/16/19 14:00 02/16/19 14:00 02/16/19 14:00 02/16/19 14:00 02/16/19 10:00 General: NAD HEENT: MMM CVS: S1, S2 Lungs: CTAB/Ant Abdomen: Soft, NT, ND Extremities: No edema Skin: No petechiae or bruising Current Medications Generic Name Dose Route Start Last Admin Trade Name Freq PRN Reason Stop Dose Admin Acetaminophen 650 mg 02/14/19 02:18 02/16/19 12:48 Tylenol - PO 650 mg Q6H PRN Administration FEVER Amlodipine Besylate 5 mg 02/16/19 16:40 Norvasc - PO DAILY [facility] Apixaban 5 mg 02/14/19 10:00 02/16/19 09:31 Eliquis - PO 5 mg BID [facility] Administration Cyanocobalamin 1,000 mcg 02/14/19 10:00 02/16/19 10:21 Vitamin B12 - PO 1,000 mcg DAILY [facility] Administration Furosemide 40 mg 02/15/19 06:00 02/16/19 14:01 Lasix Injection - IVPUSH 40 mg BID@0600,1400 [facility] Administration Cefepime HCl 1 gm/ Dextrose 100 mls @ 200 mls/hr 02/14/19 18:40 02/16/19 09: 30 IVPB 200 mls/hr Q8H-IV [facility] Administration Protocol Doxycycline Hyclate 100 mg/ 100 mls @ 100 mls/hr 02/15/19 15:30 02/16/19 09: 30 Dextrose IVPB 100 mls/hr BID [facility] Administration Metoprolol Succinate 25 mg 02/14/19 10:00 02/16/19 09:31 Toprol Xl - PO 25 mg DAILY [facility] Administration Rosuvastatin Calcium 5 mg 02/14/19 22:00 02/15/19 22:33 Crestor - PO 5 mg HS [facility] Administration Valsartan 160 mg 02/16/19 10:00 02/16/19 09:31 Diovan - PO 160 mg DAILY [facility] Administration 02/16/19 05:45 02/16/19 05:45 83 y/o gentleman with a PMHx of HTN, HLD, Prosthetic Aortic Valve ( Bovine) admitted to the MICU for sepsis and hematology called due to leukopenia and thrombocytopenia. Recommend: 1) Thrombocytopenia and Leukopenia: Due to sepsis. Pt still febrile with chills and symptoms of systemic infection. Hemodynamically stable. ID work-up pending. However (although low probability) will need to rule out HLH. Please order: LDH , Ferritin, PT/INR, PTT, Fibrinogen, Serum triglycerides, Soluble CD25. Will closely monitor to determine need for bone marrow examination. 2) No heparin ever ordered per primary team so no HIT work-up indicated. 3) Antibiotic therapy per ID. Multiple cultures and tests pending. R/O Endocarditis. Infectious cause for bicytopenia (or drug related) cannot be excluded. 4) Thank you very much for this consultation. Problem List - Problems (1) Leukopenia Code(s): D72.819 - DECREASED WHITE BLOOD CELL COUNT, UNSPECIFIED (2) Severe sepsis Code(s): A41.9 - SEPSIS, UNSPECIFIED ORGANISM; R65.20 - SEVERE SEPSIS WITHOUT SEPTIC SHOCK (3) Thrombocytopenia Code(s): D69.6 - THROMBOCYTOPENIA, UNSPECIFIED
[2019-02-16] MEDS: ROSUVASTATIN CA 5 MG TABLET (FP) PO SCH (21:52)
[2019-02-17] MEDS ORDERED: CEFEPIME HCL 1 GM VIAL (RESTRICTED TO ID) ONE ×3 (01:26→17:39)
[2019-02-17] MEDS ORDERED: DEXTROSE 5%-WATER 100 ML IVPB ONE ×3 (01:27→22:44)
[2019-02-17] MEDS: ACETAMINOPHEN 325 MG TABLET (FP) PO PRN ×2 (01:33→13:47)
[2019-02-17] MEDS: CEFEPIME 1 GM in DEXTROSE 5%-WATER 100 ML IVPB SCH ×3 (01:33→17:43)
[2019-02-17 06:42] LABS: INR 1.75 (0.83-1.09); PROTHROMBIN TIME (PATIENT) 20.8 SEC (9.7-13.0)
[2019-02-17 06:45] LABS: ACTIVATED PTT 40.5 SECONDS (25.2-36.5)
[2019-02-17] MEDS: FUROSEMIDE 40 MG/4 ML INJECTABLE VIAL IVPUSH SCH ×2 (06:51→13:47)
[2019-02-17 06:53] LABS: BASO % 0.8 % (0-2.0); EOS % 1.5 % (0-4.5); HEMATOCRIT 41.7 % (35.4-49); HEMOGLOBIN 14.1 GM/dL (11.7-16.9); MCH 29.6 pg (25.7-33.7); MCHC 33.7 g/dl (32.0-35.9); MEAN CELL VOLUME 87.6 fl (80-96); MEAN PLT VOLUME 9.1 fl (7.5-11.1); MONO % 7.1 % (3.8-10.2); NEUT % 62.6 % (42.8-82.8); PLATELET COUNT 61 K/MM3 (134-434); RBC 4.76 M/mm3 (4.00-5.60); RDW 13.6 % (11.9-15.9)
[2019-02-17 08:02] LABS: WHITE BLOOD COUNT 1.8 K/mm3 (4.0-10.0)
[2019-02-17] MEDS ORDERED: DOXYCYCLINE HYCLATE 100 MG VIAL ONE ×2 (09:32→22:44)
[2019-02-17] MEDS ORDERED: PT OWN MED DRAWER 7, Y5N ONE (09:33)
[2019-02-17] MEDS: VALSARTAN 160 MG TABLET (UD) PO SCH (09:38)
[2019-02-17] MEDS: DOXYCYCLINE INJECTION 100 MG in DEXTROSE 5%-WATER 100 ML IVPB SCH ×2 (09:45→22:52)
[2019-02-17] MEDS: metoPROLOL SUCCINATE 25 MG TAB.SR.24H (FP) PO SCH (09:50)
--- NOTE | 2019-02-17 09:54 | CONSULT ---
Admitting History and Physical - Past Medical History Cardiovascular: Yes: Aortic Insufficiency, HTN, Hyperlipdemia Renal/: Yes: Cancer (prostate (seed implant)) Infectious Disease: Yes: MRSA (perianal abcess) - Past Surgical History Past Surgical History: Yes: Valve Replacement (aortic (on Eliquis)) - Smoking History Smoking history: Former smoker Have you smoked in the past 12 months: No Aproximately how many cigarettes per day: 0 If you are a former smoker, when did you quit?: years ago - Alcohol/Substance Use Hx Alcohol Use: No History of Substance Use: reports: None - Social History ADL: Independent History of Recent Travel: No History - Admission Reason For Visit: SHAKED/FEVER/WEAKNESS - Hearing Hearing: Normal Hearing Aide: No Speech Evaluation - Communication Primary Language: GUYANESE Communication: Yes: Within Normal Limits Oral Expression Ability: Yes: No Impairment - Speech Production Apraxia: No Able to Make Needs Known: Yes: WNL Intelligibility: Yes: WNL - Speech Characteristics Voice Loudness: Normal Voice Pitch: Yes: Normal Voice Phonatory-based Quality: Yes: Normal Speech Pattern: Normal Nasal Resonance: Normal Rate of Speech: Intact Voice Comment: Vocal quality is functional for the environment with speech parameters WNL. - Language/Auditory Comprehension Follows: Yes: 1 Stage Simple Commands (WFL), Complex Commands (WFL) Observation: Able to respond to yes/no queries: Yes, Yes/No Confusion: No, Comprehends Conversational Speech: Yes, Benefits from Slow Speech: No, Benefits from Repetiton: No, Benefits from Increased Volume of Speech: No - Language/Verbal Expression Able to Respond to Simple Queries: Yes: WNL Able to Communicate Wants and Needs: Yes: WNL Functional Communication Status: Yes: WNL Aware of Errors: Yes Attempts to Correct Errors: Yes Use of Gestures: No Written Expression: Not examined Oral Expression: WFL Reading Comprehension: Not examined Calculations: Not examined Attention: Yes: Intact - Memory/Perception exterminator helper termite Memory: Yes: WNL Short Term Memory: Yes: WNL - Swallow Evaluation/Bedside Assessment Current Nutritional Intake: Regular, Thin Liquids Oral Secretions: Yes: WFL Tracheostomy Present: No Patient on Ventilator: No Dentition: Yes: Adequate Facial Symmetry at Rest: Facial Droop Right Facial Symmetry on Retraction: Facial Droop Right Facial Movement: Controlled Sensation: Normal Facial Comment: Oral and facial features are within functional limits for speech and swallo Jaw Position: Closed at Rest Against Resistance Opening: Normal Against Resistance Closing: Normal Pucker Lips: Normal Smile: Normal Lips, Comment: Oral and facial features are within functional limits for speech and swallo Lingual Movement: Normal Lingual Speed of Movement: Normal Lingual Movement Strgth Against Opposition: Normal Lingual Movement Characteristics: Normal Lingual Comment: Oral and facial features are within functional limits for speech and swallo Soft Palate Description: Normal Color Hard Palate Description: Normal Color Gag Reflex: Strong Laryngeal Elevation: WFL Laryngeal Movement: Able to Palpate Needs Assistance: No Rate of Intake: WFL Bolus Size: WFL Chewing: WFL Oral Prep Time: WFL A-P Transit: WFL Timing of Swallow: WFL Coughing/Throat Clear: No Change in Voice: No Other Findings/Remarks: 83 yo male seen at bedside for swallow eval to r/o dysphagia. Pt is verbal, A& Ox3, cooperative. Admitted for chills and weakness. Current diet: regular solids with thin liquids. Pt given PO trials of pureed, regular cut to bite sized pieces without assistance revealed, adequate bolus formation and A P transport with a timely pharyngeal swallow (1-2 second average). No change in voicing or respiration after the swallow. Thin liquids trials were Unremarkable for dysphagia and /or aspiration at this time. Recommendations - Speech Evaluation, Impression/Plan Impression: 83 yo male presents with no overt s/s of dysphagia and /or aspiration for purees, regular solids and thin liquids at this time. Speech and Language and WNL Drying Machine Operator Package Yarns Goals: Tolerate the least restrictive solid and liquid consistencies without s/s of penetration / aspiration. Short Term Goals: Pt is able to consume regular solids with thin liquids at bedside without s/s of penetration and /or aspiration at this time. - Dysphagia Impressions/Plan Swallowing Skills: WFL Dysphagia Impressions: No Impairment Dysphagia Treatment Plan: OOB for meals, OOB for 1 h. after meals, Other ( Monitor intake and pulmonary status) Dysphagia Evaluation Summary: The oral and pharyngeal swallow is adequate for po intake of purees, and regular solids with thin liquids. Labial containment, mastication, bolus transport, and initiation of swallow were WNL. No coughing or changes in voicing to suggest penetration / aspiration at bedside at this time. - Recommendations Diet Consistency: Regular Liquids: Thin Liquids
[2019-02-17] MEDS ORDERED: ACYCLOVIR INJECTION 900 MG in DEXTROSE 5%-WATER - 100 ML IVPB SCH (10:00)
[2019-02-17 10:38] LABS: ANISOCYTOSIS 0; MACROCYTOSIS 0; PLATELET ESTIMATE DECREASED
[2019-02-17 10:56] LABS: ALBUMIN 2.8 g/dl (3.4-5.0); BILIRUBIN,TOTAL 2.7 mg/dL (0.2-1); BLOOD UREA NITROGEN 30.4 mg/dL (7-18); CALCIUM 8.8 mg/dL (8.5-10.1); CREATININE 1.4 mg/dL (0.55-1.3); MAGNESIUM 2.2 mg/dL (1.8-2.4); POTASSIUM 3.2 mmol/L (3.5-5.1); TOT PROT 5.9 g/dl (6.4-8.2)
--- NOTE | 2019-02-17 11:31 | PN ---
Teaching Attending Note Name of Resident: Deana Payan ATTENDING PHYSICIAN STATEMENT I saw and evaluated the patient. I reviewed the resident's note and discussed the case with the resident. I agree with the resident's findings and plan as documented. SUBJECTIVE: Patient seen and examined in the ICU. Awake and oriented. Reports feeling overall better. No CP or SOB. Fever overnight, but afebrile this AM. Intake & Output 02/15/19 02/16/19 02/16/19 02/17/19 00:59 00:59 23:59 23:59 Intake Total 1100 Output Total 300 Balance 800 Weight 210 lb 4.8 oz Last Vital Signs Temp Pulse Resp BP Pulse Ox 98.9 F 62 18 158/65 96 02/17/19 10:00 02/17/19 10:00 02/17/19 10:00 02/17/19 10:00 02/17/19 09:00 Active Medications Acetaminophen (Tylenol -) 650 mg PO Q6H PRN PRN Reason: FEVER Last Admin: 02/17/19 01:33 Dose: 650 mg Amlodipine Besylate (Norvasc -) 5 mg PO DAILY [facility] Last Admin: 02/17/19 09:49 Dose: 5 mg Apixaban (Eliquis -) 5 mg PO BID [facility] Last Admin: 02/16/19 21:52 Dose: 5 mg Cyanocobalamin (Vitamin B12 -) 1,000 mcg PO DAILY [facility] Last Admin: 02/16/19 10:21 Dose: 1,000 mcg Furosemide (Lasix Injection -) 40 mg IVPUSH BID@0600,1400 [facility] Last Admin: 02/17/19 06:51 Dose: 40 mg Cefepime HCl 1 gm/ Dextrose 100 mls @ 200 mls/hr IVPB Q8H-IV [facility]; Protocol Last Admin: 02/17/19 09:50 Dose: 200 mls/hr Doxycycline Hyclate 100 mg/ (Dextrose) 100 mls @ 100 mls/hr IVPB BID [facility] Last Admin: 02/17/19 09:45 Dose: 100 mls/hr Metoprolol Succinate (Toprol Xl -) 25 mg PO DAILY [facility] Last Admin: 02/17/19 09:50 Dose: 25 mg Rosuvastatin Calcium (Crestor -) 5 mg PO HS [facility] Last Admin: 02/16/19 21:52 Dose: 5 mg Valsartan (Diovan -) 160 mg PO DAILY [facility] Last Admin: 02/17/19 09:38 Dose: 160 mg neuro: Awake, oriented x3 HEENT: PERRL, anicteric sclera Lungs: clear Heart: AF, rate controlled Abd: Soft, non-tender, obese Ext: no edema, warm Skin: warm, no signs of abscess or cellulitis Laboratory Results - last 24 hr 02/16/19 02/17/19 02/17/19 05:45 05:50 05:50 WBC 1.8 L* RBC 4.76 Hgb 14.1 Hct 41.7 MCV 87.6 MCH 29.6 MCHC 33.7 RDW 13.6 Plt Count 61 L D MPV 9.1 Absolute Neuts (auto) 1.1 L Neutrophils % 62.6 Neutrophils % (Manual) 58.1 Band Neutrophils % 3.8 Lymphocytes % 28.0 D Lymphocytes % (Manual) 8.6 Monocytes % 7.1 Monocytes % (Manual) 6 Eosinophils % 1.5 Eosinophils % (Manual) 1.9 Basophils % 0.8 Basophils % (Manual) 1.9 Myelocytes % (Man) 0 Promyelocytes % (Man) 0 Blast Cells % (Manual) 0 Nucleated RBC % 0 Metamyelocytes 0 Hypochromia 0 Platelet Estimate Decreased Polychromasia 1+ Poikilocytosis 0 Anisocytosis 0 Microcytosis 1+ Macrocytosis 0 PT with INR INR PTT (Actin FS) Sodium 136 Potassium 3.2 L Chloride 100 Carbon Dioxide 30 Anion Gap 6 L BUN 30.4 H Creatinine 1.4 H Est GFR (CKD-EPI)AfAm 53.85 Est GFR (CKD-EPI)NonAf 46.46 Random Glucose 113 H Calcium 8.8 Magnesium 2.2 Ferritin Total Bilirubin 2.7 H AST 183 H ALT 96 H Alkaline Phosphatase 404 H LD Total 398 H Total Protein 5.9 L Albumin 2.8 L Triglycerides 135 RPR Titer Nonreactive 02/17/19 02/17/19 05:50 05:50 WBC RBC Hgb Hct MCV MCH MCHC RDW Plt Count MPV Absolute Neuts (auto) Neutrophils % Neutrophils % (Manual) Band Neutrophils % Lymphocytes % Lymphocytes % (Manual) Monocytes % Monocytes % (Manual) Eosinophils % Eosinophils % (Manual) Basophils % Basophils % (Manual) Myelocytes % (Man) Promyelocytes % (Man) Blast Cells % (Manual) Nucleated RBC % Metamyelocytes Hypochromia Platelet Estimate Polychromasia Poikilocytosis Anisocytosis Microcytosis Macrocytosis PT with INR 20.80 H INR 1.75 H PTT (Actin FS) 40.5 H Sodium Potassium Chloride Carbon Dioxide Anion Gap BUN Creatinine Est GFR (CKD-EPI)AfAm Est GFR (CKD-EPI)NonAf Random Glucose Calcium Magnesium Ferritin 1871.8 H Total Bilirubin AST ALT Alkaline Phosphatase LD Total Total Protein Albumin Triglycerides RPR Titer ASSESSMENT: Fever of unknown origin with altered mental status, resolving Toxic Metabolic Encephalopathy Low clinical suspicion of Meningitis Sepsis Leukopenia AF on chronic AC s/p porcine valve 2008 HTN CHF MIGUEL A COPD CKD PLAN: -Abx per ID -Follow up all pending cultures -Lasix -BD TX PRN -CPAP at night and when sleeping -Oxygen to maintain saturation -Rate control -Will hold LP for now -DW cardiology for the possibility of a JEANNIE (? Culture negative Endocarditis) -Cardiac Telemetry monitoring Dr Barnes
[2019-02-17] MEDS ORDERED: POTASSIUM CHLORIDE TABS 20 MEQ TABLET.ER (FP) PO ONE (12:15)
--- NOTE | 2019-02-17 12:57 | PN ---
Progress Note, Physician History of Present Illness: patient continues to spike fever wbc decreasing patient weak all results returning negative so far - Current Medication List Current Medications: Active Medications Acetaminophen (Tylenol -) 650 mg PO Q6H PRN PRN Reason: FEVER Last Admin: 02/17/19 01:33 Dose: 650 mg Amlodipine Besylate (Norvasc -) 5 mg PO DAILY [facility] Last Admin: 02/17/19 09:49 Dose: 5 mg Apixaban (Eliquis -) 5 mg PO BID [facility] Last Admin: 02/16/19 21:52 Dose: 5 mg Cyanocobalamin (Vitamin B12 -) 1,000 mcg PO DAILY [facility] Last Admin: 02/16/19 10:21 Dose: 1,000 mcg Furosemide (Lasix Injection -) 40 mg IVPUSH BID@0600,1400 [facility] Last Admin: 02/17/19 06:51 Dose: 40 mg Cefepime HCl 1 gm/ Dextrose 100 mls @ 200 mls/hr IVPB Q8H-IV [facility]; Protocol Last Admin: 02/17/19 09:50 Dose: 200 mls/hr Doxycycline Hyclate 100 mg/ (Dextrose) 100 mls @ 100 mls/hr IVPB BID [facility] Last Admin: 02/17/19 09:45 Dose: 100 mls/hr Metoprolol Succinate (Toprol Xl -) 25 mg PO DAILY [facility] Last Admin: 02/17/19 09:50 Dose: 25 mg Rosuvastatin Calcium (Crestor -) 5 mg PO HS [facility] Last Admin: 02/16/19 21:52 Dose: 5 mg Valsartan (Diovan -) 160 mg PO DAILY [facility] Last Admin: 02/17/19 09:38 Dose: 160 mg - Objective Vital Signs: Vital Signs Temperature 98.9 F 02/17/19 10:00 Pulse Rate 62 02/17/19 10:00 Respiratory Rate 18 02/17/19 10:00 Blood Pressure 158/65 02/17/19 10:00 O2 Sat by Pulse Oximetry (%) 96 02/17/19 09:00 Constitutional: Yes: Calm, Mild Distress Neck: Yes: Supple, Trachea Midline Cardiovascular: Yes: Pulse Irregular, Murmur Respiratory: Yes: Regular, CTA Bilaterally Gastrointestinal: Yes: Normal Bowel Sounds, Soft Musculoskeletal: Yes: WNL Extremities: Yes: WNL Neurological: Yes: Alert, Oriented Psychiatric: Yes: Alert, Oriented Labs: CBC, BMP 02/17/19 05:50 02/17/19 05:50 INR, PTT INR 1.75 (0.83-1.09) H 02/17/19 05:50 Assessment/Plan Problem List - Problems (1) Severe sepsis Code(s): A41.9 - SEPSIS, UNSPECIFIED ORGANISM; R65.20 - SEVERE SEPSIS WITHOUT SEPTIC SHOCK (2) MIGUEL A (obstructive sleep apnea) Code(s): G47.33 - OBSTRUCTIVE SLEEP APNEA (ADULT) (PEDIATRIC) (3) HLD (hyperlipidemia) Code(s): E78.5 - HYPERLIPIDEMIA, UNSPECIFIED (4) HTN (hypertension) Code(s): I10 - ESSENTIAL (PRIMARY) HYPERTENSION (5) S/P aortic valve replacement Code(s): Z95.2 - PRESENCE OF PROSTHETIC HEART VALVE (6) Afib Code(s): I48.91 - UNSPECIFIED ATRIAL FIBRILLATION plan continue current mgmt blood smear negative rest as per the team patient still spiking fevers await for all results continue supportive care cc 45 min
--- NOTE | 2019-02-17 13:28 | PN ---
Physical Exam: SUBJECTIVE: Patient seen and examined at bedside. Patient without any complaints. He had a 102F fever overnight which resolved after taking Tylenol. Denies any cough, chest pain, shortness of breath, abd pain. OBJECTIVE: Vital Signs Period Temp Pulse Resp BP Sys/Bacon Pulse Ox Last 24 Hr 98.7 F-102 F 59-74 15-24 114-164/65-108 96-97 GENERAL: The patient is awake, alert, and fully oriented, in no acute distress. HEAD: Normal with no signs of trauma. EYES: EOMI ENT: dry mucous membranes NECK: Trachea midline, full range of motion, supple. LUNGS: Breath sounds equal, clear to auscultation bilaterally HEART: irregularly irregular ABDOMEN: Soft, nontender, nondistended, normoactive bowel sounds EXTREMITIES: 2+ pulses, warm, well-perfused, no edema. NEUROLOGICAL: Normal speech, gait not observed. 5/5 strength upper and lower extremities PSYCH: Normal mood, normal affect. SKIN: Warm, dry, normal turgor, no rashes or lesions noted Laboratory Results - last 24 hr 02/17/19 02/17/19 02/17/19 05:50 05:50 05:50 WBC 1.8 L* RBC 4.76 Hgb 14.1 Hct 41.7 MCV 87.6 MCH 29.6 MCHC 33.7 RDW 13.6 Plt Count 61 L D MPV 9.1 Absolute Neuts (auto) 1.1 L Neutrophils % 62.6 Neutrophils % (Manual) 58.1 Band Neutrophils % 3.8 Lymphocytes % 28.0 D Lymphocytes % (Manual) 8.6 Monocytes % 7.1 Monocytes % (Manual) 6 Eosinophils % 1.5 Eosinophils % (Manual) 1.9 Basophils % 0.8 Basophils % (Manual) 1.9 Myelocytes % (Man) 0 Promyelocytes % (Man) 0 Blast Cells % (Manual) 0 Nucleated RBC % 0 Metamyelocytes 0 Hypochromia 0 Platelet Estimate Decreased Polychromasia 1+ Poikilocytosis 0 Anisocytosis 0 Microcytosis 1+ Macrocytosis 0 PT with INR 20.80 H INR 1.75 H PTT (Actin FS) 40.5 H Sodium 136 Potassium 3.2 L Chloride 100 Carbon Dioxide 30 Anion Gap 6 L BUN 30.4 H Creatinine 1.4 H Est GFR (CKD-EPI)AfAm 53.85 Est GFR (CKD-EPI)NonAf 46.46 Random Glucose 113 H Calcium 8.8 Magnesium 2.2 Ferritin Total Bilirubin 2.7 H AST 183 H ALT 96 H Alkaline Phosphatase 404 H LD Total 398 H Total Protein 5.9 L Albumin 2.8 L Triglycerides 135 02/17/19 05:50 WBC RBC Hgb Hct MCV MCH MCHC RDW Plt Count MPV Absolute Neuts (auto) Neutrophils % Neutrophils % (Manual) Band Neutrophils % Lymphocytes % Lymphocytes % (Manual) Monocytes % Monocytes % (Manual) Eosinophils % Eosinophils % (Manual) Basophils % Basophils % (Manual) Myelocytes % (Man) Promyelocytes % (Man) Blast Cells % (Manual) Nucleated RBC % Metamyelocytes Hypochromia Platelet Estimate Polychromasia Poikilocytosis Anisocytosis Microcytosis Macrocytosis PT with INR INR PTT (Actin FS) Sodium Potassium Chloride Carbon Dioxide Anion Gap BUN Creatinine Est GFR (CKD-EPI)AfAm Est GFR (CKD-EPI)NonAf Random Glucose Calcium Magnesium Ferritin 1871.8 H Total Bilirubin AST ALT Alkaline Phosphatase LD Total Total Protein Albumin Triglycerides Active Medications Generic Name Dose Route Start Last Admin Trade Name Freq PRN Reason Stop Dose Admin Acetaminophen 650 mg 02/14/19 02:18 02/17/19 01:33 Tylenol - PO 650 mg Q6H PRN Administration FEVER Amlodipine Besylate 5 mg 02/16/19 16:40 02/17/19 09:49 Norvasc - PO 5 mg DAILY [facility] Administration Apixaban 5 mg 02/14/19 10:00 02/16/19 21:52 Eliquis - PO 5 mg BID [facility] Administration Cyanocobalamin 1,000 mcg 02/14/19 10:00 02/16/19 10:21 Vitamin B12 - PO 1,000 mcg DAILY [facility] Administration Furosemide 40 mg 02/15/19 06:00 02/17/19 06:51 Lasix Injection - IVPUSH 40 mg BID@0600,1400 [facility] Administration Cefepime HCl 1 gm/ Dextrose 100 mls @ 200 mls/hr 02/14/19 18:40 02/17/19 09: 50 IVPB 200 mls/hr Q8H-IV [facility] Administration Protocol Doxycycline Hyclate 100 mg/ 100 mls @ 100 mls/hr 02/15/19 15:30 02/17/19 09: 45 Dextrose IVPB 100 mls/hr BID [facility] Administration Metoprolol Succinate 25 mg 02/14/19 10:00 02/17/19 09:50 Toprol Xl - PO 25 mg DAILY [facility] Administration Rosuvastatin Calcium 5 mg 02/14/19 22:00 02/16/19 21:52 Crestor - PO 5 mg HS [facility] Administration Valsartan 160 mg 02/16/19 10:00 02/17/19 09:38 Diovan - PO 160 mg DAILY [facility] Administration ASSESSMENT/PLAN: 83 y/o/m with a significant past medical history of hypertension, hyperlipidemia , prosthetic aortic valve replacement (bovine), afib on eliquis. Presented to the [facility] ED with ataxia, chills, rigors and weakness. Patient was admitted to floors but then transferred to the ICU for persistent fevers on the floors. #Neuro - Patient AAOx3 - CTH 02/13 did not show acute intracranial pathology - no evidence of CVA per neuro - Neuro on board #Pulm - saturating well on room air, maintain O2% >90 - CXR and Chest CT negative for evidence of infiltrate or consolidation - continue home CPAP #Cards - - hx of HTN, HLD, a fib - concern for culture negative endocarditis - spoke with mukul Peters. Consulted Dr. Jimenez for JEANNIE - Carotid duplex 02/14 showed no significant stenosis - chest CT 02/14 showed mediastinal adenopathy, increased compared to previous study - echo 02/14 showed EF 50-55%, LA severely dilated, mod-severe mitral annular calcification, elevated RVSP 30-40mmHg - EKG 02/13 showed rate controlled a fib w RBBB - continue home crestor, metoprolol, lasix, norvasc - given 5 norvasc x1 for HTN - Cardio on board #GI - CT A/P 02/14 did not show any acute abdominal pathology - continue vitamin B12 # - no evidence of UTI - I/Os #Endo - normoglycemic, no active issues #ID - patient continues to spike fevers. WBC downtrending, now at 1.8 - Cefepime 1g Q8hr - Doxycycline 100mg BID - tylenol PRN for fever - cultures and Legionella antigen negative - Lumbar/thoracic CT negative for infectious etiology - influenza neg - ID on board #FEN - hypokalemic, repleted with Kdur, monitor and replete as needed - sodium controlled diet #PPX - joana on hold for JEANNIE - no GI ppx #Dispo - Transfer patient to tele Visit type - Emergency Visit Emergency Visit: Yes ED Registration Date: 02/14/19 Care time: The patient presented to the Emergency Department on the above date and was hospitalized for further evaluation of their emergent condition. - New Patient This patient is new to me today: Yes Date on this admission: 02/18/19 - Critical Care Critical Care patient: Yes Total Critical Care Time (in minutes): 36 Critical Care Statement: The care of this patient involved high complexity decision making to prevent further life threatening deterioration of the patient 's condition and/or to evaluate & treat vital organ system(s) failure or risk of failure. ATTENDING PHYSICIAN STATEMENT I saw and evaluated the patient. I reviewed the resident's note and discussed the case with the resident. I agree with the resident's findings and plan as documented. SUBJECTIVE: OBJECTIVE: ASSESSMENT AND PLAN:
[2019-02-17] MEDS: CYANOCOBALAMIN 1,000 MCG TABLET (FP) PO SCH (13:48)
[2019-02-17 14:10] LABS: WEST NILE VIRUS AB SERUM,IGM Negative (Negative)
--- NOTE | 2019-02-17 15:05 | PN ---
Physical Exam: Heme/Onc Consult SUBJECTIVE: Patient seen and examined at bedside. OBJECTIVE: Vital Signs Period Temp Pulse Resp BP Sys/Bacon Pulse Ox Last 24 Hr 98.7 F-102 F 57-88 15-24 114-181/65-108 96-97 GENERAL: The patient is awake, alert, and fully oriented, in no acute distress. HEAD: Normal with no signs of trauma. EYES: PERRL, extraocular movements intact, sclera anicteric, conjunctiva clear. No ptosis. NECK: Trachea midline, full range of motion, supple. LUNGS: Breath sounds equal, clear to auscultation bilaterally, no wheezes, no crackles, no accessory muscle use. HEART: Regular rate and irregular rhythm, S1, S2 without murmur, rub or gallop. ABDOMEN: Soft, nontender, nondistended, normoactive bowel sounds, no guarding, no rebound, no hepatosplenomegaly, no masses. EXTREMITIES: 2+ pulses, warm, well-perfused, no edema. NEUROLOGICAL: Cranial nerves II through XII grossly intact. Normal speech, gait not observed. PSYCH: Normal mood, normal affect. SKIN: Warm, dry, normal turgor, no rashes or lesions noted Laboratory Results - last 24 hr 02/15/19 02/17/19 02/17/19 15:10 05:50 05:50 WBC 1.8 L* RBC 4.76 Hgb 14.1 Hct 41.7 MCV 87.6 MCH 29.6 MCHC 33.7 RDW 13.6 Plt Count 61 L D MPV 9.1 Absolute Neuts (auto) 1.1 L Neutrophils % 62.6 Neutrophils % (Manual) 58.1 Band Neutrophils % 3.8 Lymphocytes % 28.0 D Lymphocytes % (Manual) 8.6 Monocytes % 7.1 Monocytes % (Manual) 6 Eosinophils % 1.5 Eosinophils % (Manual) 1.9 Basophils % 0.8 Basophils % (Manual) 1.9 Myelocytes % (Man) 0 Promyelocytes % (Man) 0 Blast Cells % (Manual) 0 Nucleated RBC % 0 Metamyelocytes 0 Hypochromia 0 Platelet Estimate Decreased Polychromasia 1+ Poikilocytosis 0 Anisocytosis 0 Microcytosis 1+ Macrocytosis 0 PT with INR INR PTT (Actin FS) Sodium 136 Potassium 3.2 L Chloride 100 Carbon Dioxide 30 Anion Gap 6 L BUN 30.4 H Creatinine 1.4 H Est GFR (CKD-EPI)AfAm 53.85 Est GFR (CKD-EPI)NonAf 46.46 Random Glucose 113 H Calcium 8.8 Magnesium 2.2 Ferritin Total Bilirubin 2.7 H AST 183 H ALT 96 H Alkaline Phosphatase 404 H LD Total 398 H Total Protein 5.9 L Albumin 2.8 L Triglycerides 135 West Nile Virus IgG Ab Negative West Nile Virus IgM Ab Negative 02/17/19 02/17/19 05:50 05:50 WBC RBC Hgb Hct MCV MCH MCHC RDW Plt Count MPV Absolute Neuts (auto) Neutrophils % Neutrophils % (Manual) Band Neutrophils % Lymphocytes % Lymphocytes % (Manual) Monocytes % Monocytes % (Manual) Eosinophils % Eosinophils % (Manual) Basophils % Basophils % (Manual) Myelocytes % (Man) Promyelocytes % (Man) Blast Cells % (Manual) Nucleated RBC % Metamyelocytes Hypochromia Platelet Estimate Polychromasia Poikilocytosis Anisocytosis Microcytosis Macrocytosis PT with INR 20.80 H INR 1.75 H PTT (Actin FS) 40.5 H Sodium Potassium Chloride Carbon Dioxide Anion Gap BUN Creatinine Est GFR (CKD-EPI)AfAm Est GFR (CKD-EPI)NonAf Random Glucose Calcium Magnesium Ferritin 1871.8 H Total Bilirubin AST ALT Alkaline Phosphatase LD Total Total Protein Albumin Triglycerides West Nile Virus IgG Ab West Nile Virus IgM Ab Active Medications Generic Name Dose Route Start Last Admin Trade Name Freq PRN Reason Stop Dose Admin Acetaminophen 650 mg 02/14/19 02:18 02/17/19 13:47 Tylenol - PO 650 mg Q6H PRN Administration FEVER Amlodipine Besylate 5 mg 02/16/19 16:40 02/17/19 09:49 Norvasc - PO 5 mg DAILY JELLY Administration Apixaban 5 mg 02/14/19 10:00 02/16/19 21:52 Eliquis - PO 5 mg BID JELLY Administration Cyanocobalamin 1,000 mcg 02/14/19 10:00 02/17/19 13:48 Vitamin B12 - PO 1,000 mcg DAILY JELLY Administration Furosemide 40 mg 02/15/19 06:00 02/17/19 13:47 Lasix Injection - IVPUSH 40 mg BID@0600,1400 JELLY Administration Cefepime HCl 1 gm/ Dextrose 100 mls @ 200 mls/hr 02/14/19 18:40 11/04/19 09: 50 IVPB 200 mls/hr Q8H-IV JELLY Administration Protocol Doxycycline Hyclate 100 mg/ 100 mls @ 100 mls/hr 02/15/19 15:30 02/17/19 09: 45 Dextrose IVPB 100 mls/hr BID JELLY Administration Metoprolol Succinate 25 mg 02/14/19 10:00 02/17/19 09:50 Toprol Xl - PO 25 mg DAILY JELLY Administration Rosuvastatin Calcium 5 mg 02/14/19 22:00 02/16/19 21:52 Crestor - PO 5 mg HS JELLY Administration Valsartan 160 mg 02/16/19 10:00 02/17/19 09:38 Diovan - PO 160 mg DAILY JELLY Administration ASSESSMENT/PLAN: Pt is an 83 y/o M with PMH HTN, HLD, Prosthetic Aortic Valve (Bovine), afib (on eliquis) who was admitted to ICU for close monitoring of Sepsis with leukopenia. Thrombocytopenia/Leukopenia -Likely 2/2 sepsis. ? HLH -on abx -ID on board -LDH elevated at 398, elevated ferritin 1871, Fe 34, TIBC 232, Fe sat 14, INR 1.75, TG 135, CD 25 pending -May need BM Bx to r/o HLH -Consider autoimmune cause. Will get ESR, CRP, RF, JYOTI Possible Infectious causes being worked up by ID/Primary team -RPR, West Nile neg -Babesia, Erlichia, Lyme, E. chafensis pending -? JEANNIE to r/o Cx. neg endocarditis ?Hepatitis vs MODS 2/2 sepsis -Liver enzymes increased dramatically from yest -liver function decreased from prior with dropping alb and increasing INR -Bili elevation -notably, renal function not significantly worsened, which speaks against MODS as well as normal BP. Visit type - Emergency Visit Emergency Visit: No - New Patient This patient is new to me today: Yes Date on this admission: 02/18/19 - Critical Care Critical Care patient: No ATTENDING PHYSICIAN STATEMENT I saw and evaluated the patient. I reviewed the resident's note and discussed the case with the resident. I agree with the resident's findings and plan as documented. SUBJECTIVE: OBJECTIVE: ASSESSMENT AND PLAN:
--- NOTE | 2019-02-17 16:42 | PN ---
Physical Exam: SUBJECTIVE: Patient seen and examined at the bedside. not feeling well today, in bed having rigors. denies pain. at bedside. OBJECTIVE: neutropenic, wbc 1.8 with fever 102F overnight. blood smear negative, rpr negative. viral panel pending thrombocytopenia @ 61 worsening liver function, elevated ast/alt. alk phos elevated, bili 2.7. Patient is an 83 year old male with a significant past medical history of hypertension, hyperlipidemia, prosthetic aortic valve replacement (bovine). afib (on eliquis). He presented to the [facility] ED with ataxia, chills, rigors and weakness. patient had rigors at home and brought into the ED by his family for further evaluation. He transferred to the ICU closer monitoring. today's labs again noted to have decrease in wbc and platelets and is now neutropenic. viral panel pending. Vital Signs Period Temp Pulse Resp BP Sys/Bacon Pulse Ox Last 24 Hr 98.7 F-102.9 F 57-88 15-24 134-181/51-108 96-97 GENERAL: The patient is awake, alert, weak appearing, tolerating room air. having rigors. fatigued. HEAD: Normal with no signs of trauma. EYES: PERRL, extraocular movements intact, sclera anicteric, conjunctiva clear. No ptosis. ENT: Ears normal, nares patent, oropharynx clear without exudates, moist mucous membranes. NECK: Trachea midline, full range of motion, supple. LUNGS: Breath sounds equal, but diminished bilaterally, no wheeze HEART: Regular rate and rhythm ABDOMEN: Soft, nontender, nondistended, obese abdomen EXTREMITIES: no edema. NEUROLOGICAL: Normal speech, gait not observed. PSYCH: Normal mood, normal affect. SKIN: Warm, dry, normal turgor, no rashes or lesions noted Laboratory Results - last 24 hr 02/15/19 02/15/19 02/17/19 15:10 15:10 05:50 WBC 1.8 L* RBC 4.76 Hgb 14.1 Hct 41.7 MCV 87.6 MCH 29.6 MCHC 33.7 RDW 13.6 Plt Count 61 L D MPV 9.1 Absolute Neuts (auto) 1.1 L Neutrophils % 62.6 Neutrophils % (Manual) 58.1 Band Neutrophils % 3.8 Lymphocytes % 28.0 D Lymphocytes % (Manual) 8.6 Monocytes % 7.1 Monocytes % (Manual) 6 Eosinophils % 1.5 Eosinophils % (Manual) 1.9 Basophils % 0.8 Basophils % (Manual) 1.9 Myelocytes % (Man) 0 Promyelocytes % (Man) 0 Blast Cells % (Manual) 0 Nucleated RBC % 0 Metamyelocytes 0 Hypochromia 0 Platelet Estimate Decreased Polychromasia 1+ Poikilocytosis 0 Anisocytosis 0 Microcytosis 1+ Macrocytosis 0 PT with INR INR PTT (Actin FS) Sodium Potassium Chloride Carbon Dioxide Anion Gap BUN Creatinine Est GFR (CKD-EPI)AfAm Est GFR (CKD-EPI)NonAf Random Glucose Calcium Magnesium Iron TIBC Iron Saturation Unsaturated IBC Ferritin Total Bilirubin AST ALT Alkaline Phosphatase LD Total Total Protein Albumin Triglycerides Lyme Screen IgG & IgM <0.91 West Nile Virus IgG Ab Negative West Nile Virus IgM Ab Negative 02/17/19 02/17/19 02/17/19 05:50 05:50 05:50 WBC RBC Hgb Hct MCV MCH MCHC RDW Plt Count MPV Absolute Neuts (auto) Neutrophils % Neutrophils % (Manual) Band Neutrophils % Lymphocytes % Lymphocytes % (Manual) Monocytes % Monocytes % (Manual) Eosinophils % Eosinophils % (Manual) Basophils % Basophils % (Manual) Myelocytes % (Man) Promyelocytes % (Man) Blast Cells % (Manual) Nucleated RBC % Metamyelocytes Hypochromia Platelet Estimate Polychromasia Poikilocytosis Anisocytosis Microcytosis Macrocytosis PT with INR 20.80 H INR 1.75 H PTT (Actin FS) 40.5 H Sodium 136 Potassium 3.2 L Chloride 100 Carbon Dioxide 30 Anion Gap 6 L BUN 30.4 H Creatinine 1.4 H Est GFR (CKD-EPI)AfAm 53.85 Est GFR (CKD-EPI)NonAf 46.46 Random Glucose 113 H Calcium 8.8 Magnesium 2.2 Iron 32 L 34 L TIBC 232 L Iron Saturation 14 L Unsaturated IBC 198 L Ferritin 1871.8 H Total Bilirubin 2.7 H AST 183 H ALT 96 H Alkaline Phosphatase 404 H LD Total 398 H Total Protein 5.9 L Albumin 2.8 L Triglycerides 135 Lyme Screen IgG & IgM West Nile Virus IgG Ab West Nile Virus IgM Ab Active Medications Generic Name Dose Route Start Last Admin Trade Name Freq PRN Reason Stop Dose Admin Acetaminophen 650 mg 02/14/19 02:18 02/17/19 13:47 Tylenol - PO 650 mg Q6H PRN Administration FEVER Amlodipine Besylate 5 mg 02/16/19 16:40 02/17/19 09:49 Norvasc - PO 5 mg DAILY JELLY Administration Apixaban 5 mg 02/14/19 10:00 02/16/19 21:52 Eliquis - PO 5 mg BID JELLY Administration Cyanocobalamin 1,000 mcg 02/14/19 10:00 02/17/19 13:48 Vitamin B12 - PO 1,000 mcg DAILY JELLY Administration Furosemide 40 mg 02/15/19 06:00 02/17/19 13:47 Lasix Injection - IVPUSH 40 mg BID@0600,1400 JELLY Administration Cefepime HCl 1 gm/ Dextrose 100 mls @ 200 mls/hr 02/14/19 18:40 02/17/19 09: 50 IVPB 200 mls/hr Q8H-IV JELLY Administration Protocol Doxycycline Hyclate 100 mg/ 100 mls @ 100 mls/hr 02/15/19 15:30 02/17/19 09: 45 Dextrose IVPB 100 mls/hr BID JELLY Administration Metoprolol Succinate 25 mg 02/14/19 10:00 02/17/19 09:50 Toprol Xl - PO 25 mg DAILY JELLY Administration Rosuvastatin Calcium 5 mg 02/14/19 22:00 02/16/19 21:52 Crestor - PO 5 mg HS JELLY Administration Valsartan 160 mg 02/16/19 10:00 02/17/19 09:38 Diovan - PO 160 mg DAILY JELLY Administration ASSESSMENT/PLAN: Problem List - Problems (1) Severe sepsis Assessment/Plan: Severe sepsis with neutropenia. Patient with high grade fevers, chills, malaise , and fatigue/weakness. now noted with leukopenia and thrombocytopenia that worsen with daily labs. Fever of unknown origin, started on emperic antibiotics pending cultures ( cefepime and doxycycline) until tick borne disease can be ruled out with viral panel. pancultured, lactic acid wnl. blood and urine cultures negative. blood cultures repeated. chest ct shows mediastinal adenopaty with moderate increase since prior exam CT with gall stones, no acute loi seen, spine CT does not explain source of fever Code(s): A41.9 - SEPSIS, UNSPECIFIED ORGANISM; R65.20 - SEVERE SEPSIS WITHOUT SEPTIC SHOCK (2) Thrombocytopenia Assessment/Plan: defer using heparin for drop in platelets. hematology following and notes reviewed. patient was not on any heparin prior to hospitalization and was not on any heparin here, therefore, will not order HIT panel. discussed with his seal skinner, defer heparin gtt and keep on eliquis bleeding precaution. no clinical signs of bleeding. Code(s): D69.6 - THROMBOCYTOPENIA, UNSPECIFIED (3) Leukopenia Assessment/Plan: neutropenia of unclear etiology, but concern since patient has severe sepsis and now with low WBC count @ 1.8 viral panel ordered, rpr negative, blood smear negative leukopenia may be due to acute infection, however, platelets are decreasing also repeat cbc and monitor daily. heme consulted patient may need granix if leukopenia worsens/persists. Code(s): D72.819 - DECREASED WHITE BLOOD CELL COUNT, UNSPECIFIED (4) MIGUEL A (obstructive sleep apnea) Assessment/Plan: continue home cpap Code(s): G47.33 - OBSTRUCTIVE SLEEP APNEA (ADULT) (PEDIATRIC) (5) HLD (hyperlipidemia) Assessment/Plan: continue home meds Code(s): E78.5 - HYPERLIPIDEMIA, UNSPECIFIED (6) HTN (hypertension) Assessment/Plan: elevated, on metoprolol. started on norvasc 2.5mg Code(s): I10 - ESSENTIAL (PRIMARY) HYPERTENSION (7) S/P aortic valve replacement Assessment/Plan: discussed with patient's seal skinner who is concerned for endocarditis as source of fever echo noted. may need further cardiac workup if fevers persist. seal skinner following. Code(s): Z95.2 - PRESENCE OF PROSTHETIC HEART VALVE (8) Afib Assessment/Plan: on eliquis 5 bid and metoprol Code(s): I48.91 - UNSPECIFIED ATRIAL FIBRILLATION (9) Abnormal liver enzymes Assessment/Plan: liver enzymes and alk phos increased on todays labs, worse from prior. bilirubin elevated at 2.7 ultrasound of liver shows hepatomegaly with fatty inf vs hepatocellar disease gallstones with no acute loi. will consult Gi for further recommendations. Code(s): R74.8 - ABNORMAL LEVELS OF OTHER SERUM ENZYMES (10) Prophylactic measure Assessment/Plan: fen tolerating po monitor electrolyles low salt diet as tolerated on eliquis 5 bid full code Code(s): Z29.9 - ENCOUNTER FOR PROPHYLACTIC MEASURES, UNSPECIFIED Visit type - Emergency Visit Emergency Visit: Yes ED Registration Date: 02/14/19 Care time: The patient presented to the Emergency Department on the above date and was hospitalized for further evaluation of their emergent condition. - New Patient This patient is new to me today: No - Critical Care Critical Care patient: Yes Total Critical Care Time (in minutes): 45 Critical Care Statement: The care of this patient involved high complexity decision making to prevent further life threatening deterioration of the patient 's condition and/or to evaluate & treat vital organ system(s) failure or risk of failure.
[2019-02-17 18:08] LABS: BABESIA MICROTI ANTIBODY IGG <1:10 (Neg:<1:10); BABESIA MICROTI ANTIBODY IGM <1:10 (Neg:<1:10)
[2019-02-17 18:41] LABS: BASO % 0.5 % (0-2.0); EOS % 1.3 % (0-4.5); HEMATOCRIT 44.7 % (35.4-49); HEMOGLOBIN 14.7 GM/dL (11.7-16.9); LYMPH % 26.1 % (8-40); MCH 29.3 pg (25.7-33.7); MEAN CELL VOLUME 88.7 fl (80-96); MEAN PLT VOLUME 9.6 fl (7.5-11.1); MONO % 7.6 % (3.8-10.2); NEUT % 64.5 % (42.8-82.8); PLATELET COUNT 61 K/MM3 (134-434); RBC 5.04 M/mm3 (4.00-5.60); RDW 13.9 % (11.9-15.9); WHITE BLOOD COUNT 2.4 K/mm3 (4.0-10.0)
[2019-02-17 19:33] LABS: PLATELET ESTIMATE DECREASED
--- NOTE | 2019-02-17 20:44 | PN ---
Progress Note (short form) - Note Progress Note: Mr. Barnes was admitted with chills or rigors, cough and dyspnea Known case of hypertension, hypertensive cardiovascular disease, severe left ventricular diastolic dysfunction, paroxysmal atrial fibrillation, chronic pulmonary disease , status post bioprosthetic aortic valve replacement. He was afebrile, no dyspnea was reported still has some residual cough.no chest pain or discomfort. No history of palpitations, lightheadedness, dizziness. Active Medications Generic Name Dose Route Start Last Admin Trade Name Freq PRN Reason Stop Dose Admin Acetaminophen 650 mg 02/14/19 02:18 02/17/19 13:47 Tylenol - PO 650 mg Q6H PRN Administration FEVER Amlodipine Besylate 5 mg 02/16/19 16:40 02/17/19 09:49 Norvasc - PO 5 mg DAILY JELLY Administration Apixaban 5 mg 02/14/19 10:00 02/16/19 21:52 Eliquis - PO 5 mg BID JELLY Administration Cyanocobalamin 1,000 mcg 02/14/19 10:00 02/17/19 13:48 Vitamin B12 - PO 1,000 mcg DAILY JELLY Administration Furosemide 40 mg 02/15/19 06:00 02/17/19 13:47 Lasix Injection - IVPUSH 40 mg BID@0600,1400 JELLY Administration Cefepime HCl 1 gm/ Dextrose 100 mls @ 200 mls/hr 02/14/19 18:40 02/17/19 17: 43 IVPB 200 mls/hr Q8H-IV JELLY Administration Protocol Doxycycline Hyclate 100 mg/ 100 mls @ 100 mls/hr 02/15/19 15:30 02/17/19 09: 45 Dextrose IVPB 100 mls/hr BID JELLY Administration Metoprolol Succinate 25 mg 02/14/19 10:00 02/17/19 09:50 Toprol Xl - PO 25 mg DAILY JELLY Administration Rosuvastatin Calcium 5 mg 02/14/19 22:00 02/16/19 21:52 Crestor - PO 5 mg HS JELLY Administration Valsartan 160 mg 02/16/19 10:00 02/17/19 09:38 Diovan - PO 160 mg DAILY JELLY Administration 83-year-old gentleman was in no acute distress, no pallor, cyanosis, clubbing or jaundice. Last Vital Signs Temp Pulse Resp BP Pulse Ox 97.8 F 59 L 20 143/92 96 02/17/19 16:48 02/17/19 18:00 02/17/19 18:00 02/17/19 18:00 02/17/19 09:00 NECK: Supple, no jugular venous distention, hepatojugular reflux was negative, carotids were 2+, unable to appreciate any bruits or thyromegaly. HEART: PMI was not localized, no heaves or thrills, heart sounds were distant, ejection systolic murmur grade 2/6 was heard at the second right intercostal space ending in early to mid systole. No diastolic murmur or gallops were heard. LUNGS: decreased breath sounds at both bases. No extraneous sounds were heard. ABDOMEN: Soft, protuberant, nontender. No pedal splenomegaly or palpable masses were felt. EXTREMITIES: No calf tenderness or dependent edema, pulses were equal except posterior tibial pulses were not palpable. Laboratory Results - last 24 hr 02/15/19 02/15/19 02/17/19 15:10 15:10 05:50 WBC 1.8 L* RBC 4.76 Hgb 14.1 Hct 41.7 MCV 87.6 MCH 29.6 MCHC 33.7 RDW 13.6 Plt Count 61 L D MPV 9.1 Absolute Neuts (auto) 1.1 L Neutrophils % 62.6 Neutrophils % (Manual) 58.1 Band Neutrophils % 3.8 Lymphocytes % 28.0 D Lymphocytes % (Manual) 8.6 Monocytes % 7.1 Monocytes % (Manual) 6 Eosinophils % 1.5 Eosinophils % (Manual) 1.9 Basophils % 0.8 Basophils % (Manual) 1.9 Myelocytes % (Man) 0 Promyelocytes % (Man) 0 Blast Cells % (Manual) 0 Nucleated RBC % 0 Metamyelocytes 0 Hypochromia 0 Platelet Estimate Decreased Polychromasia 1+ Poikilocytosis 0 Anisocytosis 0 Microcytosis 1+ Macrocytosis 0 PT with INR INR PTT (Actin FS) Sodium Potassium Chloride Carbon Dioxide Anion Gap BUN Creatinine Est GFR (CKD-EPI)AfAm Est GFR (CKD-EPI)NonAf Random Glucose Calcium Magnesium Iron TIBC Iron Saturation Unsaturated IBC Ferritin Total Bilirubin AST ALT Alkaline Phosphatase LD Total Total Protein Albumin Triglycerides Babesia microti IgG Ab <1:10 Babesia microti IgM Ab <1:10 Lyme Screen IgG & IgM <0.91 West Nile Virus IgG Ab Negative West Nile Virus IgM Ab Negative 02/17/19 02/17/19 02/17/19 05:50 05:50 05:50 WBC RBC Hgb Hct MCV MCH MCHC RDW Plt Count MPV Absolute Neuts (auto) Neutrophils % Neutrophils % (Manual) Band Neutrophils % Lymphocytes % Lymphocytes % (Manual) Monocytes % Monocytes % (Manual) Eosinophils % Eosinophils % (Manual) Basophils % Basophils % (Manual) Myelocytes % (Man) Promyelocytes % (Man) Blast Cells % (Manual) Nucleated RBC % Metamyelocytes Hypochromia Platelet Estimate Polychromasia Poikilocytosis Anisocytosis Microcytosis Macrocytosis PT with INR 20.80 H INR 1.75 H PTT (Actin FS) 40.5 H Sodium 136 Potassium 3.2 L Chloride 100 Carbon Dioxide 30 Anion Gap 6 L BUN 30.4 H Creatinine 1.4 H Est GFR (CKD-EPI)AfAm 53.85 Est GFR (CKD-EPI)NonAf 46.46 Random Glucose 113 H Calcium 8.8 Magnesium 2.2 Iron 32 L 34 L TIBC 232 L Iron Saturation 14 L Unsaturated IBC 198 L Ferritin 1871.8 H Total Bilirubin 2.7 H AST 183 H ALT 96 H Alkaline Phosphatase 404 H LD Total 398 H Total Protein 5.9 L Albumin 2.8 L Triglycerides 135 Babesia microti IgG Ab Babesia microti IgM Ab Lyme Screen IgG & IgM West Nile Virus IgG Ab West Nile Virus IgM Ab 02/17/19 18:00 WBC 2.4 L RBC 5.04 Hgb 14.7 Hct 44.7 MCV 88.7 MCH 29.3 MCHC 33.0 RDW 13.9 Plt Count 61 L MPV 9.6 Absolute Neuts (auto) 1.5 Neutrophils % 64.5 Neutrophils % (Manual) Band Neutrophils % Lymphocytes % 26.1 Lymphocytes % (Manual) Monocytes % 7.6 Monocytes % (Manual) Eosinophils % 1.3 Eosinophils % (Manual) Basophils % 0.5 Basophils % (Manual) Myelocytes % (Man) Promyelocytes % (Man) Blast Cells % (Manual) Nucleated RBC % 0 Metamyelocytes Hypochromia Platelet Estimate Decreased Polychromasia Poikilocytosis Anisocytosis Microcytosis Macrocytosis PT with INR INR PTT (Actin FS) Sodium Potassium Chloride Carbon Dioxide Anion Gap BUN Creatinine Est GFR (CKD-EPI)AfAm Est GFR (CKD-EPI)NonAf Random Glucose Calcium Magnesium Iron TIBC Iron Saturation Unsaturated IBC Ferritin Total Bilirubin AST ALT Alkaline Phosphatase LD Total Total Protein Albumin Triglycerides Babesia microti IgG Ab Babesia microti IgM Ab Lyme Screen IgG & IgM West Nile Virus IgG Ab West Nile Virus IgM Ab Impression: 1. Recent chills, rigors coughrelated to prolonged exposure to working in the cold and wet environment, etiology is being determined: a). Possibly related to pneumonia. b). Viral infection is being excluded. c). Prosthetic valve endocarditis needs exclusion. 2. Hypertension, hypertensive cardiovascular disease. 3. Severe left ventricular diastolic dysfunction. 4. Chronic obstructive pulmonary disease. 5. Status postbioprosthetic aortic valve replacement. Recommendations: 1. Case discussed with CCU resident and concur with obtaining a JEANNIE. 2. Continue medications as outlined. 3. Follow-up CT scan of the chest. 4. Further suggestions as necessary. Prognosis: Guarded.
[2019-02-17] MEDS ORDERED: APIXABAN 5 MG TABLET PO SCH (22:00)
[2019-02-17] MEDS: ROSUVASTATIN CA 5 MG TABLET (FP) PO SCH (22:51)
[2019-02-18] MEDS ORDERED: CEFEPIME HCL 1 GM VIAL (RESTRICTED TO ID) ONE ×2 (01:09→10:01)
[2019-02-18] MEDS ORDERED: DEXTROSE 5%-WATER 100 ML IVPB ONE ×3 (01:09→10:01)
[2019-02-18] MEDS: CEFEPIME 1 GM in DEXTROSE 5%-WATER 100 ML IVPB SCH ×2 (01:22→10:07)
[2019-02-18] MEDS: FUROSEMIDE 40 MG/4 ML INJECTABLE VIAL IVPUSH SCH ×2 (06:06→13:44)
[2019-02-18 06:27] LABS: BASO % 0.7 % (0-2.0); EOS % 2.3 % (0-4.5); HEMATOCRIT 42.2 % (35.4-49); HEMOGLOBIN 14.4 GM/dL (11.7-16.9); LYMPH % 27.8 % (8-40); MCH 29.6 pg (25.7-33.7); MCHC 34.1 g/dl (32.0-35.9); MEAN CELL VOLUME 86.9 fl (80-96); MEAN PLT VOLUME 9.5 fl (7.5-11.1); NEUT % 60.2 % (42.8-82.8); PLATELET COUNT 59 K/MM3 (134-434); RBC 4.86 M/mm3 (4.00-5.60); RDW 13.9 % (11.9-15.9); WHITE BLOOD COUNT 2.3 K/mm3 (4.0-10.0)
--- NOTE | 2019-02-18 06:57 | PN ---
Progress Note (short form) - Note Progress Note: Patient seen and examined No specific omplaints Fevers, chills AFVSS Cor: RSR, No murmurs, No gallops Lungs: Clear to P&A Abd: Soft, Normal bowel sounds, No organomegaly Ext:No significant edema Labs/Meds reviewed A/P 83 y/o M with PMH HTN, HLD, Prosthetic Aortic Valve (Bovine), afib (on eliquis) who was admitted for close monitoring of fevers with leukopenia. Thrombocytopenia/Leukopenia/abnormal LFTs -Likely 2/2 occult infection ? culture negative endocarditis ? viral -r/o autoimmune/lymphoproliferative causes. HAS mediastinal adenopathy uptpo 3.4cm on CT chest -LDH elevated at 398, elevated ferritin 1871, Fe 34, TIBC 232, Fe sat 14, INR 1.75, TG 135, CD 25 pending -check flowcytometry/ FISH/cytogenetics -check sCD25 level -check ESR/CRP/JYOTI/RF - B12/TSH --normal will follow
[2019-02-18 07:21] LABS: ALBUMIN 2.9 g/dl (3.4-5.0); BILIRUBIN,TOTAL 2.6 mg/dL (0.2-1); BLOOD UREA NITROGEN 29.7 mg/dL (7-18); CALCIUM 9.2 mg/dL (8.5-10.1); CREATININE 1.2 mg/dL (0.55-1.3); MAGNESIUM 2.1 mg/dL (1.8-2.4); PHOSPHOROUS 2.3 mg/dL (2.5-4.9); POTASSIUM 3.5 mmol/L (3.5-5.1)
--- NOTE | 2019-02-18 08:03 | PN ---
Progress Note, Physician Chief Complaint: Sitting in chair at bedside. States he has poor appetite. Transfered from ICU to telemetry. Afebrile overnight. History of Present Illness: Patient is an 83 year old male with a significant past medical history of hypertension, hyperlipidemia, prosthetic aortic valve replacement (bovine). afib (on eliquis). He presented to the [facility] ED with ataxia, chills, rigors and weakness. patient had rigors at home and brought into the ED by his family for further evaluation. - Current Medication List Current Medications: Active Medications Acetaminophen (Tylenol -) 650 mg PO Q6H PRN PRN Reason: FEVER Amlodipine Besylate (Norvasc -) 5 mg PO DAILY [facility] Apixaban (Eliquis -) 5 mg PO BID [facility] Cyanocobalamin (Vitamin B12 -) 1,000 mcg PO DAILY [facility] Furosemide (Lasix Injection -) 40 mg IVPUSH BID@0600,1400 [facility] Last Admin: 02/18/19 06:06 Dose: 40 mg Cefepime HCl 1 gm/ Dextrose 100 mls @ 200 mls/hr IVPB Q8H-IV [facility]; Protocol Last Admin: 02/18/19 01:22 Dose: 200 mls/hr Doxycycline Hyclate 100 mg/ (Dextrose) 100 mls @ 100 mls/hr IVPB BID [facility] Last Admin: 02/17/19 22:52 Dose: 100 mls/hr Metoprolol Succinate (Toprol Xl -) 25 mg PO DAILY [facility] Rosuvastatin Calcium (Crestor -) 5 mg PO HS [facility] Last Admin: 02/17/19 22:51 Dose: 5 mg Valsartan (Diovan -) 160 mg PO DAILY [facility] - Objective Vital Signs: Vital Signs Temperature 97.6 F 02/18/19 06:00 Pulse Rate 70 02/18/19 06:00 Respiratory Rate 20 02/18/19 06:00 Blood Pressure 150/82 02/18/19 06:00 O2 Sat by Pulse Oximetry (%) 95 02/17/19 22:00 Constitutional: Yes: Well Nourished, No Distress, Calm Eyes: Yes: WNL, Conjunctiva Clear HENT: Yes: WNL, Atraumatic, Normocephalic Neck: Yes: WNL, Supple, Trachea Midline Cardiovascular: Yes: WNL, Regular Rate and Rhythm Respiratory: Yes: Diminished (at bases, scattered rales) Gastrointestinal: Yes: WNL, Normal Bowel Sounds, Soft, Abdomen, Obese ...Rectal Exam: Yes: Deferred Genitourinary: Yes: WNL Breast(s): Yes: WNL Musculoskeletal: Yes: WNL Extremities: Yes: WNL Edema: No Peripheral Pulses WNL: Yes Peripheral Pulses: Left Radial: 2+, Right Radial: 2+, Left Doralis Pedis: 2+, Right Dorsalis Pedis: 2+, Left Femoral: 2+, Right Femoral: 2+ Neurological: Yes: WNL, Alert, Oriented ...Motor Strength: WNL (generalized weakness) Psychiatric: Yes: WNL Labs: CBC, BMP 02/18/19 05:50 02/18/19 05:50 INR, PTT INR 1.75 (0.83-1.09) H 02/17/19 05:50 Problem List - Problems (1) Abnormal liver enzymes Assessment/Plan: LFTs trending up US with hepatomegaly-fatty liver vs Hepatocellular dz GI consulted avoid hepatotoxic agents Code(s): R74.8 - ABNORMAL LEVELS OF OTHER SERUM ENZYMES (2) Afib Assessment/Plan: Rate controlled c/w toprol c/w eliquis tele monitoring Code(s): I48.91 - UNSPECIFIED ATRIAL FIBRILLATION (3) Altered mental status Assessment/Plan: improved fall precautions Code(s): R41.82 - ALTERED MENTAL STATUS, UNSPECIFIED (4) Leukopenia Assessment/Plan: WBC 2.3 neutropenia of unclear etiology, viral panel ordered, rpr negative, blood smear negative leukopenia may be due to acute infection, however, platelets are decreasing also daily cbc heme consultation appreciated patient may need granix if leukopenia worsens/persists. Code(s): D72.819 - DECREASED WHITE BLOOD CELL COUNT, UNSPECIFIED (5) MIGUEL A (obstructive sleep apnea) Assessment/Plan: c/w CPAP prn and at night Code(s): G47.33 - OBSTRUCTIVE SLEEP APNEA (ADULT) (PEDIATRIC) (6) Prophylactic measure Assessment/Plan: FEN cardiac diet no additional IVF needed monitor electrolytes NPO past MN for JEANNIE DVT c/w eliquis Dispo maintain as in patient full code discharge planning Code(s): Z29.9 - ENCOUNTER FOR PROPHYLACTIC MEASURES, UNSPECIFIED (7) Severe sepsis Assessment/Plan: presented with severe sepsis with neutropeni, fevers, malaise, and fatigue/ weakness. now noted with leukopenia and thrombocytopenia Fever of unknown origin, started on empiric antibiotics- cefepime and doxycycline-all cx NGTD tick borne disease panel pending chest ct shows mediastinal adenopaty with moderate increase since prior exam CT with gall stones, no acute loi seen, spine CT does not explain source of fever TTE with no vegetations, JEANNIE ordered to definitively r/o endocardsitis Code(s): A41.9 - SEPSIS, UNSPECIFIED ORGANISM; R65.20 - SEVERE SEPSIS WITHOUT SEPTIC SHOCK (8) Thrombocytopenia Assessment/Plan: plt ct 59 no signs of bleeding, will monitor ESR/CRP/JYOTI/RF pending appreciate hematology consultation Code(s): D69.6 - THROMBOCYTOPENIA, UNSPECIFIED (9) Weakness Assessment/Plan: c/w PT fall precautions Code(s): R53.1 - WEAKNESS Visit type - Emergency Visit Emergency Visit: Yes ED Registration Date: 02/14/19 Care time: The patient presented to the Emergency Department on the above date and was hospitalized for further evaluation of their emergent condition. - New Patient This patient is new to me today: Yes Date on this admission: 02/18/19 - Critical Care Critical Care patient: No - Discharge Referral Referred to [facility] No
[2019-02-18] MEDS ORDERED: DOXYCYCLINE HYCLATE 100 MG VIAL ONE (10:00)
[2019-02-18] MEDS: CYANOCOBALAMIN 1,000 MCG TABLET (FP) PO SCH (10:06)
[2019-02-18] MEDS: amLODIPine BESYLATE 5 MG TABLET (FP) PO SCH (10:06)
[2019-02-18] MEDS: metoPROLOL SUCCINATE 25 MG TAB.SR.24H (FP) PO SCH (10:06)
[2019-02-18] MEDS: VALSARTAN 160 MG TABLET (UD) PO SCH (10:07)
--- NOTE | 2019-02-18 10:13 | PN ---
Progress Note, STUDIO DESIGNER - Note Progress Note: Selected Entries 02/17/19 02/17/19 02/17/19 02:05 06:00 10:00 Breakfast 50% Supper Temperature 102 F H 98.7 F 98.9 F 02/17/19 02/17/19 02/17/19 13:30 15:00 16:48 Breakfast Supper Temperature 100.6 F H 102.9 F H 97.8 F 02/17/19 02/17/19 02/18/19 22:00 23:02 06:00 Breakfast Supper 50% Temperature 98.2 F 97.6 F 02/18/19 08:32 Breakfast Supper Temperature 98.9 F Laboratory Tests 02/18/19 05:50 WBC 2.3 L On Reg/thin liquid. Tolerating diet but limited appetite.
[2019-02-18] MEDS: DOXYCYCLINE INJECTION 100 MG in DEXTROSE 5%-WATER 100 ML IVPB SCH (11:09)
--- NOTE | 2019-02-18 11:24 | PN ---
Progress Note, Physician History of Present Illness: PULMONARY AWAKE,ALERT,COMFORTABLE AT REST ,+LÓPEZ,-CP,-COUGH - Current Medication List Current Medications: Active Medications Acetaminophen (Tylenol -) 650 mg PO Q6H PRN PRN Reason: FEVER Amlodipine Besylate (Norvasc -) 5 mg PO DAILY [facility] Last Admin: 02/18/19 10:06 Dose: 5 mg Apixaban (Eliquis -) 5 mg PO BID [facility] Cyanocobalamin (Vitamin B12 -) 1,000 mcg PO DAILY [facility] Last Admin: 02/18/19 10:06 Dose: 1,000 mcg Furosemide (Lasix Injection -) 40 mg IVPUSH BID@0600,1400 [facility] Last Admin: 02/18/19 06:06 Dose: 40 mg Cefepime HCl 1 gm/ Dextrose 100 mls @ 200 mls/hr IVPB Q8H-IV [facility]; Protocol Last Admin: 02/18/19 10:07 Dose: 200 mls/hr Doxycycline Hyclate 100 mg/ (Dextrose) 100 mls @ 100 mls/hr IVPB BID [facility] Last Admin: 02/18/19 11:09 Dose: 100 mls/hr Metoprolol Succinate (Toprol Xl -) 25 mg PO DAILY [facility] Last Admin: 02/18/19 10:06 Dose: 25 mg Rosuvastatin Calcium (Crestor -) 5 mg PO HS [facility] Last Admin: 02/17/19 22:51 Dose: 5 mg Valsartan (Diovan -) 160 mg PO DAILY [facility] Last Admin: 02/18/19 10:07 Dose: 160 mg - Objective Vital Signs: Vital Signs Temperature 98.9 F 02/18/19 08:32 Pulse Rate 69 02/18/19 08:32 Respiratory Rate 18 02/18/19 08:32 Blood Pressure 154/82 02/18/19 08:32 O2 Sat by Pulse Oximetry (%) 95 02/17/19 22:00 Constitutional: Yes: Well Nourished, Calm Eyes: Yes: WNL HENT: Yes: WNL Neck: Yes: WNL Cardiovascular: Yes: Pulse Irregular, S1, S2 Respiratory: Yes: Diminished Gastrointestinal: Yes: Normal Bowel Sounds, Soft Extremities: Yes: WNL Edema: No Labs: CBC, BMP 02/18/19 05:50 02/18/19 05:50 INR, PTT INR 1.75 (0.83-1.09) H 02/17/19 05:50 Problem List - Problems (1) Altered mental status Code(s): R41.82 - ALTERED MENTAL STATUS, UNSPECIFIED (2) Abnormal liver enzymes Code(s): R74.8 - ABNORMAL LEVELS OF OTHER SERUM ENZYMES (3) Afib Code(s): I48.91 - UNSPECIFIED ATRIAL FIBRILLATION (4) Leukopenia Code(s): D72.819 - DECREASED WHITE BLOOD CELL COUNT, UNSPECIFIED (5) MIGUEL A (obstructive sleep apnea) Code(s): G47.33 - OBSTRUCTIVE SLEEP APNEA (ADULT) (PEDIATRIC) (6) Thrombocytopenia Code(s): D69.6 - THROMBOCYTOPENIA, UNSPECIFIED (7) Weakness Code(s): R53.1 - WEAKNESS (8) HLD (hyperlipidemia) Code(s): E78.5 - HYPERLIPIDEMIA, UNSPECIFIED (9) HTN (hypertension) Code(s): I10 - ESSENTIAL (PRIMARY) HYPERTENSION (10) S/P aortic valve replacement Code(s): Z95.2 - PRESENCE OF PROSTHETIC HEART VALVE Assessment/Plan ASSESSMENT: Fever of unknown origin with altered mental status Toxic Metabolic Encephalopathy Low clinical suspicion of Meningitis Sepsis Leukopenia AF on chronic AC s/p porcine valve 2008 HTN CHF MIGUEL A COPD CKD ELEVATED LFTS MEDIASTINAL ADENOPATHY PLAN: -Abx per ID -Lasix -BD TX PRN -CPAP at night and when sleeping -Oxygen -Rate control -Will hold LP for now -JEANNIE (? Culture negative Endocarditis) -Monitor LFTS,cbc - F/U CHEST CT outpatient DR OROZCO
--- NOTE | 2019-02-18 13:11 | PN ---
Progress Note, Physician History of Present Illness: stable still confusion - Current Medication List Current Medications: Active Medications Acetaminophen (Tylenol -) 650 mg PO Q6H PRN PRN Reason: FEVER Amlodipine Besylate (Norvasc -) 5 mg PO DAILY [facility] Last Admin: 02/18/19 10:06 Dose: 5 mg Apixaban (Eliquis -) 5 mg PO BID [facility] Cyanocobalamin (Vitamin B12 -) 1,000 mcg PO DAILY [facility] Last Admin: 02/18/19 10:06 Dose: 1,000 mcg Doxycycline Hyclate (Vibramycin -) 100 mg PO BID@1000,1800 [facility] Furosemide (Lasix Injection -) 40 mg IVPUSH BID@0600,1400 [facility] Last Admin: 02/18/19 06:06 Dose: 40 mg Metoprolol Succinate (Toprol Xl -) 25 mg PO DAILY [facility] Last Admin: 02/18/19 10:06 Dose: 25 mg Rosuvastatin Calcium (Crestor -) 5 mg PO HS [facility] Last Admin: 02/17/19 22:51 Dose: 5 mg Valsartan (Diovan -) 160 mg PO DAILY [facility] Last Admin: 02/18/19 10:07 Dose: 160 mg - Objective Vital Signs: Vital Signs Temperature 98.9 F 02/18/19 08:32 Pulse Rate 69 02/18/19 08:32 Respiratory Rate 18 02/18/19 08:32 Blood Pressure 154/82 02/18/19 08:32 O2 Sat by Pulse Oximetry (%) 95 02/18/19 09:00 Constitutional: Yes: No Distress, Calm Cardiovascular: Yes: S1, S2 Respiratory: Yes: Regular, Poor Air Entry Gastrointestinal: Yes: Normal Bowel Sounds, Soft Musculoskeletal: Yes: WNL Extremities: Yes: WNL Neurological: Yes: Alert, Confusion Psychiatric: Yes: Alert, Other Labs: CBC, BMP 02/18/19 05:50 02/18/19 05:50 INR, PTT INR 1.75 (0.83-1.09) H 02/17/19 05:50 Assessment/Plan Problem List - Problems (1) Severe sepsis Code(s): A41.9 - SEPSIS, UNSPECIFIED ORGANISM; R65.20 - SEVERE SEPSIS WITHOUT SEPTIC SHOCK (2) MIGUEL A (obstructive sleep apnea) Code(s): G47.33 - OBSTRUCTIVE SLEEP APNEA (ADULT) (PEDIATRIC) (3) HLD (hyperlipidemia) Code(s): E78.5 - HYPERLIPIDEMIA, UNSPECIFIED (4) HTN (hypertension) Code(s): I10 - ESSENTIAL (PRIMARY) HYPERTENSION (5) S/P aortic valve replacement Code(s): Z95.2 - PRESENCE OF PROSTHETIC HEART VALVE (6) Afib Code(s): I48.91 - UNSPECIFIED ATRIAL FIBRILLATION plan patient kenna neil tomorrow will see what it shows continue current mgmt monitor wbc rest as per the team
--- NOTE | 2019-02-18 13:58 | PN ---
Physical Exam: SUBJECTIVE: Patient seen and examined at bedside. OBJECTIVE: Vital Signs Period Temp Pulse Resp BP Sys/Bacon Pulse Ox Last 24 Hr 97.6 F-102.9 F 59-88 18-20 134-154/51-92 95-95 GENERAL: The patient is awake, alert, and fully oriented, in no acute distress. HEAD: Normal with no signs of trauma. EYES: PERRL, extraocular movements intact, sclera anicteric, conjunctiva clear. No ptosis. NECK: Trachea midline, full range of motion, supple. LUNGS: Breath sounds equal, clear to auscultation bilaterally, no wheezes, no crackles, no accessory muscle use. HEART: Regular rate and irregular rhythm, S1, S2 without murmur, rub or gallop. ABDOMEN: Soft, nontender, nondistended, normoactive bowel sounds, no guarding, no rebound, no hepatosplenomegaly, no masses. EXTREMITIES: 2+ pulses, warm, well-perfused, no edema. SKIN: Warm, dry, normal turgor, no rashes or lesions noted Laboratory Results - last 24 hr 02/15/19 02/15/19 02/17/19 15:10 15:10 05:50 WBC RBC Hgb Hct MCV MCH MCHC RDW Plt Count MPV Absolute Neuts (auto) Neutrophils % Lymphocytes % Monocytes % Eosinophils % Basophils % Nucleated RBC % Platelet Estimate Sodium Potassium Chloride Carbon Dioxide Anion Gap BUN Creatinine Est GFR (CKD-EPI)AfAm Est GFR (CKD-EPI)NonAf Random Glucose Calcium Phosphorus Magnesium Iron 32 L TIBC Iron Saturation Unsaturated IBC Total Bilirubin AST ALT Alkaline Phosphatase Total Protein Albumin Babesia microti IgG Ab <1:10 Babesia microti IgM Ab <1:10 Lyme Screen IgG & IgM <0.91 West Nile Virus IgG Ab Negative West Nile Virus IgM Ab Negative 02/17/19 02/17/19 02/18/19 05:50 18:00 05:50 WBC 2.4 L 2.3 L RBC 5.04 4.86 Hgb 14.7 14.4 Hct 44.7 42.2 MCV 88.7 86.9 MCH 29.3 29.6 MCHC 33.0 34.1 RDW 13.9 13.9 Plt Count 61 L 59 L MPV 9.6 9.5 Absolute Neuts (auto) 1.5 1.4 L Neutrophils % 64.5 60.2 Lymphocytes % 26.1 27.8 Monocytes % 7.6 9.0 Eosinophils % 1.3 2.3 Basophils % 0.5 0.7 Nucleated RBC % 0 0 Platelet Estimate Decreased Sodium Potassium Chloride Carbon Dioxide Anion Gap BUN Creatinine Est GFR (CKD-EPI)AfAm Est GFR (CKD-EPI)NonAf Random Glucose Calcium Phosphorus Magnesium Iron 34 L TIBC 232 L Iron Saturation 14 L Unsaturated IBC 198 L Total Bilirubin AST ALT Alkaline Phosphatase Total Protein Albumin Babesia microti IgG Ab Babesia microti IgM Ab Lyme Screen IgG & IgM West Nile Virus IgG Ab West Nile Virus IgM Ab 02/18/19 05:50 WBC RBC Hgb Hct MCV MCH MCHC RDW Plt Count MPV Absolute Neuts (auto) Neutrophils % Lymphocytes % Monocytes % Eosinophils % Basophils % Nucleated RBC % Platelet Estimate Sodium 135 L Potassium 3.5 Chloride 99 Carbon Dioxide 30 Anion Gap 6 L BUN 29.7 H Creatinine 1.2 Est GFR (CKD-EPI)AfAm 64.88 Est GFR (CKD-EPI)NonAf 55.98 Random Glucose 119 H Calcium 9.2 Phosphorus 2.3 L Magnesium 2.1 Iron TIBC Iron Saturation Unsaturated IBC Total Bilirubin 2.6 H AST 169 H ALT 108 H Alkaline Phosphatase 444 H Total Protein 6.0 L Albumin 2.9 L Babesia microti IgG Ab Babesia microti IgM Ab Lyme Screen IgG & IgM West Nile Virus IgG Ab West Nile Virus IgM Ab Active Medications Generic Name Dose Route Start Last Admin Trade Name Freq PRN Reason Stop Dose Admin Acetaminophen 650 mg 02/17/19 21:35 Tylenol - PO Q6H PRN FEVER Amlodipine Besylate 5 mg 02/18/19 10:00 02/18/19 10:06 Norvasc - PO 5 mg DAILY [facility] Administration Apixaban 5 mg 02/17/19 22:00 Eliquis - PO BID [facility] Cyanocobalamin 1,000 mcg 02/18/19 10:00 02/18/19 10:06 Vitamin B12 - PO 1,000 mcg DAILY [facility] Administration Doxycycline Hyclate 100 mg 02/18/19 18:00 Vibramycin - PO BID@1000,1800 [facility] Furosemide 40 mg 02/18/19 06:00 02/18/19 06:06 Lasix Injection - IVPUSH 40 mg BID@0600,1400 [facility] Administration Metoprolol Succinate 25 mg 02/18/19 10:00 02/18/19 10:06 Toprol Xl - PO 25 mg DAILY [facility] Administration Rosuvastatin Calcium 5 mg 02/17/19 22:00 02/17/19 22:51 Crestor - PO 5 mg HS [facility] Administration Valsartan 160 mg 02/18/19 10:00 02/18/19 10:07 Diovan - PO 160 mg DAILY [facility] Administration ASSESSMENT/PLAN: Pt is an 83 y/o M with PMH HTN, HLD, Prosthetic Aortic Valve (Bovine), afib (on eliquis) who was admitted to ICU for close monitoring of Sepsis with leukopenia. Thrombocytopenia/Leukopenia -Likely 2/2 sepsis. ? HLH -on abx -ID on board -LDH elevated at 398, elevated ferritin 1871, Fe 34, TIBC 232, Fe sat 14, INR 1.75, TG 135, CD 25 pending -May need BM Bx to r/o HLH -Consider autoimmune cause. ESR, CRP, RF, JYOTI pending Possible Infectious causes being worked up by ID/Primary team -RPR, West Nile neg -Babesia, Erlichia, Lyme, E. chafensis pending -? JEANNIE to r/o Cx. neg endocarditis ?Hepatitis vs MODS 2/2 sepsis -Liver enzymes increased dramatically from yest -liver function decreased from prior with dropping alb and increasing INR -Bili elevation -notably, renal function not significantly worsened, which speaks against MODS as well as normal BP. Visit type - Emergency Visit Emergency Visit: No - New Patient This patient is new to me today: No - Critical Care Critical Care patient: No ATTENDING PHYSICIAN STATEMENT I saw and evaluated the patient. I reviewed the resident's note and discussed the case with the resident. I agree with the resident's findings and plan as documented. SUBJECTIVE: OBJECTIVE: ASSESSMENT AND PLAN:
[2019-02-18 15:07] LABS: E.chaff HME IgG Negative (Neg:<1:64)
[2019-02-18] MEDS: ACETAMINOPHEN 325 MG TABLET (FP) PO PRN (15:54)
--- NOTE | 2019-02-18 15:57 | CON.GI ---
Consult Consult Specialty:: Gastroenterology Referred by:: Amber Dial Reason for Consultation:: Abnormal LFTs - History of Present Illness Chief Complaint: chills and confusion History of Present Illness: 83M is admitted for an alteration in mental status associated with chills and fevers to 103.6. He was c/o back pain initially. 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 He denies back pain at present. He has no known h/o liver disease but a sonogram reveals gallstones with normal bile ducts. When I last saw him in the office on 12/18/17 I advised aEGD and a colonoscopy to evaluate weight loss and an alteration in bowel habits as well as for adenoma surveillance but he failed to follow through with it. His last colonoscopy was performed on 10/01/13 and led to the removal of a transverse colon hyperplastic polyp and removed mild diverticulosis of the left colon. He did have an adenoma removed in 2007 and his mother had stomach cancer. 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 transverse colon adenoma removed 2007, subsequent hyperplastic polyps) Hepatobiliary: Yes: Cholelithiasis Renal/: Yes: Cancer (prostate radical prostatectemy then Lupron at [facility]) Infectious Disease: Yes: MRSA (perianal abcess), Other (1993 neck staff infection= hospitalized x 1 month) Musculoskeletal: Yes: Osteoarthritis, Other (cervical radiculopathy) Rheumatology: Yes: Gout - Past Surgical History Past Surgical History: Yes: Colonoscopy, Hernia Repair (Umbilical hernia repair 2000 Dr Watson), Laminectomy (C spine disc - Dr Connor Cohen), Prostatectomy ( radical prostatectomy at [facility] 08/22), Upper Endoscopy, Valve Replacement (aortic (on Eliquis)) Additional Surgical History: Bioprosthetic AVR 06/17/08 at [facility]. Left neck lipoma excision 1991. 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 Place of : [facility] History of Recent Travel: No Home Medications - Allergies Allergies/Adverse Reactions: Allergies Allergy/AdvReac Type Severity Reaction Status Date / Time No Known Allergies Allergy Verified 02/13/19 18:44 - Home Medications Home Medications: Ambulatory Orders Rosuvastatin Calcium [Crestor] 5 mg PO DAILY #0 tablet 12/26/11 Metoprolol Succinate [Toprol XL -] 25 mg PO DAILY 10/01/13 Furosemide 40 mg PO DAILY 05/01/17 Olmesartan Medoxomil [Benicar] 20 mg PO DAILY 05/01/17 Apixaban [Eliquis] 5 mg PO BID 02/14/19 Cyanocobalamin [Vitamin B12 -] 1,000 mcg PO DAILY 02/14/19 Olmesartan Medoxomil 20 mg PO DAILY 02/15/19 Family Medical History Family Hx Cancer: Mother (gastric cancer) Other Family History: F of pneumonia Review of Systems Unable to obtain ROS, reason: confused - Review of Systems Constitutional: reports: Chills Physical Exam-GI Vital Signs: Vital Signs Temperature 100.7 F H 02/18/19 14:24 Pulse Rate 71 02/18/19 14:24 Respiratory Rate 16 02/18/19 14:24 Blood Pressure 156/72 02/18/19 14:24 O2 Sat by Pulse Oximetry (%) 95 02/18/19 09:00 CBC,CMP WBC 2.3 K/mm3 (4.0-10.0) L 02/18/19 05:50 RBC 4.86 M/mm3 (4.00-5.60) 02/18/19 05:50 Hgb 14.4 GM/dL (11.7-16.9) 02/18/19 05:50 Hct 42.2 % (35.4-49) 02/18/19 05:50 MCV 86.9 fl (80-96) 02/18/19 05:50 MCH 29.6 pg (25.7-33.7) 02/18/19 05:50 MCHC 34.1 g/dl (32.0-35.9) 02/18/19 05:50 RDW 13.9 % (11.9-15.9) 02/18/19 05:50 Plt Count 59 K/MM3 (134-434) L 02/18/19 05:50 MPV 9.5 fl (7.5-11.1) 02/18/19 05:50 Absolute Neuts (auto) 1.4 K/mm3 (1.5-8.0) L 02/18/19 05:50 Neutrophils % 60.2 % (42.8-82.8) 02/18/19 05:50 Neutrophils % (Manual) 58.1 % (42.8-82.8) 02/17/19 05:50 Band Neutrophils % 3.8 % 02/17/19 05:50 Lymphocytes % 27.8 % (8-40) 02/18/19 05:50 Lymphocytes % (Manual) 8.6 % (8-40) 02/17/19 05:50 Monocytes % 9.0 % (3.8-10.2) 02/18/19 05:50 Monocytes % (Manual) 6 % (3.8-10.2) 02/17/19 05:50 Eosinophils % 2.3 % (0-4.5) 02/18/19 05:50 Eosinophils % (Manual) 1.9 % (0-4.5) 02/17/19 05:50 Basophils % 0.7 % (0-2.0) 02/18/19 05:50 Basophils % (Manual) 1.9 % (0-2.0) 02/17/19 05:50 Myelocytes % (Man) 0 % (0-2) 02/17/19 05:50 Promyelocytes % (Man) 0 % (0-2) 02/17/19 05:50 Blast Cells % (Manual) 0 % (0-0) 02/17/19 05:50 Nucleated RBC % 0 % (0-0) 02/18/19 05:50 Metamyelocytes 0 % (0-2) 02/17/19 05:50 Hypochromia 0 02/17/19 05:50 Platelet Estimate Decreased 02/17/19 18:00 Polychromasia 1+ 02/17/19 05:50 Poikilocytosis 0 02/17/19 05:50 Anisocytosis 0 02/17/19 05:50 Microcytosis 1+ 02/17/19 05:50 Macrocytosis 0 02/17/19 05:50 Sodium 135 mmol/L (136-145) L 02/18/19 05:50 Potassium 3.5 mmol/L (3.5-5.1) 02/18/19 05:50 Chloride 99 mmol/L (98-107) 02/18/19 05:50 Carbon Dioxide 30 mmol/L (21-32) 02/18/19 05:50 Anion Gap 6 MMOL/L (8-16) L 02/18/19 05:50 BUN 29.7 mg/dL (7-18) H 02/18/19 05:50 Creatinine 1.2 mg/dL (0.55-1.3) 02/18/19 05:50 Est GFR (CKD-EPI)AfAm 64.88 02/18/19 05:50 Est GFR (CKD-EPI)NonAf 55.98 02/18/19 05:50 POC Glucometer 102 UNITS (80-120) 02/14/19 15:52 Random Glucose 119 mg/dL (74-106) H 02/18/19 05:50 Hemoglobin A1c % 5.5 % (4.2-6.3) 02/14/19 06:30 Lactic Acid 1.3 mmol/L (0.4-2.0) 02/13/19 20:00 Calcium 9.2 mg/dL (8.5-10.1) 02/18/19 05:50 Phosphorus 2.3 mg/dL (2.5-4.9) L 02/18/19 05:50 Magnesium 2.1 mg/dL (1.8-2.4) 02/18/19 05:50 Iron 34 ug/dL (50-175) L 02/17/19 05:50 TIBC 232 ug/dL (250-450) L 02/17/19 05:50 Iron Saturation 14 % (17.5-39) L 02/17/19 05:50 Unsaturated IBC 198 ug/dL (200-275) L 02/17/19 05:50 Ferritin 1871.8 ng/ml (8-388) H 02/17/19 05:50 Total Bilirubin 2.6 mg/dL (0.2-1) H 02/18/19 05:50 AST 169 U/L (15-37) H 02/18/19 05:50 ALT 108 U/L (13-61) H 02/18/19 05:50 Alkaline Phosphatase 444 U/L (45-117) H 02/18/19 05:50 LD Total 398 U/L (87-246) H 02/17/19 05:50 Creatine Kinase 278 U/L (26-308) 02/15/19 05:51 Creatine Kinase Index 1.0 % (0.0-5.0) 02/15/19 05:51 CK-MB (CK-2) 2.87 ng/mL (0.5-3.6) 02/15/19 05:51 Troponin I 0.05 ng/ml (0.00-0.05) 02/14/19 13:30 B-Natriuretic Peptide 9668.7 pg/ml (5-450) H 02/14/19 06:30 Total Protein 6.0 g/dl (6.4-8.2) L 02/18/19 05:50 Albumin 2.9 g/dl (3.4-5.0) L 02/18/19 05:50 Triglycerides 135 mg/dL (0-150) 02/17/19 05:50 Cholesterol 99 mg/dl (50-200) 02/14/19 06:30 Total LDL Cholesterol 55 mg/dl (5-100) 02/14/19 06:30 HDL Cholesterol 35 mg/dl (40-60) L 02/14/19 06:30 Vitamin B12 812 pg/ml (193-986) 02/15/19 05:51 TSH 0.80 uIU/ml (0.358-3.74) D 02/15/19 05:51 Current Medications Generic Name Dose Route Start Last Admin Trade Name Freq PRN Reason Stop Dose Admin Acetaminophen 650 mg 02/17/19 21:35 02/18/19 15:54 Tylenol - PO 650 mg Q6H PRN Administration FEVER Amlodipine Besylate 5 mg 02/18/19 10:00 02/18/19 10:06 Norvasc - PO 5 mg DAILY JELLY Administration Apixaban 5 mg 02/17/19 22:00 Eliquis - PO BID JELLY Cyanocobalamin 1,000 mcg 02/18/19 10:00 02/18/19 10:06 Vitamin B12 - PO 1,000 mcg DAILY JELLY Administration Doxycycline Hyclate 100 mg 02/18/19 18:00 Vibramycin - PO BID@1000,1800 JELLY Furosemide 40 mg 02/18/19 06:00 02/18/19 13:44 Lasix Injection - IVPUSH 40 mg BID@0600,1400 JELLY Administration Metoprolol Succinate 25 mg 02/18/19 10:00 02/18/19 10:06 Toprol Xl - PO 25 mg DAILY JELLY Administration Rosuvastatin Calcium 5 mg 02/17/19 22:00 02/17/19 22:51 Crestor - PO 5 mg HS JELLY Administration Valsartan 160 mg 02/18/19 10:00 02/18/19 10:07 Diovan - PO 160 mg DAILY JELLY Administration Constitutional: Yes: Other (Confused) Eyes: Yes: Conjunctiva Clear HENT: Yes: Atraumatic Neck: Yes: Supple Cardiovascular: Yes: Pulse Irregular, Murmur, Other (healed median sternotomy) Respiratory: Yes: CTA Bilaterally Gastrointestinal Inspection: Yes: Distention, Hernia (nontender diastasis recti hernia), Scars (healed midline suprapubic incision) ...Auscultate: Yes: Normoactive Bowel Sounds ...Palpate: Yes: Mass (multiple subcutaneous lipomas), Soft, Other (nontender) ...Percussion: Yes: Tympanitic ...Rectal Exam: Yes: Guaiac Negative (no rectal absces, no prostate , palpable external hemorrhoid, brown g neg stool) Edema: No Neurological: Yes: Confusion Labs: CBC, BMP 02/18/19 05:50 02/18/19 05:50 INR, PTT INR 1.75 (0.83-1.09) H 02/17/19 05:50 Laboratory Tests 02/13/19 02/13/19 02/15/19 20:00 20:00 05:51 WBC 3.3 L Plt Count 105 L D Lactic Acid 1.3 Total Bilirubin 1.3 H AST 24 ALT 16 Alkaline Phosphatase 76 02/15/19 02/16/19 02/17/19 05:51 05:45 05:50 WBC 1.8 L* Plt Count Lactic Acid Total Bilirubin 1.8 H 2.2 H AST 55 H 82 H ALT 37 50 Alkaline Phosphatase 132 H 174 H 02/17/19 02/18/19 02/18/19 05:50 05:50 05:50 WBC 2.3 L Plt Count 59 L Lactic Acid Total Bilirubin 2.7 H 2.6 H AST 183 H 169 H ALT 96 H 108 H Alkaline Phosphatase 404 H 444 H Imaging - Results Cat Scan: Report Reviewed ( Final Report CT ABDOMEN & PELVIS CT W/O CONTR Show Printer-Friendly Version Patient Name: Osiris Barnes : ID: [id number] Study Date: 14-Feb-2019 19:50 Kelsieacacia Islasilievette Name: OSIRIS BARNES DEPARTMENT OF RADIOLOGY Phys: Amber Dial NP : [id number] Age: 83 Sex: M [facility] Acct: [id number] Loc: [address] Exam Date: 02/14/19 Status: [place] [address] Unit Number: [id number] EXAM#: TYPE/EXAM: RESULT: [id number] CT/ABDOMEN PELVIS CT W/O CONTR Abdomen and pelvis CT (without contrast) Clinical information: fevers; evaluate for abscess Multiplanar imaging was performed. No intravenous or enteric contrast was administered. No evidence of pneumoperitoneum, abscess, free intraperitoneal fluid or bowel obstruction. There has been no definite interval change in comparison to a prior CT exam of aside from interval resolution of a small subcutaneous perineal abscess. Evaluation of the upper abdomen on the current exam is somewhat limited due to respiratory motion artifact. Cholelithiasis is again noted without CT evidence of acute cholecystitis. There is no definite biliary tract dilatation. The liver, spleen, pancreas, adrenal glands and kidneys demonstrate no obvious noncontrast abnormality allowing for respiratory motion artifact. There is no aortic aneurysm. No definite lymphadenopathy is identified on the basis of size criteria. Area no CT evidence of acute appendicitis or diverticulitis. There is no gross noncontrast small bowel abnormality. Status post prostatectomy. Aside from small bilateral inguinal hernias containing fat only the pelvic soft tissue structures demonstrate no discrete noncontrast CT abnormality. The visualized osseous structures demonstrate no obvious CT evidence of acute pathology. Impression: No definite CT findings of acute pathology are identified Cholelithiasis. Status post prostatectomy. Small bilateral inguinal hernias containing fat only. The partially imaged lower chest demonstrate multichamber cardiomegaly. Status post median sternotomy. Small calcified pleural plaques are seen within the lower posterior chest bilaterally. Reported By: Barrera Collado MD 02/14/192115 Technologist: Ethan Moulton Transcribed Date/Time: 02/14/192115 Automated Equipment Engineer Technician: Barrera Collado Printed Date/Time: By: Signed by: Barrera Collado Signed on : 14-Feb-2019 21:18) Problem List - Problems (1) Abnormal liver enzymes Code(s): R74.8 - ABNORMAL LEVELS OF OTHER SERUM ENZYMES (2) Gallstone Code(s): K80.20 - CALCULUS OF GALLBLADDER W/O CHOLECYSTITIS W/O OBSTRUCTION (3) S/P aortic valve replacement Code(s): Z95.2 - PRESENCE OF PROSTHETIC HEART VALVE (4) Colon adenoma Code(s): D12.6 - BENIGN NEOPLASM OF COLON, UNSPECIFIED (5) Diverticulosis Code(s): K57.90 - DVRTCLOS OF INTEST, PART UNSP, W/O PERF OR ABSCESS W/O BLEED (6) History of prostate cancer Code(s): Z85.46 - PERSONAL HISTORY OF MALIGNANT NEOPLASM OF PROSTATE (7) Afib Code(s): I48.91 - UNSPECIFIED ATRIAL FIBRILLATION (8) Altered mental status Code(s): R41.82 - ALTERED MENTAL STATUS, UNSPECIFIED (9) Leukopenia Code(s): D72.819 - DECREASED WHITE BLOOD CELL COUNT, UNSPECIFIED (10) Severe sepsis Code(s): A41.9 - SEPSIS, UNSPECIFIED ORGANISM; R65.20 - SEVERE SEPSIS WITHOUT SEPTIC SHOCK (11) Thrombocytopenia Code(s): D69.6 - THROMBOCYTOPENIA, UNSPECIFIED (12) HLD (hyperlipidemia) Code(s): E78.5 - HYPERLIPIDEMIA, UNSPECIFIED (13) HTN (hypertension) Code(s): I10 - ESSENTIAL (PRIMARY) HYPERTENSION (14) Family history of gastric cancer Code(s): Z80.0 - FAMILY HISTORY OF MALIGNANT NEOPLASM OF DIGESTIVE ORGANS Assessment/Plan Assessment: - Given the gallstones, rising LFTs and lack of a source of sepsis cholangitis has to be considered. I have discussed the possible need for an ERCP to extract stones or stent the CBD with Osiris, his and two sons. I informed them of the potential for such adverse events as hemorrhage, perforation and ERCP induced pancreatitis leading to multiorgan failure. His Kavita has signed an informed consent. I have ordered an MRCP to help determine the need for ERCP. The rising LFTs could alternatively reflect reactive hepatopathy to sepsis , a DILI ( drug induced liver injury) or evolving abscesses. I suspect that he will prove to have SBE of his prosthetic heart valve and await his JEANNIE. The dropping platelets and elevated INR suggests DIC. - Personal h/o a colon adenoma and diverticulosis - FH stomach cancer Plan: -- MRCP -- Follow LFTs, INR and platelet count. -- Ammonia level. Doubt hepatic encephalopathy at this point and believe that his confusion is sepsis related toxic - metabolic encephalopathy -- Await JEANNIE -- Possible ERCP for stone extraction in which case the Eliquis will need to be held. I discussed the CVA risk associated with stopping this drug with the family. After discussing it with Dr Azar I will stop it.
[2019-02-18] MEDS: DOXYCYCLINE HYCLATE 100 MG CAPSULE PO SCH (17:37)
--- NOTE | 2019-02-18 18:45 | PN ---
Progress Note (short form) - Note Progress Note: Mr. Barnes was admitted with chills or rigors, cough and dyspnea Known case of hypertension, hypertensive cardiovascular disease, severe left ventricular diastolic dysfunction, paroxysmal atrial fibrillation, chronic pulmonary disease , status post bioprosthetic aortic valve replacement. Patient has been febrile no dyspnea was reported still has some residual cough.no chest pain or discomfort. To under go JEANNIE. 83-year-old gentleman was in no acute distress, no pallor, cyanosis, clubbing or jaundice. Last Vital Signs Temp Pulse Resp BP Pulse Ox 101.6 F 62 20 152/64 97 02/18/19 02/17/19 18:00 02/17/19 18:00 02/17/19 18:00 02/17/19 09:00 NECK: Supple, no jugular venous distention, hepatojugular reflux was negative, carotids were 2+, unable to appreciate any bruits or thyromegaly. HEART: PMI was not localized, no heaves or thrills, heart sounds were distant, ejection systolic murmur grade 2/6 was heard at the second right intercostal space ending in early to mid systole. No diastolic murmur or gallops were heard. LUNGS: decreased breath sounds at both bases. No extraneous sounds were heard. ABDOMEN: Soft, protuberant, nontender. No pedal splenomegaly or palpable masses were felt. EXTREMITIES: No calf tenderness or dependent edema, pulses were equal except posterior tibial pulses were not palpable. Impression: 1. Recent chills, rigors cough and recurring fever, etiology is obscure. a). Possibly related to acute bronchitis b). Prosthetic valve endocarditis needs exclusion. 2. Hypertension, hypertensive cardiovascular disease. 3. Severe left ventricular diastolic dysfunction. 4. Chronic obstructive pulmonary disease. 5. Status post bioprosthetic aortic valve replacement. 6. Leukopenia and thrombocytopenia, probably related to sepsis. 7. abnorma;l LFTs. Recommendations: 1. Scheduled for JEANNIE. 2. Continue medications as outlined. 3. Being evaluated for cholangitis. 4. Eliquis is being d/c'd because of severe thrombcytopenia. 4. Further suggestions as necessary. Prognosis: Guarded.
[2019-02-18] MEDS ORDERED: IBUPROFEN 600 MG TABLET (FP) PO ONE (18:51)
[2019-02-18] MEDS: ROSUVASTATIN CA 5 MG TABLET (FP) PO SCH (21:11)
[2019-02-18] MEDS: PANTOPRAZOLE 40 MG TABLET (FP) PO SCH (21:11)
[2019-02-19] MEDS: FUROSEMIDE 40 MG/4 ML INJECTABLE VIAL IVPUSH SCH ×2 (06:29→13:49)
[2019-02-19 06:42] LABS: BASO % 0.6 % (0-2.0); EOS % 5.6 % (0-4.5); HEMATOCRIT 43.6 % (35.4-49); HEMOGLOBIN 14.7 GM/dL (11.7-16.9); LYMPH % 16.2 % (8-40); MCH 29.5 pg (25.7-33.7); MCHC 33.8 g/dl (32.0-35.9); MEAN CELL VOLUME 87.3 fl (80-96); NEUT % 68.6 % (42.8-82.8); PLATELET COUNT 57 K/MM3 (134-434); RBC 4.99 M/mm3 (4.00-5.60); RDW 13.5 % (11.9-15.9); WHITE BLOOD COUNT 2.7 K/mm3 (4.0-10.0)
[2019-02-19 06:54] LABS: INR 1.13 (0.83-1.09); PROTHROMBIN TIME (PATIENT) 13.3 SEC (9.7-13.0)
[2019-02-19 07:20] LABS: BILIRUBIN,DIRECT 1.9 mg/dL (0.0-0.2)
[2019-02-19 07:21] LABS: ALBUMIN 2.8 g/dl (3.4-5.0); BILIRUBIN,TOTAL 2.6 mg/dL (0.2-1); BLOOD UREA NITROGEN 38.4 mg/dL (7-18); CALCIUM 9.4 mg/dL (8.5-10.1); CREATININE 1.4 mg/dL (0.55-1.3); MAGNESIUM 2.2 mg/dL (1.8-2.4); POTASSIUM 3.1 mmol/L (3.5-5.1)
[2019-02-19] MEDS ORDERED: POTASSIUM CHLORIDE TABS 20 MEQ TABLET.ER (FP) PO ONE ×2 (07:22→11:00)
--- NOTE | 2019-02-19 07:25 | PN ---
Progress Note, Physician Chief Complaint: Resting in bed. Appears confused today. Repeating same questions over. History of Present Illness: Patient is an 83 year old male with a significant past medical history of hypertension, hyperlipidemia, prosthetic aortic valve replacement (bovine). afib (on eliquis). He presented to the [facility] ED with ataxia, chills, rigors and weakness. patient had rigors at home and brought into the ED by his family for further evaluation. - Current Medication List Current Medications: Active Medications Acetaminophen (Tylenol -) 650 mg PO Q6H PRN PRN Reason: FEVER Last Admin: 02/18/19 15:54 Dose: 650 mg Amlodipine Besylate (Norvasc -) 5 mg PO DAILY [facility] Last Admin: 02/18/19 10:06 Dose: 5 mg Cyanocobalamin (Vitamin B12 -) 1,000 mcg PO DAILY [facility] Last Admin: 02/18/19 10:06 Dose: 1,000 mcg Doxycycline Hyclate (Vibramycin -) 100 mg PO BID@1000,1800 [facility] Last Admin: 02/18/19 17:37 Dose: 100 mg Furosemide (Lasix Injection -) 40 mg IVPUSH BID@0600,1400 [facility] Last Admin: 02/19/19 06:29 Dose: 40 mg Metoprolol Succinate (Toprol Xl -) 25 mg PO DAILY [facility] Last Admin: 02/18/19 10:06 Dose: 25 mg Pantoprazole Sodium (Protonix -) 40 mg PO BID [facility] Last Admin: 02/18/19 21:11 Dose: 40 mg Potassium Chloride (K-Dur -) 40 meq PO ONCE ONE Stop: 02/19/19 07:23 Potassium Chloride (K-Dur -) 40 meq PO ONCE ONE Stop: 02/19/19 11:01 Rosuvastatin Calcium (Crestor -) 5 mg PO HS [facility] Last Admin: 02/18/19 21:11 Dose: 5 mg Valsartan (Diovan -) 160 mg PO DAILY [facility] Last Admin: 02/18/19 10:07 Dose: 160 mg - Objective Vital Signs: Vital Signs Temperature 99.1 F 02/19/19 06:00 Pulse Rate 64 02/19/19 06:00 Respiratory Rate 18 02/19/19 06:00 Blood Pressure 130/71 02/19/19 06:00 O2 Sat by Pulse Oximetry (%) 97 02/18/19 21:00 Additional Findings/Remarks: Constitutional: Yes: Well Nourished, No Distress, Calm Eyes: Yes: WNL, Conjunctiva Clear HENT: Yes: WNL, Atraumatic, Normocephalic Neck: Yes: WNL, Supple, Trachea Midline Cardiovascular: Yes: WNL, Regular Rate and Rhythm Respiratory: Yes: Diminished (at bases, scattered rales) Gastrointestinal: Yes: WNL, Normal Bowel Sounds, Soft, Abdomen, Obese ...Rectal Exam: Yes: Deferred Genitourinary: Yes: WNL Breast(s): Yes: WNL Musculoskeletal: Yes: WNL Extremities: Yes: WNL Edema: No Peripheral Pulses WNL: Yes Peripheral Pulses: Left Radial: 2+, Right Radial: 2+, Left Doralis Pedis: 2+, Right Dorsalis Pedis: 2+, Left Femoral: 2+, Right Femoral: 2+ Neurological: Yes: Confused asking same questions over. ...Motor Strength: WNL (generalized weakness) Psychiatric: Yes: WNL Labs: Labs: CBC, BMP 02/19/19 00:50 02/19/19 00:50 INR, PTT INR 1.13 (0.83-1.09) H 02/19/19 00:50 - ....Imaging Other: Report Reviewed (TTE. JEANNIE pending) Problem List - Problems (1) Abnormal liver enzymes Assessment/Plan: LFTs continue to be trending up US with hepatomegaly-fatty liver vs Hepatocellular avoid hepatotoxic agents MRCP done last night revealing no CBD stones, GB stone but no cholecystitis. No need for ERCP Code(s): R74.8 - ABNORMAL LEVELS OF OTHER SERUM ENZYMES (2) Afib Assessment/Plan: Rate controlled c/w toprol Eliquis stopped gievn throbocytopenia tele monitoring Code(s): I48.91 - UNSPECIFIED ATRIAL FIBRILLATION (3) Altered mental status Assessment/Plan: confused this morning able to redirect attempt to maintain sleep wake cycle fall precautions Code(s): R41.82 - ALTERED MENTAL STATUS, UNSPECIFIED (4) Leukopenia Assessment/Plan: WBC 2.t neutropenia of unclear etiology, viral panel ordered, rpr negative, blood smear negative leukopenia may be due to acute infection, however, platelets are decreasing also. All Cx are NGTD but still spiking daily fevers. T max 101 daily cbc heme consultation appreciated patient may need granix if leukopenia worsens/persists. Code(s): D72.819 - DECREASED WHITE BLOOD CELL COUNT, UNSPECIFIED (5) MIGUEL A (obstructive sleep apnea) Assessment/Plan: c/w CPAP prn and at night Code(s): G47.33 - OBSTRUCTIVE SLEEP APNEA (ADULT) (PEDIATRIC) (6) Prophylactic measure Assessment/Plan: FEN cardiac diet no additional IVF needed monitor electrolytes NPO past MN for JEANNIE DVT eliquis stopped Dispo maintain as in patient full code discharge planning Code(s): Z29.9 - ENCOUNTER FOR PROPHYLACTIC MEASURES, UNSPECIFIED (7) Severe sepsis Assessment/Plan: presented with severe sepsis with neutropenia, fevers, malaise, and fatigue/ weakness. now noted with leukopenia and thrombocytopenia Fever of unknown origin, cefepime and doxycycline stopped as per ID-all cx NGTD tick borne disease panel pending possible viral etiology. chest ct shows mediastinal adenopaty with moderate increase since prior exam CT with gall stones, no acute loi seen, spine CT does not explain source of fever TTE with no vegetations, JEANNIE pending to definitively r/o endocardsitis Code(s): A41.9 - SEPSIS, UNSPECIFIED ORGANISM; R65.20 - SEVERE SEPSIS WITHOUT SEPTIC SHOCK (8) Thrombocytopenia Assessment/Plan: plt ct 57 no signs of bleeding, will monitor ESR/CRP/JYOTI/RF pending eliquis stopped appreciate hematology consultation Code(s): D69.6 - THROMBOCYTOPENIA, UNSPECIFIED (9) Weakness Assessment/Plan: c/w PT fall precautions Code(s): R53.1 - WEAKNESS Visit type - Emergency Visit Emergency Visit: Yes ED Registration Date: 02/14/19 Care time: The patient presented to the Emergency Department on the above date and was hospitalized for further evaluation of their emergent condition. - New Patient This patient is new to me today: No - Critical Care Critical Care patient: No - Discharge Referral Referred to [facility] No
[2019-02-19] MEDS: VALSARTAN 160 MG TABLET (UD) PO SCH (09:14)
[2019-02-19] MEDS: CYANOCOBALAMIN 1,000 MCG TABLET (FP) PO SCH (09:15)
[2019-02-19] MEDS: DOXYCYCLINE HYCLATE 100 MG CAPSULE PO SCH (09:15)
[2019-02-19] MEDS: amLODIPine BESYLATE 5 MG TABLET (FP) PO SCH (09:15)
[2019-02-19] MEDS: metoPROLOL SUCCINATE 25 MG TAB.SR.24H (FP) PO SCH (09:15)
[2019-02-19] MEDS: PANTOPRAZOLE 40 MG TABLET (FP) PO SCH ×2 (09:15→21:25)
--- NOTE | 2019-02-19 10:09 | PN ---
Progress Note (short form) - Note Progress Note: GI NOte: MRCP revgeals no CBD stones. There are GB stones but no signs of cholecystitis. A periportal lymph node is noted. No need for ERCP. I informed his son, Ethan. LFTs have not declined. Await JEANNIE. INR is fortunately normalizing and platelets have plateaued arguing against DIC. Eliquis being held after discussion with Dr Azar. I also informed Ethan about this. Problem List - Problems (1) Abnormal liver enzymes Code(s): R74.8 - ABNORMAL LEVELS OF OTHER SERUM ENZYMES (2) Gallstone Code(s): K80.20 - CALCULUS OF GALLBLADDER W/O CHOLECYSTITIS W/O OBSTRUCTION (3) S/P aortic valve replacement Code(s): Z95.2 - PRESENCE OF PROSTHETIC HEART VALVE (4) Colon adenoma Code(s): D12.6 - BENIGN NEOPLASM OF COLON, UNSPECIFIED (5) Diverticulosis Code(s): K57.90 - DVRTCLOS OF INTEST, PART UNSP, W/O PERF OR ABSCESS W/O BLEED (6) History of prostate cancer Code(s): Z85.46 - PERSONAL HISTORY OF MALIGNANT NEOPLASM OF PROSTATE (7) Afib Code(s): I48.91 - UNSPECIFIED ATRIAL FIBRILLATION (8) Altered mental status Code(s): R41.82 - ALTERED MENTAL STATUS, UNSPECIFIED (9) Leukopenia Code(s): D72.819 - DECREASED WHITE BLOOD CELL COUNT, UNSPECIFIED (10) Severe sepsis Code(s): A41.9 - SEPSIS, UNSPECIFIED ORGANISM; R65.20 - SEVERE SEPSIS WITHOUT SEPTIC SHOCK (11) Thrombocytopenia Code(s): D69.6 - THROMBOCYTOPENIA, UNSPECIFIED (12) HLD (hyperlipidemia) Code(s): E78.5 - HYPERLIPIDEMIA, UNSPECIFIED (13) HTN (hypertension) Code(s): I10 - ESSENTIAL (PRIMARY) HYPERTENSION (14) Family history of gastric cancer Code(s): Z80.0 - FAMILY HISTORY OF MALIGNANT NEOPLASM OF DIGESTIVE ORGANS
--- NOTE | 2019-02-19 11:26 | PN ---
Progress Note, Physician History of Present Illness: patient stable no new issues still spiking fevers all results negative so far wbc has started to trend towards normal plan to r/o endocarditis patient for neil today - Current Medication List Current Medications: Active Medications Acetaminophen (Tylenol -) 650 mg PO Q6H PRN PRN Reason: FEVER Last Admin: 02/18/19 15:54 Dose: 650 mg Amlodipine Besylate (Norvasc -) 5 mg PO DAILY [facility] Last Admin: 02/19/19 09:15 Dose: 5 mg Cyanocobalamin (Vitamin B12 -) 1,000 mcg PO DAILY [facility] Last Admin: 02/19/19 09:15 Dose: 1,000 mcg Furosemide (Lasix Injection -) 40 mg IVPUSH BID@0600,1400 [facility] Last Admin: 02/19/19 06:29 Dose: 40 mg Metoprolol Succinate (Toprol Xl -) 25 mg PO DAILY [facility] Last Admin: 02/19/19 09:15 Dose: 25 mg Pantoprazole Sodium (Protonix -) 40 mg PO BID [facility] Last Admin: 02/19/19 09:15 Dose: 40 mg Rosuvastatin Calcium (Crestor -) 5 mg PO HS [facility] Last Admin: 02/18/19 21:11 Dose: 5 mg Valsartan (Diovan -) 160 mg PO DAILY [facility] Last Admin: 02/19/19 09:14 Dose: 160 mg - Objective Vital Signs: Vital Signs Temperature 98.7 F 02/19/19 09:31 Pulse Rate 72 02/19/19 08:59 Respiratory Rate 18 02/19/19 08:59 Blood Pressure 130/79 02/19/19 08:59 O2 Sat by Pulse Oximetry (%) 95 02/19/19 09:02 Constitutional: Yes: No Distress, Calm Cardiovascular: Yes: Murmur, S1, S2 Respiratory: Yes: Regular, CTA Bilaterally Musculoskeletal: Yes: WNL Extremities: Yes: WNL Neurological: Yes: Alert, Oriented Psychiatric: Yes: Alert, Oriented Labs: CBC, BMP 02/19/19 00:50 02/19/19 00:50 INR, PTT INR 1.13 (0.83-1.09) H 02/19/19 00:50 Fibrinogen 281.0 mg/dL (238-498) 02/19/19 00:50 Assessment/Plan Problem List - Problems (1) Severe sepsis Code(s): A41.9 - SEPSIS, UNSPECIFIED ORGANISM; R65.20 - SEVERE SEPSIS WITHOUT SEPTIC SHOCK (2) MIGUEL A (obstructive sleep apnea) Code(s): G47.33 - OBSTRUCTIVE SLEEP APNEA (ADULT) (PEDIATRIC) (3) HLD (hyperlipidemia) Code(s): E78.5 - HYPERLIPIDEMIA, UNSPECIFIED (4) HTN (hypertension) Code(s): I10 - ESSENTIAL (PRIMARY) HYPERTENSION (5) S/P aortic valve replacement Code(s): Z95.2 - PRESENCE OF PROSTHETIC HEART VALVE (6) Afib Code(s): I48.91 - UNSPECIFIED ATRIAL FIBRILLATION plan i think i am leaning towards viral infection will see what neil shows will stop doxy rest as per the team
--- NOTE | 2019-02-19 13:29 | PN ---
Progress Note, Physician History of Present Illness: PULMONARY ALERT,COMFORTABLE,DYSPNEA SLOWLY IMPROVING,-CP - Current Medication List Current Medications: Active Medications Acetaminophen (Tylenol -) 650 mg PO Q6H PRN PRN Reason: FEVER Last Admin: 02/18/19 15:54 Dose: 650 mg Amlodipine Besylate (Norvasc -) 5 mg PO DAILY [facility] Last Admin: 02/19/19 09:15 Dose: 5 mg Cyanocobalamin (Vitamin B12 -) 1,000 mcg PO DAILY [facility] Last Admin: 02/19/19 09:15 Dose: 1,000 mcg Furosemide (Lasix Injection -) 40 mg IVPUSH BID@0600,1400 [facility] Last Admin: 02/19/19 06:29 Dose: 40 mg Metoprolol Succinate (Toprol Xl -) 25 mg PO DAILY [facility] Last Admin: 02/19/19 09:15 Dose: 25 mg Pantoprazole Sodium (Protonix -) 40 mg PO BID [facility] Last Admin: 02/19/19 09:15 Dose: 40 mg Rosuvastatin Calcium (Crestor -) 5 mg PO HS [facility] Last Admin: 02/18/19 21:11 Dose: 5 mg Valsartan (Diovan -) 160 mg PO DAILY [facility] Last Admin: 02/19/19 09:14 Dose: 160 mg - Objective Vital Signs: Vital Signs Temperature 98.7 F 02/19/19 09:31 Pulse Rate 72 02/19/19 08:59 Respiratory Rate 18 02/19/19 08:59 Blood Pressure 130/79 02/19/19 08:59 O2 Sat by Pulse Oximetry (%) 95 02/19/19 09:02 Constitutional: Yes: Well Nourished, Calm Eyes: Yes: WNL HENT: Yes: WNL Neck: Yes: WNL Cardiovascular: Yes: Pulse Irregular, S1, S2 Respiratory: Yes: Diminished Gastrointestinal: Yes: Normal Bowel Sounds, Soft Extremities: Yes: WNL Edema: No Labs: CBC, BMP 02/19/19 00:50 02/19/19 00:50 INR, PTT INR 1.13 (0.83-1.09) H 02/19/19 00:50 Fibrinogen 281.0 mg/dL (238-498) 02/19/19 00:50 Problem List - Problems (1) Altered mental status Code(s): R41.82 - ALTERED MENTAL STATUS, UNSPECIFIED (2) Abnormal liver enzymes Code(s): R74.8 - ABNORMAL LEVELS OF OTHER SERUM ENZYMES (3) Afib Code(s): I48.91 - UNSPECIFIED ATRIAL FIBRILLATION (4) Leukopenia Code(s): D72.819 - DECREASED WHITE BLOOD CELL COUNT, UNSPECIFIED (5) MIGUEL A (obstructive sleep apnea) Code(s): G47.33 - OBSTRUCTIVE SLEEP APNEA (ADULT) (PEDIATRIC) (6) Thrombocytopenia Code(s): D69.6 - THROMBOCYTOPENIA, UNSPECIFIED (7) Weakness Code(s): R53.1 - WEAKNESS (8) HLD (hyperlipidemia) Code(s): E78.5 - HYPERLIPIDEMIA, UNSPECIFIED (9) HTN (hypertension) Code(s): I10 - ESSENTIAL (PRIMARY) HYPERTENSION (10) S/P aortic valve replacement Code(s): Z95.2 - PRESENCE OF PROSTHETIC HEART VALVE Assessment/Plan ASSESSMENT: Fever of unknown origin with altered mental status improved Toxic Metabolic Encephalopathy improved Low clinical suspicion of Meningitis Sepsis Leukopenia AF on chronic AC s/p porcine valve 2008 HTN CHF MIGUEL A COPD CKD ELEVATED LFTS MEDIASTINAL ADENOPATHY PLAN: -Lasix -BD TX PRN -CPAP at night and when sleeping -Oxygen -Rate control -JEANNIE (? Culture negative Endocarditis) -Monitor LFTS,cbc - F/U CHEST CT outpatient DR OROZCO
--- NOTE | 2019-02-19 13:57 | PN ---
Physical Exam: SUBJECTIVE: Patient seen and examined at bedside OBJECTIVE: Vital Signs Period Temp Pulse Resp BP Sys/Bacon Pulse Ox Last 24 Hr 98.2 F-101.6 F 62-76 16-18 130-156/64-91 95-97 GENERAL: The patient is awake, alert, and fully oriented, in no acute distress. HEAD: Normal with no signs of trauma. EYES: extraocular movements intact, sclera anicteric, conjunctiva clear. No ptosis. NECK: Trachea midline, full range of motion, supple. LUNGS: Breath sounds equal, clear to auscultation bilaterally, no wheezes, no crackles, no accessory muscle use. HEART: Regular rate and irregular rhythm, S1, S2 without murmur, rub or gallop. ABDOMEN: Soft, nontender, nondistended, normoactive bowel sounds, no guarding, no rebound, no hepatosplenomegaly, no masses. EXTREMITIES: 2+ pulses, warm, well-perfused, no edema. Laboratory Results - last 24 hr 02/16/19 02/19/19 02/19/19 05:45 00:50 00:50 WBC 2.7 L RBC 4.99 Hgb 14.7 Hct 43.6 MCV 87.3 MCH 29.5 MCHC 33.8 RDW 13.5 Plt Count 57 L MPV 10.0 Absolute Neuts (auto) 1.9 Neutrophils % 68.6 Lymphocytes % 16.2 D Monocytes % 9.0 Eosinophils % 5.6 H D Basophils % 0.6 Nucleated RBC % 0 ESR PT with INR INR Fibrinogen Sodium 137 Potassium 3.1 L Chloride 99 Carbon Dioxide 31 Anion Gap 7 L BUN 38.4 H Creatinine 1.4 H Est GFR (CKD-EPI)AfAm 53.85 Est GFR (CKD-EPI)NonAf 46.46 Random Glucose 124 H Calcium 9.4 Magnesium 2.2 Total Bilirubin 2.6 H Direct Bilirubin GGT AST 281 H ALT 182 H Alkaline Phosphatase 473 H Ammonia LD Total C-Reactive Protein Total Protein 6.0 L Albumin 2.8 L Total Amylase Lipase Ehrlichia IgG Antibody Negative Ehrlichia IgM Antibody Negative E. chaffeensis IgG Ab Negative E. chaffeensis IgM Ab Negative 02/19/19 02/19/19 02/19/19 00:50 00:50 00:50 WBC RBC Hgb Hct MCV MCH MCHC RDW Plt Count MPV Absolute Neuts (auto) Neutrophils % Lymphocytes % Monocytes % Eosinophils % Basophils % Nucleated RBC % ESR 6 PT with INR 13.30 H INR 1.13 H Fibrinogen Sodium Potassium Chloride Carbon Dioxide Anion Gap BUN Creatinine Est GFR (CKD-EPI)AfAm Est GFR (CKD-EPI)NonAf Random Glucose Calcium Magnesium Total Bilirubin Direct Bilirubin GGT AST ALT Alkaline Phosphatase Ammonia LD Total 382 H C-Reactive Protein 2.1 H Total Protein Albumin Total Amylase Lipase Ehrlichia IgG Antibody Ehrlichia IgM Antibody E. chaffeensis IgG Ab E. chaffeensis IgM Ab 02/19/19 02/19/19 02/19/19 00:50 00:50 05:50 WBC RBC Hgb Hct MCV MCH MCHC RDW Plt Count MPV Absolute Neuts (auto) Neutrophils % Lymphocytes % Monocytes % Eosinophils % Basophils % Nucleated RBC % ESR PT with INR INR Fibrinogen 281.0 Sodium Potassium Chloride Carbon Dioxide Anion Gap BUN Creatinine Est GFR (CKD-EPI)AfAm Est GFR (CKD-EPI)NonAf Random Glucose Calcium Magnesium Total Bilirubin Direct Bilirubin 1.9 H GGT 289 H AST ALT Alkaline Phosphatase Ammonia < 10.00 L LD Total C-Reactive Protein Total Protein Albumin Total Amylase 75 Lipase 252 Ehrlichia IgG Antibody Ehrlichia IgM Antibody E. chaffeensis IgG Ab E. chaffeensis IgM Ab Active Medications Generic Name Dose Route Start Last Admin Trade Name Freq PRN Reason Stop Dose Admin Acetaminophen 650 mg 02/17/19 21:35 02/18/19 15:54 Tylenol - PO 650 mg Q6H PRN Administration FEVER Amlodipine Besylate 5 mg 02/18/19 10:00 02/19/19 09:15 Norvasc - PO 5 mg DAILY JELLY Administration Cyanocobalamin 1,000 mcg 02/18/19 10:00 02/19/19 09:15 Vitamin B12 - PO 1,000 mcg DAILY [facility] Administration Furosemide 40 mg 02/18/19 06:00 02/19/19 13:49 Lasix Injection - IVPUSH 40 mg BID@0600,1400 JELLY Administration Metoprolol Succinate 25 mg 02/18/19 10:00 02/19/19 09:15 Toprol Xl - PO 25 mg DAILY [facility] Administration Pantoprazole Sodium 40 mg 02/18/19 22:00 02/19/19 09:15 Protonix - PO 40 mg BID JELLY Administration Rosuvastatin Calcium 5 mg 02/17/19 22:00 02/18/19 21:11 Crestor - PO 5 mg HS JELLY Administration Valsartan 160 mg 02/18/19 10:00 02/19/19 09:14 Diovan - PO 160 mg DAILY [facility] Administration ASSESSMENT/PLAN: Pt is an 83 y/o M with PMH HTN, HLD, Prosthetic Aortic Valve (Bovine), afib (on eliquis) who was admitted to ICU for close monitoring of Sepsis with leukopenia. Now transferred to the floor. Heme/Onc consulted for thrombocytopenia/leukopenia. Thrombocytopenia/Leukopenia -Likely 2/2 sepsis. ? HLH -on abx -ID on board -LDH elevated at 398, elevated ferritin 1871, Fe 34, TIBC 232, Fe sat 14, INR 1.75, TG 135, CD 25 pending -May need BM Bx to r/o HLH -Consider autoimmune cause. ESR, CRP, RF, JYOTI pending -holding Plavix Possible Infectious causes being worked up by ID/Primary team -RPR, West Nile neg -Babesia, Erlichia, Lyme, E. chafensis neg -likely viral -JEANNIE neg for signs of endocarditis Transaminitis -liver function decreased from prior with dropping alb and increasing INR -Bili elevation -w/u by GI -MRCP neg for obstruction Visit type - Emergency Visit Emergency Visit: No - New Patient This patient is new to me today: No - Critical Care Critical Care patient: No ATTENDING PHYSICIAN STATEMENT I saw and evaluated the patient. I reviewed the resident's note and discussed the case with the resident. I agree with the resident's findings and plan as documented. SUBJECTIVE: OBJECTIVE: ASSESSMENT AND PLAN:
[2019-02-19 14:48] LABS: URINE APPEARANCE CLEAR; URINE BILIRUBIN NEGATIVE (NEGATIVE); URINE COLOR DK YELLOW; URINE GLUCOSE (UA) NEGATIVE (NEGATIVE); URINE KETONE NEGATIVE (NEGATIVE); URINE LEUK ESTERASE NEGATIVE (NEGATIVE); URINE NITRITE NEGATIVE (NEGATIVE); URINE PROTEIN TRACE (NEGATIVE)
[2019-02-19] MEDS ORDERED: LIDOCAINE VISCOUS 2% ORAL/TOP 20 ML UNIT-DOSE CUP ONE (15:11)
--- NOTE | 2019-02-19 15:53 | PROC ---
Transesophageal Echocardiogram - Pre-Procedure Indications: R/O Infective Endocarditis Risks and Benefits Explained: Yes Consent on Chart: Yes - Procedure Procedure Done: in Endoscopy Suite Medication given: propofol Findings: No evidence of endocarditis. Remarks: Pt tolerated procedure well without complication.
--- NOTE | 2019-02-19 16:19 | ECHO ---
Version: 1 Study ID: [id number] Institution Name Institution Address Institution Address Line #2 Telephone & email Name: OSIRIS GONZALEZ Study Date: 02/19/2019, 3:15 PM : 1935 (MM/DD/YYYY) Gender: Male Age: 83 Years Ethnicity: [facility] Summary Statements The left ventricular ejection fraction is normal. The right ventricular systolic function is normal. There is trace tricuspid regurgitation. The prosthetic aortic valve is well-seated. There is moderate mitral annular calcification. No evidence of endocarditis. Procedure: A 2D transesophageal echocardiogram with Doppler and color flow Doppler was performed. Informed cons ent for Transesophageal Echocardiogram, and use of a contrast agent as needed, was obtained prior to the pro cedure. The patient was brought to the endoscopy suite in a fasting state. An intravenous line was placed. A topical anesthetic agent was used for oropharangeal anesthesia. A bite block was inserted. IV concious sedat ion was administered using propafol. A multifrequency, multiplane transesopheageal echocardiographic endosco pe was inserted and manipulated in the standard fashion to achieve multiplane views. The transesophageal pr obe was passed without difficulty. The usual views were obtained; basal, mid-esophageal, transgastric and ao rtic views. The patient's vital signs, including blood pressure, heart rate, pulse oximetry and cardiac r hythm were monitored throughout the procedure and remained stable. The patient tolerated the procedure wel l without evidence of orophangeal or esophageal trauma. There were no complications. The patient was in normal sinus rhythm during the exam. Left Ventricle The left ventricular ejection fraction is normal. Right Ventricle The right ventricular systolic function is normal. Atria The interatrial septum is intact with no evidence for an atrial septal defect. Mitral Valve There is moderate mitral annular calcification. There is no mitral regurgitation noted. Tricuspid Valve There is trace tricuspid regurgitation. Aortic Valve The prosthetic aortic valve is well-seated. No hemodynamically significant valvular aortic stenosis. No aortic regurgitation is present. Pulmonic Valve The pulmonic valve is not well visualized. Great Vessels Normal aortic arch, descending and ascending aorta. Pericardium/Pluera There is no pericardial effusion. MD Ethan Rodrigues 02/19/2019, 4:18 PM Ordering Physician: EDUARDO GOODWIN Referring Physician: CHRISTA Performed By: Delmy Cook
--- NOTE | 2019-02-19 18:18 | PN ---
Progress Note (short form) - Note Progress Note: Mr. Barnes was admitted with chills or rigors, cough and dyspnea Known case of hypertension, hypertensive cardiovascular disease, severe left ventricular diastolic dysfunction, paroxysmal atrial fibrillation, chronic pulmonary disease , status post bioprosthetic aortic valve replacement. Patient has low grade temp, no dyspnea was reported still has some residual cough. Underwent JEANNIE and no evidence of endocarditis(see report). 83-year-old gentleman was in no acute distress, no pallor, cyanosis, clubbing or jaundice. Last Vital Signs Temp Pulse Resp BP Pulse Ox 99.7 F H 69 18 137/84 100 02/19/19 18:00 02/19/19 18:00 02/19/19 18:00 02/19/19 18:00 02/19/19 16:15 NECK: Supple, no jugular venous distention, hepatojugular reflux was negative, carotids were 2+, unable to appreciate any bruits or thyromegaly. HEART: PMI was not localized, no heaves or thrills, heart sounds were distant, ejection systolic murmur grade 2/6 was heard at the second right intercostal space ending in early to mid systole. No diastolic murmur or gallops were heard. LUNGS: decreased breath sounds at both bases. No extraneous sounds were heard. ABDOMEN: Soft, protuberant, nontender. No pedal splenomegaly or palpable masses were felt. EXTREMITIES: No calf tenderness or dependent edema, pulses were equal except posterior tibial pulses were not palpable. Impression: 1. Persisrent febrile state, of unknown etiology. 2. Hypertension, hypertensive cardiovascular disease. 3. Severe left ventricular diastolic dysfunction. 4. Chronic obstructive pulmonary disease. 5. Status post bioprosthetic aortic valve replacement. 6. Leukopenia and thrombocytopenia, probably related to sepsis. 7. abnorma;l LFTs. Recommendations: 1. Continue medications as outlined. 2. May need to d/c antibiotics to exclude low grade fever related to antibiotic. 3. GI f/u in progress. 4. Eliquis is being d/c'd because of severe thrombcytopenia. 4. Heme f/u in progress. Prognosis: Guarded.
--- NOTE | 2019-02-19 18:31 | PN ---
Teaching Attending Note Name of Resident: Gonzalo Menendez ATTENDING PHYSICIAN STATEMENT I saw and evaluated the patient. I reviewed the resident's note and discussed the case with the resident. I agree with the resident's findings and plan as documented. SUBJECTIVE: Patient seen and examined Course reviewed Temps down Remains neutropenic and thrombocytopenic JEANNIE reportedly non revealing Last Vital Signs Temp Pulse Resp BP Pulse Ox 99.7 F H 69 18 137/84 100 02/19/19 18:00 02/19/19 18:00 02/19/19 18:00 02/19/19 18:00 02/19/19 16:15 HEENT: LASHAE, EOM Intact Oropharynx: No thrush, No mucositis Neck: Supple Nodes: Without adenopathy Cor: irregular rhythm Lungs: Clear to P&A Abd: Soft, Normal bowel sounds, No organomegaly, abdominal mass left upper quadrant testes descende, circumcised Ext:No significant edema Skin: No rashes, Integument intact CBC, BMP 02/19/19 00:50 02/19/19 00:50 Current Medications Generic Name Dose Route Start Last Admin Trade Name Freq PRN Reason Stop Dose Admin Acetaminophen 650 mg 02/17/19 21:35 02/18/19 15:54 Tylenol - PO 650 mg Q6H PRN Administration FEVER Amlodipine Besylate 5 mg 02/18/19 10:00 02/19/19 09:15 Norvasc - PO 5 mg DAILY JELLY Administration Cyanocobalamin 1,000 mcg 02/18/19 10:00 02/19/19 09:15 Vitamin B12 - PO 1,000 mcg DAILY [facility] Administration Furosemide 40 mg 02/18/19 06:00 02/19/19 13:49 Lasix Injection - IVPUSH 40 mg BID@0600,1400 JE[facility] Administration Metoprolol Succinate 25 mg 02/18/19 10:00 02/19/19 09:15 Toprol Xl - PO 25 mg DAILY [facility] Administration Pantoprazole Sodium 40 mg 02/18/19 22:00 02/19/19 09:15 Protonix - PO 40 mg BID JELLY Administration Rosuvastatin Calcium 5 mg 02/17/19 22:00 02/18/19 21:11 Crestor - PO 5 mg HS JELLY Administration Valsartan 160 mg 02/18/19 10:00 02/19/19 09:14 Diovan - PO 160 mg DAILY [facility] Administration Impression: Picture suggestive of sepsis with rigors /chills occuring one day post tunnel exposure Neutropenia/ thombocytopenia may be secondary to same Elevated ferritin raises ? of hemophagocytos lymphohistiocytosis syndrome - autoimmune studies pending Has CARIE abdominal mass on exam - suggest repeat abdominal sono OBJECTIVE: ASSESSMENT AND PLAN:
[2019-02-19] MEDS: ACETAMINOPHEN 325 MG TABLET (FP) PO PRN (21:25)
[2019-02-19] MEDS: ROSUVASTATIN CA 5 MG TABLET (FP) PO SCH (21:25)
[2019-02-20] MEDS ORDERED: LIDOCAINE 5% TOPICAL PATCH TP ONE (02:59)
[2019-02-20] MEDS: FUROSEMIDE 40 MG/4 ML INJECTABLE VIAL IVPUSH SCH ×2 (06:23→16:02)
[2019-02-20] MEDS: ACETAMINOPHEN 325 MG TABLET (FP) PO PRN ×2 (07:02→18:01)
[2019-02-20 07:14] LABS: BASO % 0.7 % (0-2.0); EOS % 2.8 % (0-4.5); HEMOGLOBIN 14.5 GM/dL (11.7-16.9); LYMPH % 11.5 % (8-40); MCH 29.5 pg (25.7-33.7); MCHC 33.8 g/dl (32.0-35.9); MEAN CELL VOLUME 87.4 fl (80-96); MEAN PLT VOLUME 10.1 fl (7.5-11.1); MONO % 8.9 % (3.8-10.2); NEUT % 76.1 % (42.8-82.8); PLATELET COUNT 86 K/MM3 (134-434); RBC 4.93 M/mm3 (4.00-5.60); RDW 13.9 % (11.9-15.9); WHITE BLOOD COUNT 4.1 K/mm3 (4.0-10.0)
[2019-02-20 07:45] LABS: ALBUMIN 3.2 g/dl (3.4-5.0); BILIRUBIN,TOTAL 2.5 mg/dL (0.2-1); BLOOD UREA NITROGEN 44.8 mg/dL (7-18); CALCIUM 9.5 mg/dL (8.5-10.1); CREATININE 1.7 mg/dL (0.55-1.3); MAGNESIUM 2.3 mg/dL (1.8-2.4); POTASSIUM 3.9 mmol/L (3.5-5.1); TOT PROT 6.8 g/dl (6.4-8.2)
--- NOTE | 2019-02-20 07:49 | PN ---
Progress Note, Physician Chief Complaint: Sitting in chair at bedside. States he didnt sleep well last night d/t back pain History of Present Illness: Patient is an 83 year old male with a significant past medical history of hypertension, hyperlipidemia, prosthetic aortic valve replacement (bovine). afib (on eliquis). He presented to the [facility] ED with ataxia, chills, rigors and weakness. patient had rigors at home and brought into the ED by his family for further evaluation. - Current Medication List Current Medications: Active Medications Acetaminophen (Tylenol -) 650 mg PO Q6H PRN PRN Reason: FEVER Last Admin: 02/20/19 07:02 Dose: 650 mg Amlodipine Besylate (Norvasc -) 5 mg PO DAILY [facility] Last Admin: 02/19/19 09:15 Dose: 5 mg Cyanocobalamin (Vitamin B12 -) 1,000 mcg PO DAILY [facility] Last Admin: 02/19/19 09:15 Dose: 1,000 mcg Furosemide (Lasix Injection -) 40 mg IVPUSH BID@0600,1400 [facility] Last Admin: 02/20/19 06:23 Dose: 40 mg Metoprolol Succinate (Toprol Xl -) 25 mg PO DAILY [facility] Last Admin: 02/19/19 09:15 Dose: 25 mg Miscellaneous (Lidoderm Patch Removal) 1 each MC ONCE ONE Stop: 02/20/19 15:01 Pantoprazole Sodium (Protonix -) 40 mg PO BID [facility] Last Admin: 02/19/19 21:25 Dose: 40 mg Rosuvastatin Calcium (Crestor -) 5 mg PO HS [facility] Last Admin: 02/19/19 21:25 Dose: 5 mg Valsartan (Diovan -) 160 mg PO DAILY [facility] Last Admin: 02/19/19 09:14 Dose: 160 mg - Objective Vital Signs: Vital Signs Temperature 96.4 F L 02/20/19 06:00 Pulse Rate 73 02/20/19 06:00 Respiratory Rate 16 02/20/19 06:00 Blood Pressure 144/66 02/20/19 06:00 O2 Sat by Pulse Oximetry (%) 94 L 02/19/19 21:00 Additional Findings/Remarks: Constitutional: Yes: Well Nourished, No Distress, Calm Eyes: Yes: WNL, Conjunctiva Clear HENT: Yes: WNL, Atraumatic, Normocephalic Neck: Yes: WNL, Supple, Trachea Midline Cardiovascular: Yes: WNL, Regular Rate and Rhythm Respiratory: Yes: Diminished (at bases, scattered rales) Gastrointestinal: Yes: WNL, Normal Bowel Sounds, Soft, Abdomen, Obese. No palpable masses noted ...Rectal Exam: Yes: Deferred Genitourinary: Yes: WNL Breast(s): Yes: WNL Musculoskeletal: Yes: WNL Extremities: Yes: WNL Edema: No Peripheral Pulses WNL: Yes Peripheral Pulses: Left Radial: 2+, Right Radial: 2+, Left Doralis Pedis: 2+, Right Dorsalis Pedis: 2+, Left Femoral: 2+, Right Femoral: 2+ Neurological: Yes: Confused asking same questions over. ...Motor Strength: WNL (generalized weakness) Psychiatric: Yes: WNL Labs: CBC, BMP 02/20/19 06:15 02/20/19 06:15 INR, PTT INR 1.13 (0.83-1.09) H 02/19/19 00:50 Fibrinogen 281.0 mg/dL (238-498) 02/19/19 00:50 - ....Imaging Ultrasound: Pending (abdominal) Other: Report Reviewed (TTE:No evidence of endocarditis.) Problem List - Problems (1) Abnormal liver enzymes Assessment/Plan: LFTs beginning to trend down, AST/ALT 209/203 NH3 <10 US with hepatomegaly-fatty liver vs Hepatocellular palabale mass noted to LUQ yesterday not appreciated today Repeat US pending avoid hepatotoxic agents MRCP revealing no CBD stones, GB stone but no cholecystitis. No need for ERCP Code(s): R74.8 - ABNORMAL LEVELS OF OTHER SERUM ENZYMES (2) Afib Assessment/Plan: Rate controlled c/w toprol Eliquis stopped gievn throbocytopenia. Will restart on discharge as platelets trend back to nml tele monitoring Code(s): I48.91 - UNSPECIFIED ATRIAL FIBRILLATION (3) Altered mental status Assessment/Plan: confused this morning able to redirect attempt to maintain sleep wake cycle fall precautions Code(s): R41.82 - ALTERED MENTAL STATUS, UNSPECIFIED (4) Leukopenia Assessment/Plan: WBC 4.0 today neutropenia of unclear etiology, but appears to be resolving viral panel negative, rpr negative, blood smear negative leukopenia may have been due to acute infection that was adequately treated . All Cx are NGTD but still having low grade daily fevers. T max 100.0@ 2200 daily cbc heme consultation appreciated Code(s): D72.819 - DECREASED WHITE BLOOD CELL COUNT, UNSPECIFIED (5) MIGUEL A (obstructive sleep apnea) Assessment/Plan: c/w CPAP prn and at night F/U CHEST CT outpatient Code(s): G47.33 - OBSTRUCTIVE SLEEP APNEA (ADULT) (PEDIATRIC) (6) Prophylactic measure Assessment/Plan: FEN cardiac diet no additional IVF needed monitor electrolytes DVT eliquis stopped Dispo maintain as in patient full code discharge planning Code(s): Z29.9 - ENCOUNTER FOR PROPHYLACTIC MEASURES, UNSPECIFIED (7) Severe sepsis Assessment/Plan: presented with severe sepsis with neutropenia, fevers, malaise, and fatigue/ weakness. now with inproving leukopenia and thrombocytopenia Fever of unknown origin, off abx x 24h. COntinue to monitor off tick borne disease panel /viral negative chest ct shows mediastinal adenopaty with moderate increase since prior exam CT with gall stones, no acute loi seen, spine CT does not explain source of fever JEANNIE with no vegetations Code(s): A41.9 - SEPSIS, UNSPECIFIED ORGANISM; R65.20 - SEVERE SEPSIS WITHOUT SEPTIC SHOCK (8) Thrombocytopenia Assessment/Plan: plt ct 86 no signs of bleeding, will monitor ESR/CRP 2.1 /JYOTI/RF pending eliquis stopped appreciate hematology consultation Code(s): D69.6 - THROMBOCYTOPENIA, UNSPECIFIED (9) Weakness Assessment/Plan: improving with PT fall precautions family/pt would like to continue outpatient PT on discharge Code(s): R53.1 - WEAKNESS Visit type - Emergency Visit Emergency Visit: Yes ED Registration Date: 02/14/19 Care time: The patient presented to the Emergency Department on the above date and was hospitalized for further evaluation of their emergent condition. - New Patient This patient is new to me today: No - Critical Care Critical Care patient: No - Discharge Referral Referred to [facility] Med [facility] No
[2019-02-20] MEDS: amLODIPine BESYLATE 5 MG TABLET (FP) PO SCH (09:47)
[2019-02-20] MEDS: PANTOPRAZOLE 40 MG TABLET (FP) PO SCH ×2 (09:47→21:53)
[2019-02-20] MEDS: VALSARTAN 160 MG TABLET (UD) PO SCH (09:47)
[2019-02-20] MEDS: metoPROLOL SUCCINATE 25 MG TAB.SR.24H (FP) PO SCH (09:47)
[2019-02-20] MEDS: CYANOCOBALAMIN 1,000 MCG TABLET (FP) PO SCH (09:47)
--- NOTE | 2019-02-20 10:56 | PN ---
Progress Note (short form) - Note Progress Note: Mr. Barnes was admitted with chills or rigors, cough and dyspnea Known case of hypertension, hypertensive cardiovascular disease, severe left ventricular diastolic dysfunction, paroxysmal atrial fibrillation, chronic pulmonary disease , status post bioprosthetic aortic valve replacement. Found to have a small nontender RUQ abdominal mass by Dr. Riddle and scheduled for an abdominal ultrasound, no dyspnea or SOB still has some residual cough. Underwent JEANNIE and no evidence of endocarditis and valve is well seated.(see report). 83-year-old gentleman was in no acute distress, no pallor, cyanosis, clubbing or jaundice. Afebrile. Last Vital Signs Temp Pulse Resp BP Pulse Ox 96.4 F L 73 16 144/66 94 L 02/20/19 06:00 02/20/19 06:00 02/20/19 06:00 02/20/19 06:00 02/19/19 21:00 NECK: Supple, no jugular venous distention, hepatojugular reflux was negative, carotids were 2+, unable to appreciate any bruits or thyromegaly. HEART: PMI was not localized, no heaves or thrills, heart sounds were distant, ejection systolic murmur grade 2/6 was heard at the second right intercostal space ending in early to mid systole. No diastolic murmur or gallops were heard. LUNGS: decreased breath sounds at both bases. No extraneous sounds were heard. ABDOMEN: Soft, protuberant, nontender. No pedal splenomegaly or palpable masses were felt. EXTREMITIES: No calf tenderness or dependent edema, pulses were equal except posterior tibial pulses were not palpable. Impression: 1. Persisrent febrile state, of unknown etiology. 2. Hypertension, hypertensive cardiovascular disease. 3. Severe left ventricular diastolic dysfunction. 4. Chronic obstructive pulmonary disease. 5. Status post bioprosthetic aortic valve replacement. 6. Leukopenia and thrombocytopenia, probably related to sepsis. 7. abnorma;l LFTs. 8. Permenent atrial fib. with controlled ventricular response. 9. Small RUQ nontender abdominal mass. Recommendations: 1. Continue medications as outlined. 2. Antibiotics D/C'd. 3. GI f/u in progress. 4. Eliquis is being d/c'd because of severe thrombcytopenia should be restrted ALIZE. 5. Heme f/u in progress. Prognosis: Guarded.
--- NOTE | 2019-02-20 11:56 | PN ---
Progress Note (short form) - Note Progress Note: PULMONARY States breathing is improving. No cough or wheezing. Using CPAP at night. Vital Signs Period Temp Pulse Resp BP Sys/Bacon Pulse Ox Last 24 Hr 96.4 F-100.3 F 64-76 16-27 107-159/56-110 94-100 Gen: NAD at rest Heart: RRR Lung: decreased breath sounds at the bases Abd: soft, nontender Ext: no edema CBC, BMP 02/20/19 06:15 02/20/19 06:15 Active Medications Acetaminophen (Tylenol -) 650 mg PO Q6H PRN PRN Reason: FEVER Last Admin: 02/20/19 07:02 Dose: 650 mg Amlodipine Besylate (Norvasc -) 5 mg PO DAILY [facility] Last Admin: 02/20/19 09:47 Dose: 5 mg Cyanocobalamin (Vitamin B12 -) 1,000 mcg PO DAILY [facility] Last Admin: 02/20/19 09:47 Dose: 1,000 mcg Furosemide (Lasix Injection -) 40 mg IVPUSH BID@0600,1400 [facility] Last Admin: 02/20/19 06:23 Dose: 40 mg Methyl Salicylate (Octavio-Juarez -) 1 applic TP BID [facility] Metoprolol Succinate (Toprol Xl -) 25 mg PO DAILY [facility] Last Admin: 02/20/19 09:47 Dose: 25 mg Miscellaneous (Lidoderm Patch Removal) 1 each MC ONCE ONE Stop: 02/20/19 15:01 Pantoprazole Sodium (Protonix -) 40 mg PO BID [facility] Last Admin: 02/20/19 09:47 Dose: 40 mg Rosuvastatin Calcium (Crestor -) 5 mg PO HS [facility] Last Admin: 02/19/19 21:25 Dose: 5 mg Valsartan (Diovan -) 160 mg PO DAILY [facility] Last Admin: 02/20/19 09:47 Dose: 160 mg A/P Fevers resolving Sepsis Leukopenia/Thromboctyopenia Atrial Fibrillation Aortic Stenosis LV Systolic Dysfunction COPD CKD MIGUEL A HTN Mediastinal Lymphadenopathy - completed antibiotics - continue lasix - monitor urine output, creatinine - daily weights - rate control - resume anticoagulation when thromboctyopenia improved - O2 to keep SpO2>90% - inhaled bronchodilators - CPAP at night - outpt f/u of CT chest
--- NOTE | 2019-02-20 12:53 | PN ---
Progress Note, Physician History of Present Illness: stable using cpap off of abx neil results noted patient feeling better - Current Medication List Current Medications: Active Medications Acetaminophen (Tylenol -) 650 mg PO Q6H PRN PRN Reason: FEVER Last Admin: 02/20/19 07:02 Dose: 650 mg Amlodipine Besylate (Norvasc -) 5 mg PO DAILY [facility] Last Admin: 02/20/19 09:47 Dose: 5 mg Cyanocobalamin (Vitamin B12 -) 1,000 mcg PO DAILY [facility] Last Admin: 02/20/19 09:47 Dose: 1,000 mcg Furosemide (Lasix Injection -) 40 mg IVPUSH BID@0600,1400 [facility] Last Admin: 02/20/19 06:23 Dose: 40 mg Methyl Salicylate (Octavio-Juarez -) 1 applic TP BID [facility] Metoprolol Succinate (Toprol Xl -) 25 mg PO DAILY [facility] Last Admin: 02/20/19 09:47 Dose: 25 mg Miscellaneous (Lidoderm Patch Removal) 1 each MC ONCE ONE Stop: 02/20/19 15:01 Pantoprazole Sodium (Protonix -) 40 mg PO BID [facility] Last Admin: 02/20/19 09:47 Dose: 40 mg Rosuvastatin Calcium (Crestor -) 5 mg PO HS [facility] Last Admin: 02/19/19 21:25 Dose: 5 mg Valsartan (Diovan -) 160 mg PO DAILY [facility] Last Admin: 02/20/19 09:47 Dose: 160 mg - Objective Vital Signs: Vital Signs Temperature 96.4 F L 02/20/19 06:00 Pulse Rate 73 02/20/19 06:00 Respiratory Rate 16 02/20/19 06:00 Blood Pressure 144/66 02/20/19 06:00 O2 Sat by Pulse Oximetry (%) 94 L 02/19/19 21:00 Constitutional: Yes: No Distress, Calm Cardiovascular: Yes: S1, S2 Respiratory: Yes: Regular, CTA Bilaterally Gastrointestinal: Yes: Normal Bowel Sounds, Soft Musculoskeletal: Yes: WNL Extremities: Yes: WNL Neurological: Yes: Alert, Oriented Psychiatric: Yes: Alert, Oriented Labs: CBC, BMP 02/20/19 06:15 02/20/19 06:15 INR, PTT INR 1.13 (0.83-1.09) H 02/19/19 00:50 Fibrinogen 281.0 mg/dL (238-498) 02/19/19 00:50 Assessment/Plan Problem List - Problems (1) Severe sepsis Code(s): A41.9 - SEPSIS, UNSPECIFIED ORGANISM; R65.20 - SEVERE SEPSIS WITHOUT SEPTIC SHOCK (2) MIGUEL A (obstructive sleep apnea) Code(s): G47.33 - OBSTRUCTIVE SLEEP APNEA (ADULT) (PEDIATRIC) (3) HLD (hyperlipidemia) Code(s): E78.5 - HYPERLIPIDEMIA, UNSPECIFIED (4) HTN (hypertension) Code(s): I10 - ESSENTIAL (PRIMARY) HYPERTENSION (5) S/P aortic valve replacement Code(s): Z95.2 - PRESENCE OF PROSTHETIC HEART VALVE (6) Afib Code(s): I48.91 - UNSPECIFIED ATRIAL FIBRILLATION plan continue current mgmt cpap incentive jose rest as per the team
[2019-02-20] MEDS: LIDOCAINE 5% TOPICAL PATCH TP SCH (14:13)
[2019-02-20] MEDS: METHYL SALICYLATE/MENTHOL OINT 30 GM TUBE TP SCH ×2 (14:16→21:53)
[2019-02-20] MEDS ORDERED: LIDOCAINE PATCH REMOVAL MC ONE (15:00)
[2019-02-20] MEDS: ONDANSETRON 4 MG/2 ML VIAL IVPUSH PRN (18:01)
[2019-02-20 19:08] LABS: HEP B CORE AB, TOT Negative (Negative)
[2019-02-20] MEDS: SODIUM CHLORIDE 1,000 ML IV SCH (19:45)
[2019-02-20] MEDS ORDERED: PT OWN MED DRAWER 7, Y5N ONE (21:47)
[2019-02-20] MEDS: ROSUVASTATIN CA 5 MG TABLET (FP) PO SCH (21:53)
[2019-02-20] MEDS: LIDOCAINE PATCH REMOVAL MC SCH (21:54)
[2019-02-20] MEDS: MELATONIN 1 MG TABLET PO SCH (21:54)
[2019-02-21] MEDS: ACETAMINOPHEN 325 MG TABLET (FP) PO PRN (01:44)
[2019-02-21] MEDS: FUROSEMIDE 40 MG/4 ML INJECTABLE VIAL IVPUSH SCH ×2 (06:37→14:55)
[2019-02-21 06:59] LABS: BASO % 0.3 % (0-2.0); EOS % 0.9 % (0-4.5); HEMATOCRIT 40.5 % (35.4-49); HEMOGLOBIN 13.6 GM/dL (11.7-16.9); LYMPH % 7.3 % (8-40); MCH 29.6 pg (25.7-33.7); MCHC 33.7 g/dl (32.0-35.9); MEAN CELL VOLUME 87.8 fl (80-96); MEAN PLT VOLUME 9.2 fl (7.5-11.1); NEUT % 82.5 % (42.8-82.8); PLATELET COUNT 99 K/MM3 (134-434); RBC 4.61 M/mm3 (4.00-5.60); RDW 14.1 % (11.9-15.9); WHITE BLOOD COUNT 4.7 K/mm3 (4.0-10.0)
[2019-02-21 07:37] LABS: ALBUMIN 3.1 g/dl (3.4-5.0); BILIRUBIN,TOTAL 2.2 mg/dL (0.2-1); BLOOD UREA NITROGEN 42.7 mg/dL (7-18); CALCIUM 9.4 mg/dL (8.5-10.1); CREATININE 1.4 mg/dL (0.55-1.3); MAGNESIUM 2.2 mg/dL (1.8-2.4); POTASSIUM 3.3 mmol/L (3.5-5.1); TOT PROT 6.4 g/dl (6.4-8.2); URIC ACID 7.4 mg/dL (2.6-7.2)
--- NOTE | 2019-02-21 07:44 | PN ---
Progress Note, Physician Chief Complaint: Sitting in chair at bedside. C/o back pain, slept better last night History of Present Illness: Patient is an 83 year old male with a significant past medical history of hypertension, hyperlipidemia, prosthetic aortic valve replacement (bovine). afib (on eliquis). He presented to the [facility] ED with ataxia, chills, rigors and weakness. patient had rigors at home and brought into the ED by his family for further evaluation. - Current Medication List Current Medications: Active Medications Acetaminophen (Tylenol -) 650 mg PO Q6H PRN PRN Reason: FEVER Last Admin: 02/21/19 01:44 Dose: 650 mg Amlodipine Besylate (Norvasc -) 5 mg PO DAILY [facility] Last Admin: 02/20/19 09:47 Dose: 5 mg Cyanocobalamin (Vitamin B12 -) 1,000 mcg PO DAILY [facility] Last Admin: 02/20/19 09:47 Dose: 1,000 mcg Furosemide (Lasix Injection -) 40 mg IVPUSH BID@0600,1400 [facility] Last Admin: 02/21/19 06:37 Dose: 40 mg Sodium Chloride (Normal Saline -) 1,000 mls @ 75 mls/hr IV ASDIR [facility] Last Admin: 02/20/19 19:45 Dose: 75 mls/hr Lidocaine (Lidoderm Patch -) 1 patch TP DAILY [facility] Last Admin: 02/20/19 14:13 Dose: 1 patch Melatonin (Melatonin) 3 mg PO HS [facility] Last Admin: 02/20/19 21:54 Dose: 3 mg Methyl Salicylate (Octavio-Juarez -) 1 applic TP BID [facility] Last Admin: 02/20/19 21:53 Dose: 1 applic Metoprolol Succinate (Toprol Xl -) 25 mg PO DAILY [facility] Last Admin: 02/20/19 09:47 Dose: 25 mg Miscellaneous (Lidoderm Patch Removal) 1 each MC DAILY@2200 [facility] Last Admin: 02/20/19 21:54 Dose: Not Given Ondansetron HCl (Zofran Injection) 4 mg IVPUSH Q6H PRN PRN Reason: NAUSEA AND/OR VOMITING Last Admin: 02/20/19 18:01 Dose: 4 mg Pantoprazole Sodium (Protonix -) 40 mg PO BID [facility] Last Admin: 02/20/19 21:53 Dose: 40 mg Rosuvastatin Calcium (Crestor -) 5 mg PO HS [facility] Last Admin: 02/20/19 21:53 Dose: 5 mg Valsartan (Diovan -) 160 mg PO DAILY [facility] Last Admin: 02/20/19 09:47 Dose: 160 mg - Objective Vital Signs: Vital Signs Temperature 98.6 F 02/21/19 05:58 Pulse Rate 82 02/21/19 05:58 Respiratory Rate 18 02/21/19 05:58 Blood Pressure 160/74 02/21/19 05:58 O2 Sat by Pulse Oximetry (%) 93 L 02/20/19 21:00 Additional Findings/Remarks: Constitutional: Yes: Well Nourished, No Distress, Calm Eyes: Yes: WNL, Conjunctiva Clear HENT: Yes: WNL, Atraumatic, Normocephalic Neck: Yes: WNL, Supple, Trachea Midline Cardiovascular: Yes: WNL, Regular Rate and Rhythm Respiratory: Yes: Diminished at bases Gastrointestinal: Yes: WNL, Normal Bowel Sounds, Soft, Abdomen, Obese. No palpable masses noted ...Rectal Exam: Yes: Deferred Genitourinary: Yes: WNL Breast(s): Yes: WNL Musculoskeletal: Yes: WNL Extremities: Yes: WNL Edema: No Peripheral Pulses WNL: Yes Peripheral Pulses: Left Radial: 2+, Right Radial: 2+, Left Doralis Pedis: 2+, Right Dorsalis Pedis: 2+, Left Femoral: 2+, Right Femoral: 2+ Neurological: Yes: Confused asking same questions over. ...Motor Strength: WNL (generalized weakness) Psychiatric: Yes: WNL Labs: CBC, BMP 02/21/19 06:00 02/21/19 06:00 INR, PTT INR 1.13 (0.83-1.09) H 02/19/19 00:50 Fibrinogen 281.0 mg/dL (238-498) 02/19/19 00:50 Problem List - Problems (1) Abnormal liver enzymes Assessment/Plan: LFTs beginning to trend down, AST/ALT 113/152 NH3 <10 US with hepatomegaly-fatty liver vs Hepatocellular palabale mass noted to LUQ not appreciated today Repeat US without mass avoid hepatotoxic agents MRCP revealing no CBD stones, GB stone but no cholecystitis. No need for ERCP Code(s): R74.8 - ABNORMAL LEVELS OF OTHER SERUM ENZYMES (2) Afib Assessment/Plan: Rate controlled c/w toprol Eliquis stopped given throbocytopenia. Platelets trending up-if continue to uptrend will restart tele monitoring Code(s): I48.91 - UNSPECIFIED ATRIAL FIBRILLATION (3) Altered mental status Assessment/Plan: no confusion this morning melatonin given last night with good effect fall precautions Code(s): R41.82 - ALTERED MENTAL STATUS, UNSPECIFIED (4) Leukopenia Assessment/Plan: WBC 4.7 today neutropenia of unclear etiology, but appears to be resolving viral panel negative, rpr negative, blood smear negative leukopenia may have been due to acute infection that was adequately treated . All Cx are NGTD but still having low grade daily fevers. T max 100.0@ 2200 daily cbc heme consultation appreciated Code(s): D72.819 - DECREASED WHITE BLOOD CELL COUNT, UNSPECIFIED (5) MIGUEL A (obstructive sleep apnea) Assessment/Plan: c/w CPAP prn and at night F/U CHEST CT outpatient Code(s): G47.33 - OBSTRUCTIVE SLEEP APNEA (ADULT) (PEDIATRIC) (6) Prophylactic measure Assessment/Plan: FEN cardiac diet no additional IVF needed monitor electrolytes DVT eliquis stopped Dispo maintain as in patient full code discharge planning Code(s): Z29.9 - ENCOUNTER FOR PROPHYLACTIC MEASURES, UNSPECIFIED (7) Severe sepsis Assessment/Plan: presented with severe sepsis with neutropenia, fevers, malaise, and fatigue/ weakness. now with inproving leukopenia and thrombocytopenia Fever of unknown origin, off abx x 24h. COntinue to monitor off tick borne disease panel /viral negative chest ct shows mediastinal adenopaty with moderate increase since prior exam CT with gall stones, no acute loi seen, spine CT does not explain source of fever JEANNIE with no vegetations Code(s): A41.9 - SEPSIS, UNSPECIFIED ORGANISM; R65.20 - SEVERE SEPSIS WITHOUT SEPTIC SHOCK (8) Thrombocytopenia Assessment/Plan: plt ct 99 no signs of bleeding, will monitor ESR/CRP 2.1 /JYOTI/RF pending eliquis stopped appreciate hematology consultation Code(s): D69.6 - THROMBOCYTOPENIA, UNSPECIFIED (9) Weakness Assessment/Plan: improving with PT fall precautions family/pt would like to continue outpatient PT on discharge Code(s): R53.1 - WEAKNESS Visit type - Emergency Visit Emergency Visit: Yes ED Registration Date: 02/14/19 Care time: The patient presented to the Emergency Department on the above date and was hospitalized for further evaluation of their emergent condition. - New Patient This patient is new to me today: No - Critical Care Critical Care patient: No - Discharge Referral Referred to [facility] Med P.C.: No
[2019-02-21] MEDS ORDERED: POTASSIUM CHLORIDE TABS 20 MEQ TABLET.ER (FP) PO ONE (07:53)
[2019-02-21 09:16] LABS: INR 1.05 (0.83-1.09); PROTHROMBIN TIME (PATIENT) 12.4 SEC (9.7-13.0)
[2019-02-21] MEDS: PANTOPRAZOLE 40 MG TABLET (FP) PO SCH ×2 (09:40→21:47)
[2019-02-21] MEDS: amLODIPine BESYLATE 5 MG TABLET (FP) PO SCH (09:40)
[2019-02-21] MEDS: metoPROLOL SUCCINATE 25 MG TAB.SR.24H (FP) PO SCH (09:40)
[2019-02-21] MEDS: VALSARTAN 160 MG TABLET (UD) PO SCH (09:40)
[2019-02-21] MEDS: CYANOCOBALAMIN 1,000 MCG TABLET (FP) PO SCH (09:40)
[2019-02-21] MEDS: METHYL SALICYLATE/MENTHOL OINT 30 GM TUBE TP SCH ×2 (09:44→21:48)
[2019-02-21] MEDS: LIDOCAINE 5% TOPICAL PATCH TP SCH (09:50)
--- NOTE | 2019-02-21 09:56 | PN ---
Progress Note, Physician Chief Complaint: sitting in chair C/o LBP no CP, SOB, palps Afeb TELE: Reviewed. VCS, APCs. Rare V couplets - Current Medication List Current Medications: Active Medications Acetaminophen (Tylenol -) 650 mg PO Q6H PRN PRN Reason: FEVER Last Admin: 02/21/19 01:44 Dose: 650 mg Amlodipine Besylate (Norvasc -) 5 mg PO DAILY [facility] Last Admin: 02/21/19 09:40 Dose: 5 mg Cyanocobalamin (Vitamin B12 -) 1,000 mcg PO DAILY [facility] Last Admin: 02/21/19 09:40 Dose: 1,000 mcg Furosemide (Lasix Injection -) 40 mg IVPUSH BID@0600,1400 [facility] Last Admin: 02/21/19 06:37 Dose: 40 mg Sodium Chloride (Normal Saline -) 1,000 mls @ 75 mls/hr IV ASDIR [facility] Last Admin: 02/20/19 19:45 Dose: 75 mls/hr Lidocaine (Lidoderm Patch -) 1 patch TP DAILY [facility] Last Admin: 02/21/19 09:50 Dose: 1 patch Melatonin (Melatonin) 3 mg PO HS [facility] Last Admin: 02/20/19 21:54 Dose: 3 mg Methyl Salicylate (Octavio-Juarez -) 1 applic TP BID [facility] Last Admin: 02/21/19 09:44 Dose: 1 applic Metoprolol Succinate (Toprol Xl -) 25 mg PO DAILY [facility] Last Admin: 02/21/19 09:40 Dose: 25 mg Miscellaneous (Lidoderm Patch Removal) 1 each MC DAILY@2200 [facility] Last Admin: 02/20/19 21:54 Dose: Not Given Ondansetron HCl (Zofran Injection) 4 mg IVPUSH Q6H PRN PRN Reason: NAUSEA AND/OR VOMITING Last Admin: 02/20/19 18:01 Dose: 4 mg Pantoprazole Sodium (Protonix -) 40 mg PO BID [facility] Last Admin: 02/21/19 09:40 Dose: 40 mg Rosuvastatin Calcium (Crestor -) 5 mg PO HS [facility] Last Admin: 02/20/19 21:53 Dose: 5 mg Tramadol HCl (Ultram -) 50 mg PO Q8H PRN PRN Reason: PAIN LEVEL 6-10 Valsartan (Diovan -) 160 mg PO DAILY [facility] Last Admin: 02/21/19 09:40 Dose: 160 mg - Objective Vital Signs: Vital Signs Temperature 98.4 F 02/21/19 09:02 Pulse Rate 67 02/21/19 09:02 Respiratory Rate 18 02/21/19 09:02 Blood Pressure 166/88 02/21/19 09:02 O2 Sat by Pulse Oximetry (%) 93 L 02/21/19 08:59 Constitutional: Yes: No Distress Cardiovascular: Yes: Regular Rate and Rhythm Respiratory: Yes: CTA Bilaterally Gastrointestinal: Yes: Soft (NT) Genitourinary: Yes: Other (no CVAT) Edema: No Neurological: Yes: Alert, Oriented ...Motor Strength: WNL Labs: CBC, BMP 02/21/19 06:00 02/21/19 06:00 INR, PTT INR 1.05 (0.83-1.09) 02/21/19 08:15 Fibrinogen 229.0 mg/dL (238-498) L 02/21/19 08:15 Microbiology 02/19/19 14:20 Urine - Urine Clean Catch Urine Culture - Final NO GROWTH OBTAINED 02/16/19 12:23 Blood - Peripheral Venous Blood Parasites Smear - Final 02/15/19 06:50 Urine - Urine Clean Catch Legionella Antigen - Final 02/15/19 06:50 Urine - Urine Clean Catch Streptococcus pneumoniae Antigen ( M - Final 02/14/19 19:45 Blood - Peripheral Venous Blood Culture - Final NO GROWTH AFTER 5 DAYS INCUBATION 02/17/19 11:43 Blood - Peripheral Venous Blood Culture - Preliminary NO GROWTH OBTAINED AFTER 72 HOURS, INCUBATION TO CONTINUE FOR 2 DAYS. 02/17/19 11:30 Blood - Peripheral Venous Blood Culture - Preliminary NO GROWTH OBTAINED AFTER 72 HOURS, INCUBATION TO CONTINUE FOR 2 DAYS. Laboratory Tests 02/19/19 02/21/19 02/21/19 05:50 06:00 06:00 WBC 4.7 Hgb 13.6 Plt Count 99 L Sodium 136 Creatinine 1.4 H AST 113 H ALT 152 H Alkaline Phosphatase 444 H Ammonia < 10.00 L - ....Imaging EKG: Image Reviewed Assessment/Plan Impression: 1. Persisrent febrile state, of unknown etiology- now resolving. 2. Hypertension, hypertensive cardiovascular disease. 3. Severe left ventricular diastolic dysfunction. 4. Chronic obstructive pulmonary disease. 5. Status post bioprosthetic aortic valve replacement. 6. Leukopenia and thrombocytopenia, probably related to sepsis vs viral syndrome 7. abnormal LFTs. 8. Permanent atrial fib. with controlled ventricular response. 9. Small RUQ nontender abdominal mass. Recommendations: 1. Continue medications as outlined. 2. Antibiotics as per ID. Possible viral syndrome. CT L-S spine was negative; defer further imaging to PMD/ID for his LBP (which seems chronic) 3. GI f/u in progress. 4. Eliquis held for thrombocytopenia; please resume when feasible. 5. Heme f/u in progress. Prognosis: Guarded.
--- NOTE | 2019-02-21 13:02 | PN ---
Progress Note, Physician History of Present Illness: back pain no other issues fevers resolving - Current Medication List Current Medications: Active Medications Acetaminophen (Tylenol -) 650 mg PO Q6H PRN PRN Reason: FEVER Last Admin: 02/21/19 01:44 Dose: 650 mg Amlodipine Besylate (Norvasc -) 5 mg PO DAILY [facility] Last Admin: 02/21/19 09:40 Dose: 5 mg Cyanocobalamin (Vitamin B12 -) 1,000 mcg PO DAILY [facility] Last Admin: 02/21/19 09:40 Dose: 1,000 mcg Furosemide (Lasix Injection -) 40 mg IVPUSH BID@0600,1400 [facility] Last Admin: 02/21/19 06:37 Dose: 40 mg Sodium Chloride (Normal Saline -) 1,000 mls @ 75 mls/hr IV ASDIR [facility] Last Admin: 02/20/19 19:45 Dose: 75 mls/hr Lidocaine (Lidoderm Patch -) 1 patch TP DAILY [facility] Last Admin: 02/21/19 09:50 Dose: 1 patch Melatonin (Melatonin) 3 mg PO HS [facility] Last Admin: 02/20/19 21:54 Dose: 3 mg Methyl Salicylate (Octavio-Juarez -) 1 applic TP BID [facility] Last Admin: 02/21/19 09:44 Dose: 1 applic Metoprolol Succinate (Toprol Xl -) 25 mg PO DAILY [facility] Last Admin: 02/21/19 09:40 Dose: 25 mg Miscellaneous (Lidoderm Patch Removal) 1 each MC DAILY@2200 [facility] Last Admin: 02/20/19 21:54 Dose: Not Given Ondansetron HCl (Zofran Injection) 4 mg IVPUSH Q6H PRN PRN Reason: NAUSEA AND/OR VOMITING Last Admin: 02/20/19 18:01 Dose: 4 mg Pantoprazole Sodium (Protonix -) 40 mg PO BID [facility] Last Admin: 02/21/19 09:40 Dose: 40 mg Rosuvastatin Calcium (Crestor -) 5 mg PO HS [facility] Last Admin: 02/20/19 21:53 Dose: 5 mg Tramadol HCl (Ultram -) 50 mg PO Q8H PRN PRN Reason: PAIN LEVEL 6-10 Valsartan (Diovan -) 160 mg PO DAILY [facility] Last Admin: 02/21/19 09:40 Dose: 160 mg - Objective Vital Signs: Vital Signs Temperature 98.4 F 02/21/19 09:02 Pulse Rate 67 02/21/19 09:02 Respiratory Rate 18 02/21/19 09:02 Blood Pressure 166/88 02/21/19 09:02 O2 Sat by Pulse Oximetry (%) 93 L 02/21/19 08:59 Constitutional: Yes: Calm Cardiovascular: Yes: S1, S2 Respiratory: Yes: Regular, CTA Bilaterally Gastrointestinal: Yes: Normal Bowel Sounds, Soft Musculoskeletal: Yes: WNL Extremities: Yes: WNL Neurological: Yes: Alert, Oriented Psychiatric: Yes: Alert, Oriented Labs: CBC, BMP 02/21/19 06:00 02/21/19 06:00 INR, PTT INR 1.05 (0.83-1.09) 02/21/19 08:15 Fibrinogen 229.0 mg/dL (238-498) L 02/21/19 08:15 Assessment/Plan Problem List - Problems (1) Severe sepsis Code(s): A41.9 - SEPSIS, UNSPECIFIED ORGANISM; R65.20 - SEVERE SEPSIS WITHOUT SEPTIC SHOCK (2) MIGUEL A (obstructive sleep apnea) Code(s): G47.33 - OBSTRUCTIVE SLEEP APNEA (ADULT) (PEDIATRIC) (3) HLD (hyperlipidemia) Code(s): E78.5 - HYPERLIPIDEMIA, UNSPECIFIED (4) HTN (hypertension) Code(s): I10 - ESSENTIAL (PRIMARY) HYPERTENSION (5) S/P aortic valve replacement Code(s): Z95.2 - PRESENCE OF PROSTHETIC HEART VALVE (6) Afib Code(s): I48.91 - UNSPECIFIED ATRIAL FIBRILLATION plan continue current mgmt rest as per the team
--- NOTE | 2019-02-21 13:24 | PN ---
Progress Note, Physician History of Present Illness: PULMONARY ALERT,OOB-CHAIR,LESS DYSPNEIC,-CP - Current Medication List Current Medications: Active Medications Acetaminophen (Tylenol -) 650 mg PO Q6H PRN PRN Reason: FEVER Last Admin: 02/21/19 01:44 Dose: 650 mg Amlodipine Besylate (Norvasc -) 5 mg PO DAILY [facility] Last Admin: 02/21/19 09:40 Dose: 5 mg Cyanocobalamin (Vitamin B12 -) 1,000 mcg PO DAILY [facility] Last Admin: 02/21/19 09:40 Dose: 1,000 mcg Furosemide (Lasix Injection -) 40 mg IVPUSH BID@0600,1400 [facility] Last Admin: 02/21/19 06:37 Dose: 40 mg Sodium Chloride (Normal Saline -) 1,000 mls @ 75 mls/hr IV ASDIR [facility] Last Admin: 02/20/19 19:45 Dose: 75 mls/hr Lidocaine (Lidoderm Patch -) 1 patch TP DAILY [facility] Last Admin: 02/21/19 09:50 Dose: 1 patch Melatonin (Melatonin) 3 mg PO HS [facility] Last Admin: 02/20/19 21:54 Dose: 3 mg Methyl Salicylate (Octavio-Juarez -) 1 applic TP BID [facility] Last Admin: 02/21/19 09:44 Dose: 1 applic Metoprolol Succinate (Toprol Xl -) 25 mg PO DAILY [facility] Last Admin: 02/21/19 09:40 Dose: 25 mg Miscellaneous (Lidoderm Patch Removal) 1 each MC DAILY@2200 [facility] Last Admin: 02/20/19 21:54 Dose: Not Given Ondansetron HCl (Zofran Injection) 4 mg IVPUSH Q6H PRN PRN Reason: NAUSEA AND/OR VOMITING Last Admin: 02/20/19 18:01 Dose: 4 mg Pantoprazole Sodium (Protonix -) 40 mg PO BID [facility] Last Admin: 02/21/19 09:40 Dose: 40 mg Rosuvastatin Calcium (Crestor -) 5 mg PO HS [facility] Last Admin: 02/20/19 21:53 Dose: 5 mg Tramadol HCl (Ultram -) 50 mg PO Q8H PRN PRN Reason: PAIN LEVEL 6-10 Valsartan (Diovan -) 160 mg PO DAILY [facility] Last Admin: 02/21/19 09:40 Dose: 160 mg - Objective Vital Signs: Vital Signs Temperature 98.4 F 02/21/19 09:02 Pulse Rate 67 02/21/19 09:02 Respiratory Rate 18 02/21/19 09:02 Blood Pressure 166/88 02/21/19 09:02 O2 Sat by Pulse Oximetry (%) 93 L 02/21/19 08:59 Constitutional: Yes: Well Nourished, Calm Eyes: Yes: WNL HENT: Yes: WNL Neck: Yes: WNL Cardiovascular: Yes: Pulse Irregular, S1, S2 Respiratory: Yes: Diminished Gastrointestinal: Yes: Normal Bowel Sounds, Soft Extremities: Yes: WNL Edema: No Labs: CBC, BMP 02/21/19 06:00 02/21/19 06:00 INR, PTT INR 1.05 (0.83-1.09) 02/21/19 08:15 Fibrinogen 229.0 mg/dL (238-498) L 02/21/19 08:15 Problem List - Problems (1) Altered mental status Code(s): R41.82 - ALTERED MENTAL STATUS, UNSPECIFIED (2) Abnormal liver enzymes Code(s): R74.8 - ABNORMAL LEVELS OF OTHER SERUM ENZYMES (3) Afib Code(s): I48.91 - UNSPECIFIED ATRIAL FIBRILLATION (4) Leukopenia Code(s): D72.819 - DECREASED WHITE BLOOD CELL COUNT, UNSPECIFIED (5) MIGUEL A (obstructive sleep apnea) Code(s): G47.33 - OBSTRUCTIVE SLEEP APNEA (ADULT) (PEDIATRIC) (6) Thrombocytopenia Code(s): D69.6 - THROMBOCYTOPENIA, UNSPECIFIED (7) Weakness Code(s): R53.1 - WEAKNESS (8) HLD (hyperlipidemia) Code(s): E78.5 - HYPERLIPIDEMIA, UNSPECIFIED (9) HTN (hypertension) Code(s): I10 - ESSENTIAL (PRIMARY) HYPERTENSION (10) S/P aortic valve replacement Code(s): Z95.2 - PRESENCE OF PROSTHETIC HEART VALVE Assessment/Plan ASSESSMENT: Fever of unknown origin with altered mental status improved. JEANNIE NO ENDOCARDITIS Toxic Metabolic Encephalopathy improved Low clinical suspicion of Meningitis Sepsis Leukopenia AF on chronic AC s/p porcine valve 2008 HTN CHF MIGUELA COPD CKD ELEVATED LFTS MEDIASTINAL ADENOPATHY PLAN: -Lasix -BD TX PRN -CPAP at night and when sleeping -Oxygen -Rate control -Monitor LFTS,cbc - F/U CHEST CT outpatient DR OROZCO
--- NOTE | 2019-02-21 14:49 | PN.GI ---
GI Progress Note Subjective: GI NOte: Has nausea and intermittent vomiting. LFTs and platelet count are improving but low grade intermittent fevers persist. Hepatitis workup unremarkable so far. He has not returned to his cognitive baseline and is prone to anxious outbursts. He responds yes and no to abdominal pain. Repeat abd sonogram unremarkable. - Objective Vital Signs: Vital Signs Temperature 98.4 F 02/21/19 09:02 Pulse Rate 67 02/21/19 09:02 Respiratory Rate 18 02/21/19 09:02 Blood Pressure 166/88 02/21/19 09:02 O2 Sat by Pulse Oximetry (%) 93 L 02/21/19 08:59 Constitutional: Anxious, Other (confused) Labs: CBC, BMP 02/21/19 06:00 02/21/19 06:00 INR, PTT INR 1.05 (0.83-1.09) 02/21/19 08:15 Fibrinogen 229.0 mg/dL (238-498) L 02/21/19 08:15 Laboratory Tests 02/17/19 02/17/19 02/19/19 05:50 05:50 00:50 WBC 2.7 L Plt Count 57 L PT with INR 20.80 H Iron 34 L Iron Saturation 14 L Ferritin 1871.8 H Total Bilirubin AST ALT Alkaline Phosphatase Ammonia LD Total C-Reactive Protein JYOTI Screen Hep A IgM Ab Confirm Hepatitis A Ab Total Hep Bs Antigen Hep Bs Antibody Hep B Core Total Ab Hep B Core IgM Ab Hepatitis Be Antibody Hepatitis Be Antigen Hep C Ab Diagnostic 02/19/19 02/19/19 02/19/19 00:50 00:50 00:50 WBC Plt Count PT with INR Iron Iron Saturation Ferritin Total Bilirubin 2.6 H AST 281 H ALT 182 H Alkaline Phosphatase 473 H Ammonia LD Total 382 H C-Reactive Protein 2.1 H JYOTI Screen Negative Hep A IgM Ab Confirm Hepatitis A Ab Total Hep Bs Antigen Hep Bs Antibody Hep B Core Total Ab Hep B Core IgM Ab Hepatitis Be Antibody Hepatitis Be Antigen Hep C Ab Diagnostic 02/19/19 02/19/19 02/19/19 00:50 00:50 05:50 WBC Plt Count PT with INR 13.30 H Iron Iron Saturation Ferritin Total Bilirubin AST ALT Alkaline Phosphatase Ammonia < 10.00 L LD Total C-Reactive Protein JYOTI Screen Hep A IgM Ab Confirm Negative Hepatitis A Ab Total Negative Hep Bs Antigen Negative Hep Bs Antibody Non reactive Hep B Core Total Ab Negative Hep B Core IgM Ab Negative Hepatitis Be Antibody Negative Hepatitis Be Antigen Negative Hep C Ab Diagnostic 0.2 02/21/19 02/21/19 06:00 06:00 WBC 4.7 Plt Count 99 L PT with INR Iron Iron Saturation Ferritin Total Bilirubin 2.2 H AST 113 H ALT 152 H Alkaline Phosphatase 444 H Ammonia LD Total 281 H C-Reactive Protein JYOTI Screen Hep A IgM Ab Confirm Hepatitis A Ab Total Hep Bs Antigen Hep Bs Antibody Hep B Core Total Ab Hep B Core IgM Ab Hepatitis Be Antibody Hepatitis Be Antigen Hep C Ab Diagnostic Assessment/Plan Assessment: - Given the fever and abnormal LFTs I will order a AFP to exclude a hepatoma. Underlying cirrhosis cannot be excluded. When his renal function permits a CT with contrast will be ordered to exclude a hepatoma and abscesses. If his LFTs fail to normalize he may need a liver biopsy. Doubt hepatic encephalopathy. His N/V could be cholecystitis and if they continue a Hida scan should be ordered. - Personal h/o a colon adenoma and diverticulosis - FH stomach cancer Plan: -- AFP, Fibrosure -- Follow LFTs and platelet count. -- Doubt hepatic encephalopathy. -- With platelets rising and INR normalized will resume Eliquis -- CT with contrast when renal function permits -- Hida scan if N/V persist Problem List - Problems (1) Abnormal liver enzymes Code(s): R74.8 - ABNORMAL LEVELS OF OTHER SERUM ENZYMES (2) Gallstone Code(s): K80.20 - CALCULUS OF GALLBLADDER W/O CHOLECYSTITIS W/O OBSTRUCTION (3) S/P aortic valve replacement Code(s): Z95.2 - PRESENCE OF PROSTHETIC HEART VALVE (4) Colon adenoma Code(s): D12.6 - BENIGN NEOPLASM OF COLON, UNSPECIFIED (5) Diverticulosis Code(s): K57.90 - DVRTCLOS OF INTEST, PART UNSP, W/O PERF OR ABSCESS W/O BLEED (6) History of prostate cancer Code(s): Z85.46 - PERSONAL HISTORY OF MALIGNANT NEOPLASM OF PROSTATE (7) Afib Code(s): I48.91 - UNSPECIFIED ATRIAL FIBRILLATION (8) Altered mental status Code(s): R41.82 - ALTERED MENTAL STATUS, UNSPECIFIED (9) Leukopenia Code(s): D72.819 - DECREASED WHITE BLOOD CELL COUNT, UNSPECIFIED (10) Severe sepsis Code(s): A41.9 - SEPSIS, UNSPECIFIED ORGANISM; R65.20 - SEVERE SEPSIS WITHOUT SEPTIC SHOCK (11) Thrombocytopenia Code(s): D69.6 - THROMBOCYTOPENIA, UNSPECIFIED (12) HLD (hyperlipidemia) Code(s): E78.5 - HYPERLIPIDEMIA, UNSPECIFIED (13) HTN (hypertension) Code(s): I10 - ESSENTIAL (PRIMARY) HYPERTENSION (14) Family history of gastric cancer Code(s): Z80.0 - FAMILY HISTORY OF MALIGNANT NEOPLASM OF DIGESTIVE ORGANS
--- NOTE | 2019-02-21 18:02 | PN ---
Progress Note (short form) - Note Progress Note: Patient seen Discussed with at bedside Increasing confusion and disorientation CBC improving with normalization of WBC and diff, improvement in platelets LFT's abnormal Low grade temps IL-2 elevated , JYOTI and Rheumatoid factor -negative Sono- non revealing Agree with plan for liver biopsy if heme parameters acceptable and if LFT's remain abnormal or continue to worsen without obvious etiology. A
[2019-02-21] MEDS: SODIUM CHLORIDE 1,000 ML IV SCH (18:30)
[2019-02-21] MEDS ORDERED: PT OWN MED DRAWER 7, Y5N ONE (21:41)
[2019-02-21] MEDS: traMADol HCL 50 MG TABLET PO PRN (21:47)
[2019-02-21] MEDS: ROSUVASTATIN CA 5 MG TABLET (FP) PO SCH (21:47)
[2019-02-21] MEDS: APIXABAN 2.5 MG TABLET PO SCH (21:47)
[2019-02-21] MEDS: LACTULOSE 20 GM/30 ML UDC (FOR ORAL USE ONLY) PO SCH (21:48)
[2019-02-21] MEDS: MELATONIN 1 MG TABLET PO SCH (21:49)
[2019-02-21] MEDS: LIDOCAINE PATCH REMOVAL MC SCH (21:49)
[2019-02-22] MEDS ORDERED: SODIUM CHLORIDE 1,000 ML IV SCH ×2 (01:57→17:15)
[2019-02-22] MEDS: FUROSEMIDE 40 MG/4 ML INJECTABLE VIAL IVPUSH SCH ×2 (06:37→14:12)
[2019-02-22 07:48] LABS: BASO % 0.2 % (0-2.0); EOS % 1.1 % (0-4.5); HEMATOCRIT 38.9 % (35.4-49); HEMOGLOBIN 13.1 GM/dL (11.7-16.9); LYMPH % 6.4 % (8-40); MCH 29.6 pg (25.7-33.7); MCHC 33.6 g/dl (32.0-35.9); MEAN CELL VOLUME 88.1 fl (80-96); MEAN PLT VOLUME 8.9 fl (7.5-11.1); MONO % 10.7 % (3.8-10.2); NEUT % 81.6 % (42.8-82.8); PLATELET COUNT 123 K/MM3 (134-434); RBC 4.41 M/mm3 (4.00-5.60); WHITE BLOOD COUNT 5.3 K/mm3 (4.0-10.0)
[2019-02-22 07:53] LABS: ALBUMIN 3.1 g/dl (3.4-5.0); BILIRUBIN,DIRECT 1.3 mg/dL (0.0-0.2); BILIRUBIN,TOTAL 1.9 mg/dL (0.2-1); TOT PROT 6.3 g/dl (6.4-8.2)
--- NOTE | 2019-02-22 07:53 | PN ---
Progress Note, Physician Chief Complaint: Resting in bed. slept better last night History of Present Illness: Patient is an 83 year old male with a significant past medical history of hypertension, hyperlipidemia, prosthetic aortic valve replacement (bovine). afib (on eliquis). He presented to the [facility] ED with ataxia, chills, rigors and weakness. patient had rigors at home and brought into the ED by his family for further evaluation. - Current Medication List Current Medications: Active Medications Acetaminophen (Tylenol -) 650 mg PO Q6H PRN PRN Reason: FEVER Last Admin: 02/21/19 01:44 Dose: 650 mg Amlodipine Besylate (Norvasc -) 5 mg PO DAILY [facility] Last Admin: 02/21/19 09:40 Dose: 5 mg Apixaban (Eliquis -) 2.5 mg PO BID [facility] Last Admin: 02/21/19 21:47 Dose: 2.5 mg Cyanocobalamin (Vitamin B12 -) 1,000 mcg PO DAILY [facility] Last Admin: 02/21/19 09:40 Dose: 1,000 mcg Furosemide (Lasix Injection -) 40 mg IVPUSH BID@0600,1400 [facility] Last Admin: 02/22/19 06:37 Dose: 40 mg Sodium Chloride (Normal Saline -) 1,000 mls @ 42 mls/hr IV ASDIR [facility] Last Admin: 02/22/19 02:00 Dose: 42 mls/hr Lactulose (Cephulac (Oral Use)) 20 gm PO BID [facility] Last Admin: 02/21/19 21:48 Dose: 20 gm Lidocaine (Lidoderm Patch -) 1 patch TP DAILY [facility] Last Admin: 02/21/19 09:50 Dose: 1 patch Melatonin (Melatonin) 3 mg PO HS [facility] Last Admin: 02/21/19 21:49 Dose: 3 mg Methyl Salicylate (Octavio-Juarez -) 1 applic TP BID [facility] Last Admin: 02/21/19 21:48 Dose: 1 applic Metoprolol Succinate (Toprol Xl -) 25 mg PO DAILY [facility] Last Admin: 02/21/19 09:40 Dose: 25 mg Miscellaneous (Lidoderm Patch Removal) 1 each MC DAILY@2200 [facility] Last Admin: 02/21/19 21:49 Dose: 1 each Ondansetron HCl (Zofran Injection) 4 mg IVPUSH Q6H PRN PRN Reason: NAUSEA AND/OR VOMITING Last Admin: 02/20/19 18:01 Dose: 4 mg Pantoprazole Sodium (Protonix -) 40 mg PO BID [facility] Last Admin: 02/21/19 21:47 Dose: 40 mg Rosuvastatin Calcium (Crestor -) 5 mg PO HS [facility] Last Admin: 02/21/19 21:47 Dose: 5 mg Tramadol HCl (Ultram -) 50 mg PO Q8H PRN PRN Reason: PAIN LEVEL 6-10 Last Admin: 02/21/19 21:47 Dose: 50 mg Valsartan (Diovan -) 160 mg PO DAILY [facility] Last Admin: 02/21/19 09:40 Dose: 160 mg - Objective Vital Signs: Vital Signs Temperature 98 F 02/22/19 07:00 Pulse Rate 74 02/22/19 07:00 Respiratory Rate 18 02/22/19 07:00 Blood Pressure 148/89 02/22/19 07:00 O2 Sat by Pulse Oximetry (%) 93 L 02/21/19 21:00 Additional Findings/Remarks: Constitutional: Yes: Well Nourished, No Distress, Calm Eyes: Yes: WNL, Conjunctiva Clear HENT: Yes: WNL, Atraumatic, Normocephalic Neck: Yes: WNL, Supple, Trachea Midline Cardiovascular: Yes: WNL, Regular Rate and Rhythm Respiratory: Yes: Diminished at bases Gastrointestinal: Yes: WNL, Normal Bowel Sounds, Soft, Abdomen, Obese. No palpable masses noted ...Rectal Exam: Yes: Deferred Genitourinary: Yes: WNL Breast(s): Yes: WNL Musculoskeletal: Yes: WNL Extremities: Yes: WNL Edema: No Peripheral Pulses WNL: Yes Peripheral Pulses: Left Radial: 2+, Right Radial: 2+, Left Doralis Pedis: 2+, Right Dorsalis Pedis: 2+, Left Femoral: 2+, Right Femoral: 2+ Neurological: Yes:no confusion ...Motor Strength: WNL (generalized weakness) Psychiatric: Yes: WNL Labs: INR, PTT INR 1.05 (0.83-1.09) 02/21/19 08:15 Fibrinogen 229.0 mg/dL (238-498) L 02/21/19 08:15 Problem List - Problems (1) Abnormal liver enzymes Assessment/Plan: LFTs continue to trend down, AST/ALT 65/117 NH3 18.5 US with hepatomegaly-fatty liver vs Hepatocellular US without mass avoid hepatotoxic agents MRCP revealing no CBD stones, GB stone but no cholecystitis. No need for ERCP Code(s): R74.8 - ABNORMAL LEVELS OF OTHER SERUM ENZYMES (2) Afib Assessment/Plan: Rate controlled c/w toprol Eliquis restarted. Will pay close attention to plt counts tele monitoring Code(s): I48.91 - UNSPECIFIED ATRIAL FIBRILLATION (3) Altered mental status Assessment/Plan: no confusion this morning c/w melatonin fall precautions if confused overnight will start low dose seroquel 12.5mg qhs Code(s): R41.82 - ALTERED MENTAL STATUS, UNSPECIFIED (4) Leukopenia Assessment/Plan: WBC 5.3 today neutropenia of unclear etiology, but continues to resolve viral panel negative, rpr negative, blood smear negative leukopenia may have been due to acute infection that was adequately treated . All Cx are NGTD but still having low grade daily fevers. T max 100.0@ 2200 daily cbc heme consultation appreciated Code(s): D72.819 - DECREASED WHITE BLOOD CELL COUNT, UNSPECIFIED (5) MIGUEL A (obstructive sleep apnea) Assessment/Plan: c/w CPAP prn and at night F/U CHEST CT outpatient Code(s): G47.33 - OBSTRUCTIVE SLEEP APNEA (ADULT) (PEDIATRIC) (6) Prophylactic measure Assessment/Plan: FEN cardiac diet no additional IVF needed monitor electrolytes DVT eliquis restared Dispo maintain as in patient full code discharge planning- family requested outpt PT to continue on discharge Code(s): Z29.9 - ENCOUNTER FOR PROPHYLACTIC MEASURES, UNSPECIFIED (7) Severe sepsis Assessment/Plan: presented with severe sepsis with neutropenia, fevers, malaise, and fatigue/ weakness. now with improving leukopenia and thrombocytopenia Fever of unknown origin, off abx COntinue to monitor off. T max 24H 99.9 tick borne disease panel /viral negative leptospira pending chest ct shows mediastinal adenopaty with moderate increase since prior exam CT with gall stones, no acute loi seen, spine CT does not explain source of fever JEANNIE with no vegetations Code(s): A41.9 - SEPSIS, UNSPECIFIED ORGANISM; R65.20 - SEVERE SEPSIS WITHOUT SEPTIC SHOCK (8) Thrombocytopenia Assessment/Plan: plt ct 123 no signs of bleeding, will monitor ESR/CRP .8 /JYOTI/RF pending eliquis restarted appreciate hematology consultation Code(s): D69.6 - THROMBOCYTOPENIA, UNSPECIFIED (9) Weakness Assessment/Plan: improving with PT, ambulating the conroy with assistance of walker fall precautions family/pt would like to continue outpatient PT on discharge Code(s): R53.1 - WEAKNESS Visit type - Emergency Visit Emergency Visit: Yes ED Registration Date: 02/14/19 Care time: The patient presented to the Emergency Department on the above date and was hospitalized for further evaluation of their emergent condition. - New Patient This patient is new to me today: No - Critical Care Critical Care patient: No - Discharge Referral Referred to [facility] No
[2019-02-22 07:58] LABS: BILIRUBIN,TOTAL 1.8 mg/dL (0.2-1); BLOOD UREA NITROGEN 32.4 mg/dL (7-18); CALCIUM 9.4 mg/dL (8.5-10.1); CREATININE 1.1 mg/dL (0.55-1.3); MAGNESIUM 2.1 mg/dL (1.8-2.4); POTASSIUM 3.2 mmol/L (3.5-5.1); TOT PROT 6.1 g/dl (6.4-8.2)
[2019-02-22] MEDS ORDERED: POTASSIUM CHLORIDE TABS 20 MEQ TABLET.ER (FP) PO ONE ×2 (08:10→14:00)
--- NOTE | 2019-02-22 10:50 | PN ---
Progress Note (short form) - Note Progress Note: s: no cp sob palps dizzy TELE: afib, rate ok - Current Medications Generic Name Dose Route Start Last Admin Trade Name Allyssa PRN Reason Stop Dose Admin Acetaminophen 650 mg 02/17/19 21:35 02/21/19 01:44 Tylenol - PO 650 mg Q6H PRN Administration FEVER Amlodipine Besylate 5 mg 02/18/19 10:00 02/21/19 09:40 Norvasc - PO 5 mg DAILY [facility] Administration Apixaban 2.5 mg 02/21/19 22:00 02/21/19 21:47 Eliquis - PO 2.5 mg BID [facility] Administration Cyanocobalamin 1,000 mcg 02/18/19 10:00 02/21/19 09:40 Vitamin B12 - PO 1,000 mcg DAILY [facility] Administration Furosemide 40 mg 02/18/19 06:00 02/22/19 06:37 Lasix Injection - IVPUSH 40 mg BID@0600,1400 [facility] Administration Sodium Chloride 1,000 mls @ 42 mls/hr 02/22/19 01:57 02/22/19 02:00 Normal Saline - IV 42 mls/hr ASDIR [facility] Administration Lactulose 20 gm 02/21/19 22:00 02/21/19 21:48 Cephulac (Oral Use) PO 20 gm BID [facility] Administration Lidocaine 1 patch 02/20/19 14:00 02/21/19 09:50 Lidoderm Patch - TP 1 patch DAILY [facility] Administration Melatonin 3 mg 02/20/19 22:00 02/21/19 21:49 Melatonin PO 3 mg HS [facility] Administration Methyl Salicylate 1 applic 02/20/19 10:00 02/21/19 21:48 Octavio-Juarez - TP 1 applic BID [facility] Administration Metoprolol Succinate 25 mg 02/18/19 10:00 02/21/19 09:40 Toprol Xl - PO 25 mg DAILY [facility] Administration Miscellaneous 1 each 02/20/19 22:00 02/21/19 21:49 Lidoderm Patch Removal MC 1 each DAILY@2200 [facility] Administration Ondansetron HCl 4 mg 02/20/19 17:27 02/20/19 18:01 Zofran Injection IVPUSH 4 mg Q6H PRN Administration NAUSEA AND/OR VOMITING Pantoprazole Sodium 40 mg 02/18/19 22:00 02/21/19 21:47 Protonix - PO 40 mg BID [facility] Administration Potassium Chloride 20 meq 02/22/19 14:00 K-Dur - PO 02/22/19 14:01 ONCE@1400 ONE Rosuvastatin Calcium 5 mg 02/17/19 22:00 02/21/19 21:47 Crestor - PO 5 mg HS [facility] Administration Tramadol HCl 50 mg 02/21/19 09:48 02/21/19 21:47 Ultram - PO 50 mg Q8H PRN Administration PAIN LEVEL 6-10 Valsartan 160 mg 02/18/19 10:00 02/21/19 09:40 Diovan - PO 160 mg DAILY [facility] Administration Vital Signs Period Temp Pulse Resp BP Sys/Bacon Pulse Ox Last 24 Hr 98 F-99.9 F 72-85 16-18 146-183/75-92 93-95 Constitutional: Yes: No Distress Cardiovascular: Yes: irreg Respiratory: Yes: CTA Bilaterally Gastrointestinal: Yes: Soft (NT) Genitourinary: Yes: Other (no CVAT) Edema: No Neurological: Yes: Alert, Oriented no jaundice diaphoresis Labs: CBC, BMP 02/22/19 06:00 02/22/19 06:00 - ....Imaging EKG: Image Reviewed Assessment/Plan Impression: 1. Persistent febrile state, of unknown etiology- now resolving. 2. Hypertension, hypertensive cardiovascular disease. 3. Severe left ventricular diastolic dysfunction. 4. Chronic obstructive pulmonary disease. 5. Status post bioprosthetic aortic valve replacement. 6. Leukopenia and thrombocytopenia, probably related to sepsis vs viral syndrome 7. abnormal LFTs. 8. Permanent atrial fib. with controlled ventricular response. 9. Small RUQ nontender abdominal mass. Recommendations: 1. Continue current cardiac meds. Eliquis resumed. 2. Antibiotics as per ID. Possible viral syndrome. CT L-S spine was negative; defer further imaging to PMD/ID for his LBP (which seems chronic) 3. GI f/u in progress. 4. Heme f/u in progress.
[2019-02-22] MEDS: LACTULOSE 20 GM/30 ML UDC (FOR ORAL USE ONLY) PO SCH ×2 (10:55→22:21)
[2019-02-22] MEDS: amLODIPine BESYLATE 5 MG TABLET (FP) PO SCH (10:55)
[2019-02-22] MEDS: VALSARTAN 160 MG TABLET (UD) PO SCH (10:55)
[2019-02-22] MEDS: CYANOCOBALAMIN 1,000 MCG TABLET (FP) PO SCH (10:55)
[2019-02-22] MEDS: PANTOPRAZOLE 40 MG TABLET (FP) PO SCH ×2 (10:55→22:21)
[2019-02-22] MEDS: METHYL SALICYLATE/MENTHOL OINT 30 GM TUBE TP SCH ×2 (10:56→22:22)
[2019-02-22] MEDS: APIXABAN 2.5 MG TABLET PO SCH (10:56)
[2019-02-22] MEDS: metoPROLOL SUCCINATE 25 MG TAB.SR.24H (FP) PO SCH (10:56)
[2019-02-22] MEDS: LIDOCAINE 5% TOPICAL PATCH TP SCH (10:58)
--- NOTE | 2019-02-22 11:47 | PN ---
Progress Note (short form) - Note Progress Note: Appears improved. NIPPV overnight. Tolerating NC. Less SOB. No CP. No acute events overnight. Intake & Output 02/19/19 02/20/19 02/21/19 02/22/19 23:59 23:59 23:59 23:59 Intake Total 367 873 8677 Output Total 250 600 600 Balance 761 233 2129 -600 Weight 204 lb 2 oz 220 lb 4.8 oz 221 lb 4.8 oz Last Vital Signs Temp Pulse Resp BP Pulse Ox 98 F 74 18 148/89 95 02/22/19 07:00 02/22/19 07:00 02/22/19 09:00 02/22/19 07:00 02/22/19 09:00 Active Medications Acetaminophen (Tylenol -) 650 mg PO Q6H PRN PRN Reason: FEVER Last Admin: 02/21/19 01:44 Dose: 650 mg Amlodipine Besylate (Norvasc -) 5 mg PO DAILY [facility] Last Admin: 02/22/19 10:55 Dose: 5 mg Apixaban (Eliquis -) 2.5 mg PO BID [facility] Last Admin: 02/22/19 10:56 Dose: 2.5 mg Cyanocobalamin (Vitamin B12 -) 1,000 mcg PO DAILY [facility] Last Admin: 02/22/19 10:55 Dose: 1,000 mcg Furosemide (Lasix Injection -) 40 mg IVPUSH BID@0600,1400 [facility] Last Admin: 02/22/19 06:37 Dose: 40 mg Sodium Chloride (Normal Saline -) 1,000 mls @ 42 mls/hr IV ASDIR [facility] Last Admin: 02/22/19 02:00 Dose: 42 mls/hr Lactulose (Cephulac (Oral Use)) 20 gm PO BID [facility] Last Admin: 02/22/19 10:55 Dose: 20 gm Lidocaine (Lidoderm Patch -) 1 patch TP DAILY [facility] Last Admin: 02/22/19 10:58 Dose: 1 patch Melatonin (Melatonin) 3 mg PO HS [facility] Last Admin: 02/21/19 21:49 Dose: 3 mg Methyl Salicylate (Octavio-Juarez -) 1 applic TP BID [facility] Last Admin: 02/22/19 10:56 Dose: 1 applic Metoprolol Succinate (Toprol Xl -) 25 mg PO DAILY [facility] Last Admin: 02/22/19 10:56 Dose: 25 mg Miscellaneous (Lidoderm Patch Removal) 1 each MC DAILY@2200 [facility] Last Admin: 02/21/19 21:49 Dose: 1 each Ondansetron HCl (Zofran Injection) 4 mg IVPUSH Q6H PRN PRN Reason: NAUSEA AND/OR VOMITING Last Admin: 02/20/19 18:01 Dose: 4 mg Pantoprazole Sodium (Protonix -) 40 mg PO BID [facility] Last Admin: 02/22/19 10:55 Dose: 40 mg Potassium Chloride (K-Dur -) 20 meq PO ONCE@1400 ONE Stop: 02/22/19 14:01 Rosuvastatin Calcium (Crestor -) 5 mg PO HS [facility] Last Admin: 02/21/19 21:47 Dose: 5 mg Tramadol HCl (Ultram -) 50 mg PO Q8H PRN PRN Reason: PAIN LEVEL 6-10 Last Admin: 02/21/19 21:47 Dose: 50 mg Valsartan (Diovan -) 160 mg PO DAILY [facility] Last Admin: 02/22/19 10:55 Dose: 160 mg Constitutional: Yes: NAD Eyes: Yes: WNL HENT: Yes: WNL Neck: Yes: WNL Cardiovascular: Yes: Pulse Irregular, S1, S2 Respiratory: Yes: Diminished Gastrointestinal: Yes: Normal Bowel Sounds, Soft Extremities: Yes: WNL Edema: No Labs: Laboratory Results - last 24 hr 02/19/19 02/22/19 02/22/19 00:50 06:00 06:00 WBC 5.3 RBC 4.41 Hgb 13.1 Hct 38.9 MCV 88.1 MCH 29.6 MCHC 33.6 RDW 14.0 Plt Count 123 L D MPV 8.9 Absolute Neuts (auto) 4.3 Neutrophils % 81.6 Lymphocytes % 6.4 L Monocytes % 10.7 H Eosinophils % 1.1 Basophils % 0.2 Nucleated RBC % 0 Fibrin Degrad Products 5 H Sodium 137 Potassium 3.2 L Chloride 101 Carbon Dioxide 28 Anion Gap 8 BUN 32.4 H Creatinine 1.1 Est GFR (CKD-EPI)AfAm 72.07 Est GFR (CKD-EPI)NonAf 62.19 Random Glucose 141 H Calcium 9.4 Magnesium 2.1 Total Bilirubin 1.8 H Direct Bilirubin GGT AST 66 H ALT 117 H Alkaline Phosphatase 452 H Ammonia C-Reactive Protein Total Protein 6.1 L Albumin 3.0 L Thyroxine (T4) 02/22/19 02/22/19 06:00 06:00 WBC RBC Hgb Hct MCV MCH MCHC RDW Plt Count MPV Absolute Neuts (auto) Neutrophils % Lymphocytes % Monocytes % Eosinophils % Basophils % Nucleated RBC % Fibrin Degrad Products Sodium Potassium Chloride Carbon Dioxide Anion Gap BUN Creatinine Est GFR (CKD-EPI)AfAm Est GFR (CKD-EPI)NonAf Random Glucose Calcium Magnesium Total Bilirubin 1.9 H Direct Bilirubin 1.3 H GGT 421 H AST 65 H ALT 117 H Alkaline Phosphatase 456 H Ammonia 18.50 C-Reactive Protein 0.8 H Total Protein 6.3 L Albumin 3.1 L Thyroxine (T4) 10.3 Problem List - Problems (1) Altered mental status Code(s): R41.82 - ALTERED MENTAL STATUS, UNSPECIFIED (2) Abnormal liver enzymes Code(s): R74.8 - ABNORMAL LEVELS OF OTHER SERUM ENZYMES (3) Afib Code(s): I48.91 - UNSPECIFIED ATRIAL FIBRILLATION (4) Leukopenia Code(s): D72.819 - DECREASED WHITE BLOOD CELL COUNT, UNSPECIFIED (5) MIGUEL A (obstructive sleep apnea) Code(s): G47.33 - OBSTRUCTIVE SLEEP APNEA (ADULT) (PEDIATRIC) (6) Thrombocytopenia Code(s): D69.6 - THROMBOCYTOPENIA, UNSPECIFIED (7) Weakness Code(s): R53.1 - WEAKNESS (8) HLD (hyperlipidemia) Code(s): E78.5 - HYPERLIPIDEMIA, UNSPECIFIED (9) HTN (hypertension) Code(s): I10 - ESSENTIAL (PRIMARY) HYPERTENSION (10) S/P aortic valve replacement Code(s): Z95.2 - PRESENCE OF PROSTHETIC HEART VALVE Assessment/Plan Fever of unknown origin with altered mental status improved. JEANNIE: No Endocarditis Toxic Metabolic Encephalopathy improved Low clinical suspicion of Meningitis Sepsis Leukopenia AF on chronic AC s/p porcine valve 2009 HTN CHF MIGUEL A COPD CKD ELEVATED LFTS MEDIASTINAL ADENOPATHY PLAN: -Lasix -BD TX PRN -CPAP at night and when sleeping -Oxygen -Rate control - F/U CHEST CT outpatient Dr Barnes
--- NOTE | 2019-02-22 17:04 | PN ---
Progress Note, Physician History of Present Illness: Pt noted to have temp of 101.9F rectally at this time. Easily arousable and responsive but often confused as per at bedside. He states he is at home. Has been complaining of back pain intermittently. No obvious distress at this time. - Current Medication List Current Medications: Active Medications Acetaminophen (Tylenol -) 650 mg PO Q6H PRN PRN Reason: FEVER Last Admin: 02/21/19 01:44 Dose: 650 mg Amlodipine Besylate (Norvasc -) 5 mg PO DAILY [facility] Last Admin: 02/22/19 10:55 Dose: 5 mg Apixaban (Eliquis -) 2.5 mg PO BID [facility] Last Admin: 02/22/19 10:56 Dose: 2.5 mg Cyanocobalamin (Vitamin B12 -) 1,000 mcg PO DAILY [facility] Last Admin: 02/22/19 10:55 Dose: 1,000 mcg Furosemide (Lasix -) 40 mg PO BID@0600,1400 [facility] Lactulose (Cephulac (Oral Use)) 20 gm PO BID [facility] Last Admin: 02/22/19 10:55 Dose: 20 gm Lidocaine (Lidoderm Patch -) 1 patch TP DAILY [facility] Last Admin: 02/22/19 10:58 Dose: 1 patch Melatonin (Melatonin) 3 mg PO HS [facility] Last Admin: 02/21/19 21:49 Dose: 3 mg Methyl Salicylate (Octavio-Juarez -) 1 applic TP BID [facility] Last Admin: 02/22/19 10:56 Dose: 1 applic Metoprolol Succinate (Toprol Xl -) 25 mg PO DAILY [facility] Last Admin: 02/22/19 10:56 Dose: 25 mg Miscellaneous (Lidoderm Patch Removal) 1 each MC DAILY@2200 [facility] Last Admin: 02/21/19 21:49 Dose: 1 each Ondansetron HCl (Zofran Injection) 4 mg IVPUSH Q6H PRN PRN Reason: NAUSEA AND/OR VOMITING Last Admin: 02/20/19 18:01 Dose: 4 mg Pantoprazole Sodium (Protonix -) 40 mg PO BID [facility] Last Admin: 02/22/19 10:55 Dose: 40 mg Rosuvastatin Calcium (Crestor -) 5 mg PO HS [facility] Last Admin: 02/21/19 21:47 Dose: 5 mg Tramadol HCl (Ultram -) 50 mg PO Q8H PRN PRN Reason: PAIN LEVEL 6-10 Last Admin: 02/21/19 21:47 Dose: 50 mg Valsartan (Diovan -) 160 mg PO DAILY [facility] Last Admin: 02/22/19 10:55 Dose: 160 mg - Objective Vital Signs: Vital Signs Temperature 98 F 02/22/19 07:00 Pulse Rate 80 02/22/19 13:30 Respiratory Rate 16 02/22/19 13:30 Blood Pressure 146/79 02/22/19 13:30 O2 Sat by Pulse Oximetry (%) 95 02/22/19 09:00 Constitutional: Yes: No Distress Cardiovascular: Yes: Regular Rate and Rhythm Respiratory: Yes: CTA Bilaterally Gastrointestinal: Yes: Normal Bowel Sounds, Soft Genitourinary: Yes: WNL Musculoskeletal: Yes: Back Pain Extremities: Yes: WNL Edema: No Neurological: Yes: Alert, Confusion Labs: CBC, BMP 02/22/19 06:00 02/22/19 06:00 INR, PTT INR 1.05 (0.83-1.09) 02/21/19 08:15 Fibrinogen 229.0 mg/dL (238-498) L 02/21/19 08:15 - ....Imaging Cat Scan: Report Reviewed Problem List - Problems (1) Abnormal liver enzymes Code(s): R74.8 - ABNORMAL LEVELS OF OTHER SERUM ENZYMES (2) Afib Code(s): I48.91 - UNSPECIFIED ATRIAL FIBRILLATION (3) Altered mental status Code(s): R41.82 - ALTERED MENTAL STATUS, UNSPECIFIED (4) Leukopenia Code(s): D72.819 - DECREASED WHITE BLOOD CELL COUNT, UNSPECIFIED (5) MIGUEL A (obstructive sleep apnea) Code(s): G47.33 - OBSTRUCTIVE SLEEP APNEA (ADULT) (PEDIATRIC) (6) Thrombocytopenia Code(s): D69.6 - THROMBOCYTOPENIA, UNSPECIFIED (7) S/P aortic valve replacement Code(s): Z95.2 - PRESENCE OF PROSTHETIC HEART VALVE Assessment/Plan Fever of unknown etiology AMS Back Pain -- Pt with persistent fevers, cultures/imaging results reviewed, JEANNIE neg. Possibly viral etiology -- At this time will repeat blood cultures while off antibiotics -- Suggest repeat CT of back -- Consider LP -- leukocytopenia/leukopenia, LFTs improved Continue monitor closely for now d/w primary
[2019-02-22] MEDS: ACETAMINOPHEN 1000 MG/100 ML VIAL (NON FORMULARY) IVPB PRN (17:16)
--- NOTE | 2019-02-22 20:06 | PN ---
Progress Note (short form) - Note Progress Note: SUBJECTIVE: Patient seen and examined Course reviewed Sleeping but arousable and appropriate Last Vital Signs Temp Pulse Resp BP Pulse Ox 101.9 F H 80 16 146/79 95 02/22/19 17:00 02/22/19 13:30 02/22/19 13:30 02/22/19 13:30 02/22/19 09:00 HEENT: LASHAE, EOM Intact Oropharynx: No thrush, No mucositis Neck: Supple Nodes: Without adenopathy Cor: irregular rhythm Lungs: Clear to P&A Abd: Soft, Normal bowel sounds, No organomegaly, abdominal mass left upper quadrant testes descende, circumcised Ext:No significant edema Skin: No rashes, Integument intact 02/22/19 06:00 02/22/19 06:00 Current Medications Generic Name Dose Route Start Last Admin Trade Name Freq PRN Reason Stop Dose Admin Acetaminophen 750 mg 02/22/19 17:07 02/22/19 17:16 Ofirmev Injection - IVPB 750 mg Q12H PRN Administration FEVER Amlodipine Besylate 5 mg 02/18/19 10:00 02/22/19 10:55 Norvasc - PO 5 mg DAILY JELLY Administration Cyanocobalamin 1,000 mcg 02/18/19 10:00 02/22/19 10:55 Vitamin B12 - PO 1,000 mcg DAILY JELLY Administration Furosemide 40 mg 02/23/19 06:00 Lasix - PO BID@0600,1400 JELLY Sodium Chloride 1,000 mls @ 100 mls/hr 02/22/19 17:15 02/22/19 17:15 Normal Saline - IV 100 mls/hr ASDIR JELLY Administration Lactulose 20 gm 02/21/19 22:00 02/22/19 10:55 Cephulac (Oral Use) PO 20 gm BID JELLY Administration Lidocaine 1 patch 02/20/19 14:00 02/22/19 10:58 Lidoderm Patch - TP 1 patch DAILY JELLY Administration Melatonin 3 mg 02/20/19 22:00 02/21/19 21:49 Melatonin PO 3 mg HS JELLY Administration Methyl Salicylate 1 applic 02/20/19 10:00 02/22/19 10:56 Octavio-Juarez - TP 1 applic BID JELLY Administration Metoprolol Succinate 25 mg 02/18/19 10:00 02/22/19 10:56 Toprol Xl - PO 25 mg DAILY JELLY Administration Miscellaneous 1 each 02/20/19 22:00 02/21/19 21:49 Lidoderm Patch Removal MC 1 each DAILY@2200 JELLY Administration Ondansetron HCl 4 mg 02/20/19 17:27 02/20/19 18:01 Zofran Injection IVPUSH 4 mg Q6H PRN Administration NAUSEA AND/OR VOMITING Pantoprazole Sodium 40 mg 02/18/19 22:00 02/22/19 10:55 Protonix - PO 40 mg BID JELLY Administration Quetiapine Fumarate 12.5 mg 02/22/19 20:00 Seroquel - PO DAILY@2000 JELLY Rosuvastatin Calcium 5 mg 02/17/19 22:00 02/21/19 21:47 Crestor - PO 5 mg HS JELLY Administration Tramadol HCl 50 mg 02/21/19 09:48 02/21/19 21:47 Ultram - PO 50 mg Q8H PRN Administration PAIN LEVEL 6-10 Valsartan 160 mg 02/18/19 10:00 02/22/19 10:55 Diovan - PO 160 mg DAILY JELLY Administration Impression: Picture suggestive of infectious process. Spiking. Agree with CT CAP Neutropenia/ thombocytopenia resolved (slight TCP though) Although elevated ferritin raises ? of hemophagocytic lymphohistiocytosis (HLH ) syndrome, now cytopenias resolved and LFTs are mostly stable/normalizing but TBili slightly up. Close monitoring and if no resolution consider liver biopsy. Pt has mediastinal LAD. Will need to consider biopsy at some point. Problem List - Problems (1) Leukopenia Code(s): D72.819 - DECREASED WHITE BLOOD CELL COUNT, UNSPECIFIED (2) Severe sepsis Code(s): A41.9 - SEPSIS, UNSPECIFIED ORGANISM; R65.20 - SEVERE SEPSIS WITHOUT SEPTIC SHOCK (3) Thrombocytopenia Code(s): D69.6 - THROMBOCYTOPENIA, UNSPECIFIED
[2019-02-22] MEDS: MELATONIN 1 MG TABLET PO SCH (22:21)
[2019-02-22] MEDS: QUEtiapine FUMARATE 25 MG TABLET (FP) PO SCH (22:21)
[2019-02-22] MEDS: ROSUVASTATIN CA 5 MG TABLET (FP) PO SCH (22:21)
[2019-02-22 22:29] LABS: EPI CELLS 1.4 /HPF (0-5/HPF); HYALINE CASTS 10 /lpf (0-8); URINE APPEARANCE CLEAR; URINE BACTERIA 0.3 /hpf (NEGATIVE); URINE BILIRUBIN NEGATIVE (NEGATIVE); URINE COLOR DK YELLOW; URINE GLUCOSE (UA) NEGATIVE (NEGATIVE); URINE KETONE NEGATIVE (NEGATIVE); URINE LEUK ESTERASE NEGATIVE (NEGATIVE); URINE NITRITE NEGATIVE (NEGATIVE); URINE PROTEIN 1+ (NEGATIVE); URINE RBC 2 /hpf (0-4); URINE WBC 1 /hpf (0-5)
[2019-02-22] MEDS: LIDOCAINE PATCH REMOVAL MC SCH (22:31)
[2019-02-23] MEDS: traMADol HCL 50 MG TABLET PO PRN (01:43)
[2019-02-23] MEDS: FUROSEMIDE 40 MG TABLET (FP) PO SCH ×3 (06:00→15:00)
[2019-02-23 06:55] LABS: BASO % 0.3 % (0-2.0); EOS % 2.5 % (0-4.5); HEMOGLOBIN 13.1 GM/dL (11.7-16.9); LYMPH % 7.3 % (8-40); MCH 29.4 pg (25.7-33.7); MCHC 33.5 g/dl (32.0-35.9); MEAN PLT VOLUME 8.5 fl (7.5-11.1); MONO % 9.1 % (3.8-10.2); NEUT % 80.8 % (42.8-82.8); PLATELET COUNT 137 K/MM3 (134-434); RBC 4.43 M/mm3 (4.00-5.60); RDW 13.8 % (11.9-15.9); WHITE BLOOD COUNT 4.6 K/mm3 (4.0-10.0)
--- NOTE | 2019-02-23 07:22 | PN ---
Progress Note, Physician Chief Complaint: Heriberto T to 101.9. CT A/P & chest done. Defervesed with tylenol More lethargic today. Pending MRI lumbar spine History of Present Illness: Patient is an 83 year old male with a significant past medical history of hypertension, hyperlipidemia, prosthetic aortic valve replacement (bovine). afib (on eliquis). He presented to the [facility] ED with ataxia, chills, rigors and weakness. patient had rigors at home and brought into the ED by his family for further evaluation. - Current Medication List Current Medications: Active Medications Acetaminophen (Ofirmev Injection -) 750 mg IVPB Q12H PRN PRN Reason: FEVER Last Admin: 02/22/19 17:16 Dose: 750 mg Amlodipine Besylate (Norvasc -) 5 mg PO DAILY [facility] Last Admin: 02/22/19 10:55 Dose: 5 mg Cyanocobalamin (Vitamin B12 -) 1,000 mcg PO DAILY [facility] Last Admin: 02/22/19 10:55 Dose: 1,000 mcg Furosemide (Lasix -) 40 mg PO BID@0600,1400 [facility] Last Admin: 02/23/19 06:00 Dose: 40 mg Sodium Chloride (Normal Saline -) 1,000 mls @ 125 mls/hr IV ASDIR [facility] Lactulose (Cephulac (Oral Use)) 20 gm PO BID [facility] Last Admin: 02/22/19 22:21 Dose: 20 gm Lidocaine (Lidoderm Patch -) 1 patch TP DAILY [facility] Last Admin: 02/22/19 10:58 Dose: 1 patch Melatonin (Melatonin) 3 mg PO HS [facility] Last Admin: 02/22/19 22:21 Dose: 3 mg Methyl Salicylate (Octavio-Juarez -) 1 applic TP BID [facility] Last Admin: 02/22/19 22:22 Dose: 1 applic Metoprolol Succinate (Toprol Xl -) 25 mg PO DAILY [facility] Last Admin: 02/22/19 10:56 Dose: 25 mg Miscellaneous (Lidoderm Patch Removal) 1 each MC DAILY@2200 [facility] Last Admin: 02/22/19 22:31 Dose: Not Given Ondansetron HCl (Zofran Injection) 4 mg IVPUSH Q6H PRN PRN Reason: NAUSEA AND/OR VOMITING Last Admin: 02/20/19 18:01 Dose: 4 mg Pantoprazole Sodium (Protonix -) 40 mg PO BID [facility] Last Admin: 02/22/19 22:21 Dose: 40 mg Quetiapine Fumarate (Seroquel -) 12.5 mg PO DAILY@1999 [facility] Last Admin: 02/22/19 22:21 Dose: 12.5 mg Rosuvastatin Calcium (Crestor -) 5 mg PO HS [facility] Last Admin: 02/22/19 22:21 Dose: 5 mg Tramadol HCl (Ultram -) 50 mg PO Q8H PRN PRN Reason: PAIN LEVEL 6-10 Last Admin: 02/23/19 01:43 Dose: 50 mg Valsartan (Diovan -) 160 mg PO DAILY [facility] Last Admin: 02/22/19 10:55 Dose: 160 mg - Objective Vital Signs: Vital Signs Temperature 98.2 F 02/23/19 02:00 Pulse Rate 85 02/23/19 02:00 Respiratory Rate 18 02/23/19 02:00 Blood Pressure 160/81 02/23/19 02:00 O2 Sat by Pulse Oximetry (%) 95 02/22/19 21:00 Additional Findings/Remarks: Constitutional: Yes: Well Nourished, No Distress, Calm Eyes: Yes: WNL, Conjunctiva Clear HENT: Yes: WNL, Atraumatic, Normocephalic Neck: Yes: WNL, Supple, Trachea Midline Cardiovascular: Yes: WNL, Regular Rate and Rhythm Respiratory: Yes: Diminished at bases Gastrointestinal: Yes: WNL, Normal Bowel Sounds, Soft, Abdomen, Obese. No palpable masses noted ...Rectal Exam: Yes: Deferred Genitourinary: Yes: WNL Breast(s): Yes: WNL Musculoskeletal: Yes: WNL. Pain to lower lumbar area. No paresthesia or weakness Extremities: Yes: WNL Edema: No Peripheral Pulses WNL: Yes Peripheral Pulses: Left Radial: 2+, Right Radial: 2+, Left Doralis Pedis: 2+, Right Dorsalis Pedis: 2+, Left Femoral: 2+, Right Femoral: 2+ Neurological: Yes:no confusion ...Motor Strength: WNL (generalized weakness) Psychiatric: Yes: WNL Labs: CBC, BMP 02/23/19 06:05 INR, PTT INR 1.05 (0.83-1.09) 02/21/19 08:15 Fibrinogen 229.0 mg/dL (238-498) L 02/21/19 08:15 - ....Imaging Cat Scan: Other (CT A/P: irregukar sclerosis L3-4. Questionable degenerative changes v osteo. Thickeneing of gallbladder with debridement, questionable cyctitis. Right rectus sheath heamatome 4x3x6.) MRI: Pending Problem List - Problems (1) Abnormal liver enzymes Assessment/Plan: LFTs continue to trend down, AST/ALT 62/116 NH3 18.5 US with hepatomegaly-fatty liver vs Hepatocellular US without mass avoid hepatotoxic agents MRCP revealing no CBD stones, GB stone but no cholecystitis. No need for ERCP at this time CT A/P :Thickeneing of gallbladder with debridement, questionable cyctitis. Right rectus sheath heamatome [id number] be the palpable lesion that was felt earlier will determine if liver biopsy will be done on (off eliquis for 72hrs) Code(s): R74.8 - ABNORMAL LEVELS OF OTHER SERUM ENZYMES (2) Afib Assessment/Plan: Rate controlled c/w toprol Eliquis held for possible invasive testing-last dose 02/23 @ 11am c/w tele monitoring Code(s): I48.91 - UNSPECIFIED ATRIAL FIBRILLATION (3) Altered mental status Assessment/Plan: mild confusion today but redirectable seroquel strted lasr night at 12.5 mg confusion is multifactoriol-infectious, prolonged hospital stay, fevers fall precautions Code(s): R41.82 - ALTERED MENTAL STATUS, UNSPECIFIED (4) Leukopenia Assessment/Plan: WBC 4.6 today neutropenia of unclear etiology viral panel negative, rpr negative, blood smear negative All Cx are NGTD but still having low grade daily fevers. T max 101.9 at 1700 hayden cultured yesterday MRI lumbar spine pending daily cbc heme consultation appreciated Code(s): D72.819 - DECREASED WHITE BLOOD CELL COUNT, UNSPECIFIED (5) MIGUEL A (obstructive sleep apnea) Assessment/Plan: c/w CPAP prn and at night F/U CHEST CT outpatient Code(s): G47.33 - OBSTRUCTIVE SLEEP APNEA (ADULT) (PEDIATRIC) (6) Prophylactic measure Assessment/Plan: FEN cardiac diet restarted IVF yesterday with fever and MRI contrast load monitor electrolytes DVT eliquis back on hold Dispo maintain as in patient full code discharge planning- family requested outpt PT to continue on discharge Code(s): Z29.9 - ENCOUNTER FOR PROPHYLACTIC MEASURES, UNSPECIFIED (7) Severe sepsis Assessment/Plan: presented with severe sepsis with neutropenia, fevers, malaise, and fatigue/ weakness. Fever of unknown origin, continuing daily spikes, off abx Continue to monitor off tick borne disease panel /viral negative leptospira pending chest ct shows mediastinal adenopaty with moderate increase since prior exam- offical read on CT cehst pending CT with gall stones, no acute loi seen, spine CT does not explain source of fever JEANNIE with no vegetations Code(s): A41.9 - SEPSIS, UNSPECIFIED ORGANISM; R65.20 - SEVERE SEPSIS WITHOUT SEPTIC SHOCK (8) Thrombocytopenia Assessment/Plan: plt ct 137 no signs of bleeding, will monitor ESR/CRP .8 /JYOTI/RF pending eliquis back on hold appreciate hematology consultation Code(s): D69.6 - THROMBOCYTOPENIA, UNSPECIFIED (9) Weakness Assessment/Plan: improving with PT, ambulating the conroy with assistance of walker fall precautions family/pt would like to continue outpatient PT on discharge Code(s): R53.1 - WEAKNESS Visit type - Emergency Visit Emergency Visit: Yes ED Registration Date: 02/14/19 Care time: The patient presented to the Emergency Department on the above date and was hospitalized for further evaluation of their emergent condition. - New Patient This patient is new to me today: No - Critical Care Critical Care patient: No - Discharge Referral [facility]erred to [facility] Med P.C.: No
[2019-02-23 07:39] LABS: ALBUMIN 2.9 g/dl (3.4-5.0); BILIRUBIN,DIRECT 1.2 mg/dL (0.0-0.2); BLOOD UREA NITROGEN 31.4 mg/dL (7-18); CALCIUM 9.3 mg/dL (8.5-10.1); CREATININE 1.2 mg/dL (0.55-1.3); POTASSIUM 3.4 mmol/L (3.5-5.1); TOT PROT 6.3 g/dl (6.4-8.2)
[2019-02-23] MEDS: SODIUM CHLORIDE 1,000 ML IV SCH (08:06)
[2019-02-23] MEDS ORDERED: PT OWN MED DRAWER 7, Y5N ONE ×2 (09:20→21:08)
[2019-02-23] MEDS: LACTULOSE 20 GM/30 ML UDC (FOR ORAL USE ONLY) PO SCH ×2 (09:31→21:17)
[2019-02-23] MEDS: METHYL SALICYLATE/MENTHOL OINT 30 GM TUBE TP SCH ×2 (09:31→21:18)
[2019-02-23] MEDS: LIDOCAINE 5% TOPICAL PATCH TP SCH (09:32)
[2019-02-23] MEDS: VALSARTAN 160 MG TABLET (UD) PO SCH (09:32)
[2019-02-23] MEDS: PANTOPRAZOLE 40 MG TABLET (FP) PO SCH ×2 (09:33→21:17)
[2019-02-23] MEDS: amLODIPine BESYLATE 5 MG TABLET (FP) PO SCH (09:33)
[2019-02-23] MEDS: metoPROLOL SUCCINATE 25 MG TAB.SR.24H (FP) PO SCH (09:34)
[2019-02-23] MEDS: CYANOCOBALAMIN 1,000 MCG TABLET (FP) PO SCH (09:34)
[2019-02-23] MEDS: ONDANSETRON 4 MG/2 ML VIAL IVPUSH PRN (09:50)
--- NOTE | 2019-02-23 10:20 | PN ---
Progress Note (short form) - Note Progress Note: cardiology, covering for Dr Azar s: no cp sob palps dizzy TELE: afib, rate ok - Current Medications Generic Name Dose Route Start Last Admin Trade Name Freq PRN Reason Stop Dose Admin Acetaminophen 750 mg 02/22/19 17:07 02/22/19 17:16 Ofirmev Injection - IVPB 750 mg Q12H PRN Administration FEVER Amlodipine Besylate 5 mg 02/18/19 10:00 02/23/19 09:33 Norvasc - PO 5 mg DAILY JELLY Administration Cyanocobalamin 1,000 mcg 02/18/19 10:00 02/23/19 09:34 Vitamin B12 - PO 1,000 mcg DAILY JELLY Administration Furosemide 40 mg 02/23/19 06:00 02/23/19 06:00 Lasix - PO 40 mg BID@0600,1400 JELLY Administration Sodium Chloride 1,000 mls @ 125 mls/hr 02/23/19 07:06 02/23/19 08:06 Normal Saline - IV 125 mls/hr ASDIR JELLY Administration Lactulose 20 gm 02/21/19 22:00 02/23/19 09:31 Cephulac (Oral Use) PO 20 gm BID JELLY Administration Lidocaine 1 patch 02/20/19 14:00 02/23/19 09:32 Lidoderm Patch - TP 1 patch DAILY JELLY Administration Melatonin 3 mg 02/20/19 22:00 02/22/19 22:21 Melatonin PO 3 mg HS JELLY Administration Methyl Salicylate 1 applic 02/20/19 10:00 02/23/19 09:31 Octavio-Juarez - TP 1 applic BID JELLY Administration Metoprolol Succinate 25 mg 02/18/19 10:00 02/23/19 09:34 Toprol Xl - PO 25 mg DAILY JELLY Administration Miscellaneous 1 each 02/20/19 22:00 02/22/19 22:31 Lidoderm Patch Removal MC Not Given DAILY@2200 JELLY Ondansetron HCl 4 mg 02/20/19 17:27 02/23/19 09:50 Zofran Injection IVPUSH 4 mg Q6H PRN Administration NAUSEA AND/OR VOMITING Pantoprazole Sodium 40 mg 02/18/19 22:00 02/23/19 09:33 Protonix - PO 40 mg BID JELLY Administration Quetiapine Fumarate 12.5 mg 02/22/19 20:00 02/22/19 22:21 Seroquel - PO 12.5 mg DAILY@1999 JELLY Administration Rosuvastatin Calcium 5 mg 02/17/19 22:00 02/22/19 22:21 Crestor - PO 5 mg HS JELLY Administration Tramadol HCl 50 mg 02/21/19 09:48 02/23/19 01:43 Ultram - PO 50 mg Q8H PRN Administration PAIN LEVEL 6-10 Valsartan 160 mg 02/18/19 10:00 02/23/19 09:32 Diovan - PO 160 mg DAILY JELLY Administration Vital Signs Period Temp Pulse Resp BP Sys/Bacon Pulse Ox Last 24 Hr 98.2 F-101.9 F 72-85 16-18 143-160/76-86 95-98 Constitutional: Yes: No Distress Cardiovascular: Yes: irreg Respiratory: Yes: CTA Bilaterally Gastrointestinal: Yes: Soft (NT) Genitourinary: Yes: Other (no CVAT) Edema: No Neurological: Yes: Alert, Oriented no jaundice diaphoresis Labs: CBC, BMP 02/23/19 06:05 02/23/19 06:05 - ....Imaging EKG: Image Reviewed Assessment/Plan Impression: 1. Persistent febrile state, of unknown etiology- now resolving. 2. Hypertension, hypertensive cardiovascular disease. 3. Severe left ventricular diastolic dysfunction. 4. Chronic obstructive pulmonary disease. 5. Status post bioprosthetic aortic valve replacement. 6. Leukopenia and thrombocytopenia, probably related to sepsis vs viral syndrome 7. abnormal LFTs. 8. Permanent atrial fib. with controlled ventricular response. 9. Small RUQ nontender abdominal mass. Recommendations: 1. Continue current cardiac meds. Eliquis resumed. 2. Antibiotics as per ID. Possible viral syndrome. CT L-S spine was negative; defer further imaging to PMD/ID for his LBP (which seems chronic) 3. GI f/u in progress. 4. Heme f/u in progress.
--- NOTE | 2019-02-23 10:39 | PN ---
Progress Note (short form) - Note Progress Note: Appears improved. NIPPV overnight. Tolerating NC. Less SOB. No CP. No acute events overnight. Intake & Output 02/20/19 02/21/19 02/22/19 02/23/19 23:59 23:59 23:59 23:59 Intake Total 904 2480 500 700 Output Total 600 600 Balance 904 1880 -100 700 Weight 220 lb 4.8 oz 221 lb 4.8 oz 220 lb 12.8 oz Last Vital Signs Temp Pulse Resp BP Pulse Ox 98.4 F 81 17 159/79 98 02/23/19 06:00 02/23/19 09:46 02/23/19 09:46 02/23/19 09:46 02/23/19 08:30 Active Medications Acetaminophen (Ofirmev Injection -) 750 mg IVPB Q12H PRN PRN Reason: FEVER Last Admin: 02/22/19 17:16 Dose: 750 mg Amlodipine Besylate (Norvasc -) 5 mg PO DAILY [facility] Last Admin: 02/23/19 09:33 Dose: 5 mg Cyanocobalamin (Vitamin B12 -) 1,000 mcg PO DAILY [facility] Last Admin: 02/23/19 09:34 Dose: 1,000 mcg Furosemide (Lasix -) 40 mg PO BID@0600,1400 [facility] Last Admin: 02/23/19 06:00 Dose: 40 mg Sodium Chloride (Normal Saline -) 1,000 mls @ 125 mls/hr IV ASDIR [facility] Last Admin: 02/23/19 08:06 Dose: 125 mls/hr Lactulose (Cephulac (Oral Use)) 20 gm PO BID [facility] Last Admin: 02/23/19 09:31 Dose: 20 gm Lidocaine (Lidoderm Patch -) 1 patch TP DAILY [facility] Last Admin: 02/23/19 09:32 Dose: 1 patch Melatonin (Melatonin) 3 mg PO HS [facility] Last Admin: 02/22/19 22:21 Dose: 3 mg Methyl Salicylate (Octavio-Juarez -) 1 applic TP BID [facility] Last Admin: 02/23/19 09:31 Dose: 1 applic Metoprolol Succinate (Toprol Xl -) 25 mg PO DAILY [facility] Last Admin: 02/23/19 09:34 Dose: 25 mg Miscellaneous (Lidoderm Patch Removal) 1 each MC DAILY@2200 [facility] Last Admin: 02/22/19 22:31 Dose: Not Given Ondansetron HCl (Zofran Injection) 4 mg IVPUSH Q6H PRN PRN Reason: NAUSEA AND/OR VOMITING Last Admin: 02/23/19 09:50 Dose: 4 mg Pantoprazole Sodium (Protonix -) 40 mg PO BID [facility] Last Admin: 02/23/19 09:33 Dose: 40 mg Quetiapine Fumarate (Seroquel -) 12.5 mg PO DAILY@1999 [facility] Last Admin: 02/22/19 22:21 Dose: 12.5 mg Rosuvastatin Calcium (Crestor -) 5 mg PO HS [facility] Last Admin: 02/22/19 22:21 Dose: 5 mg Tramadol HCl (Ultram -) 50 mg PO Q8H PRN PRN Reason: PAIN LEVEL 6-10 Last Admin: 02/23/19 01:43 Dose: 50 mg Valsartan (Diovan -) 160 mg PO DAILY [facility] Last Admin: 02/23/19 09:32 Dose: 160 mg Constitutional: Yes: NAD Eyes: Yes: WNL HENT: Yes: WNL Neck: Yes: WNL Cardiovascular: Yes: Pulse Irregular, S1, S2 Respiratory: Yes: Diminished Gastrointestinal: Yes: Normal Bowel Sounds, Soft Extremities: Yes: WNL Edema: No Labs: Laboratory Results - last 24 hr 02/22/19 02/22/19 02/23/19 06:00 21:30 06:05 WBC 4.6 RBC 4.43 Hgb 13.1 Hct 39.0 MCV 88.0 MCH 29.4 MCHC 33.5 RDW 13.8 Plt Count 137 MPV 8.5 Absolute Neuts (auto) 3.8 Neutrophils % 80.8 Lymphocytes % 7.3 L Monocytes % 9.1 Eosinophils % 2.5 D Basophils % 0.3 Nucleated RBC % 0 Sodium Potassium Chloride Carbon Dioxide Anion Gap BUN Creatinine Est GFR (CKD-EPI)AfAm Est GFR (CKD-EPI)NonAf Random Glucose Calcium Magnesium Total Bilirubin Direct Bilirubin AST ALT Alkaline Phosphatase Total Protein Albumin Tumor Marker AFP 1.9 Urine Color Dk yellow Urine Appearance Clear Urine pH 5.0 Ur Specific [place] 1.021 Urine Protein 1+ H Urine Glucose (UA) Negative Urine Ketones Negative Urine Blood Negative Urine Nitrite Negative Urine Bilirubin Negative Urine Urobilinogen 1.0 Ur Leukocyte Esterase Negative Urine WBC (Auto) 1 Urine RBC (Auto) 2 Urine Casts (Auto) 10 U Epithel Cells (Auto) 1.4 Urine Bacteria (Auto) 0.3 02/23/19 06:05 WBC RBC Hgb Hct MCV MCH MCHC RDW Plt Count MPV Absolute Neuts (auto) Neutrophils % Lymphocytes % Monocytes % Eosinophils % Basophils % Nucleated RBC % Sodium 135 L Potassium 3.4 L Chloride 100 Carbon Dioxide 28 Anion Gap 7 L BUN 31.4 H Creatinine 1.2 Est GFR (CKD-EPI)AfAm 64.88 Est GFR (CKD-EPI)NonAf 55.98 Random Glucose 128 H Calcium 9.3 Magnesium 2.0 Total Bilirubin 2.0 H Direct Bilirubin 1.2 H AST 62 H ALT 116 H Alkaline Phosphatase 473 H Total Protein 6.3 L Albumin 2.9 L Tumor Marker AFP Urine Color Urine Appearance Urine pH Ur Specific [place] Urine Protein Urine Glucose (UA) Urine Ketones Urine Blood Urine Nitrite Urine Bilirubin Urine Urobilinogen Ur Leukocyte Esterase Urine WBC (Auto) Urine RBC (Auto) Urine Casts (Auto) U Epithel Cells (Auto) Urine Bacteria (Auto) Problem List - Problems (1) Altered mental status Code(s): R41.82 - ALTERED MENTAL STATUS, UNSPECIFIED (2) Abnormal liver enzymes Code(s): R74.8 - ABNORMAL LEVELS OF OTHER SERUM ENZYMES (3) Afib Code(s): I48.91 - UNSPECIFIED ATRIAL FIBRILLATION (4) Leukopenia Code(s): D72.819 - DECREASED WHITE BLOOD CELL COUNT, UNSPECIFIED (5) MIGUEL A (obstructive sleep apnea) Code(s): G47.33 - OBSTRUCTIVE SLEEP APNEA (ADULT) (PEDIATRIC) (6) Thrombocytopenia Code(s): D69.6 - THROMBOCYTOPENIA, UNSPECIFIED (7) Weakness Code(s): R53.1 - WEAKNESS (8) HLD (hyperlipidemia) Code(s): E78.5 - HYPERLIPIDEMIA, UNSPECIFIED (9) HTN (hypertension) Code(s): I10 - ESSENTIAL (PRIMARY) HYPERTENSION (10) S/P aortic valve replacement Code(s): Z95.2 - PRESENCE OF PROSTHETIC HEART VALVE Assessment/Plan Fever of unknown origin with altered mental status improved. JEANNIE: No Endocarditis Toxic Metabolic Encephalopathy improved Low clinical suspicion of Meningitis Sepsis Leukopenia AF on chronic AC s/p porcine valve 2008 HTN CHF MIGUEL A COPD CKD ELEVATED LFTS MEDIASTINAL ADENOPATHY PLAN: -Lasix -BD TX PRN -CPAP at night and when sleeping -Oxygen -Rate control - F/U CHEST CT outpatient Dr Barnes
--- NOTE | 2019-02-23 13:57 | PN ---
Progress Note, Physician History of Present Illness: Pt afebrile since last evening. Still appears somewhat restless but alert and responsive. No acute distress noted. CT results reviewed. - Current Medication List Current Medications: Active Medications Acetaminophen (Ofirmev Injection -) 750 mg IVPB Q12H PRN PRN Reason: FEVER Last Admin: 02/22/19 17:16 Dose: 750 mg Amlodipine Besylate (Norvasc -) 5 mg PO DAILY [facility] Last Admin: 02/23/19 09:33 Dose: 5 mg Cyanocobalamin (Vitamin B12 -) 1,000 mcg PO DAILY [facility] Last Admin: 02/23/19 09:34 Dose: 1,000 mcg Furosemide (Lasix -) 40 mg PO BID@0600,1400 [facility] Last Admin: 02/23/19 06:00 Dose: 40 mg Sodium Chloride (Normal Saline -) 1,000 mls @ 125 mls/hr IV ASDIR [facility] Last Admin: 02/23/19 08:06 Dose: 125 mls/hr Lactulose (Cephulac (Oral Use)) 20 gm PO BID [facility] Last Admin: 02/23/19 09:31 Dose: 20 gm Lidocaine (Lidoderm Patch -) 1 patch TP DAILY [facility] Last Admin: 02/23/19 09:32 Dose: 1 patch Melatonin (Melatonin) 3 mg PO HS [facility] Last Admin: 02/22/19 22:21 Dose: 3 mg Methyl Salicylate (Octavio-Juarez -) 1 applic TP BID [facility] Last Admin: 02/23/19 09:31 Dose: 1 applic Metoprolol Succinate (Toprol Xl -) 25 mg PO DAILY [facility] Last Admin: 02/23/19 09:34 Dose: 25 mg Miscellaneous (Lidoderm Patch Removal) 1 each MC DAILY@2200 [facility] Last Admin: 02/22/19 22:31 Dose: Not Given Ondansetron HCl (Zofran Injection) 4 mg IVPUSH Q6H PRN PRN Reason: NAUSEA AND/OR VOMITING Last Admin: 02/23/19 09:50 Dose: 4 mg Pantoprazole Sodium (Protonix -) 40 mg PO BID [facility] Last Admin: 02/23/19 09:33 Dose: 40 mg Quetiapine Fumarate (Seroquel -) 12.5 mg PO DAILY@2000 [facility] Last Admin: 02/22/19 22:21 Dose: 12.5 mg Rosuvastatin Calcium (Crestor -) 5 mg PO HS [facility] Last Admin: 02/22/19 22:21 Dose: 5 mg Tramadol HCl (Ultram -) 50 mg PO Q8H PRN PRN Reason: PAIN LEVEL 6-10 Last Admin: 02/23/19 01:43 Dose: 50 mg Valsartan (Diovan -) 160 mg PO DAILY [facility] Last Admin: 02/23/19 09:32 Dose: 160 mg - Objective Vital Signs: Vital Signs Temperature 97.9 F 02/23/19 09:46 Pulse Rate 77 02/23/19 13:35 Respiratory Rate 16 02/23/19 13:35 Blood Pressure 179/88 H 02/23/19 13:35 O2 Sat by Pulse Oximetry (%) 98 02/23/19 08:30 Constitutional: Yes: No Distress Eyes: Yes: Conjunctiva Clear Cardiovascular: Yes: Pulse Irregular Respiratory: Yes: Regular Gastrointestinal: Yes: Normal Bowel Sounds, Soft Genitourinary: Yes: WNL Extremities: Yes: WNL Integumentary: Yes: WNL Neurological: Yes: Alert Labs: CBC, BMP 02/23/19 06:05 02/23/19 06:05 INR, PTT INR 1.05 (0.83-1.09) 02/21/19 08:15 Fibrinogen 229.0 mg/dL (238-498) L 02/21/19 08:15 Microbiology 02/17/19 11:30 Blood - Peripheral Venous Blood Culture - Final NO GROWTH AFTER 5 DAYS INCUBATION 02/17/19 11:43 Blood - Peripheral Venous Blood Culture - Final NO GROWTH AFTER 5 DAYS INCUBATION 02/19/19 14:20 Urine - Urine Clean Catch Urine Culture - Final NO GROWTH OBTAINED 02/14/19 19:45 Blood - Peripheral Venous Blood Culture - Final NO GROWTH AFTER 5 DAYS INCUBATION 02/14/19 19:45 Blood - Peripheral Venous Blood Culture - Final NO GROWTH AFTER 5 DAYS INCUBATION 02/13/19 20:00 Blood - Peripheral Venous Blood Culture - Final NO GROWTH AFTER 5 DAYS INCUBATION 02/13/19 19:55 Blood - Peripheral Venous Blood Culture - Final NO GROWTH AFTER 5 DAYS INCUBATION 02/16/19 12:23 Blood - Peripheral Venous Blood Parasites Smear - Final 02/14/19 19:40 Urine - Urine Clean Catch Urine Culture - Final NO GROWTH OBTAINED 02/14/19 11:20 Nares - Mrsa Screen - Right MRSA Screen - Final NO MRSA ISOLATED 02/14/19 11:20 Nares - Mrsa Screen - Left MRSA Screen - Final NO MRSA ISOLATED 02/15/19 06:50 Urine - Urine Clean Catch Legionella Antigen - Final 02/15/19 06:50 Urine - Urine Clean Catch Streptococcus pneumoniae Antigen ( M - Final 02/13/19 21:25 Urine - Urine Clean Catch Urine Culture - Final NO GROWTH OBTAINED Abnormal Lab Results 02/22/19 02/23/19 02/23/19 21:30 06:05 06:05 Lymphocytes % 7.3 L Sodium 135 L Potassium 3.4 L Anion Gap 7 L BUN 31.4 H Random Glucose 128 H Total Bilirubin 2.0 H Direct Bilirubin 1.2 H AST 62 H ALT 116 H Alkaline Phosphatase 473 H Total Protein 6.3 L Albumin 2.9 L Urine Protein 1+ H - ....Imaging Cat Scan: Report Reviewed Problem List - Problems (1) Abnormal liver enzymes Code(s): R74.8 - ABNORMAL LEVELS OF OTHER SERUM ENZYMES (2) Afib Code(s): I48.91 - UNSPECIFIED ATRIAL FIBRILLATION (3) Altered mental status Code(s): R41.82 - ALTERED MENTAL STATUS, UNSPECIFIED (4) Leukopenia Code(s): D72.819 - DECREASED WHITE BLOOD CELL COUNT, UNSPECIFIED (5) MIGUEL A (obstructive sleep apnea) Code(s): G47.33 - OBSTRUCTIVE SLEEP APNEA (ADULT) (PEDIATRIC) (6) Thrombocytopenia Code(s): D69.6 - THROMBOCYTOPENIA, UNSPECIFIED (7) S/P aortic valve replacement Code(s): Z95.2 - PRESENCE OF PROSTHETIC HEART VALVE Assessment/Plan Fever of unknown etiology AMS Back Pain Mediastinal RAISSA -- Pt with recurrent fevers. Afebrile since last night. -- follow up repeat cultures sent, awaiting MRI spine results -- CT Chest with mediastinal lymphadenopathy -- CT A/P with rectus sheath hematoma -- monitor closely -- leukopenia/thrombocytopenia resolved. LFTs improved,still mildly elevated -- Hematology following -- Continue monitor off antibiotics at this time
[2019-02-23] MEDS: ACETAMINOPHEN 1000 MG/100 ML VIAL (NON FORMULARY) IVPB PRN (15:44)
[2019-02-23 16:01] VITALS: BMI 34.4
--- NOTE | 2019-02-23 16:06 | PN ---
Progress Note (short form) - Note Progress Note: SUBJECTIVE: Patient seen and examined Course reviewed Now he is awake and responding. Doing well Last Vital Signs Temp Pulse Resp BP Pulse Ox 100.6 F H 73 18 159/74 98 02/23/19 15:16 02/23/19 14:00 02/23/19 14:00 02/23/19 14:16 02/23/19 08:30 HEENT: LASHAE, EOM Intact Oropharynx: No thrush, No mucositis Neck: Supple Nodes: Without adenopathy Cor: irregular rhythm Lungs: Clear to P&A Abd: Soft, Normal bowel sounds, No organomegaly, abdominal mass left upper quadrant testes descende, circumcised Ext:No significant edema Skin: No rashes, Integument intact 02/23/19 06:05 02/23/19 06:05 Current Medications Generic Name Dose Route Start Last Admin Trade Name Freq PRN Reason Stop Dose Admin Acetaminophen 750 mg 02/22/19 17:07 02/23/19 15:44 Ofirmev Injection - IVPB 750 mg Q12H PRN Administration FEVER Amlodipine Besylate 5 mg 02/18/19 10:00 02/23/19 09:33 Norvasc - PO 5 mg DAILY [facility] Administration Cyanocobalamin 1,000 mcg 02/18/19 10:00 02/23/19 09:34 Vitamin B12 - PO 1,000 mcg DAILY [facility] Administration Furosemide 40 mg 02/23/19 06:00 02/23/19 15:00 Lasix - PO Not Given BID@0600,1400 [facility] Sodium Chloride 1,000 mls @ 125 mls/hr 02/23/19 07:06 02/23/19 08:06 Normal Saline - IV 125 mls/hr ASDIR [facility] Administration Lactulose 20 gm 02/21/19 22:00 02/23/19 09:31 Cephulac (Oral Use) PO 20 gm BID [facility] Administration Lidocaine 1 patch 02/20/19 14:00 02/23/19 09:32 Lidoderm Patch - TP 1 patch DAILY [facility] Administration Melatonin 3 mg 02/20/19 22:00 02/22/19 22:21 Melatonin PO 3 mg HS [facility] Administration Methyl Salicylate 1 applic 02/20/19 10:00 02/23/19 09:31 Octavio-Juarez - TP 1 applic BID [facility] Administration Metoprolol Succinate 25 mg 02/18/19 10:00 02/23/19 09:34 Toprol Xl - PO 25 mg DAILY [facility] Administration Miscellaneous 1 each 02/20/19 22:00 02/22/19 22:31 Lidoderm Patch Removal MC Not Given DAILY@2200 [facility] Ondansetron HCl 4 mg 02/20/19 17:27 02/23/19 09:50 Zofran Injection IVPUSH 4 mg Q6H PRN Administration NAUSEA AND/OR VOMITING Pantoprazole Sodium 40 mg 02/18/19 22:00 02/23/19 09:33 Protonix - PO 40 mg BID [facility] Administration Polyethylene Glycol 17 gm 02/24/19 10:00 Miralax (For Daily Use) - PO DAILY [facility] Quetiapine Fumarate 12.5 mg 02/22/19 20:00 02/22/19 22:21 Seroquel - PO 12.5 mg DAILY@1999 [facility] Administration Rosuvastatin Calcium 5 mg 02/17/19 22:00 02/22/19 22:21 Crestor - PO 5 mg HS [facility] Administration Tramadol HCl 50 mg 02/21/19 09:48 02/23/19 01:43 Ultram - PO 50 mg Q8H PRN Administration PAIN LEVEL 6-10 Valsartan 160 mg 02/18/19 10:00 02/23/19 09:32 Diovan - PO 160 mg DAILY [facility] Administration Impression: Picture suggestive of infectious process. Spiking. Agree with CT CAP Neutropenia/ thombocytopenia resolved (slight TCP though) Although elevated ferritin raises ? of hemophagocytic lymphohistiocytosis (HLH ) syndrome, now cytopenias resolved and LFTs are mostly stable/normalizing but TBili slightly up. Close monitoring and if no resolution consider liver biopsy. Pt has mediastinal LAD. Consider IR consult for core needle biopsy to r/o lymphoma Given correction of Cytopenias will defer bone marrow biopsy at this time. Problem List - Problems (1) Leukopenia Code(s): D72.819 - DECREASED WHITE BLOOD CELL COUNT, UNSPECIFIED (2) Severe sepsis Code(s): A41.9 - SEPSIS, UNSPECIFIED ORGANISM; R65.20 - SEVERE SEPSIS WITHOUT SEPTIC SHOCK (3) Thrombocytopenia Code(s): D69.6 - THROMBOCYTOPENIA, UNSPECIFIED
[2019-02-23 17:26] LABS: BASO % 0.7 % (0-2.0); HEMATOCRIT 38.2 % (35.4-49); HEMOGLOBIN 12.7 GM/dL (11.7-16.9); LYMPH % 6.7 % (8-40); MCH 29.3 pg (25.7-33.7); MCHC 33.1 g/dl (32.0-35.9); MEAN CELL VOLUME 88.3 fl (80-96); MEAN PLT VOLUME 8.1 fl (7.5-11.1); MONO % 10.8 % (3.8-10.2); NEUT % 79.8 % (42.8-82.8); PLATELET COUNT 153 K/MM3 (134-434); RBC 4.33 M/mm3 (4.00-5.60); RDW 14.4 % (11.9-15.9); WHITE BLOOD COUNT 5.5 K/mm3 (4.0-10.0)
[2019-02-23 18:10] LABS: ALBUMIN 2.8 g/dl (3.4-5.0); BILIRUBIN,TOTAL 1.5 mg/dL (0.2-1); CALCIUM 8.9 mg/dL (8.5-10.1); CREATININE 1.1 mg/dL (0.55-1.3); MAGNESIUM 2.1 mg/dL (1.8-2.4); POTASSIUM 3.5 mmol/L (3.5-5.1); TOT PROT 5.9 g/dl (6.4-8.2)
[2019-02-23] MEDS: MELATONIN 1 MG TABLET PO SCH (21:17)
[2019-02-23] MEDS: ROSUVASTATIN CA 5 MG TABLET (FP) PO SCH (21:17)
[2019-02-23] MEDS: QUEtiapine FUMARATE 25 MG TABLET (FP) PO SCH (21:17)
[2019-02-23] MEDS: LIDOCAINE PATCH REMOVAL MC SCH (21:18)
[2019-02-24] MEDS: FUROSEMIDE 40 MG TABLET (FP) PO SCH ×2 (06:15→15:18)
[2019-02-24] MEDS: SODIUM CHLORIDE 1,000 ML IV SCH (06:18)
--- NOTE | 2019-02-24 07:18 | PN ---
Progress Note, Physician Chief Complaint: T MAX 100.3. Lumbar spine MRI do without 3evidence of osteo. Pt still c/o LBP. Confused over night as per nursing staff and family History of Present Illness: Patient is an 83 year old male with a significant past medical history of hypertension, hyperlipidemia, prosthetic aortic valve replacement (bovine). afib (on eliquis). He presented to the [facility] ED with ataxia, chills, rigors and weakness. patient had rigors at home and brought into the ED by his family for further evaluation. - Current Medication List Current Medications: Active Medications Acetaminophen (Ofirmev Injection -) 750 mg IVPB Q12H PRN PRN Reason: FEVER Last Admin: 02/23/19 15:44 Dose: 750 mg Amlodipine Besylate (Norvasc -) 5 mg PO DAILY [facility] Last Admin: 02/23/19 09:33 Dose: 5 mg Cyanocobalamin (Vitamin B12 -) 1,000 mcg PO DAILY [facility] Last Admin: 02/23/19 09:34 Dose: 1,000 mcg Furosemide (Lasix -) 40 mg PO BID@0600,1400 [facility] Last Admin: 02/24/19 06:15 Dose: 40 mg Sodium Chloride (Normal Saline -) 1,000 mls @ 125 mls/hr IV ASDIR [facility] Last Admin: 02/24/19 06:18 Dose: Not Given Lactulose (Cephulac (Oral Use)) 20 gm PO BID [facility] Last Admin: 02/23/19 21:17 Dose: 20 gm Lidocaine (Lidoderm Patch -) 1 patch TP DAILY [facility] Last Admin: 02/23/19 09:32 Dose: 1 patch Melatonin (Melatonin) 3 mg PO HS [facility] Last Admin: 02/23/19 21:17 Dose: 3 mg Methyl Salicylate (Octavio-Juarez -) 1 applic TP BID [facility] Last Admin: 02/23/19 21:18 Dose: 1 applic Metoprolol Succinate (Toprol Xl -) 25 mg PO DAILY [facility] Last Admin: 02/23/19 09:34 Dose: 25 mg Miscellaneous (Lidoderm Patch Removal) 1 each MC DAILY@2200 [facility] Last Admin: 02/23/19 21:18 Dose: Not Given Ondansetron HCl (Zofran Injection) 4 mg IVPUSH Q6H PRN PRN Reason: NAUSEA AND/OR VOMITING Last Admin: 02/23/19 09:50 Dose: 4 mg Pantoprazole Sodium (Protonix -) 40 mg PO BID [facility] Last Admin: 02/23/19 21:17 Dose: 40 mg Polyethylene Glycol (Miralax (For Daily Use) -) 17 gm PO DAILY [facility] Quetiapine Fumarate (Seroquel -) 12.5 mg PO DAILY@1999 [facility] Last Admin: 02/23/19 21:17 Dose: 12.5 mg Rosuvastatin Calcium (Crestor -) 5 mg PO HS [facility] Last Admin: 02/23/19 21:17 Dose: 5 mg Tramadol HCl (Ultram -) 50 mg PO Q8H PRN PRN Reason: PAIN LEVEL 6-10 Last Admin: 02/23/19 01:43 Dose: 50 mg Valsartan (Diovan -) 160 mg PO DAILY [facility] Last Admin: 02/23/19 09:32 Dose: 160 mg - Objective Vital Signs: Vital Signs Temperature 98.7 F 02/24/19 05:46 Pulse Rate 72 02/24/19 05:46 Respiratory Rate 20 02/24/19 05:46 Blood Pressure 137/70 02/24/19 05:46 O2 Sat by Pulse Oximetry (%) 96 02/23/19 20:51 Additional Findings/Remarks: Constitutional: Yes: Well Nourished, No Distress, Calm Eyes: Yes: WNL, Conjunctiva Clear HENT: Yes: WNL, Atraumatic, Normocephalic Neck: Yes: WNL, Supple, Trachea Midline Cardiovascular: Yes: WNL, Regular Rate and Rhythm Respiratory: Yes: Diminished at bases Gastrointestinal: Yes: WNL, Normal Bowel Sounds, Soft, Abdomen, Obese. No palpable masses noted ...Rectal Exam: Yes: Deferred Genitourinary: Yes: WNL Breast(s): Yes: WNL Musculoskeletal: Yes: WNL. Pain to lower lumbar area. No paresthesia or weakness Extremities: Yes: WNL Edema: No Peripheral Pulses WNL: Yes Peripheral Pulses: Left Radial: 2+, Right Radial: 2+, Left Doralis Pedis: 2+, Right Dorsalis Pedis: 2+, Left Femoral: 2+, Right Femoral: 2+ Neurological: Yes:no confusion ...Motor Strength: WNL (generalized weakness)-improving Psychiatric: Yes: WNL Labs: CBC, BMP 02/23/19 17:16 02/23/19 17:16 INR, PTT INR 1.05 (0.83-1.09) 02/21/19 08:15 Fibrinogen 229.0 mg/dL (238-498) L 02/21/19 08:15 - ....Imaging Cat Scan: Report Reviewed (CT A/P: irregukar sclerosis L3-4. Questionable degenerative changes v osteo. Thickeneing of gallbladder with debridement, questionable cyctitis. Right rectus sheath heamatome 4x3x6.)) MRI: Report Reviewed (MRI: no evidence of osteo. Lumbar degeneratitive stenosis) Problem List - Problems (1) Abnormal liver enzymes Assessment/Plan: LFTs continue to trend down, AST/ALT 30/ NH3 18.5 US with hepatomegaly-fatty liver vs Hepatocellular US without mass avoid hepatotoxic agents MRCP revealing no CBD stones, GB stone but no cholecystitis. No need for ERCP at this time CT A/P :Thickeneing of gallbladder with debridement, questionable cyctitis. Right rectus sheath hematoma [id number] be the palpable lesion that was felt earlier will determine if biopsy will be done on (off eliquis for 72hrs) Code(s): R74.8 - ABNORMAL LEVELS OF OTHER SERUM ENZYMES (2) Afib Assessment/Plan: Rate controlled c/w toprol Eliquis held for possible invasive testing-last dose 03/04 @ 11am c/w tele monitoring Code(s): I48.91 - UNSPECIFIED ATRIAL FIBRILLATION (3) Altered mental status Assessment/Plan: mild confusion persists but redirectable seroquel started qhs at 12.5 mg confusion is multifactoriol-infectious, prolonged hospital stay, fevers consultation with Dr Carver appreciate plan for fluroscopic guided LP to f/o menengitis or other infectious etiology fall precautions Code(s): R41.82 - ALTERED MENTAL STATUS, UNSPECIFIED (4) Leukopenia Assessment/Plan: WBC 5.5 today neutropenia of unclear etiology viral panel negative, rpr negative, blood smear negative All Cx are NGTD but still having low grade daily fevers. T max 100 hayden cultured NGTD MRI lumbar spine with osteo daily cbc heme consultation appreciated Code(s): D72.819 - DECREASED WHITE BLOOD CELL COUNT, UNSPECIFIED (5) MIGUEL A (obstructive sleep apnea) Assessment/Plan: c/w CPAP prn and at night F/U CHEST CT outpatient Code(s): G47.33 - OBSTRUCTIVE SLEEP APNEA (ADULT) (PEDIATRIC) (6) Prophylactic measure Assessment/Plan: FEN cardiac diet no additional IVF needed monitor electrolytes DVT eliquis back on hold Dispo maintain as in patient full code discharge planning- family requested outpt PT to continue on discharge Code(s): Z29.9 - ENCOUNTER FOR PROPHYLACTIC MEASURES, UNSPECIFIED (7) Severe sepsis Assessment/Plan: presented with severe sepsis with neutropenia, fevers, malaise, and fatigue/ weakness. Fever of unknown origin, continuing daily spikes, off abx Continue to monitor off tick borne disease panel /viral negative leptospira pending chest ct shows mediastinal adenopaty with moderate increase since prior exam- largest lymphnode 2.7cm pending LP, LN bx CT with gall stones, no acute loi seen, spine CT does not explain source of fever JEANNIE with no vegetations appreciate ID consultation Code(s): A41.9 - SEPSIS, UNSPECIFIED ORGANISM; R65.20 - SEVERE SEPSIS WITHOUT SEPTIC SHOCK (8) Thrombocytopenia Assessment/Plan: plt ct 137 no signs of bleeding, will monitor ESR/CRP .8 /JYOTI/RF pending eliquis back on hold appreciate hematology consultation Code(s): D69.6 - THROMBOCYTOPENIA, UNSPECIFIED (9) Weakness Assessment/Plan: improving with PT, ambulating the conroy with assistance of walker fall precautions family/pt would like to continue outpatient PT on discharge Code(s): R53.1 - WEAKNESS (10) Toxic metabolic encephalopathy Assessment/Plan: mild confusion persists but redirectable c/w seroquel confusion is multifactoriol-infectious, prolonged hospital stay, fevers consultation with Dr Carver appreciate plan for fluroscopic guided LP to f/o menengitis or other infectious etiology fall precautions Code(s): G92 - TOXIC ENCEPHALOPATHY (11) Mediastinal lymphadenopathy Assessment/Plan: seen in imaging FUO CTS evaluation with Dr Mccloud for possible C-Med to r/o lymphona Code(s): R59.0 - LOCALIZED ENLARGED LYMPH NODES Visit type - Emergency Visit Emergency Visit: Yes ED Registration Date: 02/14/19 Care time: The patient presented to the Emergency Department on the above date and was hospitalized for further evaluation of their emergent condition. - New Patient This patient is new to me today: No - Critical Care Critical Care patient: No - Discharge Referral Referred to [facility] Med P.C.: No
[2019-02-24 07:26] LABS: BILIRUBIN,DIRECT 1.1 mg/dL (0.0-0.2); BILIRUBIN,TOTAL 2.4 mg/dL (0.2-1); TOT PROT 6.5 g/dl (6.4-8.2)
--- NOTE | 2019-02-24 08:52 | PATH ---
Surgical Pathology Report Patient Name: OSIRIS GONZALEZ [facility]. Rec. #: [id number] /Age/Gender: 1935 (Age: 83) / M Account: [id number] Location: 4 PEDS/ADOL Taken: 02/18/2019 Received: 02/18/2019 Reported: 02/24/2019 Physicians: Elba Dong M.D. Specimen(s) Received PERIPHERAL BLOOD Clinical History Pancytopenia Rule out lymphoproliferative disorder, rule out MDS Final Diagnosis COMPREHENSIVE FLOW [facility] [place] ([id number]) shows the following: INTERPRETATION: NO ATYPICAL FLOW CYTOMETRIC FINDINGS SEEN PHENOTYPE: Lymphocytes include polyclonal B cells, NK cells and immunophenotypically normal T cells with a mildly .increased CD4:CD8. Granulocytes are immunophenotypically mature. CYTOMORPHOLOGY: Smears from flow sample show no increase in myeloblasts or atypical lymphocytes. See [facility] report ([id number]) for additional details. Electronically Signed Joana De León M.D. Addendum Reported: 02/28/2019 Addendum Diagnosis MYELODYSPLASIA FISH PANEL performed [facility] [place] shows the following: INTERPRETATION: No evidence of deletion 5q or monosomy 5 is present. No evidence of deletion 7q or monosomy 7 is present. No evidence of trisomy 8 (+8) is present. No evidence of deletion 13q14.2 is present. No evidence of rearrangement of 11q23. No evidence of a deletion of the p53 (17p13) locus. No evidence of deletion 20q12 is present See [facility] report ([id number]) for additional details. CYTOGENETIC KARYOTYPE ANALYSIS performed and interpreted at [facility] shows the following: RESULTS: Tissue Culture Failure INTERPRETATION: This unstimulated peripheral blood specimen did not produce any analyzable metaphase cells and, therefore, chromosome analysis is not possible. A bone marrow aspirate, when clinically appropriate, is recommended. See [facility] report for additional details ([id number]). Joana De León M.D. Gross Description Received are 2 green top tubes of blood which are sent to [facility]. /02/18/2019 saudi02/18/2019
[2019-02-24] MEDS ORDERED: PT OWN MED DRAWER 7, Y5N ONE ×3 (08:56→21:38)
[2019-02-24] MEDS: amLODIPine BESYLATE 5 MG TABLET (FP) PO SCH (09:02)
[2019-02-24] MEDS: LIDOCAINE 5% TOPICAL PATCH TP SCH (09:02)
[2019-02-24] MEDS: LACTULOSE 20 GM/30 ML UDC (FOR ORAL USE ONLY) PO SCH (09:02)
[2019-02-24] MEDS: VALSARTAN 160 MG TABLET (UD) PO SCH (09:02)
[2019-02-24] MEDS: PANTOPRAZOLE 40 MG TABLET (FP) PO SCH ×2 (09:02→21:35)
[2019-02-24] MEDS: CYANOCOBALAMIN 1,000 MCG TABLET (FP) PO SCH (09:02)
[2019-02-24] MEDS: metoPROLOL SUCCINATE 25 MG TAB.SR.24H (FP) PO SCH (09:02)
[2019-02-24] MEDS: METHYL SALICYLATE/MENTHOL OINT 30 GM TUBE TP SCH ×2 (09:08→21:35)
--- NOTE | 2019-02-24 09:43 | CONSULT ---
Consult - text type - Consultation Consultation Note: Neurology - Admission Chief Complaint: Chills, Weakness History of Present Illness: This is a 83 y/o man from home with a PMhx of HTN, HLD, s/p Prosthetic Aortic Valve (Bovine) who presented to the ED with his family for ataxia, chills, rigors, and weakness. Patient reported feeling well earlier in the day of admission but the patient's reported they were at the grandkid's house earlier where the patient had difficulty getting out of the car and was walking like "he lost all his energy." the patient's reports she later found the patient under a blanket and was shaking. The patient reported he had a rough day and felt "terrible." Denied any pain. The patient reports associated symptoms of shortness of breath. They called Dr. Azar (fixing machine operator), who told them to follow up at the ER. Denies worsening shortness of breath, chest pain, abdominal pain, nausea, vomiting. Denies cough or congestion. The patient has been in the hospital for further medical evaluation and management and I was consulted 02/24 for evaluation and management of altered mental status. I had an extensive conversation with the hospitalist nurse practitioner, Mayra , who provided background information regarding the patient who has been demonstrating confusion with spiking fevers to 102. He was somnolent her my encounter but arousable and able to to tell me that he is in the hospital and could name [facility]. He was able to tell me the year but was not able to me the month correctly or the name of the president. CT head has been completed and advised to have MRI of the brain for further evaluation. Work up for underlying infection has been otherwise negative thus far. Therefore, fever of unknown origin. I also discussed with hospitalist about having spinal tap but patient was previously pancytopenic, with counts improved, but now on Eliquis and last dose was given reportedly on Sunday, February 22. Would require fluoroscopic guided lumbar puncture, Dr. Martinez to be consulted and patient's anticoagulation status may be an issue. Infectious disease Dr. Blake has been following and patient previously on broad-spectrum antibiotics but not currently. - Past Medical History Cardiovascular: Yes: Aortic Insufficiency, HTN, Hyperlipdemia Renal/: Yes: Cancer (prostate (seed implant)) Infectious Disease: Yes: MRSA (perianal abcess) - Past Surgical History Past Surgical History: Yes: Valve Replacement (aortic (on Eliquis)) - Smoking History Smoking history: Former smoker Have you smoked in the past 12 months: No Aproximately how many cigarettes per day: 0 If you are a former smoker, when did you quit?: years ago - Alcohol/Substance Use Hx Alcohol Use: No History of Substance Use: reports: None - Social History Usual Living Arrangement: Yes: With Spouse ADL: Independent History of Recent Travel: No Home Medications - Allergies Allergies/Adverse Reactions: Allergies Allergy/AdvReac Type Severity Reaction Status Date / Time No Known Allergies Allergy Verified 02/13/19 18:44 - Home Medications Home Medications: Ambulatory Orders Rosuvastatin Calcium [Crestor] 5 mg PO DAILY #0 tablet 12/26/11 Metoprolol Succinate [Toprol XL -] 100 mg PO DAILY 10/01/13 Furosemide 20 mg PO DAILY 05/01/17 Olmesartan Medoxomil [Benicar] 20 mg PO DAILY 05/01/17 Apixaban [Eliquis] 5 mg PO BID 02/14/19 Cyanocobalamin [Vitamin B12 -] 1,000 mcg PO DAILY 02/14/19 Family Medical History Family History: Unable to Obtain 2/2 AMS Review of Systems - Review of Systems Unable to obtain 2/2 AMS Physical Examination Vital Signs: Vital Signs Period Temp Pulse Resp BP Sys/Bacon Pulse Ox Last 24 Hr 97.7 F-100.6 F 68-77 16-20 137-179/70-92 96 Constitutional: Yes: Well Nourished, No Distress, Calm Eyes: Yes: WNL, Conjunctiva Clear, EOM Intact, PERRL HENT: Yes: WNL, Atraumatic, Normocephalic Neck: Yes: WNL, Supple, Trachea Midline Cardiovascular: Yes: Other (click) Respiratory: Yes: WNL, Regular, CTA Bilaterally Gastrointestinal: Yes: WNL, Normal Bowel Sounds, Soft, Abdomen, Obese ...Rectal Exam: Yes: WNL Renal/: Yes: WNL Breast(s): Yes: WNL Musculoskeletal: Yes: Muscle Weakness Extremities: Yes: WNL Edema: No Peripheral Pulses WNL: Yes Neurological: somnolent but arousable, moves extremities grossly, able to tell me name of hospital as well as year but not name of the president, sensory intact to tactile stimulation CBCD WBC 5.5 K/mm3 (4.0-10.0) 02/23/19 17:16 RBC 4.33 M/mm3 (4.00-5.60) 02/23/19 17:16 Hgb 12.7 GM/dL (11.7-16.9) 02/23/19 17:16 Hct 38.2 % (35.4-49) 02/23/19 17:16 MCV 88.3 fl (80-96) 02/23/19 17:16 MCHC 33.1 g/dl (32.0-35.9) 02/23/19 17:16 RDW 14.4 % (11.9-15.9) 02/23/19 17:16 Plt Count 153 K/MM3 (134-434) 02/23/19 17:16 MPV 8.1 fl (7.5-11.1) 02/23/19 17:16 CMP Sodium 135 mmol/L (136-145) L 02/23/19 17:16 Potassium 3.5 mmol/L (3.5-5.1) 02/23/19 17:16 Chloride 101 mmol/L (98-107) 02/23/19 17:16 Carbon Dioxide 28 mmol/L (21-32) 02/23/19 17:16 Anion Gap 6 MMOL/L (8-16) L 02/23/19 17:16 BUN 26.0 mg/dL (7-18) H 02/23/19 17:16 Creatinine 1.1 mg/dL (0.55-1.3) 02/23/19 17:16 Random Glucose 140 mg/dL (74-106) H 02/23/19 17:16 Calcium 8.9 mg/dL (8.5-10.1) 02/23/19 17:16 Total Bilirubin 2.4 mg/dL (0.2-1) H 02/24/19 06:07 AST 30 U/L (15-37) 02/24/19 06:07 ALT 84 U/L (13-61) H 02/24/19 06:07 Alkaline Phosphatase 389 U/L (45-117) H 02/24/19 06:07 Total Protein 6.5 g/dl (6.4-8.2) 02/24/19 06:07 Albumin 3.0 g/dl (3.4-5.0) L 02/24/19 06:07 CARDIAC ENZYMES Creatine Kinase 278 U/L (26-308) 02/15/19 05:51 Troponin I 0.05 ng/ml (0.00-0.05) 02/14/19 13:30 Plan: 83 y/o man from home with a PMhx of HTN, HLD, s/p Prosthetic Aortic Valve ( Bovine) who presented to the ED with his family for ataxia, chills, rigors, and weakness. Patient reported feeling well earlier in the day of admission but the patient's reported they were at the grandkid's house earlier where the patient had difficulty getting out of the car and was walking like "he lost all his energy." the patient's reports she later found the patient under a blanket and was shaking. The patient reported he had a rough day and felt "terrible." Denied any pain. The patient reports associated symptoms of shortness of breath. They called Dr. Azar (fixing machine operator), who told them to follow up at the ER. Denies worsening shortness of breath, chest pain, abdominal pain, nausea, vomiting. Denies cough or congestion. The patient has been in the hospital for further medical evaluation and management and I was consulted 02/24 for evaluation and management of altered mental status. I had an extensive conversation with the hospitalist nurse practitioner, Mayra, who provided background information regarding the patient who has been demonstrating confusion with spiking fevers to 102. He was somnolent her my encounter but arousable and able to to tell me that he is in the hospital and could name [facility]. He was able to tell me the year but was not able to me the month correctly or the name of the president. CT head has been completed and advised to have MRI of the brain for further evaluation. Work up for underlying infection has been otherwise negative thus far. Therefore, fever of unknown origin. I also discussed with hospitalist about having spinal tap but patient was previously pancytopenic, with counts improved, but now on Eliquis and last dose was given reportedly on Sunday, February 22. Would require fluoroscopic guided lumbar puncture, Dr. Juan to be consulted and patient's anticoagulation status may be an issue. Infectious disease Dr. Blake has been following and patient previously on broad-spectrum antibiotics but not currently. Continue infectious management and optimization, may benefit from restarting antibiotics. Maintain adequate hydration, monitor blood pressure and maintain normotensive range. MRI brain may be helpful, advised completion as soon as able.
[2019-02-24] MEDS ORDERED: POLYETHYLENE GLYCOL 3350 119 GM BTL PO SCH (10:00)
--- NOTE | 2019-02-24 11:14 | PN ---
Progress Note (short form) - Note Progress Note: Appears improved. CPAP overnight. Tolerating NC. Less SOB. No CP. Still with fever. Intake & Output 02/21/19 02/22/19 02/23/19 02/24/19 23:59 23:59 23:59 23:59 Intake Total 2480 500 1560 120 Output Total 600 600 200 Balance 1880 -100 1360 120 Weight 220 lb 4.8 oz 221 lb 4.8 oz 220 lb 12.8 oz 208 lb 9.6 oz Last Vital Signs Temp Pulse Resp BP Pulse Ox 98.6 F 77 20 173/92 H 96 02/24/19 09:00 02/24/19 09:00 02/24/19 09:00 02/24/19 09:00 02/23/19 20:51 Active Medications Acetaminophen (Ofirmev Injection -) 750 mg IVPB Q12H PRN PRN Reason: FEVER Last Admin: 02/23/19 15:44 Dose: 750 mg Amlodipine Besylate (Norvasc -) 5 mg PO DAILY [facility] Last Admin: 02/24/19 09:02 Dose: 5 mg Cyanocobalamin (Vitamin B12 -) 1,000 mcg PO DAILY [facility] Last Admin: 02/24/19 09:02 Dose: 1,000 mcg Furosemide (Lasix -) 40 mg PO BID@0600,1400 [facility] Last Admin: 02/24/19 06:15 Dose: 40 mg Lactulose (Cephulac (Oral Use)) 20 gm PO DAILY [facility] Lidocaine (Lidoderm Patch -) 1 patch TP DAILY [facility] Last Admin: 02/24/19 09:02 Dose: 1 patch Melatonin (Melatonin) 3 mg PO HS [facility] Last Admin: 02/23/19 21:17 Dose: 3 mg Methyl Salicylate (Octavio-Juarez -) 1 applic TP BID [facility] Last Admin: 02/24/19 09:08 Dose: 1 applic Metoprolol Succinate (Toprol Xl -) 25 mg PO DAILY [facility] Last Admin: 02/24/19 09:02 Dose: 25 mg Miscellaneous (Lidoderm Patch Removal) 1 each MC DAILY@2200 [facility] Last Admin: 02/23/19 21:18 Dose: Not Given Ondansetron HCl (Zofran Injection) 4 mg IVPUSH Q6H PRN PRN Reason: NAUSEA AND/OR VOMITING Last Admin: 02/23/19 09:50 Dose: 4 mg Pantoprazole Sodium (Protonix -) 40 mg PO BID [facility] Last Admin: 02/24/19 09:02 Dose: 40 mg Polyethylene Glycol (Miralax (For Daily Use) -) 17 gm PO DAILY [facility] Quetiapine Fumarate (Seroquel -) 12.5 mg PO DAILY@1999 [facility] Last Admin: 02/23/19 21:17 Dose: 12.5 mg Rosuvastatin Calcium (Crestor -) 5 mg PO HS [facility] Last Admin: 02/23/19 21:17 Dose: 5 mg Tramadol HCl (Ultram -) 50 mg PO Q8H PRN PRN Reason: PAIN LEVEL 6-10 Last Admin: 02/23/19 01:43 Dose: 50 mg Valsartan (Diovan -) 160 mg PO DAILY [facility] Last Admin: 02/24/19 09:02 Dose: 160 mg Constitutional: Yes: NAD Eyes: Yes: WNL HENT: Yes: WNL Neck: Yes: WNL Cardiovascular: Yes: Pulse Irregular, S1, S2 Respiratory: Yes: Diminished Gastrointestinal: Yes: Normal Bowel Sounds, Soft Extremities: Yes: WNL Edema: No Labs: Laboratory Results - last 24 hr 02/23/19 02/23/19 02/24/19 17:16 17:16 06:07 WBC 5.5 RBC 4.33 Hgb 12.7 Hct 38.2 MCV 88.3 MCH 29.3 MCHC 33.1 RDW 14.4 Plt Count 153 MPV 8.1 Absolute Neuts (auto) 4.4 Neutrophils % 79.8 Lymphocytes % 6.7 L Monocytes % 10.8 H Eosinophils % 2.0 Basophils % 0.7 Nucleated RBC % 0 Sodium 135 L Potassium 3.5 Chloride 101 Carbon Dioxide 28 Anion Gap 6 L BUN 26.0 H Creatinine 1.1 Est GFR (CKD-EPI)AfAm 72.07 Est GFR (CKD-EPI)NonAf 62.19 Random Glucose 140 H Calcium 8.9 Magnesium 2.1 Total Bilirubin 1.5 H 2.4 H Direct Bilirubin 1.1 H AST 36 30 ALT 93 H 84 H Alkaline Phosphatase 392 H 389 H Total Protein 5.9 L 6.5 Albumin 2.8 L 3.0 L Problem List - Problems (1) Altered mental status Code(s): R41.82 - ALTERED MENTAL STATUS, UNSPECIFIED (2) Abnormal liver enzymes Code(s): R74.8 - ABNORMAL LEVELS OF OTHER SERUM ENZYMES (3) Afib Code(s): I48.91 - UNSPECIFIED ATRIAL FIBRILLATION (4) Leukopenia Code(s): D72.819 - DECREASED WHITE BLOOD CELL COUNT, UNSPECIFIED (5) MIGUEL A (obstructive sleep apnea) Code(s): G47.33 - OBSTRUCTIVE SLEEP APNEA (ADULT) (PEDIATRIC) (6) Thrombocytopenia Code(s): D69.6 - THROMBOCYTOPENIA, UNSPECIFIED (7) Weakness Code(s): R53.1 - WEAKNESS (8) HLD (hyperlipidemia) Code(s): E78.5 - HYPERLIPIDEMIA, UNSPECIFIED (9) HTN (hypertension) Code(s): I10 - ESSENTIAL (PRIMARY) HYPERTENSION (10) S/P aortic valve replacement Code(s): Z95.2 - PRESENCE OF PROSTHETIC HEART VALVE Assessment/Plan Fever of unknown origin with altered mental status improved. JEANNIE: No Endocarditis Toxic Metabolic Encephalopathy improved Low clinical suspicion of Meningitis Sepsis Leukopenia AF on chronic AC s/p porcine valve 2008 HTN CHF MIGUEL A COPD CKD ELEVATED LFTS MEDIASTINAL ADENOPATHY PLAN: -CTS evaluation with Dr Mccloud for possible C-Med -Lasix -BD TX PRN -CPAP at night and when sleeping -Oxygen -Rate control Dr Barnes
--- NOTE | 2019-02-24 13:00 | PN ---
Progress Note, Physician History of Present Illness: confusion element exists still fevers off and on otherwise comfortable - Current Medication List Current Medications: Active Medications Acetaminophen (Ofirmev Injection -) 750 mg IVPB Q12H PRN PRN Reason: FEVER Last Admin: 02/23/19 15:44 Dose: 750 mg Amlodipine Besylate (Norvasc -) 5 mg PO DAILY [facility] Last Admin: 02/24/19 09:02 Dose: 5 mg Cyanocobalamin (Vitamin B12 -) 1,000 mcg PO DAILY [facility] Last Admin: 02/24/19 09:02 Dose: 1,000 mcg Furosemide (Lasix -) 40 mg PO BID@0600,1400 [facility] Last Admin: 02/24/19 06:15 Dose: 40 mg Lactulose (Cephulac (Oral Use)) 20 gm PO DAILY [facility] Lidocaine (Lidoderm Patch -) 1 patch TP DAILY [facility] Last Admin: 02/24/19 09:02 Dose: 1 patch Melatonin (Melatonin) 3 mg PO HS [facility] Last Admin: 02/23/19 21:17 Dose: 3 mg Methyl Salicylate (Octavio-Juarez -) 1 applic TP BID [facility] Last Admin: 02/24/19 09:08 Dose: 1 applic Metoprolol Succinate (Toprol Xl -) 25 mg PO DAILY [facility] Last Admin: 02/24/19 09:02 Dose: 25 mg Miscellaneous (Lidoderm Patch Removal) 1 each MC DAILY@2200 [facility] Last Admin: 02/23/19 21:18 Dose: Not Given Ondansetron HCl (Zofran Injection) 4 mg IVPUSH Q6H PRN PRN Reason: NAUSEA AND/OR VOMITING Last Admin: 02/23/19 09:50 Dose: 4 mg Pantoprazole Sodium (Protonix -) 40 mg PO BID [facility] Last Admin: 02/24/19 09:02 Dose: 40 mg Polyethylene Glycol (Miralax (For Daily Use) -) 17 gm PO DAILY@1800 [facility] Quetiapine Fumarate (Seroquel -) 12.5 mg PO DAILY@2000 [facility] Last Admin: 02/23/19 21:17 Dose: 12.5 mg Rosuvastatin Calcium (Crestor -) 5 mg PO HS [facility] Last Admin: 02/23/19 21:17 Dose: 5 mg Tramadol HCl (Ultram -) 50 mg PO Q8H PRN PRN Reason: PAIN LEVEL 6-10 Last Admin: 02/23/19 01:43 Dose: 50 mg Valsartan (Diovan -) 160 mg PO DAILY [facility] Last Admin: 02/24/19 09:02 Dose: 160 mg - Objective Vital Signs: Vital Signs Temperature 98.6 F 02/24/19 09:00 Pulse Rate 77 02/24/19 09:00 Respiratory Rate 20 02/24/19 09:00 Blood Pressure 173/92 H 02/24/19 09:00 O2 Sat by Pulse Oximetry (%) 96 02/23/19 20:51 Constitutional: Yes: No Distress, Calm Cardiovascular: Yes: S1, S2 Respiratory: Yes: Regular, CTA Bilaterally Gastrointestinal: Yes: Normal Bowel Sounds, Soft Musculoskeletal: Yes: WNL Extremities: Yes: WNL Neurological: Yes: Alert, Confusion Labs: CBC, BMP 02/23/19 17:16 02/23/19 17:16 INR, PTT INR 1.05 (0.83-1.09) 02/21/19 08:15 Fibrinogen 229.0 mg/dL (238-498) L 02/21/19 08:15 Assessment/Plan Problem List - Problems (1) Severe sepsis Code(s): A41.9 - SEPSIS, UNSPECIFIED ORGANISM; R65.20 - SEVERE SEPSIS WITHOUT SEPTIC SHOCK (2) MIGUEL A (obstructive sleep apnea) Code(s): G47.33 - OBSTRUCTIVE SLEEP APNEA (ADULT) (PEDIATRIC) (3) HLD (hyperlipidemia) Code(s): E78.5 - HYPERLIPIDEMIA, UNSPECIFIED (4) HTN (hypertension) Code(s): I10 - ESSENTIAL (PRIMARY) HYPERTENSION (5) S/P aortic valve replacement Code(s): Z95.2 - PRESENCE OF PROSTHETIC HEART VALVE (6) Afib Code(s): I48.91 - UNSPECIFIED ATRIAL FIBRILLATION plan continue current mgmt cpap incentive jose rest as per the team continue to monitor
[2019-02-24 13:07] LABS: CMV IgM < 30.0 AU/mL (0.0-29.9)
--- NOTE | 2019-02-24 13:07 | PN ---
Progress Note (short form) - Note Progress Note: Thoracic Surgery Attending: Fever and weight loss without obvious malignancy or infection on imaging. Does have pathologic lymph nodes but don't fit lymphoma picture. They could fit esophageal cancer model but fevers and hepatitis aren't consistent with this. Ultimately needs PET scan. Ideally biopsies should be done with FNA (EBUS for lymph nodes) or could consider EGD but up to Dr. Maier's opinion. Would defer mediastinoscopy for now bc I think too invasive for its probability of making diagnosis.
[2019-02-24 15:21] LABS: BF GLUCOSE (CSF ONLY) 67 mg/dL (40-70)
[2019-02-24 15:28] LABS: CSF APPEARANCE CLEAR; CSF COLOR COLORLESS; CSF WBC 2
[2019-02-24] MEDS: POLYETHYLENE GLYCOL 3350 119 GM BTL PO SCH (18:32)
[2019-02-24] MEDS: MELATONIN 1 MG TABLET PO SCH (21:35)
[2019-02-24] MEDS: ROSUVASTATIN CA 5 MG TABLET (FP) PO SCH (21:36)
[2019-02-24] MEDS: LIDOCAINE PATCH REMOVAL MC SCH (21:36)
[2019-02-24] MEDS: QUEtiapine FUMARATE 25 MG TABLET (FP) PO SCH (21:36)
--- NOTE | 2019-02-24 22:06 | PN.GI ---
GI Progress Note Subjective: GI NOte: Johnson has no GI complaints today but he is confused tonight. Had LP earlier which has a negative gram stain but elevated protein. Had a BM yesterday. Remains on lactulose. LFTs are lower but have not normalized. Periportal and mediastinal lymphadenopathy is noted on the CT. If lymphoma is a concern a liver biopsy now that Eliquis has been held may be the best next step. I had mentioned this to the family last week and his son was reluctant. - Objective Vital Signs: Vital Signs Temperature 98.7 F 02/24/19 21:20 Pulse Rate 88 02/24/19 21:20 Respiratory Rate 20 02/24/19 21:20 Blood Pressure 149/86 02/24/19 21:20 O2 Sat by Pulse Oximetry (%) 100 02/24/19 20:31 Microbiology 02/24/19 12:00 Cerebral Spinal Fluid - Lumbar Puncture Streptococcus pneumoniae Antigen (M - Final 02/24/19 12:00 Cerebral Spinal Fluid - Lumbar Puncture Gram Stain - Final Laboratory Tests 02/24/19 14:53 CSF Total Protein 92 H Laboratory Tests 02/19/19 02/19/19 02/22/19 00:50 00:50 06:00 C-Reactive Protein 0.8 H Tumor Marker AFP JYOTI Screen Negative Hep Bs Antigen Negative Hep Bs Antibody Non reactive Hep B Core Total Ab Negative Hep C Ab Diagnostic 0.2 Leptospira IgM Antibody 02/22/19 06:00 C-Reactive Protein Tumor Marker AFP 1.9 JYOTI Screen Hep Bs Antigen Hep Bs Antibody Hep B Core Total Ab Hep C Ab Diagnostic Leptospira IgM Antibody Pending Constitutional: No Distress ...Auscultate: Yes: Normoactive Bowel Sounds ...Palpate: Yes: Soft, Other (nontender) Labs: CBC, BMP 02/23/19 17:16 02/23/19 17:16 INR, PTT INR 1.05 (0.83-1.09) 02/21/19 08:15 Fibrinogen 229.0 mg/dL (238-498) L 02/21/19 08:15 Assessment/Plan Assessment: - Fever and abnormal LFTs could reflect a lymphoma given the other lymphadenopathy. I would have expected an enlarged spleen as well however. Normal AFP and lack of a mass on CT ( no contrast however) argues against a hepatoma. If his LFTs fail to normalize he may need a liver biopsy. Given his GB wall thickening I will order a Hida scan. - Personal h/o a colon adenoma and diverticulosis - FH stomach cancer Plan: -- Hida scan -- Will discuss liver biopsy with the family Problem List - Problems (1) Lymphadenopathy Code(s): R59.1 - GENERALIZED ENLARGED LYMPH NODES (2) Abnormal liver enzymes Code(s): R74.8 - ABNORMAL LEVELS OF OTHER SERUM ENZYMES (3) Gallstone Code(s): K80.20 - CALCULUS OF GALLBLADDER W/O CHOLECYSTITIS W/O OBSTRUCTION (4) S/P aortic valve replacement Code(s): Z95.2 - PRESENCE OF PROSTHETIC HEART VALVE (5) Colon adenoma Code(s): D12.6 - BENIGN NEOPLASM OF COLON, UNSPECIFIED (6) Diverticulosis Code(s): K57.90 - DVRTCLOS OF INTEST, PART UNSP, W/O PERF OR ABSCESS W/O BLEED (7) History of prostate cancer Code(s): Z85.46 - PERSONAL HISTORY OF MALIGNANT NEOPLASM OF PROSTATE (8) Afib Code(s): I48.91 - UNSPECIFIED ATRIAL FIBRILLATION (9) Altered mental status Code(s): R41.82 - ALTERED MENTAL STATUS, UNSPECIFIED (10) Leukopenia Code(s): D72.819 - DECREASED WHITE BLOOD CELL COUNT, UNSPECIFIED (11) Severe sepsis Code(s): A41.9 - SEPSIS, UNSPECIFIED ORGANISM; R65.20 - SEVERE SEPSIS WITHOUT SEPTIC SHOCK (12) Thrombocytopenia Code(s): D69.6 - THROMBOCYTOPENIA, UNSPECIFIED (13) HLD (hyperlipidemia) Code(s): E78.5 - HYPERLIPIDEMIA, UNSPECIFIED (14) HTN (hypertension) Code(s): I10 - ESSENTIAL (PRIMARY) HYPERTENSION (15) Family history of gastric cancer Code(s): Z80.0 - FAMILY HISTORY OF MALIGNANT NEOPLASM OF DIGESTIVE ORGANS
[2019-02-24] MEDS: traMADol HCL 50 MG TABLET PO PRN (23:09)
[2019-02-25] MEDS: FUROSEMIDE 40 MG TABLET (FP) PO SCH ×2 (05:42→15:38)
[2019-02-25 07:07] LABS: ALPHA 2 MACROGLOBULINS,QN 184 mg/dL (110-276); ALT(SGPT)P5P 115 IU/L (0-55); CHOLESTEROL TOTAL 89 mg/dL (100-199); FIBROSIS SCORE 0.91 (0.00-0.21); GLUCOSE SERUM 146 mg/dL (65-99); HEIGHT 67 in (.); WEIGHT- 208 LBS (.)
[2019-02-25 07:59] LABS: BASO % 0.2 % (0-2.0); EOS % 1.2 % (0-4.5); HEMATOCRIT 36.4 % (35.4-49); HEMOGLOBIN 12.3 GM/dL (11.7-16.9); LYMPH % 7.8 % (8-40); MCH 29.3 pg (25.7-33.7); MCHC 33.9 g/dl (32.0-35.9); MEAN CELL VOLUME 86.4 fl (80-96); MEAN PLT VOLUME 8.1 fl (7.5-11.1); MONO % 9.3 % (3.8-10.2); NEUT % 81.5 % (42.8-82.8); PLATELET COUNT 178 K/MM3 (134-434); RBC 4.21 M/mm3 (4.00-5.60); RDW 14.1 % (11.9-15.9); WHITE BLOOD COUNT 6.1 K/mm3 (4.0-10.0)
[2019-02-25 08:25] LABS: ALBUMIN 2.7 g/dl (3.4-5.0); BILIRUBIN,DIRECT 1.1 mg/dL (0.0-0.2); BLOOD UREA NITROGEN 21.1 mg/dL (7-18); CALCIUM 8.8 mg/dL (8.5-10.1); MAGNESIUM 2.2 mg/dL (1.8-2.4); URIC ACID 4.3 mg/dL (2.6-7.2)
[2019-02-25] MEDS ORDERED: POTASSIUM CHLORIDE TABS 20 MEQ TABLET.ER (FP) PO ONE (08:37)
--- NOTE | 2019-02-25 08:37 | PN ---
Progress Note (short form) - Note Progress Note: Neurology - Admission Chief Complaint: Chills, Weakness History of Present Illness: This is a 83 y/o man from home with a PMhx of HTN, HLD, s/p Prosthetic Aortic Valve (Bovine) who presented to the ED with his family for ataxia, chills, rigors, and weakness. Patient reported feeling well earlier in the day of admission but the patient's reported they were at the grandkid's house earlier where the patient had difficulty getting out of the car and was walking like "he lost all his energy." the patient's reports she later found the patient under a blanket and was shaking. The patient reported he had a rough day and felt "terrible." Denied any pain. The patient reports associated symptoms of shortness of breath. They called Dr. Azar (primer supervisor), who told them to follow up at the ER. Denies worsening shortness of breath, chest pain, abdominal pain, nausea, vomiting. Denies cough or congestion. The patient has been in the hospital for further medical evaluation and management and I was consulted 02/24 for evaluation and management of altered mental status. I had an extensive conversation with the hospitalist nurse practitioner, Mayra , who provided background information regarding the patient who has been demonstrating confusion with spiking fevers to 102. He was again somnolent her my encounter but arousable. CT head has been completed and advised to have MRI of the brain for further evaluation. Work up for underlying infection has been otherwise negative thus far. Therefore, fever of unknown origin. Lumbar puncture has been completed and I reviewed CSF results which demonstrated 2Wbc and increased protein. Infectious disease Dr. Blake has been following and patient previously on broad-spectrum antibiotics but not currently. Active Medications Acetaminophen (Ofirmev Injection -) 750 mg IVPB Q12H PRN PRN Reason: FEVER Last Admin: 02/23/19 15:44 Dose: 750 mg Amlodipine Besylate (Norvasc -) 5 mg PO DAILY [facility] Last Admin: 02/24/19 09:02 Dose: 5 mg Cyanocobalamin (Vitamin B12 -) 1,000 mcg PO DAILY [facility] Last Admin: 02/24/19 09:02 Dose: 1,000 mcg Furosemide (Lasix -) 40 mg PO BID@0600,1400 [facility] Last Admin: 02/25/19 05:42 Dose: 40 mg Lactulose (Cephulac (Oral Use)) 20 gm PO DAILY [facility] Lidocaine (Lidoderm Patch -) 1 patch TP DAILY [facility] Last Admin: 02/24/19 09:02 Dose: 1 patch Melatonin (Melatonin) 3 mg PO HS [facility] Last Admin: 02/24/19 21:35 Dose: 3 mg Methyl Salicylate (Octavio-Juarez -) 1 applic TP BID [facility] Last Admin: 02/24/19 21:35 Dose: 1 applic Metoprolol Succinate (Toprol Xl -) 25 mg PO DAILY [facility] Last Admin: 02/24/19 09:02 Dose: 25 mg Miscellaneous (Lidoderm Patch Removal) 1 each MC DAILY@2200 [facility] Last Admin: 02/24/19 21:36 Dose: 1 each Ondansetron HCl (Zofran Injection) 4 mg IVPUSH Q6H PRN PRN Reason: NAUSEA AND/OR VOMITING Last Admin: 02/23/19 09:50 Dose: 4 mg Pantoprazole Sodium (Protonix -) 40 mg PO BID [facility] Last Admin: 02/24/19 21:35 Dose: 40 mg Polyethylene Glycol (Miralax (For Daily Use) -) 17 gm PO DAILY@1800 [facility] Last Admin: 02/24/19 18:32 Dose: 17 grams Quetiapine Fumarate (Seroquel -) 12.5 mg PO DAILY@2000 [facility] Last Admin: 02/24/19 21:36 Dose: 12.5 mg Rosuvastatin Calcium (Crestor -) 5 mg PO HS [facility] Last Admin: 02/24/19 21:36 Dose: 5 mg Tramadol HCl (Ultram -) 50 mg PO Q8H PRN PRN Reason: PAIN LEVEL 6-10 Last Admin: 02/24/19 23:09 Dose: 50 mg Valsartan (Diovan -) 160 mg PO DAILY [facility] Last Admin: 02/24/19 09:02 Dose: 160 mg Physical Examination Vital Signs: Vital Signs Period Temp Pulse Resp BP Sys/Bacon Pulse Ox Last 24 Hr 97 F-98.7 F 63-88 19-20 116-186/56-92 96-100 Constitutional: Yes: Well Nourished, No Distress, Calm Eyes: Yes: WNL, Conjunctiva Clear, EOM Intact, PERRL HENT: Yes: WNL, Atraumatic, Normocephalic Neck: Yes: WNL, Supple, Trachea Midline Cardiovascular: Yes: Other (click) Respiratory: Yes: WNL, Regular, CTA Bilaterally Gastrointestinal: Yes: WNL, Normal Bowel Sounds, Soft, Abdomen, Obese ...Rectal Exam: Yes: WNL Renal/: Yes: WNL Breast(s): Yes: WNL Musculoskeletal: Yes: Muscle Weakness Extremities: Yes: WNL Edema: No Peripheral Pulses WNL: Yes Neurological: somnolent but arousable, moves extremities grossly, able to tell me name of hospital as well as year but not name of the president, sensory intact to tactile stimulation CBCD WBC 6.1 K/mm3 (4.0-10.0) 02/25/19 06:55 RBC 4.21 M/mm3 (4.00-5.60) 02/25/19 06:55 Hgb 12.3 GM/dL (11.7-16.9) 02/25/19 06:55 Hct 36.4 % (35.4-49) 02/25/19 06:55 MCV 86.4 fl (80-96) 02/25/19 06:55 MCHC 33.9 g/dl (32.0-35.9) 02/25/19 06:55 RDW 14.1 % (11.9-15.9) 02/25/19 06:55 Plt Count 178 K/MM3 (134-434) 02/25/19 06:55 MPV 8.1 fl (7.5-11.1) 02/25/19 06:55 CMP Sodium 136 mmol/L (136-145) 02/25/19 06:55 Potassium 3.0 mmol/L (3.5-5.1) L 02/25/19 06:55 Chloride 98 mmol/L (98-107) 02/25/19 06:55 Carbon Dioxide 31 mmol/L (21-32) 02/25/19 06:55 Anion Gap 7 MMOL/L (8-16) L 02/25/19 06:55 BUN 21.1 mg/dL (7-18) H 02/25/19 06:55 Creatinine 1.0 mg/dL (0.55-1.3) 02/25/19 06:55 Glucose 146 mg/dL (65-99) H 02/22/19 06:00 Random Glucose 111 mg/dL (74-106) H 02/25/19 06:55 Calcium 8.8 mg/dL (8.5-10.1) 02/25/19 06:55 Total Bilirubin 2.0 mg/dL (0.2-1) H 02/25/19 06:55 AST 23 U/L (15-37) 02/25/19 06:55 ALT 59 U/L (13-61) 02/25/19 06:55 Alkaline Phosphatase 327 U/L (45-117) H 02/25/19 06:55 Total Protein 6.0 g/dl (6.4-8.2) L 02/25/19 06:55 Albumin 2.7 g/dl (3.4-5.0) L 02/25/19 06:55 CARDIAC ENZYMES Creatine Kinase 278 U/L (26-308) 02/15/19 05:51 Troponin I 0.05 ng/ml (0.00-0.05) 02/14/19 13:30 Plan: 83 y/o man from home with a PMhx of HTN, HLD, s/p Prosthetic Aortic Valve ( Bovine) who presented to the ED with his family for ataxia, chills, rigors, and weakness. Patient reported feeling well earlier in the day of admission but the patient's reported they were at the grandkid's house earlier where the patient had difficulty getting out of the car and was walking like "he lost all his energy." the patient's reports she later found the patient under a blanket and was shaking. The patient reported he had a rough day and felt "terrible." Denied any pain. The patient reports associated symptoms of shortness of breath. They called Dr. Azar (primer supervisor), who told them to follow up at the ER. Denies worsening shortness of breath, chest pain, abdominal pain, nausea, vomiting. Denies cough or congestion. The patient has been in the hospital for further medical evaluation and management and I was consulted 02/24 for evaluation and management of altered mental status. I had an extensive conversation with the hospitalist nurse practitioner, Mayra, who provided background information regarding the patient who has been demonstrating confusion with spiking fevers to 102. He was again somnolent her my encounter but arousable. CT head has been completed and advised to have MRI of the brain for further evaluation. Work up for underlying infection has been otherwise negative thus far. Therefore, fever of unknown origin. Lumbar puncture has been completed and I reviewed CSF results which demonstrated 2Wbc and increased protein, normal glucose. Other results pending. Infectious disease Dr. Blaek has been following and patient previously on broad-spectrum antibiotics but not currently. Follow up infectious management and optimization. Maintain adequate hydration, monitor blood pressure and maintain normotensive range. MRI brain should be completed as soon as able, changed order from contrast to noncontrast.
[2019-02-25] MEDS: metoPROLOL SUCCINATE 25 MG TAB.SR.24H (FP) PO SCH (09:10)
[2019-02-25] MEDS: amLODIPine BESYLATE 5 MG TABLET (FP) PO SCH (09:10)
[2019-02-25] MEDS: LIDOCAINE 5% TOPICAL PATCH TP SCH (09:10)
[2019-02-25] MEDS: VALSARTAN 160 MG TABLET (UD) PO SCH (09:10)
[2019-02-25] MEDS: METHYL SALICYLATE/MENTHOL OINT 30 GM TUBE TP SCH ×2 (09:17→21:50)
--- NOTE | 2019-02-25 09:18 | PN ---
Physical Exam: SUBJECTIVE: Patient seen and examined at the bedside. sitting in chair. denies pain/denies discomfort. answers some questions appropriately. OBJECTIVE: falls asleep easily and quickly while in chair. will order abg hida and brain mri ordered replace K with 2 K riders and recheck levels will order pre and post abg: respiratory acidosis and metabolic alkalosis with hypoxemia. pt to have a pre and post prior to d/c Spoke to family: and both sons. Patient has been lethargic for a few days and mentation has been waxing and waning. today, patient was noted to be sleepier, and lethargic on my exam. ABG ordered which shows resp acidosis with hypoxemia (oxygen 62.9 on abg). Family states pt is non compliant with cpap and they feel the confusion is worse secondary to hospital stay as he refuses to wear oxygen. They feel he will do better at home. they want to take him home today but are agreeing to have him stay today. further, will also stop all sedating medications (seroquel and ultram) since this may be contributing to mental status changes. Patient had a hida scan today and will he brain mri done prior to d/c. Patient is an 83 year old male with a significant past medical history of hypertension, hyperlipidemia, prosthetic aortic valve replacement (bovine). afib (on eliquis). He presented to the [facility] ED with ataxia, chills, rigors and weakness. Patient was worked up for persistent fevers during hospital stay, no def source found. However, malignancy will need to be excluded and may need liver biopsy if patient's family agrees. Patient now spiking fevers of 102F. discussed with ID. will panculture and monitor off antibiotics per dr hurst. Vital Signs Period Temp Pulse Resp BP Sys/Bacon Pulse Ox Last 24 Hr 97 F-98.7 F 63-88 19-20 116-186/56-86 100 GENERAL: The patient is awake but falls back to sleep easily. on 2 liters nc. will order pre and post as well as check abg. HEAD: Normal with no signs of trauma. EYES: PERRL, extraocular movements intact, sclera anicteric, conjunctiva clear. No ptosis. ENT: Ears normal, nares patent, oropharynx clear without exudates, moist mucous membranes. NECK: Trachea midline, full range of motion, supple. LUNGS: Breath sounds equal, clear to auscultation bilaterally HEART:irregular 60s ABDOMEN: Soft, nontender, nondistended, normoactive bowel sounds, no guarding, no rebound, no hepatosplenomegaly, no masses. EXTREMITIES: 2+ pulses, warm, well-perfused, no edema. NEUROLOGICAL: Normal speech, gait not observed. PSYCH: Normal mood, normal affect. SKIN: Warm, dry, normal turgor, no rashes or lesions noted Laboratory Results - last 24 hr 02/22/19 02/22/19 02/24/19 06:00 06:00 12:40 WBC RBC Hgb Hct MCV MCH MCHC RDW Plt Count MPV Absolute Neuts (auto) Neutrophils % Lymphocytes % Monocytes % Eosinophils % Basophils % Nucleated RBC % Haptoglobin 118 Sodium Potassium Chloride Carbon Dioxide Anion Gap BUN Creatinine Est GFR (CKD-EPI)AfAm Est GFR (CKD-EPI)NonAf Glucose 146 H Random Glucose Uric Acid Calcium Magnesium Total Bilirubin 1.4 H Direct Bilirubin GGT 324 H AST 70 H ALT 115 H Alkaline Phosphatase Liver Fibrosis Score 0.91 H Liver Fibrosis Stage Liver Steatosis Score 0.96 H Liver Steatosis Grade C-Reactive Protein Total Protein Albumin Saoyo-2-Qimjpfevpyruk 184 Triglycerides 120 Cholesterol 89 L Apolipoprotein A-1 64 L Patient Height (cm) 67 Patient Weight (kg) 208 Fluid Glucose Cancelled Body Fluid LDH Source Cancelled CSF Appearance CSF Color CSF WBC CSF RBC CSF Neutrophils CSF Lymphocytes CSF Eosinophils CSF Basophils CSF Macrophages CSF Plasma Cells CSF Diff Comment CSF Comment CSF Glucose CSF Total Protein CSF IgG Interpretation CMV IgG Ab < 0.60 CMV IgM Ab < 30.0 02/24/19 02/25/19 02/25/19 14:53 06:55 06:55 WBC 6.1 RBC 4.21 Hgb 12.3 Hct 36.4 MCV 86.4 MCH 29.3 MCHC 33.9 RDW 14.1 Plt Count 178 MPV 8.1 Absolute Neuts (auto) 5.0 Neutrophils % 81.5 Lymphocytes % 7.8 L Monocytes % 9.3 Eosinophils % 1.2 Basophils % 0.2 Nucleated RBC % 0 Haptoglobin Sodium 136 Potassium 3.0 L Chloride 98 Carbon Dioxide 31 Anion Gap 7 L BUN 21.1 H Creatinine 1.0 Est GFR (CKD-EPI)AfAm 80.88 Est GFR (CKD-EPI)NonAf 69.78 Glucose Random Glucose 111 H Uric Acid 4.3 Calcium 8.8 Magnesium 2.2 Total Bilirubin 2.0 H Direct Bilirubin 1.1 H GGT AST 23 ALT 59 Alkaline Phosphatase 327 H Liver Fibrosis Score Liver Fibrosis Stage Liver Steatosis Score Liver Steatosis Grade C-Reactive Protein Total Protein 6.0 L Albumin 2.7 L Ygfio-[id number] Triglycerides Cholesterol Apolipoprotein A-1 Patient Height (cm) Patient Weight (kg) Fluid Glucose Body Fluid LDH Source CSF Appearance Clear CSF Color Colorless CSF WBC 2 CSF RBC 3 CSF Neutrophils No Result Required. CSF Lymphocytes No Result Required. CSF Eosinophils No Result Required. CSF Basophils No Result Required. CSF Macrophages No Result Required. CSF Plasma Cells No Result Required. CSF Diff Comment No Result Required. CSF Comment No Result Required. CSF Glucose 67 CSF Total Protein 92 H CSF IgG Interpretation CMV IgG Ab CMV IgM Ab 02/25/19 06:55 WBC RBC Hgb Hct MCV MCH MCHC RDW Plt Count MPV Absolute Neuts (auto) Neutrophils % Lymphocytes % Monocytes % Eosinophils % Basophils % Nucleated RBC % Haptoglobin Sodium Potassium Chloride Carbon Dioxide Anion Gap BUN Creatinine Est GFR (CKD-EPI)AfAm Est GFR (CKD-EPI)NonAf Glucose Random Glucose Uric Acid Calcium Magnesium Total Bilirubin Direct Bilirubin GGT AST ALT Alkaline Phosphatase Liver Fibrosis Score Liver Fibrosis Stage Liver Steatosis Score Liver Steatosis Grade C-Reactive Protein 3.3 H Total Protein Albumin Bkont-4-Nvddmnewbwjuz Triglycerides Cholesterol Apolipoprotein A-1 Patient Height (cm) Patient Weight (kg) Fluid Glucose Body Fluid LDH Source CSF Appearance CSF Color CSF WBC CSF RBC CSF Neutrophils CSF Lymphocytes CSF Eosinophils CSF Basophils CSF Macrophages CSF Plasma Cells CSF Diff Comment CSF Comment CSF Glucose CSF Total Protein CSF IgG Interpretation CMV IgG Ab CMV IgM Ab Active Medications Generic Name Dose Route Start Last Admin Trade Name Freq PRN Reason Stop Dose Admin Acetaminophen 750 mg 02/22/19 17:07 02/23/19 15:44 Ofirmev Injection - IVPB 750 mg Q12H PRN Administration FEVER Amlodipine Besylate 5 mg 02/18/19 10:00 02/24/19 09:02 Norvasc - PO 5 mg DAILY [facility] Administration Cyanocobalamin 1,000 mcg 02/18/19 10:00 02/24/19 09:02 Vitamin B12 - PO 1,000 mcg DAILY [facility] Administration Furosemide 40 mg 02/23/19 06:00 02/25/19 05:42 Lasix - PO 40 mg BID@0600,1400 [facility] Administration Potassium Chloride 10 meq in 100 mls @ 100 mls/hr 02/25/19 09:15 Potassium Chloride 10 Meq Premix Ivpb - IVPB 02/25/19 11:14 Q60M [facility] Lactulose 20 gm 02/25/19 10:00 Cephulac (Oral Use) PO DAILY [facility] Lidocaine 1 patch 02/20/19 14:00 02/24/19 09:02 Lidoderm Patch - TP 1 patch DAILY [facility] Administration Melatonin 3 mg 02/20/19 22:00 02/24/19 21:35 Melatonin PO 3 mg HS [facility] Administration Methyl Salicylate 1 applic 02/20/19 10:00 02/24/19 21:35 Octavio-Juarez - TP 1 applic BID [facility] Administration Metoprolol Succinate 25 mg 02/18/19 10:00 02/24/19 09:02 Toprol Xl - PO 25 mg DAILY [facility] Administration Miscellaneous 1 each 02/20/19 22:00 02/24/19 21:36 Lidoderm Patch Removal MC 1 each DAILY@2200 [facility] Administration Ondansetron HCl 4 mg 02/20/19 17:27 02/23/19 09:50 Zofran Injection IVPUSH 4 mg Q6H PRN Administration NAUSEA AND/OR VOMITING Pantoprazole Sodium 40 mg 02/18/19 22:00 02/24/19 21:35 Protonix - PO 40 mg BID [facility] Administration Polyethylene Glycol 17 gm 02/24/19 18:00 02/24/19 18:32 Miralax (For Daily Use) - PO 17 grams DAILY@1800 [facility] Administration Quetiapine Fumarate 12.5 mg 02/22/19 20:00 02/24/19 21:36 Seroquel - PO 12.5 mg DAILY@2000 [facility] Administration Rosuvastatin Calcium 5 mg 02/17/19 22:00 02/24/19 21:36 Crestor - PO 5 mg HS [facility] Administration Tramadol HCl 50 mg 02/21/19 09:48 02/24/19 23:09 Ultram - PO 50 mg Q8H PRN Administration PAIN LEVEL 6-10 Valsartan 160 mg 02/18/19 10:00 02/24/19 09:02 Diovan - PO 160 mg DAILY [facility] Administration ASSESSMENT/PLAN: Problem List - Problems (1) Fever of unknown origin Assessment/Plan: spiked to 102 today, re cultured discussed with ID and recommended to hold off on initiation of antibiotics at this time until source is confirmed. monitor fever curve, vitals signs Code(s): R50.9 - FEVER, UNSPECIFIED (2) Severe sepsis Assessment/Plan: sepsis resolved, however, again with fevers of 102 fevers of unknown origin may need liver biopsy to rule out lymphom discussed with ID, no further antibiotics at this time Code(s): A41.9 - SEPSIS, UNSPECIFIED ORGANISM; R65.20 - SEVERE SEPSIS WITHOUT SEPTIC SHOCK (3) MIGUEL A (obstructive sleep apnea) Assessment/Plan: take off cpap and replaced with bipap for low oxygen levels on abg overnight. Code(s): G47.33 - OBSTRUCTIVE SLEEP APNEA (ADULT) (PEDIATRIC) (4) HLD (hyperlipidemia) Assessment/Plan: continue home meds Code(s): E78.5 - HYPERLIPIDEMIA, UNSPECIFIED (5) HTN (hypertension) Assessment/Plan: continue cardiac meds Code(s): I10 - ESSENTIAL (PRIMARY) HYPERTENSION (6) S/P aortic valve replacement Assessment/Plan: follows with inspector casing, Dr. Azar Code(s): Z95.2 - PRESENCE OF PROSTHETIC HEART VALVE (7) Afib Assessment/Plan: Rate controlled c/w toprol Eliquis held for possible invasive testing-last dose 02/22 @ 11am c/w tele monitoring Code(s): I48.91 - UNSPECIFIED ATRIAL FIBRILLATION (8) Abnormal liver enzymes Assessment/Plan: lfts within normal limits US with hepatomegaly-fatty liver vs hepatocellular US without mass avoid hepatotoxic agents MRCP revealing no CBD stones, GB stone but no cholecystitis. for hida scan, pending read CT A/P:Thickening of gallbladder with debridement, questionable cyctitis. Right rectus sheath hematoma [id number] be the palpable lesion that was felt earlier will determine if biopsy will be done Code(s): R74.8 - ABNORMAL LEVELS OF OTHER SERUM ENZYMES (9) Altered mental status Assessment/Plan: confusion persists. abg shows respiratory acidosis with hypoxemia. stop all sedating agents such as ultram and seroquel for brain mri today neurology following Code(s): R41.82 - ALTERED MENTAL STATUS, UNSPECIFIED (10) Leukopenia Assessment/Plan: resolved Code(s): D72.819 - DECREASED WHITE BLOOD CELL COUNT, UNSPECIFIED (11) Lymphadenopathy Assessment/Plan: outpatient follow up with Dr. Mccloud Code(s): R59.1 - GENERALIZED ENLARGED LYMPH NODES (12) Mediastinal lymphadenopathy Code(s): R59.0 - LOCALIZED ENLARGED LYMPH NODES (13) Thrombocytopenia Assessment/Plan: resolved Code(s): D69.6 - THROMBOCYTOPENIA, UNSPECIFIED (14) Toxic metabolic encephalopathy Assessment/Plan: continues to have altered mentation, completed antibiotics per ID. monitor mental status brain mri negative Code(s): G92 - TOXIC ENCEPHALOPATHY (15) Prophylactic measure Assessment/Plan: fen tolerating po monitor electrolyles low salt diet as tolerated on eliquis 5 bid-on hold for possible invasive procedure, if no procedure planned, will restart full code Code(s): Z29.9 - ENCOUNTER FOR PROPHYLACTIC MEASURES, UNSPECIFIED Visit type - Emergency Visit Emergency Visit: Yes ED Registration Date: 02/14/19 Care time: The patient presented to the Emergency Department on the above date and was hospitalized for further evaluation of their emergent condition. - New Patient This patient is new to me today: No - Critical Care Critical Care patient: No - Discharge Referral Referred to [facility] Med [facility].C.: No
--- NOTE | 2019-02-25 12:19 | PN ---
Progress Note, Physician - Current Medication List Current Medications: Active Medications Acetaminophen (Ofirmev Injection -) 750 mg IVPB Q12H PRN PRN Reason: FEVER Last Admin: 02/23/19 15:44 Dose: 750 mg Amlodipine Besylate (Norvasc -) 5 mg PO DAILY [facility] Last Admin: 02/25/19 09:10 Dose: 5 mg Cyanocobalamin (Vitamin B12 -) 1,000 mcg PO DAILY [facility] Last Admin: 02/24/19 09:02 Dose: 1,000 mcg Furosemide (Lasix -) 40 mg PO BID@0600,1400 [facility] Last Admin: 02/25/19 05:42 Dose: 40 mg Lactulose (Cephulac (Oral Use)) 20 gm PO DAILY [facility] Lidocaine (Lidoderm Patch -) 1 patch TP DAILY [facility] Last Admin: 02/25/19 09:10 Dose: 1 patch Melatonin (Melatonin) 3 mg PO HS [facility] Last Admin: 02/24/19 21:35 Dose: 3 mg Methyl Salicylate (Octavio-Juarez -) 1 applic TP BID [facility] Last Admin: 02/25/19 09:17 Dose: 1 applic Metoprolol Succinate (Toprol Xl -) 25 mg PO DAILY [facility] Last Admin: 02/25/19 09:10 Dose: 25 mg Miscellaneous (Lidoderm Patch Removal) 1 each MC DAILY@2200 [facility] Last Admin: 02/24/19 21:36 Dose: 1 each Ondansetron HCl (Zofran Injection) 4 mg IVPUSH Q6H PRN PRN Reason: NAUSEA AND/OR VOMITING Last Admin: 02/23/19 09:50 Dose: 4 mg Pantoprazole Sodium (Protonix -) 40 mg PO BID [facility] Last Admin: 02/24/19 21:35 Dose: 40 mg Polyethylene Glycol (Miralax (For Daily Use) -) 17 gm PO DAILY@1800 [facility] Last Admin: 02/24/19 18:32 Dose: 17 grams Quetiapine Fumarate (Seroquel -) 12.5 mg PO DAILY@2000 [facility] Last Admin: 02/24/19 21:36 Dose: 12.5 mg Rosuvastatin Calcium (Crestor -) 5 mg PO HS [facility] Last Admin: 02/24/19 21:36 Dose: 5 mg Tramadol HCl (Ultram -) 50 mg PO Q8H PRN PRN Reason: PAIN LEVEL 6-10 Last Admin: 02/24/19 23:09 Dose: 50 mg Valsartan (Diovan -) 160 mg PO DAILY [facility] Last Admin: 02/25/19 09:10 Dose: 160 mg - Objective Vital Signs: Vital Signs Temperature 98.7 F 02/25/19 09:09 Pulse Rate 68 02/25/19 09:09 Respiratory Rate 19 02/25/19 09:09 Blood Pressure 144/73 02/25/19 09:09 O2 Sat by Pulse Oximetry (%) 98 02/25/19 09:00 Labs: CBC, BMP 02/25/19 06:55 02/25/19 06:55 INR, PTT INR 1.05 (0.83-1.09) 02/21/19 08:15 Fibrinogen 229.0 mg/dL (238-498) L 02/21/19 08:15 Problem List - Problems (1) Altered mental status Code(s): R41.82 - ALTERED MENTAL STATUS, UNSPECIFIED (2) Abnormal liver enzymes Code(s): R74.8 - ABNORMAL LEVELS OF OTHER SERUM ENZYMES (3) Afib Code(s): I48.91 - UNSPECIFIED ATRIAL FIBRILLATION (4) Leukopenia Code(s): D72.819 - DECREASED WHITE BLOOD CELL COUNT, UNSPECIFIED (5) MIGUEL A (obstructive sleep apnea) Code(s): G47.33 - OBSTRUCTIVE SLEEP APNEA (ADULT) (PEDIATRIC) (6) Thrombocytopenia Code(s): D69.6 - THROMBOCYTOPENIA, UNSPECIFIED (7) Weakness Code(s): R53.1 - WEAKNESS (8) HLD (hyperlipidemia) Code(s): E78.5 - HYPERLIPIDEMIA, UNSPECIFIED (9) HTN (hypertension) Code(s): I10 - ESSENTIAL (PRIMARY) HYPERTENSION (10) S/P aortic valve replacement Code(s): Z95.2 - PRESENCE OF PROSTHETIC HEART VALVE Assessment/Plan ASSESSMENT: Fever of unknown origin with altered mental status improved. JEANNIE NO ENDOCARDITIS Toxic Metabolic Encephalopathy improved Low clinical suspicion of Meningitis Sepsis Leukopenia AF on chronic AC s/p porcine valve 2008 HTN CHF MIGUEL A COPD CKD ELEVATED LFTS MEDIASTINAL ADENOPATHY PLAN: -Lasix -BD TX PRN -CPAP at night and when sleeping -Oxygen -Rate control -Monitor LFTS,cbc - F/U CHEST CT outpatient DR OROZCO
--- NOTE | 2019-02-25 12:38 | PN ---
Progress Note, Physician History of Present Illness: has remained afebrile still very confused all tests remain negative so far family in room d/w the family in great detail being worked up from neurology point - Current Medication List Current Medications: Active Medications Acetaminophen (Ofirmev Injection -) 750 mg IVPB Q12H PRN PRN Reason: FEVER Last Admin: 02/23/19 15:44 Dose: 750 mg Amlodipine Besylate (Norvasc -) 5 mg PO DAILY [facility] Last Admin: 02/25/19 09:10 Dose: 5 mg Cyanocobalamin (Vitamin B12 -) 1,000 mcg PO DAILY [facility] Last Admin: 02/24/19 09:02 Dose: 1,000 mcg Furosemide (Lasix -) 40 mg PO BID@0600,1400 [facility] Last Admin: 02/25/19 05:42 Dose: 40 mg Lactulose (Cephulac (Oral Use)) 20 gm PO DAILY [facility] Lidocaine (Lidoderm Patch -) 1 patch TP DAILY [facility] Last Admin: 02/25/19 09:10 Dose: 1 patch Melatonin (Melatonin) 3 mg PO HS [facility] Last Admin: 02/24/19 21:35 Dose: 3 mg Methyl Salicylate (Octavio-Juarez -) 1 applic TP BID [facility] Last Admin: 02/25/19 09:17 Dose: 1 applic Metoprolol Succinate (Toprol Xl -) 25 mg PO DAILY [facility] Last Admin: 02/25/19 09:10 Dose: 25 mg Miscellaneous (Lidoderm Patch Removal) 1 each MC DAILY@2200 [facility] Last Admin: 02/24/19 21:36 Dose: 1 each Ondansetron HCl (Zofran Injection) 4 mg IVPUSH Q6H PRN PRN Reason: NAUSEA AND/OR VOMITING Last Admin: 02/23/19 09:50 Dose: 4 mg Pantoprazole Sodium (Protonix -) 40 mg PO BID [facility] Last Admin: 02/24/19 21:35 Dose: 40 mg Polyethylene Glycol (Miralax (For Daily Use) -) 17 gm PO DAILY@1800 [facility] Last Admin: 02/24/19 18:32 Dose: 17 grams Quetiapine Fumarate (Seroquel -) 12.5 mg PO DAILY@2000 [facility] Last Admin: 02/24/19 21:36 Dose: 12.5 mg Rosuvastatin Calcium (Crestor -) 5 mg PO HS [facility] Last Admin: 02/24/19 21:36 Dose: 5 mg Tramadol HCl (Ultram -) 50 mg PO Q8H PRN PRN Reason: PAIN LEVEL 6-10 Last Admin: 02/24/19 23:09 Dose: 50 mg Valsartan (Diovan -) 160 mg PO DAILY [facility] Last Admin: 02/25/19 09:10 Dose: 160 mg - Objective Vital Signs: Vital Signs Temperature 98.7 F 02/25/19 09:09 Pulse Rate 68 02/25/19 09:09 Respiratory Rate 02/25/19 09:09 Blood Pressure 144/73 02/25/19 09:09 O2 Sat by Pulse Oximetry (%) 98 02/25/19 09:00 Constitutional: Yes: No Distress, Calm Cardiovascular: Yes: S1, S2 Respiratory: Yes: Regular, CTA Bilaterally Gastrointestinal: Yes: Normal Bowel Sounds, Soft Musculoskeletal: Yes: WNL Extremities: Yes: WNL Integumentary: Yes: Rash (on his legs) Neurological: Yes: Other (drowsy) Psychiatric: Yes: Other Labs: CBC, BMP 02/25/19 06:55 02/25/19 06:55 INR, PTT INR 1.05 (0.83-1.09) 02/21/19 08:15 Fibrinogen 229.0 mg/dL (238-498) L 02/21/19 08:15 Assessment/Plan Problem List - Problems (1) Severe sepsis Code(s): A41.9 - SEPSIS, UNSPECIFIED ORGANISM; R65.20 - SEVERE SEPSIS WITHOUT SEPTIC SHOCK (2) MIGUEL A (obstructive sleep apnea) Code(s): G47.33 - OBSTRUCTIVE SLEEP APNEA (ADULT) (PEDIATRIC) (3) HLD (hyperlipidemia) Code(s): E78.5 - HYPERLIPIDEMIA, UNSPECIFIED (4) HTN (hypertension) Code(s): I10 - ESSENTIAL (PRIMARY) HYPERTENSION (5) S/P aortic valve replacement Code(s): Z95.2 - PRESENCE OF PROSTHETIC HEART VALVE (6) Afib Code(s): I48.91 - UNSPECIFIED ATRIAL FIBRILLATION plan continue current mgmt rest as per the team nutrition i think patient needs good oxygenation
[2019-02-25] MEDS: KCL 10 MEQ IVPB 10 MEQ/100 ML INFUS.BAG IVPB SCH ×2 (13:08→16:46)
[2019-02-25 13:27] LABS: ARTERIAL BLD GAS O2 SATURATION 93.9 % (95-98); ARTERIAL BLOOD GAS BASE EXCESS 6.8 meq/l (-2-2); ARTERIAL BLOOD GAS PO2 65.9 mmHg (80-100); ARTERIAL BLOOD GAS pH 7.52 (7.35-7.45)
[2019-02-25 13:28] LABS: ALLENS TEST POSITIVE
[2019-02-25] MEDS ORDERED: SODIUM CHLORIDE 500 ML IV STA (14:27)
[2019-02-25] MEDS: LACTULOSE 20 GM/30 ML UDC (FOR ORAL USE ONLY) PO SCH (15:38)
[2019-02-25] MEDS: PANTOPRAZOLE 40 MG TABLET (FP) PO SCH ×2 (15:38→21:50)
[2019-02-25] MEDS: CYANOCOBALAMIN 1,000 MCG TABLET (FP) PO SCH (15:39)
[2019-02-25] MEDS: ACETAMINOPHEN 1000 MG/100 ML VIAL (NON FORMULARY) IVPB PRN (18:16)
[2019-02-25] MEDS: POLYETHYLENE GLYCOL 3350 119 GM BTL PO SCH (18:18)
[2019-02-25 19:31] LABS: EPI CELLS 0.8 /HPF (0-5/HPF); HYALINE CASTS 6 /lpf (0-8); PH,URINE 5.5 (5.0-8.0); URINE APPEARANCE CLEAR; URINE BACTERIA 0.2 /hpf (NEGATIVE); URINE BILIRUBIN NEGATIVE (NEGATIVE); URINE COLOR DK YELLOW; URINE GLUCOSE (UA) NEGATIVE (NEGATIVE); URINE KETONE NEGATIVE (NEGATIVE); URINE LEUK ESTERASE NEGATIVE (NEGATIVE); URINE NITRITE NEGATIVE (NEGATIVE); URINE PROTEIN 1+ (NEGATIVE); URINE RBC 2 /hpf (0-4); URINE WBC 1 /hpf (0-5)
--- NOTE | 2019-02-25 19:38 | PN.GI ---
GI Progress Note Subjective: GI NOte: Fever to 102 today. More confused. ABG reveals low O2. LFTs normalizing but TB still elevated. HIda reveals only chronic cholecystitis. I have advised a liver biopsy and discussed the risk of hemorrhage. The family has asked for me to seek a second ID opinion. I have communicated with Allyson Dial NP and comply. - Objective Vital Signs: Vital Signs Temperature 99.4 F 02/25/19 14:17 Pulse Rate 68 02/25/19 14:17 Respiratory Rate 18 02/25/19 14:17 Blood Pressure 154/90 02/25/19 14:17 O2 Sat by Pulse Oximetry (%) 98 02/25/19 18:09 Constitutional: Other (confused but responds politely) ...Auscultate: Yes: Normoactive Bowel Sounds ...Palpate: Yes: Soft, Other (nontender) Extremities: Yes: Other (maculopapular rash on lateral lower extremities) Labs: CBC, BMP 02/25/19 06:55 02/25/19 14:00 INR, PTT INR 1.05 (0.83-1.09) 02/21/19 08:15 Fibrinogen 229.0 mg/dL (238-498) L 02/21/19 08:15 Assessment/Plan Assessment: - Fever and abnormal LFTs could reflect a lymphoma given the other lymphadenopathy. It could harbor another malignancy, vasculitis or evidence for infection. I did discuss the possibility of an underlying GI or pancreatic malignancy but given his respiratory status anesthesia for elective endoscopies is too risky. - Personal h/o a colon adenoma and diverticulosis - stomach cancer Plan: -- I will consult Tyler López and Jonatan for a second opinion. If they agree the family will consent for a liver biopsy. I just discussed the case with Dr López and he will see Johnson tomorrow -- Will order Hantavirus Ab. Leptospira Ab still pending -- Agree with using the larger CPAP machine tonight Problem List - Problems (1) Lymphadenopathy Code(s): R59.1 - GENERALIZED ENLARGED LYMPH NODES (2) Abnormal liver enzymes Code(s): R74.8 - ABNORMAL LEVELS OF OTHER SERUM ENZYMES (3) Gallstone Code(s): K80.20 - CALCULUS OF GALLBLADDER W/O CHOLECYSTITIS W/O OBSTRUCTION (4) S/P aortic valve replacement Code(s): Z95.2 - PRESENCE OF PROSTHETIC HEART VALVE (5) Colon adenoma Code(s): D12.6 - BENIGN NEOPLASM OF COLON, UNSPECIFIED (6) Diverticulosis Code(s): K57.90 - DVRTCLOS OF INTEST, PART UNSP, W/O PERF OR ABSCESS W/O BLEED (7) History of prostate cancer Code(s): Z85.46 - PERSONAL HISTORY OF MALIGNANT NEOPLASM OF PROSTATE (8) Afib Code(s): I48.91 - UNSPECIFIED ATRIAL FIBRILLATION (9) Altered mental status Code(s): R41.82 - ALTERED MENTAL STATUS, UNSPECIFIED (10) Leukopenia Code(s): D72.819 - DECREASED WHITE BLOOD CELL COUNT, UNSPECIFIED (11) Severe sepsis Code(s): A41.9 - SEPSIS, UNSPECIFIED ORGANISM; R65.20 - SEVERE SEPSIS WITHOUT SEPTIC SHOCK (12) Thrombocytopenia Code(s): D69.6 - THROMBOCYTOPENIA, UNSPECIFIED (13) HLD (hyperlipidemia) Code(s): E78.5 - HYPERLIPIDEMIA, UNSPECIFIED (14) HTN (hypertension) Code(s): I10 - ESSENTIAL (PRIMARY) HYPERTENSION (15) Family history of gastric cancer Code(s): Z80.0 - FAMILY HISTORY OF MALIGNANT NEOPLASM OF DIGESTIVE ORGANS
--- NOTE | 2019-02-25 20:42 | PN ---
Progress Note (short form) - Note Progress Note: Mr. Barnes was admitted with chills or rigors, cough and dyspnea Known case of hypertension, hypertensive cardiovascular disease, severe left ventricular diastolic dysfunction, paroxysmal atrial fibrillation, chronic pulmonary disease , status post bioprosthetic aortic valve replacement. Events noted, [facility] f/u appreciated. Continues to be febrile and has periodic confusion. CT of the chest and abdomen reveals increasing lymphadenopathy, etiology of FUO is still not determined. He has developed petechail rash. Active Medications Generic Name Dose Route Start Last Admin Trade Name Freq PRN Reason Stop Dose Admin Acetaminophen 750 mg 02/22/19 17:07 02/25/19 18:16 Ofirmev Injection - IVPB 750 mg Q12H PRN Administration FEVER Amlodipine Besylate 5 mg 02/18/19 10:00 02/25/19 09:10 Norvasc - PO 5 mg DAILY [facility] Administration Cyanocobalamin 1,000 mcg 02/18/19 10:00 02/25/19 15:39 Vitamin B12 - PO 1,000 mcg DAILY [facility] Administration Furosemide 40 mg 02/23/19 06:00 02/25/19 15:38 Lasix - PO 40 mg BID@0600,1400 [facility] Administration Lactulose 20 gm 02/25/19 10:00 02/25/19 15:38 Cephulac (Oral Use) PO 20 gm DAILY [facility] Administration Lidocaine 1 patch 02/20/19 14:00 02/25/19 09:10 Lidoderm Patch - TP 1 patch DAILY [facility] Administration Melatonin 3 mg 02/20/19 22:00 02/24/19 21:35 Melatonin PO 3 mg HS [facility] Administration Methyl Salicylate 1 applic 02/20/19 10:00 02/25/19 09:17 Octavio-Juarez - TP 1 applic BID [facility] Administration Metoprolol Succinate 25 mg 02/18/19 10:00 02/25/19 09:10 Toprol Xl - PO 25 mg DAILY [facility] Administration Miscellaneous 1 each 02/20/19 22:00 02/24/19 21:36 Lidoderm Patch Removal MC 1 each DAILY@2200 [facility] Administration Ondansetron HCl 4 mg 02/20/19 17:27 02/23/19 09:50 Zofran Injection IVPUSH 4 mg Q6H PRN Administration NAUSEA AND/OR VOMITING Pantoprazole Sodium 40 mg 02/18/19 22:00 02/25/19 15:38 Protonix - PO 40 mg BID [facility] Administration Polyethylene Glycol 17 gm 02/24/19 18:00 02/25/19 18:18 Miralax (For Daily Use) - PO 17 grams DAILY@1800 [facility] Administration Rosuvastatin Calcium 5 mg 02/17/19 22:00 02/24/19 21:36 Crestor - PO 5 mg HS [facility] Administration Valsartan 160 mg 02/18/19 10:00 02/25/19 09:10 Diovan - PO 160 mg DAILY [facility] Administration 83-year-old gentleman was in no acute distress, no pallor, cyanosis, clubbing or jaundice. NECK: Supple, no jugular venous distention, hepatojugular reflux was negative, carotids were 2+, no lymphadenopthy. HEART: PMI was not localized, no heaves or thrills, heart sounds were distant, ejection systolic murmur grade 2/6 was heard at the second right intercostal space ending in early to mid systole. No diastolic murmur or gallops were heard. LUNGS: decreased breath sounds at both bases. No extraneous sounds were heard. Chest: Rash/ petechiae involving the posterior chest. ABDOMEN: Soft, protuberant, nontender. No pedal splenomegaly or palpable masses were felt.Small nontender mass vs lipoma RUQ. EXTREMITIES: No calf tenderness or dependent edema, bilateral rash /petechae both legs pulses were equal except posterior tibial pulses were not palpable. Laboratory Results - last 24 hr 02/22/19 02/25/19 02/25/19 06:00 06:55 06:55 WBC 6.1 RBC 4.21 Hgb 12.3 Hct 36.4 MCV 86.4 MCH 29.3 MCHC 33.9 RDW 14.1 Plt Count 178 MPV 8.1 Absolute Neuts (auto) 5.0 Neutrophils % 81.5 Lymphocytes % 7.8 L Monocytes % 9.3 Eosinophils % 1.2 Basophils % 0.2 Nucleated RBC % 0 Haptoglobin 118 Anticoagulation Therapy Puncture Site ABG pH ABG pCO2 at Pt Temp ABG pO2 at Pt Temp ABG HCO3 ABG O2 Sat (Measured) ABG O2 Content ABG Base Excess Aravind Test O2 Delivery Device Oxygen Flow Rate Vent Mode Vent Rate Mechanical Rate Pressure Support Vent Sodium 136 Potassium 3.0 L Chloride 98 Carbon Dioxide 31 Anion Gap 7 L BUN 21.1 H Creatinine 1.0 Est GFR (CKD-EPI)AfAm 80.88 Est GFR (CKD-EPI)NonAf 69.78 Glucose 146 H Random Glucose 111 H Uric Acid 4.3 Calcium 8.8 Magnesium 2.2 Total Bilirubin 1.4 H 2.0 H Direct Bilirubin 1.1 H GGT 324 H AST 70 H 23 ALT 115 H 59 Alkaline Phosphatase 327 H Liver Fibrosis Score 0.91 H Liver Fibrosis Stage Liver Steatosis Score 0.96 H Liver Steatosis Grade C-Reactive Protein Total Protein 6.0 L Albumin 2.7 L [id number] 184 Triglycerides 120 Cholesterol 89 L Apolipoprotein A-1 64 L Patient Height (cm) 67 Patient Weight (kg) 208 Urine Color Urine Appearance Urine pH Ur Specific [place] Urine Protein Urine Glucose (UA) Urine Ketones Urine Blood Urine Nitrite Urine Bilirubin Urine Urobilinogen Ur Leukocyte Esterase Urine WBC (Auto) Urine RBC (Auto) Urine Casts (Auto) U Epithel Cells (Auto) Urine Bacteria (Auto) CSF IgG Interpretation 02/25/19 02/25/19 02/25/19 06:55 13:04 14:00 WBC RBC Hgb Hct MCV MCH MCHC RDW Plt Count MPV Absolute Neuts (auto) Neutrophils % Lymphocytes % Monocytes % Eosinophils % Basophils % Nucleated RBC % Haptoglobin Anticoagulation Therapy No Result Required. Puncture Site No Result Required. ABG pH 7.52 H ABG pCO2 at Pt Temp 36.0 ABG pO2 at Pt Temp 65.9 L ABG HCO3 29.5 H ABG O2 Sat (Measured) 93.9 L ABG O2 Content 17.5 ABG Base Excess 6.8 H Aravind Test Positive O2 Delivery Device No Result Required. Oxygen Flow Rate Room air Vent Mode No Result Required. Vent Rate No Result Required. Mechanical Rate No Result Required. Pressure Support Vent No Result Required. Sodium Potassium 3.1 L Chloride Carbon Dioxide Anion Gap BUN Creatinine Est GFR (CKD-EPI)AfAm Est GFR (CKD-EPI)NonAf Glucose Random Glucose Uric Acid Calcium Magnesium Total Bilirubin Direct Bilirubin GGT AST ALT Alkaline Phosphatase Liver Fibrosis Score Liver Fibrosis Stage Liver Steatosis Score Liver Steatosis Grade C-Reactive Protein 3.3 H Total Protein Albumin Gfinr-1-Euqecuwnpixig Triglycerides Cholesterol Apolipoprotein A-1 Patient Height (cm) Patient Weight (kg) Urine Color Urine Appearance Urine pH Ur Specific [place] Urine Protein Urine Glucose (UA) Urine Ketones Urine Blood Urine Nitrite Urine Bilirubin Urine Urobilinogen Ur Leukocyte Esterase Urine WBC (Auto) Urine RBC (Auto) Urine Casts (Auto) U Epithel Cells (Auto) Urine Bacteria (Auto) CSF IgG Interpretation 02/25/19 19:00 WBC RBC Hgb Hct MCV MCH MCHC RDW Plt Count MPV Absolute Neuts (auto) Neutrophils % Lymphocytes % Monocytes % Eosinophils % Basophils % Nucleated RBC % Haptoglobin Anticoagulation Therapy Puncture Site ABG pH ABG pCO2 at Pt Temp ABG pO2 at Pt Temp ABG HCO3 ABG O2 Sat (Measured) ABG O2 Content ABG Base Excess Aravind Test O2 Delivery Device Oxygen Flow Rate Vent Mode Vent Rate Mechanical Rate Pressure Support Vent Sodium Potassium Chloride Carbon Dioxide Anion Gap BUN Creatinine Est GFR (CKD-EPI)AfAm Est GFR (CKD-EPI)NonAf Glucose Random Glucose Uric Acid Calcium Magnesium Total Bilirubin Direct Bilirubin GGT AST ALT Alkaline Phosphatase Liver Fibrosis Score Liver Fibrosis Stage Liver Steatosis Score Liver Steatosis Grade C-Reactive Protein Total Protein Albumin Hvatr-6-Qvncdwwizecyy Triglycerides Cholesterol Apolipoprotein A-1 Patient Height (cm) Patient Weight (kg) Urine Color Dk yellow Urine Appearance Clear Urine pH 5.5 Ur Specific [place] 1.015 Urine Protein 1+ H Urine Glucose (UA) Negative Urine Ketones Negative Urine Blood Negative Urine Nitrite Negative Urine Bilirubin Negative Urine Urobilinogen 2.0 Ur Leukocyte Esterase Negative Urine WBC (Auto) 1 Urine RBC (Auto) 2 Urine Casts (Auto) 6 U Epithel Cells (Auto) 0.8 Urine Bacteria (Auto) 0.2 CSF IgG Interpretation Impression: 1. FUO, associated with abnormal LFT, new rash vs.petechaie,thrombocytopenia a). Possibility of reckettial disease needs exclusion. b). Lymphoma. c). Malignancy. 2. Hypertension, hypertensive cardiovascular disease. 3. Severe left ventricular diastolic dysfunction. 4. Chronic obstructive pulmonary disease. 5. Status post bioprosthetic aortic valve replacement. 6. Mental confusion, etiology to be determined. 7. Hypoxmia Recommendations: 1. O2. 2. Resume A/C ALIZE. 3.Lymph node biopsy ? right groin. Prognosis: Critical.
[2019-02-25] MEDS: ROSUVASTATIN CA 5 MG TABLET (FP) PO SCH (21:50)
[2019-02-25] MEDS: LIDOCAINE PATCH REMOVAL MC SCH (21:51)
[2019-02-25] MEDS: MELATONIN 1 MG TABLET PO SCH (22:40)
[2019-02-26] MEDS ORDERED: KCL 10 MEQ IVPB 10 MEQ/100 ML INFUS.BAG IVPB SCH ×2 (01:00→16:30)
[2019-02-26] MEDS: FUROSEMIDE 40 MG TABLET (FP) PO SCH ×2 (05:52→14:04)
[2019-02-26 07:02] LABS: BASO % 0.2 % (0-2.0); EOS % 0.9 % (0-4.5); HEMATOCRIT 38.8 % (35.4-49); HEMOGLOBIN 13.5 GM/dL (11.7-16.9); LYMPH % 4.8 % (8-40); MCH 30.1 pg (25.7-33.7); MCHC 34.8 g/dl (32.0-35.9); MEAN CELL VOLUME 86.7 fl (80-96); MONO % 6.8 % (3.8-10.2); NEUT % 87.3 % (42.8-82.8); PLATELET COUNT 234 K/MM3 (134-434); RBC 4.48 M/mm3 (4.00-5.60); RDW 14.1 % (11.9-15.9); WHITE BLOOD COUNT 7.1 K/mm3 (4.0-10.0)
[2019-02-26 07:27] LABS: INR 1.14 (0.83-1.09); PROTHROMBIN TIME (PATIENT) 13.5 SEC (9.7-13.0)
[2019-02-26 07:48] LABS: BILIRUBIN,DIRECT 1.6 mg/dL (0.0-0.2); BILIRUBIN,TOTAL 2.8 mg/dL (0.2-1); BLOOD UREA NITROGEN 21.3 mg/dL (7-18); CALCIUM 9.1 mg/dL (8.5-10.1); CREATININE 1.1 mg/dL (0.55-1.3); MAGNESIUM 2.1 mg/dL (1.8-2.4); TOT PROT 6.8 g/dl (6.4-8.2)
[2019-02-26 07:50] LABS: POTASSIUM 2.9 mmol/L (3.5-5.1)
[2019-02-26] MEDS: KCL 10 MEQ IVPB 10 MEQ/100 ML INFUS.BAG IVPB SCH ×3 (08:04→12:51)
--- NOTE | 2019-02-26 08:25 | PN ---
Physical Exam: SUBJECTIVE: Patient seen and examined at the bedside. more awake and alert. allowed bipap overnight and mentation seems to be improved. patient is more awake, alert, follows commands. knows his name, , month and year. knows thanksgiving is in 2 weeks. partially knows where he is [place]", does not know president name, has 5 kids he tells me and 9 grandkids. OBJECTIVE: has petecial rash/vs drug rash? on right back-pink raised, rash extends from right posterior leg to right thigh and covers most of his right back. non itchy. Patient is an 83 year old male with a significant past medical history of hypertension, hyperlipidemia, prosthetic aortic valve replacement (bovine). afib (on eliquis). He presented to the [facility] ED with ataxia, chills, rigors and weakness. Patient was worked up for persistent fevers during hospital stay, no def source found. However, malignancy will need to be excluded and may need liver biopsy if patient's family agrees. K 2.9, repleted with 3 k riders, will add supplements to diet for poor oral intake hold all sedating medications will have SW address home cpap machine with company to assure that is is working properly Vital Signs Period Temp Pulse Resp BP Sys/Bacon Pulse Ox Last 24 Hr 97.6 F-102.0 F 65-80 18-20 144-174/56-90 96-98 GENERAL: The patient is awake, alert, and fully oriented, except for name of president. see above. HEAD: Normal with no signs of trauma. EYES: PERRL, extraocular movements intact, sclera anicteric, conjunctiva clear. No ptosis. ENT: Ears normal, nares patent, oropharynx clear without exudates, moist mucous membranes. NECK: Trachea midline, full range of motion, supple. LUNGS: Breath sounds equal, clear to auscultation bilaterally, no wheezes HEART: Regular rate and rhythm @ 71 ABDOMEN: Soft, nontender, nondistended, normoactive bowel sounds, no guarding EXTREMITIES: 2+ pulses, warm, well-perfused, no edema. NEUROLOGICAL: Normal speech, gait not observed. can stand, will order PT PSYCH: Normal mood, normal affect. SKIN: raised pink diffused rash that extends from right posterior leg>right thigh>right upper back Laboratory Results - last 24 hr 02/25/19 02/25/19 02/25/19 06:55 06:55 06:55 WBC 6.1 RBC 4.21 Hgb 12.3 Hct 36.4 MCV 86.4 MCH 29.3 MCHC 33.9 RDW 14.1 Plt Count 178 MPV 8.1 Absolute Neuts (auto) 5.0 Neutrophils % 81.5 Lymphocytes % 7.8 L Monocytes % 9.3 Eosinophils % 1.2 Basophils % 0.2 Nucleated RBC % 0 PT with INR INR Anticoagulation Therapy Puncture Site ABG pH ABG pCO2 at Pt Temp ABG pO2 at Pt Temp ABG HCO3 ABG O2 Sat (Measured) ABG O2 Content ABG Base Excess Aravind Test O2 Delivery Device Oxygen Flow Rate Vent Mode Vent Rate Mechanical Rate Pressure Support Vent Sodium 136 Potassium 3.0 L Chloride 98 Carbon Dioxide 31 Anion Gap 7 L BUN 21.1 H Creatinine 1.0 Est GFR (CKD-EPI)AfAm 80.88 Est GFR (CKD-EPI)NonAf 69.78 Random Glucose 111 H Uric Acid 4.3 Calcium 8.8 Magnesium 2.2 Total Bilirubin 2.0 H Direct Bilirubin 1.1 H AST 23 ALT 59 Alkaline Phosphatase 327 H C-Reactive Protein Total Protein 6.0 L Albumin 2.7 L CA 19-9 Antigen 34 Urine Color Urine Appearance Urine pH Ur Specific Shubert Urine Protein Urine Glucose (UA) Urine Ketones Urine Blood Urine Nitrite Urine Bilirubin Urine Urobilinogen Ur Leukocyte Esterase Urine WBC (Auto) Urine RBC (Auto) Urine Casts (Auto) U Epithel Cells (Auto) Urine Bacteria (Auto) 02/25/19 02/25/19 02/25/19 13:04 14:00 19:00 WBC RBC Hgb Hct MCV MCH MCHC RDW Plt Count MPV Absolute Neuts (auto) Neutrophils % Lymphocytes % Monocytes % Eosinophils % Basophils % Nucleated RBC % PT with INR INR Anticoagulation Therapy No Result Required. Puncture Site No Result Required. ABG pH 7.52 H ABG pCO2 at Pt Temp 36.0 ABG pO2 at Pt Temp 65.9 L ABG HCO3 29.5 H ABG O2 Sat (Measured) 93.9 L ABG O2 Content 17.5 ABG Base Excess 6.8 H Aravind Test Positive O2 Delivery Device No Result Required. Oxygen Flow Rate Room air Vent Mode No Result Required. Vent Rate No Result Required. Mechanical Rate No Result Required. Pressure Support Vent No Result Required. Sodium Potassium 3.1 L Chloride Carbon Dioxide Anion Gap BUN Creatinine Est GFR (CKD-EPI)AfAm Est GFR (CKD-EPI)NonAf Random Glucose Uric Acid Calcium Magnesium Total Bilirubin Direct Bilirubin AST ALT Alkaline Phosphatase C-Reactive Protein Total Protein Albumin CA 19-9 Antigen Urine Color Dk yellow Urine Appearance Clear Urine pH 5.5 Ur Specific Shubert 1.015 Urine Protein 1+ H Urine Glucose (UA) Negative Urine Ketones Negative Urine Blood Negative Urine Nitrite Negative Urine Bilirubin Negative Urine Urobilinogen 2.0 Ur Leukocyte Esterase Negative Urine WBC (Auto) 1 Urine RBC (Auto) 2 Urine Casts (Auto) 6 U Epithel Cells (Auto) 0.8 Urine Bacteria (Auto) 0.2 02/25/19 02/26/19 02/26/19 21:00 06:05 06:05 WBC 7.1 RBC 4.48 Hgb 13.5 Hct 38.8 MCV 86.7 MCH 30.1 MCHC 34.8 RDW 14.1 Plt Count 234 D MPV 8.0 Absolute Neuts (auto) 6.2 Neutrophils % 87.3 H Lymphocytes % 4.8 L D Monocytes % 6.8 Eosinophils % 0.9 Basophils % 0.2 Nucleated RBC % 0 PT with INR INR Anticoagulation Therapy Puncture Site ABG pH ABG pCO2 at Pt Temp ABG pO2 at Pt Temp ABG HCO3 ABG O2 Sat (Measured) ABG O2 Content ABG Base Excess Aravind Test O2 Delivery Device Oxygen Flow Rate Vent Mode Vent Rate Mechanical Rate Pressure Support Vent Sodium 134 L Potassium 3.3 L 2.9 L* Chloride 96 L Carbon Dioxide 32 Anion Gap 5 L BUN 21.3 H Creatinine 1.1 Est GFR (CKD-EPI)AfAm 72.07 Est GFR (CKD-EPI)NonAf 62.19 Random Glucose 100 Uric Acid Calcium 9.1 Magnesium 2.1 Total Bilirubin 2.8 H Direct Bilirubin 1.6 H AST 26 ALT 57 Alkaline Phosphatase 375 H C-Reactive Protein Total Protein 6.8 Albumin 3.0 L CA 19-9 Antigen Urine Color Urine Appearance Urine pH Ur Specific Shubert Urine Protein Urine Glucose (UA) Urine Ketones Urine Blood Urine Nitrite Urine Bilirubin Urine Urobilinogen Ur Leukocyte Esterase Urine WBC (Auto) Urine RBC (Auto) Urine Casts (Auto) U Epithel Cells (Auto) Urine Bacteria (Auto) 02/26/19 02/26/19 06:05 06:05 WBC RBC Hgb Hct MCV MCH MCHC RDW Plt Count MPV Absolute Neuts (auto) Neutrophils % Lymphocytes % Monocytes % Eosinophils % Basophils % Nucleated RBC % PT with INR 13.50 H INR 1.14 H Anticoagulation Therapy Puncture Site ABG pH ABG pCO2 at Pt Temp ABG pO2 at Pt Temp ABG HCO3 ABG O2 Sat (Measured) ABG O2 Content ABG Base Excess Aravind Test O2 Delivery Device Oxygen Flow Rate Vent Mode Vent Rate Mechanical Rate Pressure Support Vent Sodium Potassium Chloride Carbon Dioxide Anion Gap BUN Creatinine Est GFR (CKD-EPI)AfAm Est GFR (CKD-EPI)NonAf Random Glucose Uric Acid Calcium Magnesium Total Bilirubin Direct Bilirubin AST ALT Alkaline Phosphatase C-Reactive Protein 7.3 H Total Protein Albumin CA 19-9 Antigen Urine Color Urine Appearance Urine pH Ur Specific Shubert Urine Protein Urine Glucose (UA) Urine Ketones Urine Blood Urine Nitrite Urine Bilirubin Urine Urobilinogen Ur Leukocyte Esterase Urine WBC (Auto) Urine RBC (Auto) Urine Casts (Auto) U Epithel Cells (Auto) Urine Bacteria (Auto) Active Medications Generic Name Dose Route Start Last Admin Trade Name Freq PRN Reason Stop Dose Admin Acetaminophen 750 mg 02/22/19 17:07 02/25/19 18:16 Ofirmev Injection - IVPB 750 mg Q12H PRN Administration FEVER Amlodipine Besylate 5 mg 02/18/19 10:00 02/25/19 09:10 Norvasc - PO 5 mg DAILY JELLY Administration Cyanocobalamin 1,000 mcg 02/18/19 10:00 02/25/19 15:39 Vitamin B12 - PO 1,000 mcg DAILY JELLY Administration Furosemide 40 mg 02/23/19 06:00 02/26/19 05:52 Lasix - PO 40 mg BID@0600,1400 JELLY Administration Potassium Chloride 10 meq in 100 mls @ 100 mls/hr 02/26/19 08:00 02/26/19 08: 04 Potassium Chloride 10 Meq Premix Ivpb - IVPB 02/26/19 10:59 100 mls/hr Q60M JELLY Administration Lactulose 20 gm 02/25/19 10:00 02/25/19 15:38 Cephulac (Oral Use) PO 20 gm DAILY JELLY Administration Lidocaine 1 patch 02/20/19 14:00 02/25/19 09:10 Lidoderm Patch - TP 1 patch DAILY JELLY Administration Melatonin 3 mg 02/20/19 22:00 02/25/19 22:40 Melatonin PO Not Given HS JELLY Methyl Salicylate 1 applic 02/20/19 10:00 02/25/19 21:50 Octavio-Juarez - TP 1 applic BID JELLY Administration Metoprolol Succinate 25 mg 02/18/19 10:00 02/25/19 09:10 Toprol Xl - PO 25 mg DAILY JELLY Administration Miscellaneous 1 each 02/20/19 22:00 02/25/19 21:51 Lidoderm Patch Removal MC 1 each DAILY@2200 JELLY Administration Ondansetron HCl 4 mg 02/20/19 17:27 02/23/19 09:50 Zofran Injection IVPUSH 4 mg Q6H PRN Administration NAUSEA AND/OR VOMITING Pantoprazole Sodium 40 mg 02/18/19 22:00 02/25/19 21:50 Protonix - PO 40 mg BID JELLY Administration Rosuvastatin Calcium 5 mg 02/17/19 22:00 02/25/19 21:50 Crestor - PO 5 mg HS JELLY Administration Valsartan 160 mg 02/18/19 10:00 02/25/19 09:10 Diovan - PO 160 mg DAILY JELLY Administration ASSESSMENT/PLAN: Problem List - Problems (1) Fever of unknown origin Assessment/Plan: spiked to 101 today, blood cultures pending. mental status improving, he is eating more now and ambulating with PT monitor fever curve, vitals signs. lactic acid normal limits. family asked for a 2nd ID opinion, Dr. Cheung following. Code(s): R50.9 - FEVER, UNSPECIFIED (2) Severe sepsis Assessment/Plan: sepsis resolved, however, again with fevers of 101 fevers of unknown origin, workup ongoing. may need liver biopsy per GI discussed with ID, no further antibiotics at this time Code(s): A41.9 - SEPSIS, UNSPECIFIED ORGANISM; R65.20 - SEVERE SEPSIS WITHOUT SEPTIC SHOCK (3) MIGUEL A (obstructive sleep apnea) Assessment/Plan: take off cpap and replaced with bipap for low oxygen levels on abg. mental status has improved. will have home cpap checked to assure that it is working properly prior to d/c Code(s): G47.33 - OBSTRUCTIVE SLEEP APNEA (ADULT) (PEDIATRIC) (4) HLD (hyperlipidemia) Assessment/Plan: continue home meds Code(s): E78.5 - HYPERLIPIDEMIA, UNSPECIFIED (5) HTN (hypertension) Assessment/Plan: continue cardiac meds Code(s): I10 - ESSENTIAL (PRIMARY) HYPERTENSION (6) S/P aortic valve replacement Assessment/Plan: follows with loss mitigation specialist, Dr. Azar Code(s): Z95.2 - PRESENCE OF PROSTHETIC HEART VALVE (7) Afib Assessment/Plan: Rate controlled c/w toprol Eliquis held for possible invasive testing-last dose 02/22 @ 11am c/w tele monitoring Code(s): I48.91 - UNSPECIFIED ATRIAL FIBRILLATION (8) Abnormal liver enzymes Assessment/Plan: lfts within normal limits US with hepatomegaly-fatty liver vs hepatocellular US without mass avoid hepatotoxic agents MRCP revealing no CBD stones, GB stone but no cholecystitis. hida scan showed acute loi. CT A/P:Thickening of gallbladder with debridement, questionable cyctitis. Right rectus sheath hematoma [id number] be the palpable lesion that was felt earlier will determine if biopsy will be done Code(s): R74.8 - ABNORMAL LEVELS OF OTHER SERUM ENZYMES (9) Altered mental status Assessment/Plan: confusion persists. abg shows respiratory acidosis with hypoxemia. stop all sedating agents such as ultram and seroquel for brain mri today neurology following Code(s): R41.82 - ALTERED MENTAL STATUS, UNSPECIFIED (10) Leukopenia Assessment/Plan: resolved Code(s): D72.819 - DECREASED WHITE BLOOD CELL COUNT, UNSPECIFIED (11) Lymphadenopathy Assessment/Plan: outpatient follow up with Dr. Mccloud Code(s): R59.1 - GENERALIZED ENLARGED LYMPH NODES (12) Mediastinal lymphadenopathy Assessment/Plan: may need biopsy to rule to lymphoma. heme/onc following. Code(s): R59.0 - LOCALIZED ENLARGED LYMPH NODES (13) Thrombocytopenia Assessment/Plan: resolved Code(s): D69.6 - THROMBOCYTOPENIA, UNSPECIFIED (14) Toxic metabolic encephalopathy Assessment/Plan: continues to have altered mentation, completed antibiotics per ID. monitor mental status brain mri negative Code(s): G92 - TOXIC ENCEPHALOPATHY (15) Prophylactic measure Assessment/Plan: fen tolerating po monitor electrolyles low salt diet as tolerated on eliquis 5 bid-on hold for possible invasive procedure, if no procedure planned, will restart full code Code(s): Z29.9 - ENCOUNTER FOR PROPHYLACTIC MEASURES, UNSPECIFIED (16) Petechial eruption Assessment/Plan: petechial rash vs drug rash on right leg, thigh and right back. no wheezing monitor rash and respiratory status Code(s): R23.3 - SPONTANEOUS ECCHYMOSES Visit type - Emergency Visit Emergency Visit: Yes ED Registration Date: 02/14/19 Care time: The patient presented to the Emergency Department on the above date and was hospitalized for further evaluation of their emergent condition. - New Patient This patient is new to me today: No - Critical Care Critical Care patient: No - Discharge Referral Referred to [facility] Med P.C.: No
[2019-02-26] MEDS: LIDOCAINE 5% TOPICAL PATCH TP SCH (09:17)
[2019-02-26] MEDS: metoPROLOL SUCCINATE 25 MG TAB.SR.24H (FP) PO SCH (09:17)
[2019-02-26] MEDS: PANTOPRAZOLE 40 MG TABLET (FP) PO SCH ×2 (09:17→21:25)
[2019-02-26] MEDS: LACTULOSE 20 GM/30 ML UDC (FOR ORAL USE ONLY) PO SCH (09:17)
[2019-02-26] MEDS: VALSARTAN 160 MG TABLET (UD) PO SCH (09:18)
[2019-02-26] MEDS: CYANOCOBALAMIN 1,000 MCG TABLET (FP) PO SCH (09:18)
[2019-02-26] MEDS: amLODIPine BESYLATE 5 MG TABLET (FP) PO SCH (09:18)
[2019-02-26] MEDS: ACETAMINOPHEN 1000 MG/100 ML VIAL (NON FORMULARY) IVPB PRN (09:18)
[2019-02-26] MEDS: METHYL SALICYLATE/MENTHOL OINT 30 GM TUBE TP SCH ×2 (09:19→21:25)
--- NOTE | 2019-02-26 09:35 | PN ---
Progress Note (short form) - Note Progress Note: Neurology - Admission Chief Complaint: Chills, Weakness History of Present Illness: This is a 83 y/o man from home with a PMhx of HTN, HLD, s/p Prosthetic Aortic Valve (Bovine) who presented to the ED with his family for ataxia, chills, rigors, and weakness. Patient reported feeling well earlier in the day of admission but the patient's reported they were at the grandkid's house earlier where the patient had difficulty getting out of the car and was walking like "he lost all his energy." the patient's reports she later found the patient under a blanket and was shaking. The patient reported he had a rough day and felt "terrible." Denied any pain. The patient reports associated symptoms of shortness of breath. They called Dr. Azar (sulfonator operator), who told them to follow up at the ER. Denies worsening shortness of breath, chest pain, abdominal pain, nausea, vomiting. Denies cough or congestion. The patient has been in the hospital for further medical evaluation and management and I was consulted 02/24 for evaluation and management of altered mental status. I had an extensive conversation with the hospitalist nurse practitioner, Mayra , who provided background information regarding the patient who has been demonstrating confusion with spiking fevers to 102. Work up for underlying infection has been otherwise negative thus far with fever of unknown origin. Lumbar puncture was been completed and I reviewed CSF results which demonstrated 2Wbc and increased protein, normal glucose. MRI of the brain was completed and patient seen at bedside with nurse practitioner with whom I discussed the results and did not show any acute structural abnormalities. There is practitioner noted the patient was having hypoxia and change CPAP to BiPAP overnight and patient this morning significantly improved in mental status. He is more awake and alert than he had been during my previous encounters with him and does know that he is in the hospital along with month and year. Reviewed notes and family requested second opinion for infectious disease specialist and Dr. López/Jonatan brown evaluate further. Active Medications Acetaminophen (Ofirmev Injection -) 750 mg IVPB Q12H PRN PRN Reason: FEVER Last Admin: 02/26/19 09:18 Dose: 750 mg Amlodipine Besylate (Norvasc -) 5 mg PO DAILY JELLY Last Admin: 02/26/19 09:18 Dose: 5 mg Cyanocobalamin (Vitamin B12 -) 1,000 mcg PO DAILY [facility] Last Admin: 02/26/19 09:18 Dose: 1,000 mcg Furosemide (Lasix -) 40 mg PO BID@0600,1400 [facility] Last Admin: 02/26/19 05:52 Dose: 40 mg Potassium Chloride (Potassium Chloride 10 Meq Premix Ivpb -) 10 meq in 100 mls @ 100 mls/hr IVPB Q60M [facility] Stop: 02/26/19 10:59 Last Admin: 02/26/19 08:04 Dose: 100 mls/hr Lactulose (Cephulac (Oral Use)) 20 gm PO DAILY [facility] Last Admin: 02/26/19 09:17 Dose: 20 gm Lidocaine (Lidoderm Patch -) 1 patch TP DAILY [facility] Last Admin: 02/26/19 09:17 Dose: 1 patch Melatonin (Melatonin) 3 mg PO HS [facility] Last Admin: 02/25/19 22:40 Dose: Not Given Methyl Salicylate (Octavio-Juarez -) 1 applic TP BID [facility] Last Admin: 02/26/19 09:19 Dose: 1 applic Metoprolol Succinate (Toprol Xl -) 25 mg PO DAILY [facility] Last Admin: 02/26/19 09:17 Dose: 25 mg Miscellaneous (Lidoderm Patch Removal) 1 each MC DAILY@2200 [facility] Last Admin: 02/25/19 21:51 Dose: 1 each Ondansetron HCl (Zofran Injection) 4 mg IVPUSH Q6H PRN PRN Reason: NAUSEA AND/OR VOMITING Last Admin: 02/23/19 09:50 Dose: 4 mg Pantoprazole Sodium (Protonix -) 40 mg PO BID [facility] Last Admin: 02/26/19 09:17 Dose: 40 mg Rosuvastatin Calcium (Crestor -) 5 mg PO HS [facility] Last Admin: 02/25/19 21:50 Dose: 5 mg Valsartan (Diovan -) 160 mg PO DAILY [facility] Last Admin: 02/26/19 09:18 Dose: 160 mg Physical Examination Vital Signs: Vital Signs Period Temp Pulse Resp BP Sys/Bacon Pulse Ox Last 24 Hr 97.6 F-102.0 F 65-80 18-20 137-174/53-90 96-98 Constitutional: Yes: Well Nourished, No Distress, Calm Eyes: Yes: WNL, Conjunctiva Clear, EOM Intact, PERRL HENT: Yes: WNL, Atraumatic, Normocephalic Neck: Yes: WNL, Supple, Trachea Midline Cardiovascular: Yes: Other (click) Respiratory: Yes: WNL, Regular, CTA Bilaterally Gastrointestinal: Yes: WNL, Normal Bowel Sounds, Soft, Abdomen, Obese ...Rectal Exam: Yes: WNL Renal/: Yes: WNL Breast(s): Yes: WNL Musculoskeletal: Yes: Muscle Weakness Extremities: Yes: WNL Edema: No Peripheral Pulses WNL: Yes Neurological: somnolent but arousable, moves extremities grossly, able to tell me name of hospital as well as year but not name of the president, sensory intact to tactile stimulation CBCD WBC 7.1 K/mm3 (4.0-10.0) 02/26/19 06:05 RBC 4.48 M/mm3 (4.00-5.60) 02/26/19 06:05 Hgb 13.5 GM/dL (11.7-16.9) 02/26/19 06:05 Hct 38.8 % (35.4-49) 02/26/19 06:05 MCV 86.7 fl (80-96) 02/26/19 06:05 MCHC 34.8 g/dl (32.0-35.9) 02/26/19 06:05 RDW 14.1 % (11.9-15.9) 02/26/19 06:05 Plt Count 234 K/MM3 (134-434) D 02/26/19 06:05 MPV 8.0 fl (7.5-11.1) 02/26/19 06:05 CMP Sodium 134 mmol/L (136-145) L 02/26/19 06:05 Potassium 2.9 mmol/L (3.5-5.1) L* 02/26/19 06:05 Chloride 96 mmol/L (98-107) L 02/26/19 06:05 Carbon Dioxide 32 mmol/L (21-32) 02/26/19 06:05 Anion Gap 5 MMOL/L (8-16) L 02/26/19 06:05 BUN 21.3 mg/dL (7-18) H 02/26/19 06:05 Creatinine 1.1 mg/dL (0.55-1.3) 02/26/19 06:05 Glucose 146 mg/dL (65-99) H 02/22/19 06:00 Random Glucose 100 mg/dL (74-106) 02/26/19 06:05 Calcium 9.1 mg/dL (8.5-10.1) 02/26/19 06:05 Total Bilirubin 2.8 mg/dL (0.2-1) H 02/26/19 06:05 AST 26 U/L (15-37) 02/26/19 06:05 ALT 57 U/L (13-61) 02/26/19 06:05 Alkaline Phosphatase 375 U/L (45-117) H 02/26/19 06:05 Total Protein 6.8 g/dl (6.4-8.2) 02/26/19 06:05 Albumin 3.0 g/dl (3.4-5.0) L 02/26/19 06:05 CARDIAC ENZYMES Creatine Kinase 278 U/L (26-308) 02/15/19 05:51 Troponin I 0.05 ng/ml (0.00-0.05) 02/14/19 13:30 Plan: 83 y/o man from home with a PMhx of HTN, HLD, s/p Prosthetic Aortic Valve ( Bovine) who presented to the ED with his family for ataxia, chills, rigors, and weakness. Patient reported feeling well earlier in the day of admission but the patient's reported they were at the grandkid's house earlier where the patient had difficulty getting out of the car and was walking like "he lost all his energy." the patient's reports she later found the patient under a blanket and was shaking. The patient reported he had a rough day and felt "terrible." Denied any pain. The patient reports associated symptoms of shortness of breath. They called Dr. Azar (sulfonator operator), who told them to follow up at the ER. Denies worsening shortness of breath, chest pain, abdominal pain, nausea, vomiting. Denies cough or congestion. The patient has been in the hospital for further medical evaluation and management and I was consulted 02/24 for evaluation and management of altered mental status. I had an extensive conversation with the hospitalist nurse practitioner, Mayra, who provided background information regarding the patient who has been demonstrating confusion with spiking fevers to 102. He was again somnolent her my encounter but arousable. CT head has been completed and advised to have MRI of the brain for further evaluation. Work up for underlying infection has been otherwise negative thus far. Therefore, fever of unknown origin. Lumbar puncture was been completed and I reviewed CSF results which demonstrated 2Wbc and increased protein, normal glucose. MRI of the brain was completed and patient seen at bedside with nurse practitioner with whom I discussed the results and did not show any acute structural abnormalities. There is practitioner noted the patient was having hypoxia and change CPAP to BiPAP overnight and patient this morning significantly improved in mental status. He is more awake and alert than he had been during my previous encounters with him and does know that he is in the hospital along with month and year. Reviewed notes and family requested second opinion for infectious disease specialist and Dr. López/Jonatan brown evaluate further.. Maintain adequate hydration, monitor blood pressure and maintain normotensive range. Mental status has improved, ppossibly due to treatment of underlying respiratory disturbance. However, fevers remain and infectious disease specialist to further evaluate.
--- NOTE | 2019-02-26 11:35 | PN ---
Progress Note, Physician History of Present Illness: PULMONARY SLEEPING ON NASAL CANNULA,SLEPT BETTER LAST NIGHT ON BIPAP. PT REMAINS FEBRILE - Current Medication List Current Medications: Active Medications Acetaminophen (Ofirmev Injection -) 750 mg IVPB Q12H PRN PRN Reason: FEVER Last Admin: 02/26/19 09:18 Dose: 750 mg Amlodipine Besylate (Norvasc -) 5 mg PO DAILY [facility] Last Admin: 02/26/19 09:18 Dose: 5 mg Cyanocobalamin (Vitamin B12 -) 1,000 mcg PO DAILY [facility] Last Admin: 02/26/19 09:18 Dose: 1,000 mcg Furosemide (Lasix -) 40 mg PO BID@0600,1400 [facility] Last Admin: 02/26/19 05:52 Dose: 40 mg Lactulose (Cephulac (Oral Use)) 20 gm PO DAILY [facility] Last Admin: 02/26/19 09:17 Dose: 20 gm Lidocaine (Lidoderm Patch -) 1 patch TP DAILY [facility] Last Admin: 02/26/19 09:17 Dose: 1 patch Melatonin (Melatonin) 3 mg PO HS [facility] Last Admin: 02/25/19 22:40 Dose: Not Given Methyl Salicylate (Octavio-Juarez -) 1 applic TP BID [facility] Last Admin: 02/26/19 09:19 Dose: 1 applic Metoprolol Succinate (Toprol Xl -) 25 mg PO DAILY [facility] Last Admin: 02/26/19 09:17 Dose: 25 mg Miscellaneous (Lidoderm Patch Removal) 1 each MC DAILY@2200 [facility] Last Admin: 02/25/19 21:51 Dose: 1 each Ondansetron HCl (Zofran Injection) 4 mg IVPUSH Q6H PRN PRN Reason: NAUSEA AND/OR VOMITING Last Admin: 02/23/19 09:50 Dose: 4 mg Pantoprazole Sodium (Protonix -) 40 mg PO BID [facility] Last Admin: 02/26/19 09:17 Dose: 40 mg Rosuvastatin Calcium (Crestor -) 5 mg PO HS [facility] Last Admin: 02/25/19 21:50 Dose: 5 mg Valsartan (Diovan -) 160 mg PO DAILY [facility] Last Admin: 02/26/19 09:18 Dose: 160 mg - Objective Vital Signs: Vital Signs Temperature 101.1 F H 02/26/19 09:15 Pulse Rate 72 02/26/19 09:15 Respiratory Rate 19 13/19 09:15 Blood Pressure 137/53 L 02/26/19 09:15 O2 Sat by Pulse Oximetry (%) 98 02/26/19 08:49 Constitutional: Yes: No Distress, Other (SLEEPING) Eyes: Yes: WNL HENT: Yes: WNL Neck: Yes: WNL Cardiovascular: Yes: Pulse Irregular, S1, S2 Respiratory: Yes: Diminished Gastrointestinal: Yes: Normal Bowel Sounds, Soft Extremities: Yes: WNL Edema: Yes Labs: CBC, BMP 02/26/19 06:05 02/26/19 06:05 INR, PTT INR 1.14 (0.83-1.09) H 02/26/19 06:05 Fibrinogen 229.0 mg/dL (238-498) L 02/21/19 08:15 Laboratory Tests 02/25/19 13:04 ABG pH 7.52 H ABG pCO2 at Pt Temp 36.0 ABG pO2 at Pt Temp 65.9 L ABG HCO3 29.5 H ABG O2 Sat (Measured) 93.9 L ABG O2 Content 17.5 Problem List - Problems (1) Altered mental status Code(s): R41.82 - ALTERED MENTAL STATUS, UNSPECIFIED (2) Abnormal liver enzymes Code(s): R74.8 - ABNORMAL LEVELS OF OTHER SERUM ENZYMES (3) Afib Code(s): I48.91 - UNSPECIFIED ATRIAL FIBRILLATION (4) Leukopenia Code(s): D72.819 - DECREASED WHITE BLOOD CELL COUNT, UNSPECIFIED (5) MIGUEL A (obstructive sleep apnea) Code(s): G47.33 - OBSTRUCTIVE SLEEP APNEA (ADULT) (PEDIATRIC) (6) Thrombocytopenia Code(s): D69.6 - THROMBOCYTOPENIA, UNSPECIFIED (7) Weakness Code(s): R53.1 - WEAKNESS (8) HLD (hyperlipidemia) Code(s): E78.5 - HYPERLIPIDEMIA, UNSPECIFIED (9) HTN (hypertension) Code(s): I10 - ESSENTIAL (PRIMARY) HYPERTENSION (10) S/P aortic valve replacement Code(s): Z95.2 - PRESENCE OF PROSTHETIC HEART VALVE Assessment/Plan Problem List - Problems (1) Altered mental status Code(s): R41.82 - ALTERED MENTAL STATUS, UNSPECIFIED (2) Abnormal liver enzymes Code(s): R74.8 - ABNORMAL LEVELS OF OTHER SERUM ENZYMES (3) Afib Code(s): I48.91 - UNSPECIFIED ATRIAL FIBRILLATION (4) Leukopenia Code(s): D72.819 - DECREASED WHITE BLOOD CELL COUNT, UNSPECIFIED (5) MIGUEL A (obstructive sleep apnea) Code(s): G47.33 - OBSTRUCTIVE SLEEP APNEA (ADULT) (PEDIATRIC) (6) Thrombocytopenia Code(s): D69.6 - THROMBOCYTOPENIA, UNSPECIFIED (7) Weakness Code(s): R53.1 - WEAKNESS (8) HLD (hyperlipidemia) Code(s): E78.5 - HYPERLIPIDEMIA, UNSPECIFIED (9) HTN (hypertension) Code(s): I10 - ESSENTIAL (PRIMARY) HYPERTENSION (10) S/P aortic valve replacement Code(s): Z95.2 - PRESENCE OF PROSTHETIC HEART VALVE Assessment/Plan ASSESSMENT: Fever of unknown origin with altered mental status improved. JEANNIE NO ENDOCARDITIS Toxic Metabolic Encephalopathy Low clinical suspicion of Meningitis Sepsis Leukopenia AF on chronic AC s/p porcine valve 2008 HTN CHF MIGUEL A COPD ACUTE ON CHRONIC KIDNEY INJURY improved ELEVATED LFTS improved MEDIASTINAL ADENOPATHY PLAN: -Lasix -BD TX PRN -CPAP at night and when sleeping -Oxygen -Rate control -Monitor lytes,cbc - chest x-ray - abx as per ID - repete lytes - cultures DR OROZCO
--- NOTE | 2019-02-26 11:36 | PN ---
Progress Note (short form) - Note Progress Note: Mr. Barnes was admitted with chills or rigors, cough and dyspnea Known case of hypertension, hypertensive cardiovascular disease, severe left ventricular diastolic dysfunction, paroxysmal atrial fibrillation, chronic pulmonary disease , status post bioprosthetic aortic valve replacement and OSAS. Continues to be febrile and has had periods significant confusion. Etiology of FUO is still not determined. Petechail rash persists. LFTs and CBC results are improving. Appetite has also improved. spoke to and son at length and waitng for a 2nd ID opinion. Active Medications Acetaminophen (Ofirmev Injection -) 750 mg IVPB Q12H PRN PRN Reason: FEVER Last Admin: 02/26/19 09:18 Dose: 750 mg Amlodipine Besylate (Norvasc -) 5 mg PO DAILY [facility] Last Admin: 02/26/19 09:18 Dose: 5 mg Cyanocobalamin (Vitamin B12 -) 1,000 mcg PO DAILY [facility] Last Admin: 02/26/19 09:18 Dose: 1,000 mcg Furosemide (Lasix -) 40 mg PO BID@0600,1400 [facility] Last Admin: 02/26/19 05:52 Dose: 40 mg Lactulose (Cephulac (Oral Use)) 20 gm PO DAILY [facility] Last Admin: 02/26/19 09:17 Dose: 20 gm Lidocaine (Lidoderm Patch -) 1 patch TP DAILY [facility] Last Admin: 02/26/19 09:17 Dose: 1 patch Melatonin (Melatonin) 3 mg PO HS [facility] Last Admin: 02/25/19 22:40 Dose: Not Given Methyl Salicylate (Octavio-Juarez -) 1 applic TP BID [facility] Last Admin: 02/26/19 09:19 Dose: 1 applic Metoprolol Succinate (Toprol Xl -) 25 mg PO DAILY [facility] Last Admin: 02/26/19 09:17 Dose: 25 mg Miscellaneous (Lidoderm Patch Removal) 1 each MC DAILY@2200 [facility] Last Admin: 02/25/19 21:51 Dose: 1 each Ondansetron HCl (Zofran Injection) 4 mg IVPUSH Q6H PRN PRN Reason: NAUSEA AND/OR VOMITING Last Admin: 02/23/19 09:50 Dose: 4 mg Pantoprazole Sodium (Protonix -) 40 mg PO BID [facility] Last Admin: 02/26/19 09:17 Dose: 40 mg Rosuvastatin Calcium (Crestor -) 5 mg PO HS [facility] Last Admin: 02/25/19 21:50 Dose: 5 mg Valsartan (Diovan -) 160 mg PO DAILY [facility] Last Admin: 02/26/19 09:18 Dose: 160 mg 83-year-old gentleman was in no acute distress, no pallor, cyanosis, clubbing or jaundice. Last Vital Signs Temp Pulse Resp BP Pulse Ox 101.1 F H 72 19 137/53 L 98 02/26/19 09:15 02/26/19 09:15 02/26/19 09:15 02/26/19 09:15 02/26/19 09:00 NECK: Supple, no jugular venous distention, hepato jugular reflux was negative, carotids were 2+, no lymphadenopthy. HEART: PMI was not localized, no heaves or thrills, heart sounds were distant, ejection systolic murmur grade 2/6 was heard at the second right intercostal space ending in early to mid systole. No diastolic murmur or gallops were heard. LUNGS: decreased breath sounds at both bases. No extraneous sounds were heard. Chest: Rash/ petechiae involving the posterior chest. ABDOMEN: Soft, protuberant, nontender. No hepatosplenomegaly or palpable masses were felt.Small nontender mass vs lipoma RUQ. EXTREMITIES: No calf tenderness or dependent edema, bilateral rash /petechae both legs pulses were equal except posterior tibial pulses were not palpable. Swelling of the left knee, nontender Laboratory Results - last 24 hr 02/25/19 02/25/19 02/25/19 06:55 13:04 14:00 WBC RBC Hgb Hct MCV MCH MCHC RDW Plt Count MPV Absolute Neuts (auto) Neutrophils % Lymphocytes % Monocytes % Eosinophils % Basophils % Nucleated RBC % PT with INR INR Anticoagulation Therapy No Result Required. Puncture Site No Result Required. ABG pH 7.52 H ABG pCO2 at Pt Temp 36.0 ABG pO2 at Pt Temp 65.9 L ABG HCO3 29.5 H ABG O2 Sat (Measured) 93.9 L ABG O2 Content 17.5 ABG Base Excess 6.8 H Aravind Test Positive O2 Delivery Device No Result Required. Oxygen Flow Rate Room air Vent Mode No Result Required. Vent Rate No Result Required. Mechanical Rate No Result Required. Pressure Support Vent No Result Required. Sodium Potassium 3.1 L Chloride Carbon Dioxide Anion Gap BUN Creatinine Est GFR (CKD-EPI)AfAm Est GFR (CKD-EPI)NonAf Random Glucose Calcium Magnesium Total Bilirubin Direct Bilirubin AST ALT Alkaline Phosphatase C-Reactive Protein Total Protein Albumin CA 19-9 Antigen 34 Urine Color Urine Appearance Urine pH Ur Specific [place] Urine Protein Urine Glucose (UA) Urine Ketones Urine Blood Urine Nitrite Urine Bilirubin Urine Urobilinogen Ur Leukocyte Esterase Urine WBC (Auto) Urine RBC (Auto) Urine Casts (Auto) U Epithel Cells (Auto) Urine Bacteria (Auto) 02/25/19 02/25/19 02/26/19 19:00 21:00 06:05 WBC RBC Hgb Hct MCV MCH MCHC RDW Plt Count MPV Absolute Neuts (auto) Neutrophils % Lymphocytes % Monocytes % Eosinophils % Basophils % Nucleated RBC % PT with INR INR Anticoagulation Therapy Puncture Site ABG pH ABG pCO2 at Pt Temp ABG pO2 at Pt Temp ABG HCO3 ABG O2 Sat (Measured) ABG O2 Content ABG Base Excess Aravind Test O2 Delivery Device Oxygen Flow Rate Vent Mode Vent Rate Mechanical Rate Pressure Support Vent Sodium 134 L Potassium 3.3 L 2.9 L* Chloride 96 L Carbon Dioxide 32 Anion Gap 5 L BUN 21.3 H Creatinine 1.1 Est GFR (CKD-EPI)AfAm 72.07 Est GFR (CKD-EPI)NonAf 62.19 Random Glucose 100 Calcium 9.1 Magnesium 2.1 Total Bilirubin 2.8 H Direct Bilirubin 1.6 H AST 26 ALT 57 Alkaline Phosphatase 375 H C-Reactive Protein Total Protein 6.8 Albumin 3.0 L CA 19-9 Antigen Urine Color Dk yellow Urine Appearance Clear Urine pH 5.5 Ur Specific [place] 1.015 Urine Protein 1+ H Urine Glucose (UA) Negative Urine Ketones Negative Urine Blood Negative Urine Nitrite Negative Urine Bilirubin Negative Urine Urobilinogen 2.0 Ur Leukocyte Esterase Negative Urine WBC (Auto) 1 Urine RBC (Auto) 2 Urine Casts (Auto) 6 U Epithel Cells (Auto) 0.8 Urine Bacteria (Auto) 0.2 02/26/19 02/26/19 02/26/19 06:05 06:05 06:05 WBC 7.1 RBC 4.48 Hgb 13.5 Hct 38.8 MCV 86.7 MCH 30.1 MCHC 34.8 RDW 14.1 Plt Count 234 D MPV 8.0 Absolute Neuts (auto) 6.2 Neutrophils % 87.3 H Lymphocytes % 4.8 L D Monocytes % 6.8 Eosinophils % 0.9 Basophils % 0.2 Nucleated RBC % 0 PT with INR 13.50 H INR 1.14 H Anticoagulation Therapy Puncture Site ABG pH ABG pCO2 at Pt Temp ABG pO2 at Pt Temp ABG HCO3 ABG O2 Sat (Measured) ABG O2 Content ABG Base Excess Aravind Test O2 Delivery Device Oxygen Flow Rate Vent Mode Vent Rate Mechanical Rate Pressure Support Vent Sodium Potassium Chloride Carbon Dioxide Anion Gap BUN Creatinine Est GFR (CKD-EPI)AfAm Est GFR (CKD-EPI)NonAf Random Glucose Calcium Magnesium Total Bilirubin Direct Bilirubin AST ALT Alkaline Phosphatase C-Reactive Protein 7.3 H Total Protein Albumin CA 19-9 Antigen Urine Color Urine Appearance Urine pH Ur Specific [place] Urine Protein Urine Glucose (UA) Urine Ketones Urine Blood Urine Nitrite Urine Bilirubin Urine Urobilinogen Ur Leukocyte Esterase Urine WBC (Auto) Urine RBC (Auto) Urine Casts (Auto) U Epithel Cells (Auto) Urine Bacteria (Auto) Impression: 1. FUO, associated with abnormal LFT, new rash vs.petechaie,thrombocytopenia a). Possibility of reckettial disease needs exclusion. b). Lymphoma. c). Malignancy. 2. Hypertension, hypertensive cardiovascular disease. 3. Severe left ventricular diastolic dysfunction. 4. Chronic obstructive pulmonary disease. 5. Status post bioprosthetic aortic valve replacement. 6. Mental confusion, etiology to be determined. 7. Hypoxmia. 8. Hypokalemia, etiology to be determined Recommendations: 1. O2. 2. Resume A/C ALIZE now that platelet, have normalised unless a biopsy is being consideredin the day or two. 3. Lymph node biopsy ? right groin. 4. Awaiting ID second opinion. 5. Correction of K+ in progress. 6. Check urine lytes. 7. F/u ECG. Prognosis: Critical. Time spent face ti face and 40 mins.
--- NOTE | 2019-02-26 11:55 | PN ---
Progress Note, Physician History of Present Illness: bipap changed patient more awake and alert still spiked a fever clinically looks more better in the room - Current Medication List Current Medications: Active Medications Acetaminophen (Ofirmev Injection -) 750 mg IVPB Q12H PRN PRN Reason: FEVER Last Admin: 02/26/19 09:18 Dose: 750 mg Amlodipine Besylate (Norvasc -) 5 mg PO DAILY [facility] Last Admin: 02/26/19 09:18 Dose: 5 mg Cyanocobalamin (Vitamin B12 -) 1,000 mcg PO DAILY [facility] Last Admin: 02/26/19 09:18 Dose: 1,000 mcg Furosemide (Lasix -) 40 mg PO BID@0600,1400 [facility] Last Admin: 02/26/19 05:52 Dose: 40 mg Lactulose (Cephulac (Oral Use)) 20 gm PO DAILY [facility] Last Admin: 02/26/19 09:17 Dose: 20 gm Lidocaine (Lidoderm Patch -) 1 patch TP DAILY [facility] Last Admin: 02/26/19 09:17 Dose: 1 patch Melatonin (Melatonin) 3 mg PO HS [facility] Last Admin: 02/25/19 22:40 Dose: Not Given Methyl Salicylate (Octavio-Juarez -) 1 applic TP BID [facility] Last Admin: 02/26/19 09:19 Dose: 1 applic Metoprolol Succinate (Toprol Xl -) 25 mg PO DAILY [facility] Last Admin: 02/26/19 09:17 Dose: 25 mg Miscellaneous (Lidoderm Patch Removal) 1 each MC DAILY@2200 [facility] Last Admin: 02/25/19 21:51 Dose: 1 each Ondansetron HCl (Zofran Injection) 4 mg IVPUSH Q6H PRN PRN Reason: NAUSEA AND/OR VOMITING Last Admin: 02/23/19 09:50 Dose: 4 mg Pantoprazole Sodium (Protonix -) 40 mg PO BID [facility] Last Admin: 02/26/19 09:17 Dose: 40 mg Rosuvastatin Calcium (Crestor -) 5 mg PO HS [facility] Last Admin: 02/25/19 21:50 Dose: 5 mg Valsartan (Diovan -) 160 mg PO DAILY [facility] Last Admin: 02/26/19 09:18 Dose: 160 mg - Objective Vital Signs: Vital Signs Temperature 101.1 F H 02/26/19 09:15 Pulse Rate 72 02/26/19 09:15 Respiratory Rate 19 11/13/19 09:15 Blood Pressure 137/53 L 02/26/19 09:15 O2 Sat by Pulse Oximetry (%) 98 02/26/19 08:49 Constitutional: Yes: No Distress, Calm Cardiovascular: Yes: S1, S2 Respiratory: Yes: Regular, CTA Bilaterally Gastrointestinal: Yes: Normal Bowel Sounds, Soft Musculoskeletal: Yes: WNL Extremities: Yes: WNL Integumentary: Yes: Rash (on the ext) Neurological: Yes: Alert, Oriented Labs: CBC, BMP 02/26/19 06:05 02/26/19 06:05 INR, PTT INR 1.14 (0.83-1.09) H 02/26/19 06:05 Fibrinogen 229.0 mg/dL (238-498) L 02/21/19 08:15 Assessment/Plan Problem List - Problems (1) Severe sepsis Code(s): A41.9 - SEPSIS, UNSPECIFIED ORGANISM; R65.20 - SEVERE SEPSIS WITHOUT SEPTIC SHOCK (2) MIGUEL A (obstructive sleep apnea) Code(s): G47.33 - OBSTRUCTIVE SLEEP APNEA (ADULT) (PEDIATRIC) (3) HLD (hyperlipidemia) Code(s): E78.5 - HYPERLIPIDEMIA, UNSPECIFIED (4) HTN (hypertension) Code(s): I10 - ESSENTIAL (PRIMARY) HYPERTENSION (5) S/P aortic valve replacement Code(s): Z95.2 - PRESENCE OF PROSTHETIC HEART VALVE (6) Afib Code(s): I48.91 - UNSPECIFIED ATRIAL FIBRILLATION plan continue current mgmt rest as per the team nutrition continue bipap also ordered test for leptospirosis will see how the patient does
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
[2019-02-26] MEDS ORDERED: POTASSIUM CHLORIDE TABS 20 MEQ TABLET.ER (FP) PO ONE (16:26)
--- NOTE | 2019-02-26 19:13 | PN.GI ---
GI Progress Note Subjective: GI NOte: Dr. Cheung's consult is appreciated. Had fever to 101 earlier today. Total bilirubin and alk phos remain elevated - Objective Vital Signs: Vital Signs Temperature 98.4 F 02/26/19 13:49 Pulse Rate 70 02/26/19 13:49 Respiratory Rate 18 02/26/19 13:49 Blood Pressure 111/62 02/26/19 13:49 O2 Sat by Pulse Oximetry (%) 97 02/26/19 12:35 Constitutional: Other (less confused tonight) ...Auscultate: Yes: Normoactive Bowel Sounds ...Palpate: Yes: Soft, Other (nontender) Labs: CBC, BMP 02/26/19 06:05 02/26/19 06:05 INR, PTT INR 1.14 (0.83-1.09) H 02/26/19 06:05 Fibrinogen 229.0 mg/dL (238-498) L 02/21/19 08:15 Assessment/Plan Assessment: - Fever and abnormal LFTs could reflect a lymphoma given the other lymphadenopathy. It could harbor another malignancy, vasculitis or evidence for infection. I did discuss the possibility of an underlying GI or pancreatic malignancy but given his respiratory status anesthesia for elective endoscopies is too risky. - Personal h/o a colon adenoma and diverticulosis - stomach cancer Plan: -- Hantavirus Ab and Leptospira Ab pending Problem List - Problems (1) Lymphadenopathy Code(s): R59.1 - GENERALIZED ENLARGED LYMPH NODES (2) Abnormal liver enzymes Code(s): R74.8 - ABNORMAL LEVELS OF OTHER SERUM ENZYMES (3) Gallstone Code(s): K80.20 - CALCULUS OF GALLBLADDER W/O CHOLECYSTITIS W/O OBSTRUCTION (4) S/P aortic valve replacement Code(s): Z95.2 - PRESENCE OF PROSTHETIC HEART VALVE (5) Colon adenoma Code(s): D12.6 - BENIGN NEOPLASM OF COLON, UNSPECIFIED (6) Diverticulosis Code(s): K57.90 - DVRTCLOS OF INTEST, PART UNSP, W/O PERF OR ABSCESS W/O BLEED (7) History of prostate cancer Code(s): Z85.46 - PERSONAL HISTORY OF MALIGNANT NEOPLASM OF PROSTATE (8) Afib Code(s): I48.91 - UNSPECIFIED ATRIAL FIBRILLATION (9) Altered mental status Code(s): R41.82 - ALTERED MENTAL STATUS, UNSPECIFIED (10) Leukopenia Code(s): D72.819 - DECREASED WHITE BLOOD CELL COUNT, UNSPECIFIED (11) Severe sepsis Code(s): A41.9 - SEPSIS, UNSPECIFIED ORGANISM; R65.20 - SEVERE SEPSIS WITHOUT SEPTIC SHOCK (12) Thrombocytopenia Code(s): D69.6 - THROMBOCYTOPENIA, UNSPECIFIED (13) HLD (hyperlipidemia) Code(s): E78.5 - HYPERLIPIDEMIA, UNSPECIFIED (14) HTN (hypertension) Code(s): I10 - ESSENTIAL (PRIMARY) HYPERTENSION (15) Family history of gastric cancer Code(s): Z80.0 - FAMILY HISTORY OF MALIGNANT NEOPLASM OF DIGESTIVE ORGANS
[2019-02-26] MEDS: ROSUVASTATIN CA 5 MG TABLET (FP) PO SCH (21:25)
[2019-02-26] MEDS: POTASSIUM CHLORIDE TABS 20 MEQ TABLET.ER (FP) PO SCH (21:25)
[2019-02-26] MEDS: LIDOCAINE PATCH REMOVAL MC SCH (21:25)
[2019-02-26] MEDS: MELATONIN 1 MG TABLET PO SCH (21:26)
--- NOTE | 2019-02-26 23:05 | CONS ---
INFECTIOUS DISEASE CONSULTATION DATE OF CONSULTATION: DATE OF DICTATION: 02/26/2019 REQUESTING PHYSICIAN: The hospitalist service. This is an 83-year-old man with a history of COPD and a bioprosthetic aortic valve done about 10 years ago. I am asked to see him on hospital day number 13. He was admitted on February 13, with weakness, chills, and fevers that had started 2 days previously. He reported that on that prior Sunday he had gone to work. 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 He became soaked, and he pulled his back that day. His reports after he arrived home he was soaked. The next day, he complained of worsening back pain, and that night, he started having rigors and chills. This persisted on , and night, he was not able to go trick or treating with his grandkids because he was shivering. With that, he was brought to [facility]. Three weeks prior to that, he had been in [place] with his grandchildren, and his 3-year-old grandchild, during the [place] trip, had gotten ill. He was admitted through the ER and actually admitted to the ICU after admission. He has been evaluated by Neurology, ID, GI, as well as Hematology and Cardiology. His hospital stay has been notable for leukopenia and thrombocytopenia that he developed after admission, that have now resolved. He also had elevated transaminases and alkaline phosphatase and bilirubin. The transaminases have resolved. He has continued to have an elevated alkaline phosphatase and bilirubin. He has had extensive imaging done since admission, which has been notable for chest CT with mediastinal adenopathy. He has had a lumbar puncture with elevated protein, and he has had a JEANNIE that showed no vegetation. Multiple blood cultures are negative as well. He was treated with cefepime from the to the and doxycycline from the to the , and since then, he has been off antibiotics. Today, he is more alert and conversant and has actually had an appetite and ate. He has no known drug allergies. He has had no recent changes in his medications. MEDICATIONS: As an outpatient include Crestor, Toprol-XL, furosemide, Benicar, Eliquis, B12, and olmesartan. None of these medications have been changed. FAMILY HISTORY: Notable for gastric cancer. Father of pneumonia. PAST MEDICAL HISTORY: He is hard of hearing. He wears hearing aids. He has a history of atrial fibrillation, bioprosthetic aortic valve, aortic stenosis, LVH, history of CHF, hypertension, hyperlipidemia, pulmonary hypertension, diverticulosis, cholelithiasis, prostate cancer, status post radical prostatectomy. He has had MRSA. He had a perianal abscess many years ago, and he has a history of osteoarthritis, cervical radiculopathy, gout. SURGICAL HISTORY: Notable for laminectomy, umbilical hernia repair, radical prostatectomy, aortic valve replacement in 2008. He has had a left neck lipoma resection and a hemorrhoidectomy. SOCIAL HISTORY: He is a former beer drinker, has not had a drink in 3 months. Former smoker, quit in 1973. He lives with his spouse. 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 REVIEW OF SYSTEMS: He reports he had some nausea on admission, which is now gone. He never vomited. He had no diarrhea or dysuria. No chest pain or abdominal pain. His back pain has now markedly improved. PHYSICAL EXAMINATION: General: He is an elderly man in no acute distress. Vital Signs: T-max of 101.1 rectally. He has had intermittent fevers since his admission on the . His current temperature is 98.4 rectally. Pulse is 70. Blood pressure is 111/62. Respiratory rate of 18. HEENT: He is normocephalic. His eyes are mildly icteric. He has no thrush. He has good dentition. Neck: Supple. Lungs: Clear to auscultation. Heart: Regular rate and rhythm. Abdomen: Soft, nontender. Extremities: Without edema. Skin: He looks like he has a rash on the outer aspect of his right leg, that appears to be resolving. He has no edema. He has no skin breakdown. LABORATORY DATA: White count is now 7.1, hemoglobin 13.5, platelets are 234. On February 17, his white count was 1.8 with platelets of 61,000. His INR is 1.14. His BUN is 21 and creatinine 1.1. His liver tests: His AST and ALT are now normal, 26 and 57, with a total bilirubin of 2.8 and an alkaline phosphatase of 375. CRP is 7.3. Urinalysis is unremarkable. His LP was notable for 2 white cells and total protein of 92. His JYOTI is negative. The Babesia serology is negative. His smear for Babesia is negative. RPR is negative. Lyme screen is negative. West Nile, IgG, IgM serology is negative. Ehrlichia serology is negative. Hepatitis serology is negative. He has a CMV IgG/IgM that are sent, that are both negative as well, and he has a Leptospira IgM pending and anaplasma DNA. In summary, this is an 83-year-old man with an FUO (fever of unknown origin) that appears to be clinically improving in terms of his hematologic parameters. Differential diagnosis would include viral tick illness, consideration for malignancy, a lymphoma also a possibility with nonspecific adenopathy and now with a rash on his leg as well. I would check EBV serology. CMV serology is negative. Would check for dengue and HHV-6, HIV testing, Ehrlichia PCR. Anaplasma PCR is pending. Would repeat a GGT and a CRP. If further fevers persist, then consideration for biopsy is reasonable. Follow his fever curve. This was discussed with the patient, , and son at bedside. I spoke with Dr. Blake as well regarding the patient's care. VI YE M.D. [id number]
[2019-02-27] MEDS: ACETAMINOPHEN 1000 MG/100 ML VIAL (NON FORMULARY) IVPB PRN ×2 (02:10→14:46)
[2019-02-27] MEDS: FUROSEMIDE 40 MG TABLET (FP) PO SCH ×2 (06:13→14:49)
[2019-02-27 07:08] LABS: BASO % 0.5 % (0-2.0); EOS % 1.9 % (0-4.5); HEMATOCRIT 35.9 % (35.4-49); HEMOGLOBIN 12.2 GM/dL (11.7-16.9); LYMPH % 11.3 % (8-40); MCH 29.7 pg (25.7-33.7); MCHC 33.9 g/dl (32.0-35.9); MEAN CELL VOLUME 87.6 fl (80-96); MEAN PLT VOLUME 7.9 fl (7.5-11.1); MONO % 9.8 % (3.8-10.2); NEUT % 76.5 % (42.8-82.8); PLATELET COUNT 248 K/MM3 (134-434); RDW 13.7 % (11.9-15.9)
[2019-02-27 07:59] LABS: ALBUMIN 2.6 g/dl (3.4-5.0); BILIRUBIN,TOTAL 2.2 mg/dL (0.2-1); BLOOD UREA NITROGEN 27.7 mg/dL (7-18); CALCIUM 8.9 mg/dL (8.5-10.1); CREATININE 1.3 mg/dL (0.55-1.3); MAGNESIUM 2.5 mg/dL (1.8-2.4); POTASSIUM 3.3 mmol/L (3.5-5.1)
--- NOTE | 2019-02-27 09:08 | PN ---
Physical Exam: SUBJECTIVE: Patient seen and examined at the bedside. eating breakfast. answering questions appropriately. denies chest pain or shortness of breath. slept overnight for a few hours per nursing note. OBJECTIVE: improvement of petecial rash/vs drug rash? on right back-pink raised, rash extends from right posterior leg to right thigh and covers most of his right back. non itchy. Patient is an 83 year old male with a significant past medical history of hypertension, hyperlipidemia, prosthetic aortic valve replacement (bovine). afib (on eliquis). He presented to the [facility] ED with ataxia, chills, rigors and weakness. Patient was worked up for persistent fevers during hospital stay, no def source found. However, malignancy will need to be excluded and may need liver biopsy if patient's family agrees. K 3.3, repleted with potassium chl 40mg x 1, then on maintenence of potassium 20meq bid hold all sedating medications will have SW address home cpap machine with company to assure that is is working properly Vital Signs Period Temp Pulse Resp BP Sys/Bacon Pulse Ox Last 24 Hr 97.6 F-101.1 F 59-72 18-20 111-155/53-77 91-97 GENERAL: The patient is awake, alert, and fully oriented, forgetful at times HEAD: Normal with no signs of trauma. EYES: PERRL, extraocular movements intact, sclera anicteric, conjunctiva clear. No ptosis. ENT: Ears normal, nares patent, oropharynx clear without exudates, moist mucous membranes. NECK: Trachea midline, full range of motion, supple. LUNGS: Breath sounds equal, clear to auscultation bilaterally, no wheezes HEART: Regular rate and rhythm @ 64 ABDOMEN: Soft, nontender, nondistended, normoactive bowel sounds, no guarding EXTREMITIES: 2+ pulses, warm, well-perfused, no edema. NEUROLOGICAL: Normal speech, gait not observed. can stand, will order PT PSYCH: Normal mood, normal affect. SKIN: raised pink diffused rash that extends from right posterior leg>right thigh>right upper back - improved Laboratory Results - last 24 hr 02/25/19 02/25/19 02/26/19 06:55 06:55 06:05 WBC RBC Hgb Hct MCV MCH MCHC RDW Plt Count MPV Absolute Neuts (auto) Neutrophils % Lymphocytes % Monocytes % Eosinophils % Basophils % Nucleated RBC % Sodium Potassium Chloride Carbon Dioxide Anion Gap BUN Creatinine Est GFR (CKD-EPI)AfAm Est GFR (CKD-EPI)NonAf Random Glucose Lactic Acid Calcium Magnesium Total Bilirubin GGT AST ALT Alkaline Phosphatase LD Total 270 H Total Protein Total Protein (PEP) 5.8 L Albumin Albumin (PEP) 2.6 L Globulin 3.2 Albumin/Globulin Ratio 0.8 Beta Globulins 0.7 LDL 1 Fraction 29.0 LDL 2 Fraction 34.0 LDL 3 Fraction 20.0 LDL 4 Fraction 8.0 LDL 5 Fraction 9.0 Carcinoembryonic Ag FRANCISCO M-Heriberto Hantavirus IgG Ab Cancelled Hantavirus IgM Ab Cancelled 02/26/19 02/26/19 02/26/19 06:05 12:40 20:15 WBC RBC Hgb Hct MCV MCH MCHC RDW Plt Count MPV Absolute Neuts (auto) Neutrophils % Lymphocytes % Monocytes % Eosinophils % Basophils % Nucleated RBC % Sodium Potassium 3.5 Chloride Carbon Dioxide Anion Gap BUN Creatinine Est GFR (CKD-EPI)AfAm Est GFR (CKD-EPI)NonAf Random Glucose Lactic Acid 1.7 Calcium Magnesium Total Bilirubin GGT AST ALT Alkaline Phosphatase LD Total Total Protein Total Protein (PEP) Albumin Albumin (PEP) Globulin Albumin/Globulin Ratio Beta Globulins LDL 1 Fraction LDL 2 Fraction LDL 3 Fraction LDL 4 Fraction LDL 5 Fraction Carcinoembryonic Ag 1.8 FRANCISCO M-Heriberto Hantavirus IgG Ab Hantavirus IgM Ab 02/27/19 02/27/19 02/27/19 06:07 06:07 06:07 WBC 6.0 RBC 4.10 Hgb 12.2 Hct 35.9 MCV 87.6 MCH 29.7 MCHC 33.9 RDW 13.7 Plt Count 248 MPV 7.9 Absolute Neuts (auto) 4.6 Neutrophils % 76.5 Lymphocytes % 11.3 D Monocytes % 9.8 Eosinophils % 1.9 D Basophils % 0.5 Nucleated RBC % 0 Sodium 134 L Potassium 3.3 L Chloride 96 L Carbon Dioxide 32 Anion Gap 6 L BUN 27.7 H Creatinine 1.3 Est GFR (CKD-EPI)AfAm 58.89 Est GFR (CKD-EPI)NonAf 50.81 Random Glucose 102 Lactic Acid Calcium 8.9 Magnesium 2.5 H Total Bilirubin 2.2 H GGT 388 H AST 27 ALT 48 Alkaline Phosphatase 355 H LD Total Total Protein 6.0 L Total Protein (PEP) Albumin 2.6 L Albumin (PEP) Globulin Albumin/Globulin Ratio Beta Globulins LDL 1 Fraction LDL 2 Fraction LDL 3 Fraction LDL 4 Fraction LDL 5 Fraction Carcinoembryonic Ag FRANCISCO M-Heriberto Hantavirus IgG Ab Hantavirus IgM Ab Active Medications Generic Name Dose Route Start Last Admin Trade Name Freq PRN Reason Stop Dose Admin Acetaminophen 750 mg 02/22/19 17:07 02/27/19 02:10 Ofirmev Injection - IVPB 750 mg Q12H PRN Administration FEVER Amlodipine Besylate 5 mg 02/18/19 10:00 02/26/19 09:18 Norvasc - PO 5 mg DAILY JELLY Administration Cyanocobalamin 1,000 mcg 02/18/19 10:00 02/26/19 09:18 Vitamin B12 - PO 1,000 mcg DAILY JELLY Administration Furosemide 40 mg 02/23/19 06:00 02/27/19 06:13 Lasix - PO 40 mg BID@0600,1400 JELLY Administration Lactulose 20 gm 02/25/19 10:00 02/26/19 09:17 Cephulac (Oral Use) PO 20 gm DAILY JELLY Administration Lidocaine 1 patch 02/20/19 14:00 02/26/19 09:17 Lidoderm Patch - TP 1 patch DAILY JELLY Administration Melatonin 3 mg 02/20/19 22:00 02/26/19 21:26 Melatonin PO Not Given HS JELLY Methyl Salicylate 1 applic 02/20/19 10:00 02/26/19 21:25 Octavio-Juarez - TP 1 applic BID JELLY Administration Metoprolol Succinate 25 mg 02/18/19 10:00 02/26/19 09:17 Toprol Xl - PO 25 mg DAILY JELLY Administration Miscellaneous 1 each 02/20/19 22:00 02/26/19 21:25 Lidoderm Patch Removal MC 1 each DAILY@2200 JELLY Administration Ondansetron HCl 4 mg 02/20/19 17:27 02/23/19 09:50 Zofran Injection IVPUSH 4 mg Q6H PRN Administration NAUSEA AND/OR VOMITING Pantoprazole Sodium 40 mg 02/18/19 22:00 02/26/19 21:25 Protonix - PO 40 mg BID JELLY Administration Potassium Chloride 20 meq 02/26/19 22:00 11/13/19 21:25 K-Dur - PO 20 meq BID JELLY Administration Rosuvastatin Calcium 5 mg 02/17/19 22:00 02/26/19 21:25 Crestor - PO 5 mg HS JELLY Administration Valsartan 160 mg 02/18/19 10:00 02/26/19 09:18 Diovan - PO 160 mg DAILY JELLY Administration ASSESSMENT/PLAN: Problem List - Problems (1) Fever of unknown origin Assessment/Plan: t max 100.9 overnight at 2a.m. negative blood/urine culture mental status improved. he is eating more now and ambulating with PT monitor fever curve, vitals signs. lactic acid normal limits. family asked for a 2nd ID opinion, Dr. Cheung following, notes appreciated Code(s): R50.9 - FEVER, UNSPECIFIED (2) Severe sepsis Assessment/Plan: sepsis resolved, however, again with fevers of 100.9 tmax may need liver biopsy per GI discussed with ID, no further antibiotics at this time Code(s): A41.9 - SEPSIS, UNSPECIFIED ORGANISM; R65.20 - SEVERE SEPSIS WITHOUT SEPTIC SHOCK (3) MIGUEL A (obstructive sleep apnea) Assessment/Plan: taken off home cpap and replaced with bipap for low oxygen levels on abg. mental status has improved. will have home cpap checked to assure that it is working properly prior to d/c Code(s): G47.33 - OBSTRUCTIVE SLEEP APNEA (ADULT) (PEDIATRIC) (4) HLD (hyperlipidemia) Assessment/Plan: continue home meds Code(s): E78.5 - HYPERLIPIDEMIA, UNSPECIFIED (5) HTN (hypertension) Assessment/Plan: continue cardiac meds, bp stable Code(s): I10 - ESSENTIAL (PRIMARY) HYPERTENSION (6) S/P aortic valve replacement Assessment/Plan: follows with fleet operations manager, Dr. Azar Code(s): Z95.2 - PRESENCE OF PROSTHETIC HEART VALVE (7) Afib Assessment/Plan: Rate controlled c/w toprol Eliquis held for possible invasive testing-last dose 02/22 @ 11am, if no testing to be done will restart eliquis. c/w tele monitoring Code(s): I48.91 - UNSPECIFIED ATRIAL FIBRILLATION (8) Abnormal liver enzymes Assessment/Plan: lfts within normal limits US with hepatomegaly-fatty liver vs hepatocellular US without mass avoid hepatotoxic agents MRCP revealing no CBD stones, GB stone but no cholecystitis. hida scan showed acute loi. CT A/P:Thickening of gallbladder with debridement, questionable cyctitis. Right rectus sheath hematoma [id number] be the palpable lesion that was felt earlier will determine if biopsy will be done Code(s): R74.8 - ABNORMAL LEVELS OF OTHER SERUM ENZYMES (9) Altered mental status Assessment/Plan: resolved Code(s): R41.82 - ALTERED MENTAL STATUS, UNSPECIFIED (10) Leukopenia Assessment/Plan: resolved Code(s): D72.819 - DECREASED WHITE BLOOD CELL COUNT, UNSPECIFIED (11) Lymphadenopathy Assessment/Plan: outpatient follow up with Dr. Mccloud for possible biopsy Code(s): R59.1 - GENERALIZED ENLARGED LYMPH NODES (12) Mediastinal lymphadenopathy Assessment/Plan: may need biopsy to rule to lymphoma. heme/onc following. Code(s): R59.0 - LOCALIZED ENLARGED LYMPH NODES (13) Thrombocytopenia Assessment/Plan: resolved Code(s): D69.6 - THROMBOCYTOPENIA, UNSPECIFIED (14) Toxic metabolic encephalopathy Assessment/Plan: resolved Code(s): G92 - TOXIC ENCEPHALOPATHY (15) Prophylactic measure Assessment/Plan: fen tolerating po monitor electrolyles low salt diet as tolerated on eliquis 5 bid-on hold for possible invasive procedure, if no procedure planned, will restart full code Code(s): Z29.9 - ENCOUNTER FOR PROPHYLACTIC MEASURES, UNSPECIFIED (16) Petechial eruption Assessment/Plan: petechial rash vs drug rash on right leg, thigh and right back. improving. no wheezing monitor rash and respiratory status Code(s): R23.3 - SPONTANEOUS ECCHYMOSES Visit type - Emergency Visit Emergency Visit: Yes ED Registration Date: 02/14/19 Care time: The patient presented to the Emergency Department on the above date and was hospitalized for further evaluation of their emergent condition. - New Patient This patient is new to me today: No - Critical Care Critical Care patient: No - Discharge Referral Referred to [facility] No
[2019-02-27 09:17] VITALS: PULSE 63
--- NOTE | 2019-02-27 09:17 | PN ---
Progress Note (short form) - Note Progress Note: Neurology - Admission Chief Complaint: Chills, Weakness History of Present Illness: This is a 83 y/o man from home with a PMhx of HTN, HLD, s/p Prosthetic Aortic Valve (Bovine) who presented to the ED with his family for ataxia, chills, rigors, and weakness. Patient reported feeling well earlier in the day of admission but the patient's reported they were at the grandkid's house earlier where the patient had difficulty getting out of the car and was walking like "he lost all his energy." the patient's reports she later found the patient under a blanket and was shaking. The patient reported he had a rough day and felt "terrible." Denied any pain. The patient reports associated symptoms of shortness of breath. They called Dr. Azar (house mover), who told them to follow up at the ER. Denies worsening shortness of breath, chest pain, abdominal pain, nausea, vomiting. Denies cough or congestion. The patient has been in the hospital for further medical evaluation and management and I was consulted 02/24 for evaluation and management of altered mental status. I had an extensive conversation with the hospitalist nurse practitioner, Mayra , who provided background information regarding the patient who has been demonstrating confusion with spiking fevers to 102. Work up for underlying infection has been otherwise negative thus far with fever of unknown origin. Lumbar puncture was been completed and I reviewed CSF results which demonstrated 2Wbc and increased protein, normal glucose. MRI of the brain was completed and patient seen at bedside with nurse practitioner with whom I discussed the results and did not show any acute structural abnormalities. He remains awake and alert does know that he is in the hospital along with month and year s well as the name of the president today. ID second oopinionreviewedand considering possible underlying malignancy, lymphoma as suggestive etiology considering hematologic abnormalities and elevated liver function tests. GI note reviewed as well. Overall, mental status has improved with interventions and patient seems to be near baseline. Active Medications Acetaminophen (Ofirmev Injection -) 750 mg IVPB Q12H PRN PRN Reason: FEVER Last Admin: 02/27/19 02:10 Dose: 750 mg Amlodipine Besylate (Norvasc -) 5 mg PO DAILY JELLY Last Admin: 02/26/19 09:18 Dose: 5 mg Cyanocobalamin (Vitamin B12 -) 1,000 mcg PO DAILY [facility] Last Admin: 02/26/19 09:18 Dose: 1,000 mcg Furosemide (Lasix -) 40 mg PO BID@0600,1400 [facility] Last Admin: 02/27/19 06:13 Dose: 40 mg Lactulose (Cephulac (Oral Use)) 20 gm PO DAILY [facility] Last Admin: 02/26/19 09:17 Dose: 20 gm Lidocaine (Lidoderm Patch -) 1 patch TP DAILY [facility] Last Admin: 02/26/19 09:17 Dose: 1 patch Melatonin (Melatonin) 3 mg PO HS [facility] Last Admin: 02/26/19 21:26 Dose: Not Given Methyl Salicylate (Octavio-Juarez -) 1 applic TP BID [facility] Last Admin: 02/26/19 21:25 Dose: 1 applic Metoprolol Succinate (Toprol Xl -) 25 mg PO DAILY [facility] Last Admin: 02/26/19 09:17 Dose: 25 mg Miscellaneous (Lidoderm Patch Removal) 1 each MC DAILY@2200 [facility] Last Admin: 02/26/19 21:25 Dose: 1 each Ondansetron HCl (Zofran Injection) 4 mg IVPUSH Q6H PRN PRN Reason: NAUSEA AND/OR VOMITING Last Admin: 02/23/19 09:50 Dose: 4 mg Pantoprazole Sodium (Protonix -) 40 mg PO BID [facility] Last Admin: 02/26/19 21:25 Dose: 40 mg Potassium Chloride (K-Dur -) 20 meq PO BID [facility] Last Admin: 02/26/19 21:25 Dose: 20 meq Potassium Chloride (K-Dur -) 40 meq PO ONCE ONE Stop: 02/27/19 09:09 Rosuvastatin Calcium (Crestor -) 5 mg PO HS [facility] Last Admin: 02/26/19 21:25 Dose: 5 mg Valsartan (Diovan -) 160 mg PO DAILY [facility] Last Admin: 02/26/19 09:18 Dose: 160 mg Physical Examination Vital Signs: Vital Signs Period Temp Pulse Resp BP Sys/Bacon Pulse Ox Last 24 Hr 97.6 F-100.9 F 59-71 18-20 111-155/62-77 91-97 Constitutional: Yes: Well Nourished, No Distress, Calm Eyes: Yes: WNL, Conjunctiva Clear, EOM Intact, PERRL HENT: Yes: WNL, Atraumatic, Normocephalic Neck: Yes: WNL, Supple, Trachea Midline Cardiovascular: Yes: Other (click) Respiratory: Yes: WNL, Regular, CTA Bilaterally Gastrointestinal: Yes: WNL, Normal Bowel Sounds, Soft, Abdomen, Obese ...Rectal Exam: Yes: WNL Renal/: Yes: WNL Breast(s): Yes: WNL Musculoskeletal: Yes: Muscle Weakness Extremities: Yes: WNL Edema: No Peripheral Pulses WNL: Yes Neurological: somnolent but arousable, moves extremities grossly, able to tell me name of hospital as well as year but not name of the president, sensory intact to tactile stimulation CBCD WBC 6.0 K/mm3 (4.0-10.0) 02/27/19 06:07 RBC 4.10 M/mm3 (4.00-5.60) 02/27/19 06:07 Hgb 12.2 GM/dL (11.7-16.9) 02/27/19 06:07 Hct 35.9 % (35.4-49) 02/27/19 06:07 MCV 87.6 fl (80-96) 02/27/19 06:07 MCHC 33.9 g/dl (32.0-35.9) 02/27/19 06:07 RDW 13.7 % (11.9-15.9) 02/27/19 06:07 Plt Count 248 K/MM3 (134-434) 02/27/19 06:07 MPV 7.9 fl (7.5-11.1) 02/27/19 06:07 CMP Sodium 134 mmol/L (136-145) L 02/27/19 06:07 Potassium 3.3 mmol/L (3.5-5.1) L 02/27/19 06:07 Chloride 96 mmol/L (98-107) L 02/27/19 06:07 Carbon Dioxide 32 mmol/L (21-32) 02/27/19 06:07 Anion Gap 6 MMOL/L (8-16) L 02/27/19 06:07 BUN 27.7 mg/dL (7-18) H 02/27/19 06:07 Creatinine 1.3 mg/dL (0.55-1.3) 02/27/19 06:07 Glucose 146 mg/dL (65-99) H 02/22/19 06:00 Random Glucose 102 mg/dL (74-106) 02/27/19 06:07 Calcium 8.9 mg/dL (8.5-10.1) 02/27/19 06:07 Total Bilirubin 2.2 mg/dL (0.2-1) H 02/27/19 06:07 AST 27 U/L (15-37) 02/27/19 06:07 ALT 48 U/L (13-61) 02/27/19 06:07 Alkaline Phosphatase 355 U/L (45-117) H 02/27/19 06:07 Total Protein 6.0 g/dl (6.4-8.2) L 02/27/19 06:07 Albumin 2.6 g/dl (3.4-5.0) L 02/27/19 06:07 CARDIAC ENZYMES Creatine Kinase 278 U/L (26-308) 02/15/19 05:51 Troponin I 0.05 ng/ml (0.00-0.05) 02/14/19 13:30 Plan: 83 y/o man from home with a PMhx of HTN, HLD, s/p Prosthetic Aortic Valve ( Bovine) who presented to the ED with his family for ataxia, chills, rigors, and weakness. Patient reported feeling well earlier in the day of admission but the patient's reported they were at the grandkid's house earlier where the patient had difficulty getting out of the car and was walking like "he lost all his energy." the patient's reports she later found the patient under a blanket and was shaking. The patient reported he had a rough day and felt "terrible." Denied any pain. The patient reports associated symptoms of shortness of breath. They called Dr. Azar (house mover), who told them to follow up at the ER. Denies worsening shortness of breath, chest pain, abdominal pain, nausea, vomiting. Denies cough or congestion. The patient has been in the hospital for further medical evaluation and management and I was consulted 02/24 for evaluation and management of altered mental status. I had an extensive conversation with the hospitalist nurse practitioner, Mayra, who provided background information regarding the patient who has been demonstrating confusion with spiking fevers to 102. He was again somnolent her my encounter but arousable. CT head has been completed and advised to have MRI of the brain for further evaluation. Work up for underlying infection has been otherwise negative thus far. Therefore, fever of unknown origin. Lumbar puncture was been completed and I reviewed CSF results which demonstrated 2Wbc and increased protein, normal glucose. MRI of the brain was completed and patient seen at bedside with nurse practitioner with whom I discussed the results and did not show any acute structural abnormalities. He remains awake and alert does know that he is in the hospital along with month and year s well as the name of the president today. ID second oopinionreviewedand considering possible underlying malignancy, lymphoma as suggestive etiology considering hematologic abnormalities and elevated liver function tests. GI note reviewed as well. Overall, mental status has improved with interventions and patient seems to be near baseline. Maintain adequate hydration, monitor blood pressure and maintain normotensive range. Continue monitor for fevers, ID follow up suggested. Continue hydration, GI follow up. Continue reorientation and cognitive activity.
[2019-02-27] MEDS ORDERED: POLYETHYLENE GLYCOL 3350 119 GM BTL PO ONE (09:24)
[2019-02-27] MEDS ORDERED: POTASSIUM CHLORIDE TABS 20 MEQ TABLET.ER (FP) PO ONE (09:45)
[2019-02-27] MEDS: POTASSIUM CHLORIDE TABS 20 MEQ TABLET.ER (FP) PO SCH (10:02)
[2019-02-27] MEDS: VALSARTAN 160 MG TABLET (UD) PO SCH (10:05)
[2019-02-27] MEDS: metoPROLOL SUCCINATE 25 MG TAB.SR.24H (FP) PO SCH (10:05)
[2019-02-27] MEDS: LACTULOSE 20 GM/30 ML UDC (FOR ORAL USE ONLY) PO SCH (10:05)
[2019-02-27] MEDS: PANTOPRAZOLE 40 MG TABLET (FP) PO SCH (10:06)
[2019-02-27] MEDS: LIDOCAINE 5% TOPICAL PATCH TP SCH (10:06)
[2019-02-27] MEDS: CYANOCOBALAMIN 1,000 MCG TABLET (FP) PO SCH (10:06)
[2019-02-27] MEDS: amLODIPine BESYLATE 5 MG TABLET (FP) PO SCH (10:06)
[2019-02-27] MEDS: METHYL SALICYLATE/MENTHOL OINT 30 GM TUBE TP SCH (10:10)
--- NOTE | 2019-02-27 11:13 | PN ---
Progress Note, Physician History of Present Illness: doing well still with low grade temp mental status back to normal looks comfortable family in the room - Current Medication List Current Medications: Active Medications Acetaminophen (Ofirmev Injection -) 750 mg IVPB Q12H PRN PRN Reason: FEVER Last Admin: 02/27/19 02:10 Dose: 750 mg Amlodipine Besylate (Norvasc -) 5 mg PO DAILY [facility] Last Admin: 02/27/19 10:06 Dose: 5 mg Cyanocobalamin (Vitamin B12 -) 1,000 mcg PO DAILY [facility] Last Admin: 02/27/19 10:06 Dose: 1,000 mcg Furosemide (Lasix -) 40 mg PO BID@0600,1400 [facility] Last Admin: 02/27/19 06:13 Dose: 40 mg Lactulose (Cephulac (Oral Use)) 20 gm PO DAILY [facility] Last Admin: 02/27/19 10:05 Dose: 20 gm Lidocaine (Lidoderm Patch -) 1 patch TP DAILY [facility] Last Admin: 02/27/19 10:06 Dose: 1 patch Melatonin (Melatonin) 3 mg PO HS [facility] Last Admin: 02/26/19 21:26 Dose: Not Given Methyl Salicylate (Octavio-Juarez -) 1 applic TP BID [facility] Last Admin: 02/27/19 10:10 Dose: 1 applic Metoprolol Succinate (Toprol Xl -) 25 mg PO DAILY [facility] Last Admin: 02/27/19 10:05 Dose: 25 mg Miscellaneous (Lidoderm Patch Removal) 1 each MC DAILY@2200 [facility] Last Admin: 02/26/19 21:25 Dose: 1 each Ondansetron HCl (Zofran Injection) 4 mg IVPUSH Q6H PRN PRN Reason: NAUSEA AND/OR VOMITING Last Admin: 02/23/19 09:50 Dose: 4 mg Pantoprazole Sodium (Protonix -) 40 mg PO BID [facility] Last Admin: 02/27/19 10:06 Dose: 40 mg Potassium Chloride (K-Dur -) 20 meq PO BID [facility] Last Admin: 02/27/19 10:02 Dose: 20 meq Rosuvastatin Calcium (Crestor -) 5 mg PO HS [facility] Last Admin: 02/26/19 21:25 Dose: 5 mg Valsartan (Diovan -) 160 mg PO DAILY [facility] Last Admin: 02/27/19 10:05 Dose: 160 mg - Objective Vital Signs: Vital Signs Temperature 98.5 F 02/27/19 09:16 Pulse Rate 63 02/27/19 09:16 Respiratory Rate 20 02/27/19 09:16 Blood Pressure 143/89 02/27/19 09:16 O2 Sat by Pulse Oximetry (%) 91 L 02/26/19 21:00 Constitutional: Yes: No Distress, Calm Cardiovascular: Yes: S1, S2 Respiratory: Yes: Regular, CTA Bilaterally Gastrointestinal: Yes: Normal Bowel Sounds, Soft Musculoskeletal: Yes: WNL Extremities: Yes: WNL Integumentary: Yes: Other (lymph nodes in the groin) Neurological: Yes: Alert, Oriented Psychiatric: Yes: Alert, Oriented Labs: CBC, BMP 02/27/19 06:07 02/27/19 06:07 INR, PTT INR 1.14 (0.83-1.09) H 02/26/19 06:05 Fibrinogen 229.0 mg/dL (238-498) L 02/21/19 08:15 Assessment/Plan Problem List - Problems (1) Severe sepsis Code(s): A41.9 - SEPSIS, UNSPECIFIED ORGANISM; R65.20 - SEVERE SEPSIS WITHOUT SEPTIC SHOCK (2) MIGUEL A (obstructive sleep apnea) Code(s): G47.33 - OBSTRUCTIVE SLEEP APNEA (ADULT) (PEDIATRIC) (3) HLD (hyperlipidemia) Code(s): E78.5 - HYPERLIPIDEMIA, UNSPECIFIED (4) HTN (hypertension) Code(s): I10 - ESSENTIAL (PRIMARY) HYPERTENSION (5) S/P aortic valve replacement Code(s): Z95.2 - PRESENCE OF PROSTHETIC HEART VALVE (6) Afib Code(s): I48.91 - UNSPECIFIED ATRIAL FIBRILLATION plan continue current mgmt rest as per the team nutrition await for all the test 2nd opinion note noted patient wants to be transferred to other hospital also consider biopsy of the node which is planned if patient stays here
--- NOTE | 2019-02-27 13:45 | PN ---
Progress Note (short form) - Note Progress Note: Tolerating NIPPV support. Family at the bedside. Periods of confusions and still with intermittent fever. Being transferred to [facility]. Intake & Output 02/24/19 02/25/19 02/26/19 02/27/19 23:59 23:59 23:59 23:59 Intake Total 120 1140 100 240 Output Total 171 242 6124 Balance 120 765 -300 -960 Weight 208 lb 9.6 oz 204 lb 204 lb 4 oz 205 lb 3.2 oz Last Vital Signs Temp Pulse Resp BP Pulse Ox 98.5 F 63 20 143/89 96 02/27/19 09:16 02/27/19 09:16 02/27/19 09:16 02/27/19 09:16 02/27/19 10:00 Active Medications Acetaminophen (Ofirmev Injection -) 750 mg IVPB Q12H PRN PRN Reason: FEVER Last Admin: 02/27/19 02:10 Dose: 750 mg Amlodipine Besylate (Norvasc -) 5 mg PO DAILY [facility] Last Admin: 02/27/19 10:06 Dose: 5 mg Cyanocobalamin (Vitamin B12 -) 1,000 mcg PO DAILY [facility] Last Admin: 02/27/19 10:06 Dose: 1,000 mcg Furosemide (Lasix -) 40 mg PO BID@0600,1400 [facility] Last Admin: 02/27/19 06:13 Dose: 40 mg Lactulose (Cephulac (Oral Use)) 20 gm PO DAILY [facility] Last Admin: 02/27/19 10:05 Dose: 20 gm Lidocaine (Lidoderm Patch -) 1 patch TP DAILY [facility] Last Admin: 02/27/19 10:06 Dose: 1 patch Melatonin (Melatonin) 3 mg PO HS [facility] Last Admin: 02/26/19 21:26 Dose: Not Given Methyl Salicylate (Octavio-Juarez -) 1 applic TP BID [facility] Last Admin: 02/27/19 10:10 Dose: 1 applic Metoprolol Succinate (Toprol Xl -) 25 mg PO DAILY [facility] Last Admin: 02/27/19 10:05 Dose: 25 mg Miscellaneous (Lidoderm Patch Removal) 1 each MC DAILY@2200 [facility] Last Admin: 02/26/19 21:25 Dose: 1 each Ondansetron HCl (Zofran Injection) 4 mg IVPUSH Q6H PRN PRN Reason: NAUSEA AND/OR VOMITING Last Admin: 02/23/19 09:50 Dose: 4 mg Pantoprazole Sodium (Protonix -) 40 mg PO BID [facility] Last Admin: 02/27/19 10:06 Dose: 40 mg Potassium Chloride (K-Dur -) 20 meq PO BID [facility] Last Admin: 02/27/19 10:02 Dose: 20 meq Rosuvastatin Calcium (Crestor -) 5 mg PO HS [facility] Last Admin: 02/26/19 21:25 Dose: 5 mg Valsartan (Diovan -) 160 mg PO DAILY [facility] Last Admin: 02/27/19 10:05 Dose: 160 mg Constitutional: Yes: NAD Eyes: Yes: WNL HENT: Yes: WNL Neck: Yes: WNL Cardiovascular: Yes: Pulse Irregular, S1, S2 Respiratory: Yes: Diminished Gastrointestinal: Yes: Normal Bowel Sounds, Soft Extremities: Yes: WNL Edema: No Labs: Laboratory Results - last 24 hr 02/25/19 02/25/19 02/26/19 06:55 06:55 06:05 WBC RBC Hgb Hct MCV MCH MCHC RDW Plt Count MPV Absolute Neuts (auto) Neutrophils % Lymphocytes % Monocytes % Eosinophils % Basophils % Nucleated RBC % Sodium Potassium Chloride Carbon Dioxide Anion Gap BUN Creatinine Est GFR (CKD-EPI)AfAm Est GFR (CKD-EPI)NonAf Random Glucose Lactic Acid Calcium Magnesium Total Bilirubin GGT AST ALT Alkaline Phosphatase LD Total 270 H Total Protein Total Protein (PEP) 5.8 L Albumin Albumin (PEP) 2.6 L Globulin 3.2 Albumin/Globulin Ratio 0.8 Beta Globulins 0.7 LDL 1 Fraction 29.0 LDL 2 Fraction 34.0 LDL 3 Fraction 20.0 LDL 4 Fraction 8.0 LDL 5 Fraction 9.0 Carcinoembryonic Ag FRANCISCO M-Heriberto Hantavirus IgG Ab Cancelled Hantavirus IgM Ab Cancelled HIV 1&2 Antibody Screen HIV P24 Antigen 02/26/19 02/26/19 02/26/19 06:05 12:40 20:15 WBC RBC Hgb Hct MCV MCH MCHC RDW Plt Count MPV Absolute Neuts (auto) Neutrophils % Lymphocytes % Monocytes % Eosinophils % Basophils % Nucleated RBC % Sodium Potassium 3.5 Chloride Carbon Dioxide Anion Gap BUN Creatinine Est GFR (CKD-EPI)AfAm Est GFR (CKD-EPI)NonAf Random Glucose Lactic Acid 1.7 Calcium Magnesium Total Bilirubin GGT AST ALT Alkaline Phosphatase LD Total Total Protein Total Protein (PEP) Albumin Albumin (PEP) Globulin Albumin/Globulin Ratio Beta Globulins LDL 1 Fraction LDL 2 Fraction LDL 3 Fraction LDL 4 Fraction LDL 5 Fraction Carcinoembryonic Ag 1.8 FRANCISCO M-eHriberto Hantavirus IgG Ab Hantavirus IgM Ab HIV 1&2 Antibody Screen HIV P24 Antigen 02/27/19 02/27/19 02/27/19 06:07 06:07 06:07 WBC 6.0 RBC 4.10 Hgb 12.2 Hct 35.9 MCV 87.6 MCH 29.7 MCHC 33.9 RDW 13.7 Plt Count 248 MPV 7.9 Absolute Neuts (auto) 4.6 Neutrophils % 76.5 Lymphocytes % 11.3 D Monocytes % 9.8 Eosinophils % 1.9 D Basophils % 0.5 Nucleated RBC % 0 Sodium 134 L Potassium 3.3 L Chloride 96 L Carbon Dioxide 32 Anion Gap 6 L BUN 27.7 H Creatinine 1.3 Est GFR (CKD-EPI)AfAm 58.89 Est GFR (CKD-EPI)NonAf 50.81 Random Glucose 102 Lactic Acid Calcium 8.9 Magnesium 2.5 H Total Bilirubin 2.2 H GGT 388 H AST 27 ALT 48 Alkaline Phosphatase 355 H LD Total Total Protein 6.0 L Total Protein (PEP) Albumin 2.6 L Albumin (PEP) Globulin Albumin/Globulin Ratio Beta Globulins LDL 1 Fraction LDL 2 Fraction LDL 3 Fraction LDL 4 Fraction LDL 5 Fraction Carcinoembryonic Ag FRANCISCO M-Heriberto Hantavirus IgG Ab Hantavirus IgM Ab HIV 1&2 Antibody Screen HIV P24 Antigen 02/27/19 06:07 WBC RBC Hgb Hct MCV MCH MCHC RDW Plt Count MPV Absolute Neuts (auto) Neutrophils % Lymphocytes % Monocytes % Eosinophils % Basophils % Nucleated RBC % Sodium Potassium Chloride Carbon Dioxide Anion Gap BUN Creatinine Est GFR (CKD-EPI)AfAm Est GFR (CKD-EPI)NonAf Random Glucose Lactic Acid Calcium Magnesium Total Bilirubin GGT AST ALT Alkaline Phosphatase LD Total Total Protein Total Protein (PEP) Albumin Albumin (PEP) Globulin Albumin/Globulin Ratio Beta Globulins LDL 1 Fraction LDL 2 Fraction LDL 3 Fraction LDL 4 Fraction LDL 5 Fraction Carcinoembryonic Ag FRANCISCO M-Heriberto Hantavirus IgG Ab Hantavirus IgM Ab HIV 1&2 Antibody Screen Negative HIV P24 Antigen Negative Problem List - Problems (1) Altered mental status Code(s): R41.82 - ALTERED MENTAL STATUS, UNSPECIFIED (2) Abnormal liver enzymes Code(s): R74.8 - ABNORMAL LEVELS OF OTHER SERUM ENZYMES (3) Afib Code(s): I48.91 - UNSPECIFIED ATRIAL FIBRILLATION (4) Leukopenia Code(s): D72.819 - DECREASED WHITE BLOOD CELL COUNT, UNSPECIFIED (5) MIGUEL A (obstructive sleep apnea) Code(s): G47.33 - OBSTRUCTIVE SLEEP APNEA (ADULT) (PEDIATRIC) (6) Thrombocytopenia Code(s): D69.6 - THROMBOCYTOPENIA, UNSPECIFIED (7) Weakness Code(s): R53.1 - WEAKNESS (8) HLD (hyperlipidemia) Code(s): E78.5 - HYPERLIPIDEMIA, UNSPECIFIED (9) HTN (hypertension) Code(s): I10 - ESSENTIAL (PRIMARY) HYPERTENSION (10) S/P aortic valve replacement Code(s): Z95.2 - PRESENCE OF PROSTHETIC HEART VALVE Assessment/Plan Fever of unknown origin with altered mental status improved. JEANNIE: No Endocarditis Toxic Metabolic Encephalopathy Low clinical suspicion of Meningitis Sepsis Leukopenia AF on chronic AC s/p porcine valve 2008 HTN CHF MIGUEL A COPD CKD ELEVATED LFTS MEDIASTINAL ADENOPATHY PLAN: -Lasix -BD [place] PRN -CPAP at night and PRN -Rate control -Patient being transferred to [facility] for further workup. Dr Barnes
[2019-02-27 14:07] LABS: IGA CSF 1.51 mg/dL (0.00-0.64)
--- NOTE | 2019-02-27 14:12 | DS ---
Physical Exam: SUBJECTIVE: Patient seen and examined OBJECTIVE: transfer to [facility], medicine with consult to ID Report given to Kymberly MATA (resident) with accepting doctor Dr. Lamar all transfer paper work sent to [facility], [place] formed filled out Initially family requested patient to be transferred to [place], i called twice , spoke to coordinator Frantz, no call back from medicine. family then requested [facility], patient accepted. reason for transfer: fever of unknown origin, needs further workup. Vital Signs Period Temp Pulse Resp BP Sys/Bacon Pulse Ox Last 24 Hr 97.6 F-100.9 F 59-71 18-20 115-155/69-89 91-96 PHYSICAL EXAM GENERAL: The patient is awake, alert, and fully oriented, forgetful at times HEAD: Normal with no signs of trauma. EYES: PERRL, extraocular movements intact, sclera anicteric, conjunctiva clear. No ptosis. ENT: Ears normal, nares patent, oropharynx clear without exudates, moist mucous membranes. NECK: Trachea midline, full range of motion, supple. LUNGS: Breath sounds equal, clear to auscultation bilaterally, no wheezes HEART: Regular rate and rhythm @ 64 ABDOMEN: Soft, nontender, nondistended, normoactive bowel sounds, no guarding EXTREMITIES: 2+ pulses, warm, well-perfused, no edema. NEUROLOGICAL: Normal speech, gait not observed. can stand, will order PT PSYCH: Normal mood, normal affect. SKIN: raised pink diffused rash that extends from right posterior leg>right thigh>right upper back - improved LABS Laboratory Results - last 24 hr 02/24/19 02/25/19 02/25/19 12:40 06:55 06:55 WBC RBC Hgb Hct MCV MCH MCHC RDW Plt Count MPV Absolute Neuts (auto) Neutrophils % Lymphocytes % Monocytes % Eosinophils % Basophils % Nucleated RBC % Sodium Potassium Chloride Carbon Dioxide Anion Gap BUN Creatinine Est GFR (CKD-EPI)AfAm Est GFR (CKD-EPI)NonAf Random Glucose Calcium Magnesium Total Bilirubin GGT AST ALT Alkaline Phosphatase LD Total 270 H Total Protein Total Protein (PEP) 5.8 L Albumin Albumin (PEP) 2.6 L Globulin 3.2 Albumin/Globulin Ratio 0.8 Beta Globulins 0.7 LDL 1 Fraction 29.0 LDL 2 Fraction 34.0 LDL 3 Fraction 20.0 LDL 4 Fraction 8.0 LDL 5 Fraction 9.0 Carcinoembryonic Ag CSF [place] IgG Ab Negative CSF [place] IgM Ab Negative FRANCISCO M-Heriberto Hantavirus IgG Ab Hantavirus IgM Ab HIV 1&2 Antibody Screen HIV P24 Antigen 02/26/19 02/26/19 02/26/19 06:05 06:05 20:15 WBC RBC Hgb Hct MCV MCH MCHC RDW Plt Count MPV Absolute Neuts (auto) Neutrophils % Lymphocytes % Monocytes % Eosinophils % Basophils % Nucleated RBC % Sodium Potassium 3.5 Chloride Carbon Dioxide Anion Gap BUN Creatinine Est GFR (CKD-EPI)AfAm Est GFR (CKD-EPI)NonAf Random Glucose Calcium Magnesium Total Bilirubin GGT AST ALT Alkaline Phosphatase LD Total Total Protein Total Protein (PEP) Albumin Albumin (PEP) Globulin Albumin/Globulin Ratio Beta Globulins LDL 1 Fraction LDL 2 Fraction LDL 3 Fraction LDL 4 Fraction LDL 5 Fraction Carcinoembryonic Ag 1.8 CSF [place] IgG Ab CSF [place] IgM Ab FRANCISCO M-Heriberto Hantavirus IgG Ab Cancelled Hantavirus IgM Ab Cancelled HIV 1&2 Antibody Screen HIV P24 Antigen 02/27/19 02/27/19 02/27/19 06:07 06:07 06:07 WBC 6.0 RBC 4.10 Hgb 12.2 Hct 35.9 MCV 87.6 MCH 29.7 MCHC 33.9 RDW 13.7 Plt Count 248 MPV 7.9 Absolute Neuts (auto) 4.6 Neutrophils % 76.5 Lymphocytes % 11.3 D Monocytes % 9.8 Eosinophils % 1.9 D Basophils % 0.5 Nucleated RBC % 0 Sodium 134 L Potassium 3.3 L Chloride 96 L Carbon Dioxide 32 Anion Gap 6 L BUN 27.7 H Creatinine 1.3 Est GFR (CKD-EPI)AfAm 58.89 Est GFR (CKD-EPI)NonAf 50.81 Random Glucose 102 Calcium 8.9 Magnesium 2.5 H Total Bilirubin 2.2 H GGT 388 H AST 27 ALT 48 Alkaline Phosphatase 355 H LD Total Total Protein 6.0 L Total Protein (PEP) Albumin 2.6 L Albumin (PEP) Globulin Albumin/Globulin Ratio Beta Globulins LDL 1 Fraction LDL 2 Fraction LDL 3 Fraction LDL 4 Fraction LDL 5 Fraction Carcinoembryonic Ag CSF [place] IgG Ab CSF [place] IgM Ab FRANCISCO M-Heriberto Hantavirus IgG Ab Hantavirus IgM Ab HIV 1&2 Antibody Screen HIV P24 Antigen 02/27/19 06:07 WBC RBC Hgb Hct MCV MCH MCHC RDW Plt Count MPV Absolute Neuts (auto) Neutrophils % Lymphocytes % Monocytes % Eosinophils % Basophils % Nucleated RBC % Sodium Potassium Chloride Carbon Dioxide Anion Gap BUN Creatinine Est GFR (CKD-EPI)AfAm Est GFR (CKD-EPI)NonAf Random Glucose Calcium Magnesium Total Bilirubin GGT AST ALT Alkaline Phosphatase LD Total Total Protein Total Protein (PEP) Albumin Albumin (PEP) Globulin Albumin/Globulin Ratio Beta Globulins LDL 1 Fraction LDL 2 Fraction LDL 3 Fraction LDL 4 Fraction LDL 5 Fraction Carcinoembryonic Ag CSF [place] IgG Ab CSF [place] IgM Ab FRANCISCO M-Heriberto Hantavirus IgG Ab Hantavirus IgM Ab HIV 1&2 Antibody Screen Negative HIV P24 Antigen Negative HOSPITAL COURSE: Date of Admission:02/14/19 Date of Discharge: 02/27/19 Minutes to complete discharge: 60 Discharge Summary Problems reviewed: Yes Reason For Visit: SHAKED/FEVER/WEAKNESS Current Active Problems Abnormal liver enzymes (Acute) Afib (Acute) Altered mental status (Acute) Colon adenoma (Acute) Diverticulosis (Acute) Family history of gastric cancer (Acute) Fever of unknown origin (Acute) Gallstone (Acute) History of prostate cancer (Acute) Leukopenia (Acute) Lymphadenopathy (Acute) Mediastinal lymphadenopathy (Acute) MIGUEL A (obstructive sleep apnea) (Acute) Petechial eruption (Acute) Prophylactic measure (Acute) Severe sepsis (Acute) Thrombocytopenia (Acute) Toxic metabolic encephalopathy (Acute) Weakness (Acute) Condition: Improved - Instructions Diet, Activity, Other Instructions: Referrals: Reji Blake MD [Staff Physician] - Franchesca Maier MD [Staff Physician] - 1 Week (call for appointment for 1 week after discharge) Yasmany Mccloud MD [Staff Physician] - Anish Riddle MD [Staff Physician] - Gaurav zAar MD [Staff Physician] - 1 Week (call for appointment for 1 week after discharge) Disposition: [facility]/HOME HEALTH CARE - Home Medications Comprehensive Discharge Medication List: Ambulatory Orders Rosuvastatin Calcium [Crestor] 5 mg PO DAILY #0 tablet 12/26/11 Metoprolol Succinate [Toprol XL -] 25 mg PO DAILY 10/01/13 Cyanocobalamin [Vitamin B12 -] 1,000 mcg PO DAILY 02/14/19 Amlodipine Besylate [Norvasc -] 5 mg PO DAILY #30 tablet 02/22/19 Lidocaine 5% Patch [Lidoderm -] 1 patch TP DAILY #30 patch 02/22/19 Methyl Salicylate/Menthol Oint [Analgesic [place] -] 1 applic TP BID #1 ea Pantoprazole Sodium [Protonix -] 40 mg PO BID #30 tablet.ec 02/22/19 Furosemide [Lasix -] 40 mg PO BID@0600,1400 #60 tablet 02/24/19 Metoprolol Succinate [Toprol XL -] 25 mg PO DAILY tab.sr.24h 02/24/19 Polyethylene Glycol 3350 [Miralax 119 gm Btl -] 17 gm PO DAILY #1 bottle Quetiapine Fumarate [Seroquel -] 12.5 mg PO DAILY@1999 #30 tablet 02/24/19 Potassium Chloride 20 meq PO DAILY #120 tablet.er 02/25/19 Problem List - Problems (1) Fever of unknown origin Code(s): R50.9 - FEVER, UNSPECIFIED (2) Severe sepsis Code(s): A41.9 - SEPSIS, UNSPECIFIED ORGANISM; R65.20 - SEVERE SEPSIS WITHOUT SEPTIC SHOCK (3) MIGUEL A (obstructive sleep apnea) Code(s): G47.33 - OBSTRUCTIVE SLEEP APNEA (ADULT) (PEDIATRIC) (4) HLD (hyperlipidemia) Code(s): E78.5 - HYPERLIPIDEMIA, UNSPECIFIED (5) HTN (hypertension) Code(s): I10 - ESSENTIAL (PRIMARY) HYPERTENSION (6) S/P aortic valve replacement Code(s): Z95.2 - PRESENCE OF PROSTHETIC HEART VALVE (7) Afib Code(s): I48.91 - UNSPECIFIED ATRIAL FIBRILLATION (8) Abnormal liver enzymes Code(s): R74.8 - ABNORMAL LEVELS OF OTHER SERUM ENZYMES (9) Altered mental status Code(s): R41.82 - ALTERED MENTAL STATUS, UNSPECIFIED (10) Leukopenia Code(s): D72.819 - DECREASED WHITE BLOOD CELL COUNT, UNSPECIFIED (11) Lymphadenopathy Code(s): R59.1 - GENERALIZED ENLARGED LYMPH NODES (12) Mediastinal lymphadenopathy Code(s): R59.0 - LOCALIZED ENLARGED LYMPH NODES (13) Thrombocytopenia Code(s): D69.6 - THROMBOCYTOPENIA, UNSPECIFIED (14) Toxic metabolic encephalopathy Code(s): G92 - TOXIC ENCEPHALOPATHY (15) Prophylactic measure Code(s): Z29.9 - ENCOUNTER FOR PROPHYLACTIC MEASURES, UNSPECIFIED (16) Petechial eruption Code(s): R23.3 - SPONTANEOUS ECCHYMOSES This patient is new to me today: No Emergency Visit: Yes ED Registration Date: 02/14/19 Care time: The patient presented to the Emergency Department on the above date and was hospitalized for further evaluation of their emergent condition. Critical Care patient: No - Discharge Referral Referred to [facility] Med P.C[facility] No
[2019-02-27 14:17] VITALS: BP 139/66
[2019-02-27 15:12] LABS: ALPHA-1-GLOBULIN,CSF 6.1 % (1.1-6.6); ALPHA-2-GLOBULIN,CSF 5.8 % (3.0-12.6); BETA GLOBULIN,CSF 16.9 % (7.3-17.9); GAMMA GLOBULIN,CSF 13.6 % (3.0-13.0); M-SPIKE CSF 4.5 % (Not Observed); PRE-ALBUMIN CSF 1.6 % (2.2-7.1)
[2019-02-27 15:33] VITALS: TEMP 98.3
--- NOTE | 2019-02-27 18:12 | PN ---
Progress Note (short form) - Note Progress Note: Mr. Barnes was admitted with chills or rigors, cough and dyspnea Known case of hypertension, hypertensive cardiovascular disease, severe left ventricular diastolic dysfunction, paroxysmal atrial fibrillation, chronic pulmonary disease , status post bioprosthetic aortic valve replacement and OSAS. Continues to be febrile and has had periods significant confusion. Etiology of FUO is still not determined. Petechail rash persists. LFTs and CBC results are improving. Appetite has also improved. spoke to and son regarding transfer to a tertiary care centerfor further evaluation of FUO and ID also is in favor of transfer.arrangements are being made. 83-year-old gentleman was in no acute distress, no pallor, cyanosis, clubbing or jaundice. Last Vital Signs Temp Pulse Resp BP Pulse Ox 98.3 F 63 18 139/66 96 02/27/19 15:33 02/27/19 13:30 02/27/19 13:30 02/27/19 13:30 02/27/19 10:00 NECK: Supple, no jugular venous distention, hepato jugular reflux was negative, carotids were 2+, no lymphadenopthy. HEART: PMI was not localized, no heaves or thrills, heart sounds were distant, ejection systolic murmur grade 2/6 was heard at the second right intercostal space ending in early to mid systole. No diastolic murmur or gallops were heard. LUNGS: decreased breath sounds at both bases. No extraneous sounds were heard. Chest: Rash/ petechiae involving the posterior chest. ABDOMEN: Soft, protuberant, nontender. No hepatosplenomegaly or palpable masses were felt.Small nontender mass vs lipoma RUQ. EXTREMITIES: No calf tenderness or dependent edema, bilateral rash /petechae both legs pulses were equal except posterior tibial pulses were not palpable. Swelling of the left knee, nontender Laboratory Results - last 24 hr 02/25/19 02/25/19 02/25/19 06:55 13:04 14:00 WBC RBC Hgb Hct MCV MCH MCHC RDW Plt Count MPV Absolute Neuts (auto) Neutrophils % Lymphocytes % Monocytes % Eosinophils % Basophils % Nucleated RBC % PT with INR INR Anticoagulation Therapy No Result Required. Puncture Site No Result Required. ABG pH 7.52 H ABG pCO2 at Pt Temp 36.0 ABG pO2 at Pt Temp 65.9 L ABG HCO3 29.5 H ABG O2 Sat (Measured) 93.9 L ABG O2 Content 17.5 ABG Base Excess 6.8 H Aravind Test Positive O2 Delivery Device No Result Required. Oxygen Flow Rate Room air Vent Mode No Result Required. Vent Rate No Result Required. Mechanical Rate No Result Required. Pressure Support Vent No Result Required. Sodium Potassium 3.1 L Chloride Carbon Dioxide Anion Gap BUN Creatinine Est GFR (CKD-EPI)AfAm Est GFR (CKD-EPI)NonAf Random Glucose Calcium Magnesium Total Bilirubin Direct Bilirubin AST ALT Alkaline Phosphatase C-Reactive Protein Total Protein Albumin CA 19-9 Antigen 34 Urine Color Urine Appearance Urine pH Ur Specific Vanlue Urine Protein Urine Glucose (UA) Urine Ketones Urine Blood Urine Nitrite Urine Bilirubin Urine Urobilinogen Ur Leukocyte Esterase Urine WBC (Auto) Urine RBC (Auto) Urine Casts (Auto) U Epithel Cells (Auto) Urine Bacteria (Auto) 02/25/19 02/25/19 02/26/19 19:00 21:00 06:05 WBC RBC Hgb Hct MCV MCH MCHC RDW Plt Count MPV Absolute Neuts (auto) Neutrophils % Lymphocytes % Monocytes % Eosinophils % Basophils % Nucleated RBC % PT with INR INR Anticoagulation Therapy Puncture Site ABG pH ABG pCO2 at Pt Temp ABG pO2 at Pt Temp ABG HCO3 ABG O2 Sat (Measured) ABG O2 Content ABG Base Excess Aravind Test O2 Delivery Device Oxygen Flow Rate Vent Mode Vent Rate Mechanical Rate Pressure Support Vent Sodium 134 L Potassium 3.3 L 2.9 L* Chloride 96 L Carbon Dioxide 32 Anion Gap 5 L BUN 21.3 H Creatinine 1.1 Est GFR (CKD-EPI)AfAm 72.07 Est GFR (CKD-EPI)NonAf 62.19 Random Glucose 100 Calcium 9.1 Magnesium 2.1 Total Bilirubin 2.8 H Direct Bilirubin 1.6 H AST 26 ALT 57 Alkaline Phosphatase 375 H C-Reactive Protein Total Protein 6.8 Albumin 3.0 L CA 19-9 Antigen Urine Color Dk yellow Urine Appearance Clear Urine pH 5.5 Ur Specific Vanlue 1.015 Urine Protein 1+ H Urine Glucose (UA) Negative Urine Ketones Negative Urine Blood Negative Urine Nitrite Negative Urine Bilirubin Negative Urine Urobilinogen 2.0 Ur Leukocyte Esterase Negative Urine WBC (Auto) 1 Urine RBC (Auto) 2 Urine Casts (Auto) 6 U Epithel Cells (Auto) 0.8 Urine Bacteria (Auto) 0.2 02/26/19 02/26/19 02/26/19 06:05 06:05 06:05 WBC 7.1 RBC 4.48 Hgb 13.5 Hct 38.8 MCV 86.7 MCH 30.1 MCHC 34.8 RDW 14.1 Plt Count 234 D MPV 8.0 Absolute Neuts (auto) 6.2 Neutrophils % 87.3 H Lymphocytes % 4.8 L D Monocytes % 6.8 Eosinophils % 0.9 Basophils % 0.2 Nucleated RBC % 0 PT with INR 13.50 H INR 1.14 H Anticoagulation Therapy Puncture Site ABG pH ABG pCO2 at Pt Temp ABG pO2 at Pt Temp ABG HCO3 ABG O2 Sat (Measured) ABG O2 Content ABG Base Excess Aravind Test O2 Delivery Device Oxygen Flow Rate Vent Mode Vent Rate Mechanical Rate Pressure Support Vent Sodium Potassium Chloride Carbon Dioxide Anion Gap BUN Creatinine Est GFR (CKD-EPI)AfAm Est GFR (CKD-EPI)NonAf Random Glucose Calcium Magnesium Total Bilirubin Direct Bilirubin AST ALT Alkaline Phosphatase C-Reactive Protein 7.3 H Total Protein Albumin CA 19-9 Antigen Urine Color Urine Appearance Urine pH Ur Specific Vanlue Urine Protein Urine Glucose (UA) Urine Ketones Urine Blood Urine Nitrite Urine Bilirubin Urine Urobilinogen Ur Leukocyte Esterase Urine WBC (Auto) Urine RBC (Auto) Urine Casts (Auto) U Epithel Cells (Auto) Urine Bacteria (Auto) Impression: 1. FUO, associated with abnormal LFT, new rash vs.petechaie,thrombocytopenia a). Possibility of reckettial disease needs exclusion. b). Lymphoma. c). Malignancy. 2. Hypertension, hypertensive cardiovascular disease. 3. Severe left ventricular diastolic dysfunction. 4. Chronic obstructive pulmonary disease. 5. Status post bioprosthetic aortic valve replacement. 6. Mental confusion, etiology to be determined. 7. Hypoxmia. 8. Hypokalemia, etiology to be determined Recommendations: 1. O2. 2. Resume A/C ALIZE now that platelet, have normalised unless a biopsy is being consideredin the day or two. 3. Lymph node biopsy ? right groin. 4. Awaiting ID second opinion. 5. Correction of K+ in progress. 6. Check urine lytes. 7. Transfer to tertiary care center is being planned. Prognosis: Critical.
[2019-02-28 08:06] LABS: ALBUMIN SERUM 3.2 g/dL (3.5-4.7); CSF IGG INDEX 0.6 (0.0-0.7); IGG QN CSF 12.6 mg/dL (0.0-8.6); IGG QN IMMUNOGLOBULIN 1425 mg/dL (700-1600); IGG/ALB RATIO CSF 0.26 (0.00-0.25)
[2019-03-01 18:06] LABS: HANTAVIRUS IGG Negative (.); HANTAVIRUS IGM Negative (.)
[2019-03-04 19:10] LABS: MUMPS AB IGG CSF < 5.0 AU/mL (<=10.9)
== END 2019-02-27 15:40 | disposition short-term general hospital (02) | DRG 871 ==
LOC: FER 18:40 → J4S 02-14 17:51 → JICU 02-14 21:34 → J4S 02-17 21:20
PROVIDERS: ADMIT Internal Medicine; ATTEND Nurse Practitioner Family
PROC: B246ZZ4 Ultrasonography of Right and Left Heart, Transesophageal (ICD-10-PCS; principal; 2019-02-19 15:00)
PROC: 009U3ZZ Drainage of Spinal Canal, Percutaneous Approach (ICD-10-PCS; 2019-02-24)
DX: A41.89 Other specified sepsis (principal); G93.41 Metabolic encephalopathy; D76.1 Hemophagocytic lymphohistiocytosis; E87.4 Mixed disorder of acid-base balance; I48.21 Permanent atrial fibrillation; C85.80 Other specified types of non-Hodgkin lymphoma, unspecified site; I10 Essential (primary) hypertension; R65.20 Severe sepsis without septic shock; E78.5 Hyperlipidemia, unspecified; G47.33 Obstructive sleep apnea (adult) (pediatric); B34.9 Viral infection, unspecified; I11.0 Hypertensive heart disease with heart failure; I50.9 Heart failure, unspecified; M48.07 Spinal stenosis, lumbosacral region; G62.9 Polyneuropathy, unspecified; R41.82 Altered mental status, unspecified; D72.819 Decreased white blood cell count, unspecified; R59.1 Generalized enlarged lymph nodes; J44.9 Chronic obstructive pulmonary disease, unspecified; H93.13 Tinnitus, bilateral; I27.20 Pulmonary hypertension, unspecified; K57.90 Diverticulosis of intestine, part unspecified, without perforation or abscess without bleeding; M54.12 Radiculopathy, cervical region; M10.9 Gout, unspecified; D12.6 Benign neoplasm of colon, unspecified; K80.20 Calculus of gallbladder without cholecystitis without obstruction; R74.8 Abnormal levels of other serum enzymes; R23.3 Spontaneous ecchymoses; R09.02 Hypoxemia; E87.6 Hypokalemia; Z80.0 Family history of malignant neoplasm of digestive organs; Z87.891 Personal history of nicotine dependence; Z95.2 Presence of prosthetic heart valve; Z85.46 Personal history of malignant neoplasm of prostate; R50.9 Fever, unspecified
CPT/HCPCS: 36415; 36600; 62272; 70450-TC; 70551-TC; 71045-TC-FY; 71250-TC; 72128-TC; 72131-TC; 72158-TC; 74176-TC; 74181-TC; 76000-TC-FY; 76098-TC-FY; 76705-TC; 78226-TC; 80048; 80053; 80061; 80076; 81003; 81015; 82105; 82140; 82150; 82172; 82247; 82248; 82378; 82465; 82550; 82553; 82607; 82728; 82784; 82787; 82803; 82930; 82945; 82947; 82962; 82977; 83010; 83036; 83540; 83550; 83605; 83615; 83625; 83690; 83735; 83880; 83883; 84100; 84132; 84155; 84157; 84165; 84166; 84436; 84443; 84450; 84460; 84478; 84484; 84550; 85025; 85362; 85384; 85610; 85651; 85730; 86038; 86140; 86301; 86431; 86592; 86593; 86617; 86618; 86644; 86645; 86663; 86664; 86665; 86666; 86682; 86694; 86704; 86706; 86707; 86708; 86709; 86713; 86735; 86753; 86765; 86777; 86787; 86788; 86789; 86790; 86803; 87040; 87070; 87081; 87086; 87205; 87207; 87340; 87389; 87476; 87804; 87899; 88300-TC; 93005; 93306-TC; 93312; 93325; 93880-TC; 94660; 97116-GP; 97162-GP; 99285-25; A9537; A9579; J0131; J7030

== ENCOUNTER 2019-03-06 09:45 | Observation (INO) | payer OTHER, BC ==
--- NOTE | 2019-03-06 10:04 | PDOC ---
History of Present Illness - General Chief Complaint: Constipation Stated Complaint: NO BOWEL MOVEMENT Time Seen by Provider: 03/06/19 10:03 History Source: Patient, Family Exam Limitations: Clinical Condition - History of Present Illness Initial Comments: 03/06/19 10:22 Patient is an 83 year old male with PMH of HTN, HLD, prosthetic aortic valve ( porcine), diastolic dysfunction, and recent admission at [facility] for persistent fevers of unknown origin (02/13 with transfer to [facility]) who presents with constipation for 1 week. As per patients son at bedside, he was recently admitted to [facility] ICU 02/13-02/27 for fevers then transferred to [facility] for 2 days then discharged. Workup was all negative and pt was discharged. Pt has not had a BM since d/c 1 week ago. He denies any abd pain, changes in appetite, fevers, chills, nausea, vomiting, or any urinary symptoms. He has been eating well. Pt follows with Dr. Maier (GI). Per his recommendations, pt has been taking Miralax TID for 3 days, with no bowel movements to date. Dr. Maier recommended pt come to the hospital to receive a colonoscopy. 03/06/19 12:12 Past History - Travel Traveled outside of the country in the last 30 days: No - Past Medical History Allergies/Adverse Reactions: Allergies Allergy/AdvReac Type Severity Reaction Status Date / Time No Known Allergies Allergy Verified 03/06/19 09:50 Home Medications: Ambulatory Orders Rosuvastatin Calcium [Crestor] 5 mg PO DAILY #0 tablet 12/26/11 Metoprolol Succinate [Toprol XL -] 25 mg PO DAILY 10/01/13 Cyanocobalamin [Vitamin B12 -] 1,000 mcg PO DAILY 02/14/19 Amlodipine Besylate [Norvasc -] 5 mg PO DAILY #30 tablet 02/22/19 Furosemide [Lasix -] 40 mg PO BID@0600,1400 #60 tablet 02/24/19 Polyethylene Glycol 3350 [Miralax 119 gm Btl -] 17 gm PO DAILY #1 bottle Apixaban [Eliquis] 2.5 mg PO DAILY 03/06/19 Olmesartan Medoxomil 20 mg PO DAILY 03/06/19 Anemia: No Asthma: No Cancer: Yes (PROSTATE CA) Cardiac Disorders: Yes (Aortic Valve Prothestic,Bovine 2006) CVA: No COPD: No CHF: No DVT: No Dementia: No Diabetes: No GI Disorders: No Disorders: No HTN: Yes Hypercholesterolemia: Yes Liver Disease: No Seizures: No Thyroid Disease: No - Surgical History Abdominal Surgery: Yes (umbilical hernia) Appendectomy: No Cardiac Surgery: Yes (AORTIC VALVE REPLACEMENT) Cholecystectomy: No Lung Surgery: No Neurologic Surgery: No Orthopedic Surgery: No - Immunization History Immunization Up to Date: Yes - Psycho Social/Smoking Cessation Hx Smoking Status: No Smoking History: Never smoked Have you smoked in the past 12 months: No Number of Cigarettes Smoked Daily: 0 If you are a former smoker, when did you quit?: 1973 Hx Alcohol Use: Yes (1-2 beers nightly previously) Drug/Substance Use Hx: No Substance Use Type: None Hx Substance Use Treatment: No Review of Systems - Review of Systems Able to Perform ROS?: Yes Constitutional: No: Chills, Fever, Loss of Appetite HEENTM: No: Symptoms Reported, See HPI, Eye Pain, Blurred Vision, Tearing, Recent change in vision, Double Vision, Cataracts, Ear Pain, Ocular Prothesis, Ear Discharge, Nose Pain, Nose Congestion, Tinnitus, Nose Bleeding, Hearing Loss , Throat Pain, Throat Swelling, Mouth Pain, Dental Problems, Difficulty Swallowing, Mouth Swelling, Other Respiratory: No: Symptoms reported, See HPI, Cough, Orthopnea, Shortness of Breath, SOB with Exertion, SOB at Rest, Stridor, Wheezing, Productive cough, Hemoptysis, Other Cardiac (ROS): No: Symptoms Reported, See HPI, Chest Pain, Edema, Irregular Heart Rate, Lightheadedness, Palpitations, Syncope, Chest Tightness, Other ABD/GI: Yes: Constipated. No: Symptoms Reported, See HPI, Abdominal Distended, Abd. Pain w/ defecation, Blood Streaked Bowels, Diarrhea, Difficulty Swallowing , Nausea, Poor Appetite, Poor Fluid Intake, Rectal Bleeding, Vomiting, Indigestion, Abdominal cramping, Tarry Stools, Other : No: Symptoms Reported, See HPI, Burning, Dysuria, Discharge, Frequency, Flank Pain, Hematuria, Incontinence, Pain, Urgency, Testicular Mass, Testicular Swelling, Lesions, Testicular Pain, Other Musculoskeletal: No: Symptoms Reported, See HPI, Back Pain, Gout, Joint Pain, Joint Swelling, Muscle Pain, Muscle Weakness, Neck Pain, Joint Stiffness, Other Neurological: No: Symptoms reported, See HPI, Headache, Numbness, Paresthesia, Pre-Existing Deficit, Seizure, Tingling, Tremors, Weakness, Unsteady Gait, Ataxia, Dizziness, Other *Physical Exam - Vital Signs Last Vital Signs Temp Pulse Resp BP Pulse Ox 98 F 56 L 18 131/57 L 98 03/06/19 09:52 03/06/19 09:52 03/06/19 09:52 03/06/19 09:52 03/06/19 09:52 - Physical Exam General Appearance: Yes: Nourished, Appropriately Dressed HEENT: positive: EOMI, LENNOX, Normal ENT Inspection, Normal Voice, Symmetrical Neck: positive: Trachea midline Respiratory/Chest: positive: Lungs Clear, Normal Breath Sounds. negative: Respiratory Distress, Accessory Muscle Use, Wheezing Cardiovascular: positive: Regular Rhythm, Regular Rate, S1, S2. negative: Edema , JVD, Murmur Vascular Pulses: Dorsalis-Pedis (R): 2+, Doralis-Pedis (L): 2+ Gastrointestinal/Abdominal: positive: Normal Bowel Sounds, Tender (mild diffuse tenderness) Rectal Exam: positive: normal exam (No hemorrhoid, masses, or hard stool. Some loose stool on glove, no blood) ED Treatment Course - LABORATORY CBC & Chemistry Diagram: 03/06/19 10:46 03/06/19 10:46 Medical Decision Making - Medical Decision Making 03/06/19 10:50 >>Spoke with Dr. Maier. Pt is long overdue for colonoscopy, concerns for an obstructing mass. Will admit pt for colonoscopy tomorrow. - CBC, CMP - Coags - CT abd 03/06/19 14:03 Labs wnl EKG: Afib >>Spoke with Dr. Maier. If CT shows high grade obstruction, will start on GoLYTELY. Can hold eliquis today. 03/06/19 14:27 CTAP: no acute bowel obstruction or acute pathology. Moderate amount of retained fecal material throughout colon. Will admit under Dr. Heard for colonoscopy tomorrow by Dr. Maier. >>Giving GoLYTEly 03/06/19 14:32 03/06/19 15:03 Discharge - Discharge Information Problems reviewed: Yes Clinical Impression/Diagnosis: Constipation Qualifiers: Constipation type: unspecified constipation type Qualified Code(s): K59.00 - Constipation, unspecified - Admission Yes - Follow up/Referral - Patient Discharge Instructions - Post Discharge Activity - Transfer to Acute Care Facility Accepting Physician:: Stevo Heard
[2019-03-06 11:04] LABS: EOS % 2.3 % (0-4.5); HEMATOCRIT 31.2 % (35.4-49); HEMOGLOBIN 10.4 GM/dL (11.7-16.9); LYMPH % 13.7 % (8-40); MCH 29.7 pg (25.7-33.7); MCHC 33.5 g/dl (32.0-35.9); MEAN CELL VOLUME 88.7 fl (80-96); MEAN PLT VOLUME 6.8 fl (7.5-11.1); MONO % 11.3 % (3.8-10.2); NEUT % 71.7 % (42.8-82.8); PLATELET COUNT 315 K/MM3 (134-434); RBC 3.51 M/mm3 (4.00-5.60); RDW 14.2 % (11.9-15.9); WHITE BLOOD COUNT 4.7 K/mm3 (4.0-10.0)
--- NOTE | 2019-03-06 11:05 | PDOC ---
Documentation entered by Julien Maloney SCRIBE, acting as scribe for Ethan Flannery MD. Ethan Flannery MD: This documentation has been prepared by the Haider lam Nirvannie, SCRIBE, under my direction and personally reviewed by me in its entirety. I confirm that the documentation accurately reflects all work, treatment, procedures, and medical decision making performed by me. Attending Attestation - Resident Resident Name: Kaitlynn Coelho - ED Attending Attestation I have performed the following: I have examined & evaluated the patient, The case was reviewed & discussed with the resident, I agree w/resident's findings & plan, Exceptions are as noted - HPI HPI: 03/06/19 10:50 CC: Constipation. The patient is an 83 year old male, with a significant past medical history of hypertension, hyperlipidemia, left ventricular diastolic dysfunction, paroxysmal atrial fibrillation, and recent admission at [facility] for persistent fevers (02/13 with transfer to [facility]), who presents to the emergency department with 1 week of constipation. As per patients son at bedside, he was recently admitted to [facility] ICU 02/13-02/27 for fevers then transferred to [facility] for 2 days then discharged. Patients son notes since his discharge he has not passed a bowel movement. He notes giving the patient Dulcolax then changed to Miralax after recommendation from GI, Dr. Maier, with minimal relief (minimal wet brown in diaper after using Miralax). Patient s son notes calling Dr. Maier and was advised to report to the ED for further evaluation. He denies any recent fevers, chills, headache or dizziness. He denies any recent nausea or vomit. He denies any recent chest pain or shortness of breath. He denies any recent dysuria, frequency, urgency or hematuria. Allergies: NKDA Past surgical history: Aortic valve replacement. GI: Dr. Maier Renal Social Worker: Dr. Azar - Physicial Exam PE: 03/06/19 16:15 Vitals: Triage Vital signs reviewed General Appearance: No acute distress, well nourished well developed, Neck: Supple; no Nucal rigidity Chest Wall: Nontender Cardiac: Regular rate and rhythym, Lungs: Clear to auscultation bilateral, good air movement bilaterally, Abdomen: normal bowel sounds, non tender to palpation Extremities: Full range of motion to all extremities, no cyanosis, clubbing, or edema Skin: Warm and dry, no rashes or lesions, no rash, no petechiae Psych: Normal mood, normal affect - Medical Decision Making 03/06/19 16:18 Patient sent in for weakness by GI has been having constipation with leakage concern for bowel obstruction patient sent to ED for CT abdomen pelvis IV and oral contrast If negative patient will be observed overnight for colonoscopy tomorrow to rule out malignancy
[2019-03-06 11:17] LABS: INR 1.34 (0.83-1.09); PROTHROMBIN TIME (PATIENT) 15.8 SEC (9.7-13.0)
[2019-03-06 11:41] LABS: ALBUMIN 2.5 g/dl (3.4-5.0); BILIRUBIN,TOTAL 0.7 mg/dL (0.2-1); CALCIUM 8.6 mg/dL (8.5-10.1); CREATININE 1.2 mg/dL (0.55-1.3); TOT PROT 5.9 g/dl (6.4-8.2)
[2019-03-06] MEDS ORDERED: PEG 3350/NA SULF BICARB CL/KCL 4000 ML SOLN.RECON PO ONE (14:32)
--- NOTE | 2019-03-06 15:04 | HP ---
CHIEF COMPLAINT: constipation x 1 weeks, abdominal pain, increased weakness PCP: Kristina Samayoa GI: Dr. Maier International Account Representative: Dr. Azar HISTORY OF PRESENT ILLNESS: Patient is an 83 year old male with a significant past medical history of hypertension, hyperlipidemia, prosthetic aortic valve replacement (bovine). prox. afib (on eliquis), left ventricular diastolic dysfunction, and recent admission at [facility] for persistent fevers (02/13 with transfer to [facility] for further workup). Patient discharged to [facility], was there for 2 days and was discharged home with PCP follow up and outpatient monitoring. He presents to the ED today for one week of constipation, abdominal distention and pain. Patients son notes since his discharge he has not passed a bowel movement and was started on dulcolax, then miralax without relief. Patient reports "leaking" liquid stool, but no BM for [address] Maier who advised patient to go to the ED for possible colonscopy and further GI workup, including CT imaging. Patient denies any fevers, chills, headache or dizziness. He denies any recent nausea or vomit. He denies any recent chest pain or shortness of breath. He denies any recent dysuria, frequency, urgency or hematuria. Patient's son reports that patient took all of his cardiac medications, including eliquis this morning. Discussed with Dr. Azar, who is aware eliquis is being held for the procedure. Also, will not start patient on heparin gtt since he was given vitamin K today. Will start on prophylactic antiobiotics of Zosyn pre-procedure for prosthetic aortic valve, discussed with Dr. Blake. ER course was notable for: (1) given vitamin k (2) ct abd/pelvis. moderate stool, no obstruction (3) anemia:Hbg has dropped from 15 to 13, denies bleeding Recent Travel: none PAST MEDICAL HISTORY: hypertension, hyperlipidemia, prosthetic aortic valve replacement (bovine). prox. afib (on eliquis), left ventricular diastolic dysfunction, PAST SURGICAL HISTORY: Aortic valve replacement. Social History: Smoking: denies Alcohol: no longer drinks beer for a few months Drugs: none Allergies No Known Allergies Allergy (Verified 03/06/19 09:50) HOME MEDICATIONS: Home Medications Medication Instructions Recorded Rosuvastatin Calcium [Crestor] 5 mg PO DAILY #0 tablet 12/26/11 Metoprolol Succinate [Toprol XL -] 25 mg PO DAILY 10/01/13 Cyanocobalamin [Vitamin B12 -] 1,000 mcg PO DAILY 02/14/19 Amlodipine Besylate [Norvasc -] 5 mg PO DAILY #30 tablet 02/22/19 Furosemide [Lasix -] 40 mg PO BID@0600,1400 #60 tablet 02/24/19 Polyethylene Glycol 3350 [Miralax 17 gm PO DAILY #1 bottle 02/24/19 119 gm Btl -] Apixaban [Eliquis] 2.5 mg PO DAILY 03/06/19 Olmesartan Medoxomil 20 mg PO DAILY 03/06/19 PHYSICAL EXAMINATION Vital Signs - 24 hr 03/06/19 03/06/19 09:52 12:55 Temperature 98 F Pulse Rate 56 L Pulse Rate [ 56 L Right] Respiratory 18 17 Rate Blood Pressure 131/57 L Blood Pressure 114/86 [Left] O2 Sat by Pulse 98 98 Oximetry (%) GENERAL: The patient is awake, alert, forgetful at times HEAD: Normal with no signs of trauma. EYES: PERRL, extraocular movements intact, sclera anicteric, conjunctiva clear. No ptosis. ENT: Ears normal, nares patent, oropharynx clear without exudates, moist mucous membranes. NECK: Trachea midline, full range of motion, supple. LUNGS: Breath sounds equal, clear to auscultation bilaterally, no wheezes HEART: Regular rate and rhythm @ 64 ABDOMEN: Soft, nontender, mildly distended, normoactive bowel sounds, no guarding. EXTREMITIES: 2+ pulses, warm, well-perfused, no edema. NEUROLOGICAL: Normal speech, gait not observed. PSYCH: Normal mood, normal affect. SKIN: very mild raised pink diffused rash on upper back, improving from previous admission Laboratory Results - last 24 hr 03/06/19 03/06/19 03/06/19 10:46 10:46 10:46 WBC 4.7 RBC 3.51 L Hgb 10.4 L Hct 31.2 L MCV 88.7 MCH 29.7 MCHC 33.5 RDW 14.2 Plt Count 315 D MPV 6.8 L D Absolute Neuts (auto) 3.4 Neutrophils % 71.7 Lymphocytes % 13.7 D Monocytes % 11.3 H Eosinophils % 2.3 Basophils % 1.0 Nucleated RBC % 0 PT with INR 15.80 H INR 1.34 H Sodium 136 Potassium 4.0 Chloride 101 Carbon Dioxide 31 Anion Gap 4 L BUN 25.0 H Creatinine 1.2 Est GFR (CKD-EPI)AfAm 64.88 Est GFR (CKD-EPI)NonAf 55.98 Random Glucose 108 H Calcium 8.6 Total Bilirubin 0.7 AST 26 ALT 45 Alkaline Phosphatase 277 H Total Protein 5.9 L Albumin 2.5 L ASSESSMENT/PLAN: Problem List - Problem (1) Abdominal pain Assessment/Plan: admitted for abdominal pain and distention and is being prepped for an EGD and colonoscopy per GI (Dr. Maier). Eliquis is being held for procedure. No heparin drip since given vitamin K by GI. start prophylactic antibiotics per ID for prosthetic valve. Code(s): R10.9 - UNSPECIFIED ABDOMINAL PAIN (2) Constipation Assessment/Plan: moderate amount of stool seen on imaging without obstruction. for colonoscopy/ egd. will give clears tonight and keep npo after midnight GI consulted. Code(s): K59.00 - CONSTIPATION, UNSPECIFIED Qualifiers: Constipation type: unspecified constipation type Qualified Code(s): K59.00 - Constipation, unspecified (3) Weight loss Code(s): R63.4 - ABNORMAL WEIGHT LOSS (4) Weakness Assessment/Plan: for pt evaluation. has home PT set up. Code(s): R53.1 - WEAKNESS (5) Afib Code(s): I48.91 - UNSPECIFIED ATRIAL FIBRILLATION (6) S/P aortic valve replacement Assessment/Plan: eliquis being held. cardiology following rate controlled on metoprolol Code(s): Z95.2 - PRESENCE OF PROSTHETIC HEART VALVE (7) Anemia Code(s): D64.9 - ANEMIA, UNSPECIFIED (8) Prophylactic measure Code(s): Z29.9 - ENCOUNTER FOR PROPHYLACTIC MEASURES, UNSPECIFIED Visit type - Emergency Visit Emergency Visit: Yes ED Registration Date: 03/06/19 Care time: The patient presented to the Emergency Department on the above date and was hospitalized for further evaluation of their emergent condition. - New Patient This patient is new to me today: Yes Date on this admission: 03/08/19 - Critical Care Critical Care patient: No
[2019-03-06] MEDS ORDERED: PHYTONADIONE 10 MG/1 ML AMP IVPB ONE (15:13)
[2019-03-06] MEDS ORDERED: PHYTONADIONE 10 MG/1 ML AMP ONE (15:40)
[2019-03-06] MEDS ORDERED: HEPARIN NA (PORCINE) 5,000 UNITS/ML 1ML VIAL IVPUSH PRN ×2 (17:44)
[2019-03-06] MEDS ORDERED: HEPARIN INFUSION - 25,000 UNITS/500 ML INFUS.BAG IVPB SCH (17:45)
[2019-03-06] MEDS ORDERED: ACETAMINOPHEN 325 MG TABLET (FP) PO PRN ×2 (19:02→22:31)
[2019-03-06] MEDS ORDERED: PIPERACILLIN/TAZOB 2.25 GM 2.25 GM/50 ML BAG IVPB ONE (20:33)
[2019-03-06] MEDS ORDERED: BISACODYL 5 MG TABLET.DR (FP) ONE (20:33)
[2019-03-06] MEDS ORDERED: BISACODYL 5 MG TABLET.DR (FP) PO ONE (21:02)
--- NOTE | 2019-03-06 21:58 | CON.GI ---
Consult Consult Specialty:: Gastroenterology Referred by:: Dr. Flannery Reason for Consultation:: Constipation, pain and anemia - History of Present Illness Chief Complaint: Constipation and bloating pain History of Present Illness: 83M is admitted for constipation. He is found to have a drop in Hb as well. He had not moved his bowels in several days despite daily Miralax and despite TID Miralax dosing. He developed a bloating discomfort, nausea and unwillingness to eat. He presented to [facility] on 02/14/19 with fever, chills, altered mental status, leukopenia, thrombocytopenia, abnormal LFTs and became an FUO after a JEANNIE, MRCP , spinal tap and multiple other studies failed to reveal an etiology and when SBE, cholangitis and meningitis were excluded. The symptoms arose after becoming drenched in a basement tunnel while attending to a plumbing problem in [place]. He was transferred to [facility] where no diagnosis was established. During this time his Hb has dropped from 15 to 13 without any overt bleeding. He last had a colonoscopy on 10/01/13 which revealed midl left colon diverticulosis and led to the removal of a hyperplastic transverse colon polyp. He did have a colon adenoma removed in 2007 and his mother had stomach cancer. When I last saw him in the office on 12/18/17 I advised both an EGD and a colonoscopy to evaluate weight loss and an alteration in bowel habits as well as for adenoma surveillance but he never followed through. His mental status has improved but he not not yet fully back to baseline. He has been taking Eliquis. 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 at [facility]) Infectious Disease: Yes: MRSA (perianal abcess), Other (1993 neck staff infection= hospitalized x 1 month) Musculoskeletal: Yes: Osteoarthritis, Other (cervical radiculopathy) Rheumatology: Yes: Gout - Past Surgical History Past Surgical History: Yes: Colonoscopy, Hernia Repair (Umbilical hernia repair 2000 Dr Watson), Laminectomy (C spine disc - Dr Connor Cohen), Prostatectomy ( radical prostatectomy at [facility] 08/22), Upper Endoscopy, Valve Replacement (bioprosthetic AVR (on Eliquis)) Additional Surgical History: left neck lipoma excision 1991. 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 : [facility] History of Recent Travel: No Home Medications - Allergies Allergies/Adverse Reactions: Allergies Allergy/AdvReac Type Severity Reaction Status Date / Time No Known Allergies Allergy Verified 03/06/19 09:50 - Home Medications Home Medications: Ambulatory Orders Rosuvastatin Calcium [Crestor] 5 mg PO DAILY #0 tablet 12/26/11 Metoprolol Succinate [Toprol XL -] 25 mg PO DAILY 10/01/13 Cyanocobalamin [Vitamin B12 -] 1,000 mcg PO DAILY 02/14/19 Amlodipine Besylate [Norvasc -] 5 mg PO DAILY #30 tablet 02/22/19 Furosemide [Lasix -] 40 mg PO BID@0600,1400 #60 tablet 02/24/19 Polyethylene Glycol 3350 [Miralax 119 gm Btl -] 17 gm PO DAILY #1 bottle Apixaban [Eliquis] 2.5 mg PO DAILY 03/06/19 Olmesartan Medoxomil 20 mg PO DAILY 03/06/19 Family Medical History Family Hx Cancer: Mother (gastric cancer) Other Family History: Father of pneumonia Review of Systems - Review of Systems Constitutional: reports: Lethargy, Loss of Appetite, Malaise, Unintentional Wgt. Loss, Weakness Eyes: reports: No Symptoms HENT: reports: No Symptoms Neck: reports: No Symptoms Cardiovascular: reports: No Symptoms Respiratory: reports: No Symptoms Gastrointestinal: reports: Bloating, Constipation, Nausea Genitourinary: reports: No Symptoms Musculoskeletal: reports: Back Pain Neurological: reports: Confusion Physical Exam-GI Vital Signs: Vital Signs Temperature 97.7 F 03/06/19 21:41 Pulse Rate 59 L 03/06/19 21:41 Respiratory Rate 18 03/06/19 21:41 Blood Pressure 143/68 03/06/19 21:41 O2 Sat by Pulse Oximetry (%) 97 03/06/19 21:00 CBC,CMP WBC 4.7 K/mm3 (4.0-10.0) 03/06/19 10:46 RBC 3.51 M/mm3 (4.00-5.60) L 03/06/19 10:46 Hgb 10.4 GM/dL (11.7-16.9) L 03/06/19 10:46 Hct 31.2 % (35.4-49) L 03/06/19 10:46 MCV 88.7 fl (80-96) 03/06/19 10:46 MCH 29.7 pg (25.7-33.7) 03/06/19 10:46 MCHC 33.5 g/dl (32.0-35.9) 03/06/19 10:46 RDW 14.2 % (11.9-15.9) 03/06/19 10:46 Plt Count 315 K/MM3 (134-434) D 03/06/19 10:46 MPV 6.8 fl (7.5-11.1) L D 03/06/19 10:46 Absolute Neuts (auto) 3.4 K/mm3 (1.5-8.0) 03/06/19 10:46 Neutrophils % 71.7 % (42.8-82.8) 03/06/19 10:46 Lymphocytes % 13.7 % (8-40) D 03/06/19 10:46 Monocytes % 11.3 % (3.8-10.2) H 03/06/19 10:46 Eosinophils % 2.3 % (0-4.5) 03/06/19 10:46 Basophils % 1.0 % (0-2.0) 03/06/19 10:46 Nucleated RBC % 0 % (0-0) 03/06/19 10:46 Sodium 136 mmol/L (136-145) 03/06/19 10:46 Potassium 4.0 mmol/L (3.5-5.1) 03/06/19 10:46 Chloride 101 mmol/L (98-107) 03/06/19 10:46 Carbon Dioxide 31 mmol/L (21-32) 03/06/19 10:46 Anion Gap 4 MMOL/L (8-16) L 03/06/19 10:46 BUN 25.0 mg/dL (7-18) H 03/06/19 10:46 Creatinine 1.2 mg/dL (0.55-1.3) 03/06/19 10:46 Est GFR (CKD-EPI)AfAm 64.88 03/06/19 10:46 Est GFR (CKD-EPI)NonAf 55.98 03/06/19 10:46 Random Glucose 108 mg/dL (74-106) H 03/06/19 10:46 Calcium 8.6 mg/dL (8.5-10.1) 03/06/19 10:46 Total Bilirubin 0.7 mg/dL (0.2-1) 03/06/19 10:46 AST 26 U/L (15-37) 03/06/19 10:46 ALT 45 U/L (13-61) 03/06/19 10:46 Alkaline Phosphatase 277 U/L (45-117) H 03/06/19 10:46 Total Protein 5.9 g/dl (6.4-8.2) L 03/06/19 10:46 Albumin 2.5 g/dl (3.4-5.0) L 03/06/19 10:46 Current Medications Generic Name Dose Route Start Last Admin Trade Name Freq PRN Reason Stop Dose Admin Acetaminophen 650 mg 03/06/19 19:02 Tylenol - PO Q4H PRN FEVER Amlodipine Besylate 5 mg 03/07/19 10:00 Norvasc - PO DAILY JELLY Cyanocobalamin 1,000 mcg 03/07/19 10:00 Vitamin B12 - PO DAILY JELLY Furosemide 40 mg 03/07/19 06:00 Lasix - PO BID@0600,1400 JELLY Piperacillin Sod/Tazobactam 50 mls @ 100 mls/hr 03/06/19 19:00 Sod 2.25 gm/ Dextrose IVPB Q8H-IV JELLY Protocol Piperacillin Sod/Tazobactam 50 mls @ 100 mls/hr 03/06/19 19:15 Sod 2.25 gm/ Dextrose IVPB 03/07/19 11:44 Q8H JELLY Metoprolol Succinate 25 mg 03/07/19 10:00 Toprol Xl - PO DAILY JELLY Pantoprazole Sodium 40 mg 03/06/19 22:00 Protonix Iv IVPUSH BID JELLY Rosuvastatin Calcium 5 mg 03/07/19 10:00 Crestor - PO DAILY JELLY Constitutional: Yes: Calm Eyes: Yes: Conjunctiva Clear HENT: Yes: Atraumatic Neck: Yes: Trachea Midline Cardiovascular: Yes: Pulse Irregular, Murmur (2/6 JENNA at base), Other (healed median sternotomy) Respiratory: Yes: CTA Bilaterally Gastrointestinal Inspection: Yes: Distention, Hernia (nontender midline diastasis recti hernia), Scars (healed midline suprapubic incision), Other ( multiple sq lipomas) ...Auscultate: Yes: Normoactive Bowel Sounds, Hyperactive Bowel Sounds ...Palpate: Yes: Soft, Other (nontender) ...Percussion: Yes: Tympanitic ...Rectal Exam: Yes: Deferred (for colonoscopy tomorrow) Musculoskeletal: Yes: Back Pain Edema: No Peripheral Pulses WNL: Yes Neurological: Yes: Alert, Confusion Labs: CBC, BMP 03/06/19 10:46 03/06/19 10:46 INR, PTT INR 1.34 (0.83-1.09) H 03/06/19 10:46 Laboratory Tests 06/06/13 02/15/19 02/15/19 08:30 15:10 15:10 Hgb Prostate Specific Ag < 0.10 Tumor Marker AFP Carcinoembryonic Ag CA 19-9 Antigen CSF Total Protein Babesia microti IgG Ab <1:10 Lyme IgG Ab Interpret CMV IgG Ab Dengue Fever IgG Ab Ehrlichia IgG Antibody West Nile Virus IgG Ab Negative Hantavirus IgG Ab Hantavirus IgM Ab Hep A IgM Ab Confirm Hepatitis A Ab Total Hep Bs Antigen Hep Bs Antibody Hep B Core Total Ab Hep B Core IgM Ab Hepatitis Be Antibody Hepatitis Be Antigen Hep C Ab Diagnostic HIV 1&2 Antibody Screen HIV P24 Antigen Leptospira IgM Antibody 02/16/19 02/16/19 02/19/19 05:45 05:45 00:50 Hgb 15.4 Prostate Specific Ag Tumor Marker AFP Carcinoembryonic Ag CA 19-9 Antigen CSF Total Protein Babesia microti IgG Ab Lyme IgG Ab Interpret CMV IgG Ab Dengue Fever IgG Ab Ehrlichia IgG Antibody Negative West Nile Virus IgG Ab Hantavirus IgG Ab Hantavirus IgM Ab Hep A IgM Ab Confirm Negative Hepatitis A Ab Total Negative Hep Bs Antigen Negative Hep Bs Antibody Non reactive Hep B Core Total Ab Negative Hep B Core IgM Ab Negative Hepatitis Be Antibody Negative Hepatitis Be Antigen Negative Hep C Ab Diagnostic 0.2 HIV 1&2 Antibody Screen HIV P24 Antigen Leptospira IgM Antibody 02/22/19 02/22/19 02/24/19 06:00 06:00 14:53 Hgb Prostate Specific Ag Tumor Marker AFP 1.9 Carcinoembryonic Ag CA 19-9 Antigen CSF Total Protein 92 H Babesia microti IgG Ab Lyme IgG Ab Interpret CMV IgG Ab < 0.60 Dengue Fever IgG Ab Ehrlichia IgG Antibody West Nile Virus IgG Ab Hantavirus IgG Ab Hantavirus IgM Ab Hep A IgM Ab Confirm Hepatitis A Ab Total Hep Bs Antigen Hep Bs Antibody Hep B Core Total Ab Hep B Core IgM Ab Hepatitis Be Antibody Hepatitis Be Antigen Hep C Ab Diagnostic HIV 1&2 Antibody Screen HIV P24 Antigen Leptospira IgM Antibody Pending 02/25/19 02/25/19 02/25/19 06:55 11:30 21:00 Hgb Prostate Specific Ag Tumor Marker AFP Carcinoembryonic Ag CA 19-9 Antigen 34 CSF Total Protein Babesia microti IgG Ab Lyme IgG Ab Interpret Negative CMV IgG Ab Dengue Fever IgG Ab Ehrlichia IgG Antibody West Nile Virus IgG Ab Hantavirus IgG Ab Hantavirus IgM Ab Hep A IgM Ab Confirm Hepatitis A Ab Total Hep Bs Antigen Hep Bs Antibody Hep B Core Total Ab Hep B Core IgM Ab Hepatitis Be Antibody Hepatitis Be Antigen Hep C Ab Diagnostic HIV 1&2 Antibody Screen HIV P24 Antigen Leptospira IgM Antibody 02/26/19 02/26/19 02/27/19 06:05 06:05 06:07 Hgb Prostate Specific Ag Tumor Marker AFP Carcinoembryonic Ag 1.8 CA 19-9 Antigen CSF Total Protein Babesia microti IgG Ab Lyme IgG Ab Interpret CMV IgG Ab Dengue Fever IgG Ab Ehrlichia IgG Antibody West Nile Virus IgG Ab Hantavirus IgG Ab Negative Hantavirus IgM Ab Negative Hep A IgM Ab Confirm Hepatitis A Ab Total Hep Bs Antigen Hep Bs Antibody Hep B Core Total Ab Hep B Core IgM Ab Hepatitis Be Antibody Hepatitis Be Antigen Hep C Ab Diagnostic HIV 1&2 Antibody Screen Negative HIV P24 Antigen Negative Leptospira IgM Antibody 02/27/19 03/06/19 06:07 10:46 Hgb 10.4 L Prostate Specific Ag Tumor Marker AFP Carcinoembryonic Ag CA 19-9 Antigen CSF Total Protein Babesia microti IgG Ab Lyme IgG Ab Interpret CMV IgG Ab Dengue Fever IgG Ab <1.00 Ehrlichia IgG Antibody West Nile Virus IgG Ab Hantavirus IgG Ab Hantavirus IgM Ab Hep A IgM Ab Confirm Hepatitis A Ab Total Hep Bs Antigen Hep Bs Antibody Hep B Core Total Ab Hep B Core IgM Ab Hepatitis Be Antibody Hepatitis Be Antigen Hep C Ab Diagnostic HIV 1&2 Antibody Screen HIV P24 Antigen Leptospira IgM Antibody Imaging - Results Cat Scan: Report Reviewed ( Final Report CT ABDOMEN & PELVIS CT WITH CONTR Show Printer-Friendly Version Patient Name: Osiris Barnes : ID: [id number] Study Date: 06-Mar-2019 13:25 [facility] Name: OSIRIS BARNES DEPARTMENT OF RADIOLOGY Phys: Kaitlynn Coelho RESIDENT : 1935 Age: 83 Sex: M [facility] Acct: [id number] Loc: [address] Exam Date: 03/06/19 Status: [place] [address] Unit Number: [id number] EXAM#: TYPE/EXAM: RESULT: [id number] CT/ABDOMEN PELVIS CT WITH CONTR HISTORY PROVIDED: Rule out obstruction. Sequential axial images were obtained from the domes of the diaphragms through the symphysis pubis following the administration of both oral and intravenous contrast material. Evaluation of the lung bases demonstrates pleural based calcifications and increased interstitial markings consistent with chronic lung disease and possibly asbestosis. No acute infiltrates or pleural effusions are present. The heart is moderately enlarged. The liver, spleen, pancreas, adrenal glands and kidneys demonstrate no significant abnormalities. Small gallstones are identified within the gallbladder. There is no evidence of intra-abdominal or retroperitoneal lymphadenopathy or fluid collections. There is no evidence of pneumoperitoneum, bowel obstruction or intra-abdominal abscess. There is no CT evidence of acute appendicitis or diverticulitis. Since a prior study of 02/22/2019, a right rectus sheath hematoma has decreased in size. No acute bleed has developed. Examination of the pelvis demonstrates no evidence of pelvic masses, fluid collections or lymphadenopathy. There is a moderate amount of retained fecal material throughout the colon. The patient is S/P prostatectomy with multiple surgical clips located within the pelvis. There is no evidence of acute bony abnormalities. IMPRESSION: No evidence of bowel obstruction or acute pathology within the abdomen or pelvis. Please see above discussion. Reported By: Casey Reynolds MD [id number] Kaitlynn Coelho Technologist: Drake Godinez Transcribed Date/ Time: 03/06/19 [address] Sorter: Casey Reynolds Printed Date/Time: By: Signed by: Casey Reynolds Signed on: 06-Mar-2019 14:24) Problem List - Problems (1) Abdominal pain Code(s): R10.9 - UNSPECIFIED ABDOMINAL PAIN (2) Weight loss Code(s): R63.4 - ABNORMAL WEIGHT LOSS (3) Constipation Code(s): K59.00 - CONSTIPATION, UNSPECIFIED Qualifiers: Constipation type: unspecified constipation type Qualified Code(s): K59.00 - Constipation, unspecified (4) Abnormal liver enzymes Code(s): R74.8 - ABNORMAL LEVELS OF OTHER SERUM ENZYMES (5) Afib Code(s): I48.91 - UNSPECIFIED ATRIAL FIBRILLATION (6) Altered mental status Code(s): R41.82 - ALTERED MENTAL STATUS, UNSPECIFIED (7) Colon adenoma Code(s): D12.6 - BENIGN NEOPLASM OF COLON, UNSPECIFIED (8) Diverticulosis Code(s): K57.90 - DVRTCLOS OF INTEST, PART UNSP, W/O PERF OR ABSCESS W/O BLEED (9) Family history of gastric cancer Code(s): Z80.0 - FAMILY HISTORY OF MALIGNANT NEOPLASM OF DIGESTIVE ORGANS (10) Fever of unknown origin Code(s): R50.9 - FEVER, UNSPECIFIED (11) Gallstone Code(s): K80.20 - CALCULUS OF GALLBLADDER W/O CHOLECYSTITIS W/O OBSTRUCTION (12) HTN (hypertension) Code(s): I10 - ESSENTIAL (PRIMARY) HYPERTENSION (13) History of prostate cancer Code(s): Z85.46 - PERSONAL HISTORY OF MALIGNANT NEOPLASM OF PROSTATE (14) Lymphadenopathy Code(s): R59.1 - GENERALIZED ENLARGED LYMPH NODES (15) Mediastinal lymphadenopathy Code(s): R59.0 - LOCALIZED ENLARGED LYMPH NODES (16) S/P aortic valve replacement Code(s): Z95.2 - PRESENCE OF PROSTHETIC HEART VALVE (17) Toxic metabolic encephalopathy Code(s): G92 - TOXIC ENCEPHALOPATHY Assessment/Plan Assessment: - Given his refractory constipation, dwindling Hb, weight loss, FH of gastirc cancer, personal h/o adenoma and FUO an underlying GI tract malignancy needs to be excluded. - Abnormal LFTs are felt to be reactive to whatever infectious agent he had. If they rise a Hida scan and MRCP may need to be repeated given his gallstone - Diverticulosis Plan: - Bowel prep is in progress for an EGD and colonoscopy tomorrow. Given his present mild confusion consent will be obtained when his is present tomorrow. - Follow LFTs - Exclude hemolysis
[2019-03-06] MEDS: PIPERACILLIN/TAZOB 2.25 GM 2.25 GM in DEXTROSE 5%-WATER - 50 ML IVPB SCH (23:12)
[2019-03-06] MEDS: PANTOPRAZOLE SODIUM 40 MG VIAL IVPUSH SCH (23:21)
[2019-03-07 02:30] VITALS: BMI 29.0
[2019-03-07] MEDS ORDERED: PIPERACILLIN/TAZOBACTAM 2.25 GM VIAL IVPB ONE ×3 (03:07→17:31)
[2019-03-07] MEDS ORDERED: DEXTROSE 5%-WATER - 50 ML IVPB ONE ×3 (03:07→17:32)
[2019-03-07] MEDS: PIPERACILLIN/TAZOB 2.25 GM 2.25 GM in DEXTROSE 5%-WATER - 50 ML IVPB SCH ×4 (03:15→17:37)
[2019-03-07] MEDS ORDERED: FUROSEMIDE 40 MG TABLET (FP) PO SCH (06:00)
[2019-03-07] MEDS ORDERED: BISACODYL 5 MG TABLET.DR (FP) PO ONE (08:04)
[2019-03-07 09:22] LABS: INR 1.03 (0.83-1.09); PROTHROMBIN TIME (PATIENT) 12.1 SEC (9.7-13.0)
[2019-03-07] MEDS: PANTOPRAZOLE SODIUM 40 MG VIAL IVPUSH SCH (09:58)
[2019-03-07] MEDS ORDERED: CYANOCOBALAMIN 1,000 MCG TABLET (FP) PO SCH (10:00)
[2019-03-07] MEDS ORDERED: amLODIPine BESYLATE 5 MG TABLET (FP) PO SCH (10:00)
[2019-03-07] MEDS ORDERED: metoPROLOL SUCCINATE 25 MG TAB.SR.24H (FP) PO SCH (10:00)
[2019-03-07] MEDS ORDERED: ROSUVASTATIN CA 5 MG TABLET (FP) PO SCH (10:00)
--- NOTE | 2019-03-07 10:12 | CON.ID ---
Consult Consult Specialty:: infectious diseases Referred by:: Gabriela Reason for Consultation:: abd pain - History of Present Illness Chief Complaint: abd pain,constipation History of Present Illness: 83 year old male with PMH of HTN, HLD, prosthetic aortic valve , diastolic dysfunction, and recent admission at [facility] for persistent fevers of unknown origin (02/13 with transfer to [facility]) who presents with constipation for 1 week. 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 at [facility]) Infectious Disease: Yes: MRSA (perianal abcess), Other (1994 neck staff infection= hospitalized x 1 month) Musculoskeletal: Yes: Osteoarthritis, Other (cervical radiculopathy) Rheumatology: Yes: Gout - Past Surgical History Past Surgical History: Yes: Colonoscopy, Hernia Repair (Umbilical hernia repair 2000 Dr Watson), Laminectomy (C spine disc - Dr Connor Cohen), Prostatectomy ( radical prostatectomy at [facility] 08/22), Upper Endoscopy, Valve Replacement (bioprosthetic AVR (on Eliquis)) Additional Surgical History: left neck lipoma excision 1991. 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 [employer] History of Recent Travel: No Home Medications - Allergies Allergies/Adverse Reactions: Allergies Allergy/AdvReac Type Severity Reaction Status Date / Time No Known Allergies Allergy Verified 03/06/19 09:50 - Home Medications Home Medications: Ambulatory Orders RX: Rosuvastatin Calcium [Crestor] 5 mg PO DAILY #0 tablet 12/26/11 RX: Metoprolol Succinate [Toprol XL -] 25 mg PO DAILY 10/01/13 RX: Cyanocobalamin [Vitamin B12 -] 1,000 mcg PO DAILY 02/14/19 RX: Amlodipine Besylate [Norvasc -] 5 mg PO DAILY #30 tablet 02/22/19 RX: Furosemide [Lasix -] 40 mg PO BID@0600,1400 #60 tablet 02/24/19 RX: Polyethylene Glycol 3350 [Miralax 119 gm Btl -] 17 gm PO DAILY #1 bottle 03/04 Apixaban [Eliquis] 2.5 mg PO DAILY 03/06/19 RX: Olmesartan Medoxomil 20 mg PO DAILY 03/06/19 Review of Systems - Review of Systems Constitutional: reports: No Symptoms Eyes: reports: No Symptoms HENT: reports: No Symptoms Neck: reports: No Symptoms Cardiovascular: reports: No Symptoms Respiratory: reports: No Symptoms Gastrointestinal: reports: Abdominal Pain, Constipation Genitourinary: reports: No Symptoms Musculoskeletal: reports: No Symptoms Integumentary: reports: No Symptoms Neurological: reports: No Symptoms Endocrine: reports: No Symptoms Hematology/Lymphatic: reports: No Symptoms Psychiatric: reports: No Symptoms Physical Exam Vital Signs: Vital Signs Temperature 98.2 F 03/07/19 05:00 Pulse Rate 70 03/07/19 05:00 Respiratory Rate 18 03/07/19 05:00 Blood Pressure 152/93 03/07/19 05:00 O2 Sat by Pulse Oximetry (%) 97 03/07/19 05:00 Constitutional: Yes: Well Nourished, No Distress, Calm Cardiovascular: Yes: Pulse Irregular Respiratory: Yes: Regular, CTA Bilaterally Gastrointestinal: Yes: Normal Bowel Sounds, Soft Musculoskeletal: Yes: WNL Extremities: Yes: WNL Neurological: Yes: Alert, Oriented Psychiatric: Yes: Alert, Oriented Labs: CBC, BMP 03/06/19 10:46 03/06/19 10:46 Imaging - Results Cat Scan: Report Reviewed, Image Reviewed
--- NOTE | 2019-03-07 12:58 | EKG ---
Test Reason : Blood Pressure : / mmHG Vent. Rate : 058 BPM Atrial Rate : 076 BPM P-R Int : 000 ms QRS Dur : 102 ms QT Int : 470 ms P-R-T Axes : 000 039 008 degrees QTc Int : 461 ms ATRIAL FIBRILLATION WITH SLOW VENTRICULAR RESPONSE WITH PREMATURE VENTRICULAR OR ABERRANTLY CONDUCTED COMPLEXES ABNORMAL ECG Confirmed by TRICIA THOMPSON MD ([id number]) on 03/07/2019 12:58:28 PM Referred By: YANELIS JULES Confirmed By:TRICIA THOMPSON MD
--- NOTE | 2019-03-07 13:22 | EKG ---
Test Reason : Blood Pressure : / mmHG Vent. Rate : 049 BPM Atrial Rate : 049 BPM P-R Int : 000 ms QRS Dur : 096 ms QT Int : 486 ms P-R-T Axes : 000 014 009 degrees QTc Int : 439 ms ATRIAL FIBRILLATION WITH SLOW VENTRICULAR RESPONSE WITH VENTRICULAR ESCAPE COMPLEXES NONSPECIFIC ST ABNORMALITY ABNORMAL ECG Confirmed by TRICIA THOMPSON MD ([id number]) on 03/07/2019 1:22:04 PM Referred By: Confirmed By:TRICIA THOMPSON MD
--- NOTE | 2019-03-07 14:32 | PN ---
Progress Note (short form) - Note Progress Note: GI Procedures NOte: Please see EGD and colonoscopy reports. No malignancies found. GERD above a hiatal henria, cecal and transverse colon polyps were found. Biopsies were taken and the polyps were removed. Family has been told to avoid Eliquis for 10 days and to give Pantoprazole 40mg qhs. No objections to discharge tonight. Problem List - Problems (1) Abdominal pain Code(s): R10.9 - UNSPECIFIED ABDOMINAL PAIN (2) Weight loss Code(s): R63.4 - ABNORMAL WEIGHT LOSS (3) Constipation Code(s): K59.00 - CONSTIPATION, UNSPECIFIED Qualifiers: Constipation type: unspecified constipation type Qualified Code(s): K59.00 - Constipation, unspecified (4) Abnormal liver enzymes Code(s): R74.8 - ABNORMAL LEVELS OF OTHER SERUM ENZYMES (5) Afib Code(s): I48.91 - UNSPECIFIED ATRIAL FIBRILLATION (6) Altered mental status Code(s): R41.82 - ALTERED MENTAL STATUS, UNSPECIFIED (7) Colon adenoma Code(s): D12.6 - BENIGN NEOPLASM OF COLON, UNSPECIFIED (8) Diverticulosis Code(s): K57.90 - DVRTCLOS OF INTEST, PART UNSP, W/O PERF OR ABSCESS W/O BLEED (9) Family history of gastric cancer Code(s): Z80.0 - FAMILY HISTORY OF MALIGNANT NEOPLASM OF DIGESTIVE ORGANS (10) Fever of unknown origin Code(s): R50.9 - FEVER, UNSPECIFIED (11) Gallstone Code(s): K80.20 - CALCULUS OF GALLBLADDER W/O CHOLECYSTITIS W/O OBSTRUCTION (12) HTN (hypertension) Code(s): I10 - ESSENTIAL (PRIMARY) HYPERTENSION (13) History of prostate cancer Code(s): Z85.46 - PERSONAL HISTORY OF MALIGNANT NEOPLASM OF PROSTATE (14) Lymphadenopathy Code(s): R59.1 - GENERALIZED ENLARGED LYMPH NODES (15) Mediastinal lymphadenopathy Code(s): R59.0 - LOCALIZED ENLARGED LYMPH NODES (16) S/P aortic valve replacement Code(s): Z95.2 - PRESENCE OF PROSTHETIC HEART VALVE (17) Toxic metabolic encephalopathy Code(s): G92 - TOXIC ENCEPHALOPATHY
--- NOTE | 2019-03-07 18:04 | DS ---
Physical Exam: SUBJECTIVE: Patient seen and examined at the bedside. s/p colonoscopy/EGD and tolerated dinner. Patient and sons aware to follow up with medical records supervisor and communication lecturer as an outpatient. OBJECTIVE: Patient is an 83 year old male with a significant past medical history of hypertension, hyperlipidemia, prosthetic aortic valve replacement (bovine). prox. afib (on eliquis), left ventricular diastolic dysfunction, and recent admission at [facility] for persistent fevers (02/13 with transfer to [facility] for further workup). Patient discharged to [facility], was there for 2 days and was discharged home with PCP follow up and outpatient monitoring. He presents to the ED today for one week of constipation, abdominal distention and pain. Patients son notes since his discharge he has not passed a bowel movement and was started on dulcolax, then miralax without relief. Patient reports "leaking" liquid stool, but no BM for [address] Maier who advised patient to go to the ED for EGD and colonscopy and further GI workup , including CT imaging. Patient denies any fevers, chills, headache or dizziness. He denies any recent nausea or vomit. He denies any recent chest pain or shortness of breath. He denies any recent dysuria, frequency, urgency or hematuria. Patient had both an EGD and colonoscopy today and will be discharged home after procedure. He tolerated dinner/regular diet without difficulty. He has been informed by GI to stop Eliquis for 10 days total post procedure. Patient to call his medical records supervisor next week for follow up. Vital Signs Period Temp Pulse Resp BP Sys/Bacon Pulse Ox Last 24 Hr 97.1 F-98.4 F 48-70 13-18 98-162/49-93 94-100 PHYSICAL EXAM GENERAL: The patient is awake, alert, forgetful at times HEAD: Normal with no signs of trauma. EYES: PERRL, extraocular movements intact, sclera anicteric, conjunctiva clear. No ptosis. ENT: Ears normal, nares patent, oropharynx clear without exudates, moist mucous membranes. NECK: Trachea midline, full range of motion, supple. LUNGS: Breath sounds equal, clear to auscultation bilaterally, no wheezes HEART: Regular rate and rhythm @ 64 ABDOMEN: Soft, nontender, mildly distended, normoactive bowel sounds, no guarding. EXTREMITIES: 2+ pulses, warm, well-perfused, no edema. NEUROLOGICAL: Normal speech, gait not observed. PSYCH: Normal mood, normal affect. SKIN: very mild raised pink diffused rash on upper back, improving from previous admission LABS Laboratory Results - last 24 hr 03/07/19 03/07/19 03/07/19 07:45 07:45 07:45 Retic Count 1.74 H PT with INR 12.10 INR 1.03 LD Total 193 C-Reactive Protein 1.2 H Total Amylase 108 Lipase 361 HOSPITAL COURSE: Date of Admission:03/06/19 Date of Discharge: 03/07/19 Minutes to complete discharge: 45 Discharge Summary Problems reviewed: Yes Reason For Visit: WEAKNESS Current Active Problems Abdominal pain (Acute) Constipation (Acute) Weight loss (Acute) Condition: Improved - Instructions Diet, Activity, Other Instructions: Mr Barnes: You will be discharged home today. As advised by Dr. Maier, avoid Eliquis for 10 days and take Pantoprazole 40mg at bedtime. After 10 days resume Eliquis 5mg TWICE per day. You had a colonoscopy and an EGD and biopsies were taken. Please call Dr. Maier for results of the biopsy. Thank you for allowing us to care for you. Follow up with Dr Viramontes at the beginning of this week Referrals: Franchesca Maier MD [Staff Physician] - Disposition: HOME - Home Medications Comprehensive Discharge Medication List: Ambulatory Orders Rosuvastatin Calcium [Crestor] 5 mg PO DAILY #0 tablet 12/26/11 Metoprolol Succinate [Toprol XL -] 25 mg PO DAILY 10/01/13 Cyanocobalamin [Vitamin B12 -] 1,000 mcg PO DAILY 02/14/19 Amlodipine Besylate [Norvasc -] 5 mg PO DAILY #30 tablet 02/22/19 Furosemide [Lasix -] 40 mg PO BID@0600,1400 #60 tablet 02/24/19 Polyethylene Glycol 3350 [Miralax 119 gm Btl -] 17 gm PO DAILY #1 bottle Olmesartan Medoxomil 20 mg PO DAILY 03/06/19 Amlodipine Besylate [Norvasc -] 5 mg PO DAILY tablet 03/07/19 Metoprolol Succinate [Toprol XL -] 25 mg PO DAILY tab.sr.24h 03/07/19 Pantoprazole Sodium [Protonix] 40 mg PO DAILY #90 tablet. 03/07/19 Problem List - Problems (1) Constipation Assessment/Plan: moderate amount of stool seen on imaging without obstruction. s/p colonoscopy/ EGD. tolerated regular diet after. GI follow up as an outpatient. Code(s): K59.00 - CONSTIPATION, UNSPECIFIED Qualifiers: Constipation type: unspecified constipation type Qualified Code(s): K59.00 - Constipation, unspecified (2) Abdominal pain Assessment/Plan: abdominal pain resolved. Code(s): R10.9 - UNSPECIFIED ABDOMINAL PAIN (3) Weight loss Code(s): R63.4 - ABNORMAL WEIGHT LOSS (4) Prophylactic measure Code(s): Z29.9 - ENCOUNTER FOR PROPHYLACTIC MEASURES, UNSPECIFIED (5) Weakness Assessment/Plan: ambulated with PT, gait steady w/o assisting devices. has PT set up at home. Code(s): R53.1 - WEAKNESS This patient is new to me today: No Emergency Visit: Yes ED Registration Date: 03/06/19 Care time: The patient presented to the Emergency Department on the above date and was hospitalized for further evaluation of their emergent condition. Critical Care patient: No - Discharge Referral Referred to [facility] Med [facility] No
--- NOTE | 2019-03-07 18:35 | PN ---
Progress Note (short form) - Note Progress Note: Came to see the patient, events noted, had fecal impaction and underwent a colonoscopy and polypectomy. He is discharged. Both patient and were told to call the office on sunday for an early apointment, in the interim if he needs me he can contact me directly.
[2019-03-07 19:07] VITALS: BP 150/66; PULSE 69; TEMP 97.7
--- NOTE | 2019-03-11 17:30 | PATH ---
Surgical Pathology Report Patient Name: [facility]. Rec. #: [id number] /Age/Gender: 1935 (Age: 83) / M Account: [id number] Location: [facility] MED/SURG Taken: 03/07/2019 Received: 03/10/2019 Reported: 03/11/2019 Physicians: Kristal Wiseman MD Specimen(s) Received A: DUODENUM, SECOND PORTION AND BULB B: ANTRUM C: GE JUNCTION D: CECUM POLYP E: DISTAL TRANSVERSE POLYP Clinical History Constipation, abdominal pain Postoperative diagnosis: GERD, hiatal hernia, colon polyp, diverticulosis Final Diagnosis A. DUODENUM, SECOND PORTION AND BULB, BIOPSY: DUODENAL MUCOSA WITHOUT SIGNIFICANT PATHOLOGIC FINDINGS. B. 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 IMMUNOHISTOCHEMICAL STAIN FOR H. PYLORI IS NEGATIVE. C. GE JUNCTION, BIOPSY: SQUAMOCOLUMNAR MUCOSA WITH MINIMAL CHRONIC INFLAMMATION AND CHANGES OF MILD REFLUX ESOPHAGITIS. NO INTESTINAL METAPLASIA OR DYSPLASIA IDENTIFIED. D. CECUM, POLYP, POLYPECTOMY: TUBULAR ADENOMA. E. DISTAL TRANSVERSE COLON, POLYP, POLYPECTOMY: TUBULAR ADENOMA. Electronically Signed Joana De León M.D. Gross Description A. Received in formalin, labeled "biopsy duodenum second portion and bulb" are 2 hoang, irregular portions of soft tissue averaging 0.3 cm. in greatest dimension. The specimens are submitted in toto in one cassette. B. Received in formalin, labeled "biopsy antrum" are 2 hoang, irregular portions of soft tissue averaging 0.2 cm. in greatest dimension. The specimens are submitted in toto in one cassette. C. Received in formalin, labeled "biopsy GE junction" is a hoang, irregular portion of soft tissue measuring 0.4 cm. in greatest dimension. The specimen is submitted in toto in one cassette. D. Received in formalin, labeled "polyp cecum" are 4 hoang, irregular portions of soft tissue ranging from 0.3-0.4 cm. in greatest dimension. The specimens are submitted in toto in one cassette. E. Received in formalin, labeled "polyp distal transverse" is a hoang, irregular portion of soft tissue measuring 0.4 cm. in greatest dimension. The specimen is submitted in toto in one cassette. DL/03/10/201903/10/2019
== END 2019-03-07 19:15 | disposition home or self-care (01) ==
LOC: JER 09:45 → JERBED 15:00 → J8W 21:34
PROVIDERS: ATTEND Nurse Practitioner Family
PROC: 0DB98ZX Excision of Duodenum, Via Natural or Artificial Opening Endoscopic, Diagnostic (ICD-10-PCS; principal; 2019-03-06)
PROC: 0DB68ZX Excision of Stomach, Via Natural or Artificial Opening Endoscopic, Diagnostic (ICD-10-PCS; 2019-03-06)
PROC: 0DB58ZX Excision of Esophagus, Via Natural or Artificial Opening Endoscopic, Diagnostic (ICD-10-PCS; 2019-03-06)
PROC: 0DBH8ZX Excision of Cecum, Via Natural or Artificial Opening Endoscopic, Diagnostic (ICD-10-PCS; 2019-03-06)
PROC: 0DBL8ZX Excision of Transverse Colon, Via Natural or Artificial Opening Endoscopic, Diagnostic (ICD-10-PCS; 2019-03-06)
DX: K59.00 Constipation, unspecified (principal); R10.9 Unspecified abdominal pain; R53.1 Weakness; R63.4 Abnormal weight loss; Z68.29 Body mass index [BMI] 29.0-29.9, adult; K21.0 Gastro-esophageal reflux disease with esophagitis; K57.30 Diverticulosis of large intestine without perforation or abscess without bleeding; K29.50 Unspecified chronic gastritis without bleeding; K44.9 Diaphragmatic hernia without obstruction or gangrene; D12.3 Benign neoplasm of transverse colon; D12.0 Benign neoplasm of cecum; I25.10 Atherosclerotic heart disease of native coronary artery without angina pectoris; I11.0 Hypertensive heart disease with heart failure; I50.9 Heart failure, unspecified; I48.0 Paroxysmal atrial fibrillation; Z79.01 Long term (current) use of anticoagulants; Z95.2 Presence of prosthetic heart valve; D64.9 Anemia, unspecified; R74.8 Abnormal levels of other serum enzymes; K80.20 Calculus of gallbladder without cholecystitis without obstruction; G92 Toxic encephalopathy; M19.90 Unspecified osteoarthritis, unspecified site; M10.9 Gout, unspecified; M54.12 Radiculopathy, cervical region; Z85.46 Personal history of malignant neoplasm of prostate; Z90.79 Acquired absence of other genital organ(s); Z97.4 Presence of external hearing-aid; Z80.0 Family history of malignant neoplasm of digestive organs
CPT/HCPCS: 36415; 74177-TC; 80053; 82150; 83615; 83690; 85025; 85044; 85610; 86140; 88305-TC; 88342-TC; 93005; 93010; 97116-GP; 97161-GP; 99285-25; G0378; Q9967

== ENCOUNTER 2024-02-04 12:10 | Observation (INO) | payer OTHER, BC ==
[2024-02-04 12:25] VITALS: BMI 29.5
[2024-02-04 13:12] LABS: HEMATOCRIT 51.3 % (35.4-49); HEMOGLOBIN 16.9 G/dL (11.7-16.9); MCH 30.5 pg (25.7-33.7); MCHC 32.9 g/dl (32.0-35.9); MEAN CELL VOLUME 92.9 fl (80-96); MEAN PLT VOLUME 8.1 fl (7.5-11.1); PLATELET COUNT 216.5 10^3/uL (134-434); RBC 5.52 10^6/uL (4.00-5.60); RDW 14.3 % (11.9-15.9); WHITE BLOOD COUNT 7.2 10^3/uL (4.0-10.8)
[2024-02-04 13:39] LABS: BILIRUBIN,TOTAL 1.3 mg/dl (0.2-1); CALCIUM 9.8 mg/dl (8.5-10.1); CREATININE 1.7 mg/dl (0.6-1.3); TOT PROT 6.9 g/dl (6.4-8.2)
[2024-02-04 14:35] LABS: N-TERMINAL BNP 3407.3 pg/ml (5-450)
[2024-02-04 15:40] LABS: EPITHELIAL CELLS 0-5 /hpf
[2024-02-04] MEDS ORDERED: cefTRIAXone SODIUM 1 GM VIAL ONE (15:49)
[2024-02-04] MEDS: CEFTRIAXONE 1,000 MG in DEXTROSE 5%-WATER - 50 ML IVPB ONE (16:05)
[2024-02-04] MEDS ORDERED: APIXABAN 5 MG TABLET PO SCH (22:00)
[2024-02-04] MEDS: ROSUVASTATIN CA 20 MG TABLET PO SCH (22:08)
[2024-02-04] MEDS: APIXABAN 2.5 MG TABLET PO SCH (22:10)
[2024-02-05 09:08] LABS: CALCIUM 9.7 mg/dl (8.5-10.1); CREATININE 1.6 mg/dl (0.6-1.3); POTASSIUM 3.5 mmol/L (3.5-5.1)
[2024-02-05] MEDS: FUROSEMIDE 40 MG TABLET (FP) PO SCH (09:43)
[2024-02-05] MEDS: GABAPENTIN 100 MG CAPSULE PO SCH (09:43)
[2024-02-05] MEDS: CEFTRIAXONE 1 GM in DEXTROSE 5%-WATER - 50 ML IVPB SCH (09:43)
[2024-02-05] MEDS: amLODIPine BESYLATE 5 MG TABLET (FP) PO SCH (09:43)
[2024-02-05 10:22] LABS: BASO % 0.8 % (0-2.0); HEMATOCRIT 47.8 % (35.4-49); HEMOGLOBIN 16.2 GM/dL (11.7-16.9); LYMPH % 20.8 % (8-40); MCH 30.1 pg (25.7-33.7); MCHC 33.8 g/dl (32.0-35.9); MEAN CELL VOLUME 88.9 fl (80-96); MEAN PLT VOLUME 7.7 fl (7.5-11.1); MONO % 11.3 % (3.8-10.2); NEUT % 62.1 % (42.8-82.8); PLATELET COUNT 214 10^3/uL (134-434); RBC 5.38 M/mm3 (4.00-5.60); RDW 13.8 % (11.9-15.9)
[2024-02-05] MEDS: ALBUTEROL SO4 2.5/IPRATROPIUM 0.5 INH SOL 3 ML VIAL.NEB. NEB SCH (12:20)
[2024-02-06 08:53] LABS: ALBUMIN 3.9 g/dl (3.4-5.0); BILIRUBIN,TOTAL 1.1 mg/dl (0.2-1); CALCIUM 10.1 mg/dl (8.5-10.1); CREATININE 1.7 mg/dl (0.6-1.3); POTASSIUM 3.9 mmol/L (3.5-5.1); TOT PROT 6.6 g/dl (6.4-8.2)
[2024-02-06 09:06] LABS: BASO % 0.6 % (0-2.0); EOS % 4.2 % (0-4.5); HEMATOCRIT 47.6 % (35.4-49); HEMOGLOBIN 15.9 GM/dL (11.7-16.9); LYMPH % 19.2 % (8-40); MCH 29.8 pg (25.7-33.7); MCHC 33.5 g/dl (32.0-35.9); MEAN PLT VOLUME 7.7 fl (7.5-11.1); MONO % 11.5 % (3.8-10.2); NEUT % 64.5 % (42.8-82.8); PLATELET COUNT 210 10^3/uL (134-434); RBC 5.34 M/mm3 (4.00-5.60); RDW 14.1 % (11.9-15.9); WHITE BLOOD COUNT 7.2 K/mm3 (4.0-10.0)
[2024-02-06] MEDS: CEFTRIAXONE 1 G/50 ML PREMIX 50 ML IVPB SCH (09:16)
[2024-02-06 21:11] VITALS: RESP 18
[2024-02-07 09:57] VITALS: BP 157/82; PULSE 60; TEMP 97.5
== END 2024-02-07 13:29 | disposition home or self-care (01) ==
LOC: FER 12:10 → FM/S 16:09
PROVIDERS: ADMIT Internal Medicine
PROC: 3E0F7GC Introduction of Other Therapeutic Substance into Respiratory Tract, Via Natural or Artificial Opening (ICD-10-PCS; principal; 2024-02-04)
PROC: 3E03329 Introduction of Other Anti-infective into Peripheral Vein, Percutaneous Approach (ICD-10-PCS; 2024-02-04)
DX: N39.0 Urinary tract infection, site not specified (principal); I10 Essential (primary) hypertension; E78.5 Hyperlipidemia, unspecified; M19.90 Unspecified osteoarthritis, unspecified site; I48.91 Unspecified atrial fibrillation; Z90.79 Acquired absence of other genital organ(s); R53.1 Weakness; I35.0 Nonrheumatic aortic (valve) stenosis; Z95.2 Presence of prosthetic heart valve; Z86.73 Personal history of transient ischemic attack (TIA), and cerebral infarction without residual deficits; Z79.01 Long term (current) use of anticoagulants; M10.9 Gout, unspecified; Z87.738 Personal history of other specified (corrected) congenital malformations of digestive system; Z86.14 Personal history of Methicillin resistant Staphylococcus aureus infection; Z87.891 Personal history of nicotine dependence; Z85.46 Personal history of malignant neoplasm of prostate
CPT/HCPCS: 0241U-QW; 36415; 70450-TC; 71045-TC-FY; 71250-TC; 80048; 80053; 80061; 81003; 81015; 83880; 84484; 85025; 87086; 87186; 93005; 93306-TC; 94640; 96365; 96366; 99285-25; G0378